=== PATIENT | male | born 1960 | race Caucasian/White ===

== ENCOUNTER 2022-02-13 10:57 | Outpatient (REF) | payer MEDICARE, SELFPAY ==
[2022-02-13 11:23] LABS: MANUAL DIFF FLAG NO
[2022-02-13 12:06] LABS: Basophils Absolute Auto 0.1 X10*3/uL (0.0-0.2); Basophils Percent Auto 1.3 % (0-2); Eosinophils Absolute Auto 0.5 X10*3/uL (0.0-0.4); Eosinophils Percent Auto 5.5 % (0-4); Hematocrit 42.8 % (42.0-52.0); Hemoglobin 14.4 g/dl (14.0-18.0); Imm Gran Abs Auto 0.03 X10*3/uL (0.00-0.03); Imm Gran Pct Auto 0.3 % (0.0-0.4); Lymphocytes Absolute Auto 2.5 X10*3/uL (1.2-4.9); Lymphocytes Percent Auto 29.1 % (20-40); Mean Corpuscular HGB Conc 33.6 g/dl (31.0-36.0); Mean Corpuscular Hemoglobin 29.4 pg (27.0-33.0); Mean Corpuscular Volume 87.5 fL (80.0-98.0); Mean Platelet Volume 9.8 fL (9.4-12.4); Monocytes Absolute Auto 0.8 X10*3/uL (0.1-1.2); Monocytes Percent Auto 8.8 % (2-11); Neutrophils Absolute Auto 4.7 x10*3/uL (2.0-8.3); Platelet Count 349 X10*3/uL (160-400); Red Blood Count 4.89 X10*6/uL (4.60-5.80); Red Cell Distribution Width 16.1 % (11.0-16.0); White Blood Count 8.6 X10*3/uL (4.8-10.8)
[2022-02-13 12:24] LABS: Alanine Aminotransferase 21 U/L (0-40); Alkaline Phosphatase 75 U/L (39-117); Anion Gap 15 (12-20); Aspartate Amino Transferase 19 U/L (5-37); Bilirubin Total 0.2 mg/dL (0.0-1.0); Blood Urea Nitrogen 19 mg/dL (9-16); Carbon Dioxide 19 mmol/L (22-29); Chloride 108 mmol/L (96-108); Cholesterol 192 mg/dL; Estimated Glomerular Filt Rate > 60; Glucose Fasting 158 mg/dL (60-99); HDL Cholesterol 45 mg/dL; LDL Cholesterol Calculated 110 mg/dl; Magnesium 1.6 mg/dL (1.6-2.6); Potassium 4.8 mmol/L (3.3-5.1); Sodium 137 mmol/L (135-145); Total Protein 6.8 g/dL (6.5-8.0); Triglycerides 189 mg/dL
[2022-02-13 12:39] LABS: Vitamin D 25-OH Total 25.1 ng/mL (>30)
[2022-02-13 12:43] LABS: Estimated Average Glucose 137 mg/dL; Hemoglobin A1c % 6.4 %
[2022-02-13 12:45] LABS: Prostate Specific Antigen Scr 0.11 ng/mL (<0.05-4.0)
[2022-02-13 13:29] LABS: Folate 9.1 ng/mL (> or = 4.0); Vitamin B12 477 pg/mL (200-900)
[2022-02-13 14:01] LABS: Creatinine Urine 104.62 mg/dL; Microalbum/Creatinine Ratio Ur 59.2 ug/mg cr
== END 2022-02-13 10:58 | disposition home or self-care (01) ==
LOC: HO.LAB 10:57
PROVIDERS: Absent Provider Nurse Practitioner Family; PCP Nurse Practitioner Family; Visit Provider Nurse Practitioner Family
DX: Z12.5 Encounter for screening for malignant neoplasm of prostate (principal); E78.5 Hyperlipidemia, unspecified; I10 Essential (primary) hypertension; K59.00 Constipation, unspecified; M35.3 Polymyalgia rheumatica; N40.0 Benign prostatic hyperplasia without lower urinary tract symptoms; E78.00 Pure hypercholesterolemia, unspecified; R25.1 Tremor, unspecified; E11.9 Type 2 diabetes mellitus without complications; E55.9 Vitamin D deficiency, unspecified
CPT/HCPCS: 36415; 80053; 80061; 82043; 82306; 82607; 82746; 83036; 83735; 84153; 84443; 85025

== ENCOUNTER 2022-05-22 08:58 | Outpatient (REF) | payer MEDICARE, MEDICAID, SELFPAY ==
[2022-05-22 09:40] LABS: Hematocrit 45.3 % (42.0-52.0); Hemoglobin 15.3 g/dl (14.0-18.0); Mean Corpuscular HGB Conc 33.8 g/dl (31.0-36.0); Mean Corpuscular Hemoglobin 30.7 pg (27.0-33.0); Mean Corpuscular Volume 90.8 fL (80.0-98.0); Mean Platelet Volume 9.8 fL (9.4-12.4); Platelet Count 307 X10*3/uL (160-400); Red Blood Count 4.99 X10*6/uL (4.60-5.80); Red Cell Distribution Width 13.8 % (11.0-16.0); White Blood Count 11.9 X10*3/uL (4.8-10.8)
[2022-05-22 09:51] LABS: Estimated Average Glucose 148 mg/dL; Hemoglobin A1c % 6.8 %
[2022-05-22 10:20] LABS: Alanine Aminotransferase 26 U/L (0-40); Alkaline Phosphatase 84 U/L (39-117); Anion Gap 15 (12-20); Aspartate Amino Transferase 23 U/L (5-37); Bilirubin Total 0.5 mg/dL (0.0-1.0); Blood Urea Nitrogen 18 mg/dL (9-16); Calcium 9.4 mg/dL (8.4-10.2); Carbon Dioxide 19 mmol/L (22-29); Chloride 109 mmol/L (96-108); Cholesterol 154 mg/dL; Estimated Glomerular Filt Rate > 60; Glucose Random 145 mg/dL (60-115); HDL Cholesterol 35 mg/dL; LDL Cholesterol Calculated 88 mg/dl; Potassium 4.8 mmol/L (3.3-5.1); Sodium 138 mmol/L (135-145); Total Protein 6.7 g/dL (6.5-8.0); Triglycerides 156 mg/dL
[2022-05-22 10:35] LABS: Vitamin D 25-OH Total 28.1 ng/mL (>30)
== END 2022-05-22 08:59 | disposition home or self-care (01) ==
LOC: HO.LAB 08:58
PROVIDERS: PCP Nurse Practitioner Family; Visit Provider Nurse Practitioner Family
DX: E11.9 Type 2 diabetes mellitus without complications (principal); E78.5 Hyperlipidemia, unspecified; R79.89 Other specified abnormal findings of blood chemistry
CPT/HCPCS: 36415; 80053; 80061; 82306; 83036; 85027

== ENCOUNTER 2022-07-11 10:00 | Outpatient (RCR) | payer MEDICARE, MEDICAID, SELFPAY | END 2022-07-16 09:38 | disposition home or self-care (01) | LOC: HO.PTCHIC 10:00 | PROVIDERS: PCP Nurse Practitioner Family; Visit Provider Orthopaedic Surgery | DX: M25.561 Pain in right knee (principal); T84.53XD Infection and inflammatory reaction due to internal right knee prosthesis, subsequent encounter | CPT/HCPCS: 97110; 97112; 97116; 97140; 97162; 97530 ==

== ENCOUNTER 2022-09-09 09:23 | Outpatient (REF) | payer MEDICARE, MEDICAID, SELFPAY ==
--- NOTE | 2022-09-09 09:28 | ECG_ITS ---
Test Reason : preop Blood Pressure : / mmHG Vent. Rate : 073 BPM Atrial Rate : 073 BPM P-R Int : 202 ms QRS Dur : 104 ms QT Int : 380 ms P-R-T Axes : 064 053 033 degrees QTc Int : 418 ms Normal sinus rhythm Normal ECG No previous ECGs available Referred By: Teresa Gauthier Electronically Signed By:LOVE CASANOVA
[2022-09-09 09:42] LABS: MANUAL DIFF FLAG NO
[2022-09-09 10:12] LABS: Basophils Absolute Auto 0.1 X10*3/uL (0.0-0.2); Basophils Percent Auto 1.2 % (0-2); Eosinophils Absolute Auto 0.4 X10*3/uL (0.0-0.4); Eosinophils Percent Auto 4.6 % (0-4); Hemoglobin 15.8 g/dl (14.0-18.0); Imm Gran Abs Auto 0.03 X10*3/uL (0.00-0.03); Imm Gran Pct Auto 0.3 % (0.0-0.4); Lymphocytes Absolute Auto 2.6 X10*3/uL (1.2-4.9); Lymphocytes Percent Auto 28.4 % (20-40); Mean Corpuscular HGB Conc 32.9 g/dl (31.0-36.0); Mean Corpuscular Hemoglobin 30.6 pg (27.0-33.0); Mean Platelet Volume 9.9 fL (9.4-12.4); Monocytes Absolute Auto 0.8 X10*3/uL (0.1-1.2); Monocytes Percent Auto 8.9 % (2-11); Neutrophils Absolute Auto 5.2 x10*3/uL (2.0-8.3); Neutrophils Percent Auto 56.6 % (45-73); Platelet Count 264 X10*3/uL (160-400); Red Blood Count 5.16 X10*6/uL (4.60-5.80); White Blood Count 9.2 X10*3/uL (4.8-10.8)
[2022-09-09 10:16] LABS: INTERNATIONAL NORM RATIO 0.9 (0.9-1.1); Prothrombin Time 10.8 SEC (10.0-13.1)
[2022-09-09 11:46] LABS: Creatinine Urine 158.36 mg/dL
[2022-09-09 12:25] LABS: Alanine Aminotransferase 27 U/L (0-40); Alkaline Phosphatase 81 U/L (39-117); Anion Gap 14 (12-20); Aspartate Amino Transferase 22 U/L (5-37); Bilirubin Total 0.5 mg/dL (0.0-1.0); Blood Urea Nitrogen 24 mg/dL (9-16); Calcium 9.1 mg/dL (8.4-10.2); Carbon Dioxide 18 mmol/L (22-29); Chloride 111 mmol/L (96-108); Cholesterol 172 mg/dL; Estimated Glomerular Filt Rate 60; Glucose Fasting 153 mg/dL (60-99); HDL Cholesterol 42 mg/dL; LDL Cholesterol Calculated 105 mg/dl; Potassium 4.9 mmol/L (3.3-5.1); Sodium 138 mmol/L (135-145); TSH reflex Free T4 0.97 uIU/mL (0.32-4.0); Total Protein 6.6 g/dL (6.5-8.0); Triglycerides 127 mg/dL; Vitamin D 25-OH Total 34.1 ng/mL (>30)
== END 2022-09-09 09:24 | disposition home or self-care (01) ==
LOC: HO.LAB 09:23
PROVIDERS: PCP Nurse Practitioner Family; Visit Provider Nurse Practitioner Family
DX: Z01.812 Encounter for preprocedural laboratory examination (principal); I10 Essential (primary) hypertension; H26.9 Unspecified cataract; E78.5 Hyperlipidemia, unspecified; E11.9 Type 2 diabetes mellitus without complications; E55.9 Vitamin D deficiency, unspecified
CPT/HCPCS: 36415; 80053; 80061; 82043; 82306; 84443; 85025; 85610; 93005

== ENCOUNTER 2022-12-11 11:40 | Outpatient (AMB) | payer MEDICARE, MEDICAID, SELFPAY ==
[2022-12-11 11:41] VITALS: BP 140/68; PULSE 95; O2SAT 94; BMI 38.8
--- NOTE | 2022-12-11 11:41 | MHC.PC.OV ---
Vital Signs 12/11/22 11:41 Height 6 ft Weight 286 lb BMI 38.8 BP 140/68 H Blood Pressure Location Lt brachial Position Sitting Pulse 95 Pulse Source Pulse Oximeter Temp Source Skin Pulse Oximetry (%) 94 Oxygen Delivery Method Room Air Intake Visit Reasons: F/U on DM, HTN, HLD Wraparound Facilitator Required: No Allergies No Known Allergies Allergy (Verified 12/11/22 12:02) Medication List - Last Reconciled 12/11/22 by HELENA Roberson acetaminophen (Tylenol) 650 mg PO Q6H PRN aspirin 81 mg PO BID atorvastatin 80 mg PO BEDTIME blood sugar diagnostic (FreeStyle Lite Strips) As directed blood-glucose meter (FreeStyle Lite Meter kit) As directed cholecalciferol (vitamin D3) 25 mcg PO DAILY doxycycline monohydrate 100 mg PO BID duloxetine 20 mg PO BID lancets (FreeStyle Lancets) As directed lisinopril 2.5 mg PO DAILY meloxicam 15 mg PO DAILY PRN metformin 1,000 mg PO DAILY metoprolol tartrate 25 mg PO BID nicotine 1 patch transdermal DAILY tamsulosin (Flomax) 0.4 mg PO BEDTIME Tobacco use date assessed: 12/11/22 Fall risk assessment: No Falls in past year Last assessed Fall Risk: 12/11/22 Dental Screening Dental Screen Date: 12/11/22 Did you have a dental visit in the last 12 months?: No Did you have a dental problem in the last 6 months where you did not have access to dental care?: No HPI F/U on DM, HTN, HLD HPI Details Patient is a 62-year-old male who presents today for routine follow-up.? Medical history significant for chronic low back pain, chronic pain syndrome, hyperlipidemia, BPH, polymyalgia rheumatica - reports seen rheumatology in the past and receiving injections in his lower back by creative services specialist, constipation, hypertension, and diabetes among others. Patient denies shortness of breath or chest pain.? In regards to right knee pain and MRSA infection patient is followed by Orthopedics and Infectious Disease on yearly basis and currently is on doxycycline. Patient reports that he is compliant with medications and denies side effects. Reports chronic low back pain with intermittent numbness and tingling in his legs, reports back pain is across his lower back, no changes in bowel/bladder, he takes meloxicam with some improvement. ? [facility] Medical History Encounter to establish care Surgical History History of back surgery History of bilateral knee replacement History of cataract surgery History of cholecystectomy History of colonoscopy History of eye surgery History of hemorrhoidectomy History of shoulder surgery History of surgery on lower extremity History of total bilateral knee replacement Social History Housing: House Alcohol intake: never Patient Tobacco Use Status: Current everyday Tobacco user Tobacco use type: Cigarette Cigarette Packs Per Day: 0.5 Cigarettes Per Day: 10 e-Cigarette/Vaping Use: Never Used Second Hand Smoke Exposure: Yes service: No Current occupational status: retired Cognitive needs: Yes (Cane) Hearing needs: No Vision needs: Yes (glasses) Questionnaire Thrive Questionnaire Date Thrive assessed: 05/27/22 AUDIT C Alcohol Use Questionnaire (AUDIT-C) 1. How often do you have a drink containing alcohol?: Never 2. How many drinks containing alcohol do you have on a typical day when you are drinking?: 1 or 2 (0) 3. How often do you have six or more drinks on one occasion?: Never Total Score: 0 Score Reviewed/Action Taken: No ALVERTO-7 AMB Questionnaire ALVERTO-7 Date ALVERTO - 7 assessed: 05/27/22 Source: Developed by Drs. Elias Fajardo, Vanessa De Souza, Ramesh Lechuga and colleagues, with an educational heidi from [employer]. Review of Systems Const Denies body aches, Denies chills, Denies fever(s) and Denies headache(s) Eyes Reports no additional complaints ENT Denies dizziness, Denies otalgia, Denies headache(s), Denies nasal discharge, Denies sinus pain and Denies sore throat Card Denies chest pain, Denies edema, Denies lightheadedness and Denies dyspnea Resp Denies chest congestion, Denies cough and Denies dyspnea GI Denies constipation, Denies diarrhea, Denies nausea and Denies vomiting Denies hematuria, Denies difficulty urinating, Denies dysuria and Denies flank pain Musc Details: Intermittent numbness and tingling in legs Reports back pain, Denies myalgias and Reports arthralgias Skin/Breast Denies lesions and Denies rash Neuro Denies dizziness and Denies headache(s) Physical exam (Primary Care) Vital Signs: Last Vital Signs Pulse 95 12/11/22 11:41 BP 140/68 H 12/11/22 11:41 Pulse Ox 94 12/11/22 11:41 Oxygen Delivery Method Room Air 12/11/22 11:41 BMI result Body Mass Index 38.8 Tobacco/Smoking Status: Tobacco use Status Tobacco use date assessed 12/11/22 12/11/22 11:42 Patient Tobacco Use Status Current everyday Tobacco 12/11/22 11:42 Tobacco use type Cigarette 12/11/22 11:42 e-Cigarette/Vaping Use Never Used 12/11/22 11:42 Thrive Assessment: Date of Thrive Assessment Date Thrive assessed 05/27/22 12/11/22 11:42 Const General: cooperative and no acute distress Orientation/consciousness: patient oriented x3 HENMT Other: Bilateral TM partially obstructed by cerumen, visualized TMs normal Head: Yes normocephalic and Yes atraumatic Face and sinus: Yes sinuses nontender Mouth: oropharynx normal and moist mucous membranes Throat: Yes posterior oropharynx normal Eyes General: appearance normal, both eyes and all related structures Pupils: Equal, round and reactive pupils present EOM: EOMs intact bilaterally Neck Neck: Yes normal visual inspection, Yes full ROM and Yes no lymphadenopathy Thyroid: Thyroid normal Resp Effort & Inspection: normal respiratory effort and able to speak in complete sentences Auscultation: clear to auscultation bilaterally, no crackles, no rales, no rhonchi and no wheezes Cardio Rate: regular rate Rhythm: regular rhythm Heart sounds: S1 normal heart sound present, S2 normal heart sound present and no murmurs GI Auscultation: normal bowel sounds Back/Spine/Pelvis Thoracic/Lumbar Spine: thoraco-lumbar ROM normal, No paraspinal muscle tenderness, No thoracic spinal tenderness and lumbar spinal tenderness Skin Other: Mid lumbar back with very mild light brown discoloration General skin exam: no rashes or lesions noted Neuro General: patient oriented x3 Cranial nerves: Yes Equal, round and reactive pupils present Gait exam (Neuro): Normal gait present Extrem General: Yes full ROM and No edema Results AMB Hemoglobin A1c AMB Hemoglobin A1c 6.3 % Last Edit by SANYA Alvarado on 12/11/22 12:00 Results Reviewed Results Reviewed: Laboratory Last Values Hgb A1c (Clinic) 6.3 % (4.0-6.0) H 12/11/22 11:43 Assessment and Plan Assessment & Plan (1) Prosthetic joint infection: Comment: Right knee Code(s): T84.50XA - Infection and inflammatory reaction due to unspecified internal joint prosthesis, initial encounter Plan: Continue to follow-up with orthopedic Dr. Jean-Baptiste and ID Continue antibiotics as prescribed Meloxicam 15 mg daily p.r.n. (2) Hyperlipidemia: Code(s): E78.5 - Hyperlipidemia, unspecified Plan: Atorvastatin 80 mg at bedtime Low-cholesterol diet (3) Hypertension: Code(s): I10 - Essential (primary) hypertension Plan: Goal BP equal or less than 140/90, patient reports that he did not take his blood pressure medications this morning yet Continue metoprolol 25 mg b.i.d. and lisinopril 2.5 mg daily Low-sodium diet and weight loss (4) Diabetes mellitus: Onset Date: ~2016 Code(s): E11.9 - Type 2 diabetes mellitus without complications Plan: A1c 6.3 today Continue metformin 1000 mg daily Low-carbohydrate diet Microalbumin 179 09/2022 - continue to monitor (5) Cigarette smoker: Comment: Smoke 1/2 pack/day Code(s): F17.210 - Nicotine dependence, cigarettes, uncomplicated Plan: Encouraged smoking cessation (6) Benign prostate hyperplasia: Code(s): N40.0 - Benign prostatic hyperplasia without lower urinary tract symptoms Plan: Continue Flomax 0.4 mg at bedtime (7) Microalbuminuria: Code(s): R80.9 - Proteinuria, unspecified Plan: Microalbumin 179 09/2022 - continue to monitor (8) Obesity (BMI 30-39.9): Code(s): E66.9 - Obesity, unspecified Plan: Healthy food choices and exercise as tolerated (9) Polymyalgia rheumatica: Comment: 2018 lower back Code(s): M35.3 - Polymyalgia rheumatica Plan: Patient with chronic low back pain, reports history of injections in the past due to polymyalgia rheumatica, will refer to Rheumatology for an evaluation and treatment, will obtain x-ray of lumbar spine. Plan Follow-up in 3 months or sooner as needed Orders: Orders Comprehensive [place]. Panel Fast 3 Months E11.9 - Type 2 diabetes mellitus without complications Hemoglobin A1c 3 Months E11.9 - Type 2 diabetes mellitus without complications Lipid Panel 3 Months E78.5 - Hyperlipidemia, unspecified XR lumbar spine 4V min Today M35.3 - Polymyalgia rheumatica AMB Hemoglobin A1c Today E11.9 - Type 2 diabetes mellitus without complications Referrals Rheumatology Referral M35.3 - Polymyalgia rheumatica Coding Level of Care Code Est Pt Level 4 (51620) Diagnoses Prosthetic joint infection T84.50XA Hyperlipidemia E78.5 Hypertension I10 Diabetes mellitus E11.9 Cigarette smoker F17.210 Benign prostate hyperplasia N40.0 Microalbuminuria R80.9 Obesity (BMI 30-39.9) E66.9 Polymyalgia rheumatica M35.3
== END 2022-12-11 12:47 | disposition home or self-care (01) ==
PROVIDERS: Visit Provider Nurse Practitioner Family
DX: I10 Essential (primary) hypertension (principal); E11.9 Type 2 diabetes mellitus without complications; T84.50XA Infection and inflammatory reaction due to unspecified internal joint prosthesis, initial encounter; F17.210 Nicotine dependence, cigarettes, uncomplicated; M35.3 Polymyalgia rheumatica; E78.5 Hyperlipidemia, unspecified; N40.0 Benign prostatic hyperplasia without lower urinary tract symptoms; R80.9 Proteinuria, unspecified; E66.9 Obesity, unspecified
CPT/HCPCS: 83036; 99214

== ENCOUNTER 2023-06-03 14:51 | Outpatient (AMB) | payer MEDICARE, SELFPAY ==
[2023-06-03 14:58] VITALS: BP 160/78; PULSE 90; O2SAT 98; BMI 39.3
--- NOTE | 2023-06-03 14:58 | MHC.PC.OV ---
Vital Signs 06/03/23 14:58 Height 6 ft Weight 290 lb BMI 39.3 BP 160/78 H Blood Pressure Location Lt brachial Position Sitting Pulse 90 Pulse Source Pulse Oximeter Pulse Oximetry (%) 98 Oxygen Delivery Method Room Air Intake Visit Reasons: F/U on DM, HLD, HTN Intake Note: Pt here for DM, HTN and HLD F/U pt of [facility]. 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 Required: No Accompanied by: Spouse Allergies No Known Allergies Allergy (Verified 06/03/23 15:24) Medication List - Last Reconciled 06/03/23 by Sven Rosado PA-C acetaminophen (Tylenol) 650 mg PO Q6H PRN aspirin 81 mg PO BID atorvastatin 80 mg PO BEDTIME blood sugar diagnostic (FreeStyle Lite Strips) As directed blood-glucose meter (FreeStyle Lite Meter kit) As directed cholecalciferol (vitamin D3) 25 mcg PO DAILY doxycycline monohydrate 100 mg PO BID duloxetine 20 mg PO BID lancets (FreeStyle Lancets) As directed lisinopril 2.5 mg PO DAILY meloxicam 15 mg PO DAILY PRN metformin 1,000 mg PO DAILY metoprolol tartrate 25 mg PO BID 90 days nicotine 1 patch transdermal DAILY tamsulosin (Flomax) 0.4 mg PO BEDTIME 90 days Tobacco use date assessed: 06/03/23 Fall risk assessment: 1 Fall in past year Last assessed Fall Risk: 06/03/23 Dental Screening Dental Screen Date: 06/03/23 Did you have a dental visit in the last 12 months?: Yes Did you have a dental problem in the last 6 months where you did not have access to dental care?: No Was dental information given to patient?: Patient has dentist HPI F/U on DM, HLD, HTN HPI Details Patient is a 62-year-old male here today for follow-up visit. This is the 1st time I am meeting this 62-year-old male. Previous PCP ([facility]) Patient has a past medical history significant for type 2 diabetes, hypertension, obesity, tobacco dependency .. Tobacco dependency: Has been smoking since teenage years. He is not interested in quitting at this time. We did speak about the lung cancer screening program and will consider this. He does have nicotine patches available to him at home .. Type 2 diabetes: Continues on daily metformin with decent affect on controlling his diabetes. . Hypertension: Blood pressure elevated today in office. Has been out of metoprolol for many months now. Needs urgent refill on metoprolol, otherwise has been asymptomatic without any headache, .. 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 Is followed by infectious disease specialist in [place] and is interested in establishing care with a new ID specialist. [facility] Medical History Encounter to establish care Surgical History History of cataract surgery History of colonoscopy History of surgery on lower extremity History of total bilateral knee replacement History of cholecystectomy History of hemorrhoidectomy History of shoulder surgery History of eye surgery History of bilateral knee replacement History of back surgery Social History Housing: House Alcohol intake: never Patient Tobacco Use Status: Current everyday Tobacco user Tobacco use type: Cigarette Cigarette Packs Per Day: 0.5 Cigarettes Per Day: 15 Years Smoked: 40 e-Cigarette/Vaping Use: Never Used Second Hand Smoke Exposure: Yes service: No Current occupational status: retired Cognitive needs: Yes (Cane) Hearing needs: No Vision needs: Yes (glasses) Questionnaire PHQ-9 Over the last 2 weeks, how often have you been bothered by any of the following problems? 1. Little interest or pleasure in doing things: not at all 2. Feeling down, depressed, or hopeless: not at all 3. Trouble falling or staying asleep, or sleeping too much: not at all 4. Feeling tired or having little energy: not at all 5. Poor appetite or overeating: not at all 6. Feeling bad about yourself - or that you are a failure or have let yourself or your family down: not at all 7. Trouble concentrating on things, such as reading the newspaper or watching television: not at all 8. Moving or speaking so slowly that other people could have noticed. Or the opposite - being so fidgety or restless that you have been moving around a lot more than usual: not at all 9. Thoughts that you would be better off or of hurting yourself in some way: not at all Total score: 0 Depression Screening Interpretation: Negative Depression Screening Done: Yes 57266 - PHQ-9 Billing: Yes Source: Developed by Drs. Elias Fajardo, Vanessa De Souza, Ramesh Lechuga and colleagues, with an educational heidi from [employer]. Thrive Questionnaire Date Thrive assessed: 05/27/22 AUDIT C Alcohol Use Questionnaire (AUDIT-C) 1. How often do you have a drink containing alcohol?: Monthly or less 2. How many drinks containing alcohol do you have on a typical day when you are drinking?: 1 or 2 3. How often do you have six or more drinks on one occasion?: Never Total Score: 1 ALVERTO-7 AMB Questionnaire ALVERTO-7 Date ALVERTO - 7 assessed: 06/03/23 Feeling nervous, anxious, or on edge: 0 = Not at all Not being able to stop or control worryin = Not at all Worrying too much about different things: 0 = Not at all Trouble relaxin = Not at all Being so restless that it is hard to sit still: 0 = Not at all Becoming easily annoyed or irritable: 0 = Not at all Feeling afraid as if something awful might happen: 0 = Not at all Total ALVERTO-7 score (0-4 normal; 5-9 mild; 10-14 moderate; 15-21 severe): 0 Source: Developed by Drs. Elias Fajardo, Vanessa De Souza, Ramesh Lechuga and colleagues, with an educational heidi from [employer]. ALVERTO-7 Assessment Billing ALVERTO-7 Assessment Tool: ALVERTO-7 Assessment 60688 Review of Systems Const Denies headache(s) Eyes Denies loss of vision ENT Denies vertigo, Denies dizziness, Denies headache(s) and Denies sore throat Card Denies chest pain, Denies leg edema and Denies lightheadedness Resp Denies cough, Denies hemoptysis and Denies wheezing GI Denies abdominal pain, Denies melena, Denies constipation, Denies diarrhea and Denies vomiting Denies dysuria, Denies urinary frequency and Denies urinary urgency Musc Denies arthralgias, Denies joint swelling, Denies numbness and Denies tingling Neuro Denies Abnormal speech present, Denies behavioral changes, Denies vertigo, Denies dizziness, Denies headache(s), Denies loss of vision, Denies memory loss, Denies numbness and Denies tingling Psych Denies anxiety, Denies behavioral changes, Denies depression, Denies memory loss and Denies panic attacks Mike/Lymph Denies easy bleeding and Denies easy bruising Aller/Immun Denies wheezing Physical exam (Primary Care) Vital Signs: Last Vital Signs Pulse 90 06/03/23 14:58 BP 160/78 H 06/03/23 14:58 Pulse Ox 98 06/03/23 14:58 Oxygen Delivery Method Room Air 06/03/23 14:58 BMI result Body Mass Index 39.3 BMI Assessment/Plan discussion: High Tobacco/Smoking Status: Tobacco use Status Tobacco use date assessed 06/03/23 06/03/23 15:18 Patient Tobacco Use Status Current everyday Tobacco 06/03/23 14:58 Tobacco use type Cigarette 06/03/23 14:58 e-Cigarette/Vaping Use Never Used 06/03/23 14:58 Are you ready to quit: No Tobacco cessation counseling provided: Yes Items discussed: Nicotine replacement Relapse Prevention: discussed the importance of a supportive environment, discussed negative mood or depression after quitting, weight gain after smoking is common and discussed dietary, exercise and/or lifestyle changes Number of minutes spent counselin CPT code: 55949 - 4-10 Minutes PHQ-9: PHQ-9 Score PHQ-9: Total score 0 06/03/23 15:42 Depression Screening Interpretation: Negative Thrive Assessment: Date of Thrive Assessment Date Thrive assessed 05/27/22 06/03/23 14:58 Const Other: OBESE General: healthy appearing, no acute distress, alert and awake Nutritional Appearance: well nourished Orientation/consciousness: oriented to person, oriented to place and oriented to time HENVT Ears: TM's normal bilaterally General nose exam: Normal nasal mucous membranes and turbinates present Eyes Conjunctivae: conjunctivae normal Sclerae: sclerae normal Pupils: Equal, round and reactive pupils present Neck Neck: Yes no lymphadenopathy and Yes no JVD Thyroid: Thyroid normal Carotids: no bruits Resp Effort & Inspection: normal respiratory effort and not tachypneic Auscultation: no crackles, no rales, no rhonchi and no wheezes Cardio Rate: regular rate Rhythm: regular rhythm Heart sounds: no murmurs and normal S1 and S2 GI Palpation (GI): Soft to palpation, nontender, no hepatomegaly and no splenomegaly Auscultation: normal bowel sounds Skin General skin exam: no rashes or lesions noted and dry skin Neuro General: oriented to person, oriented to place and oriented to time Cranial nerves: Yes Equal, round and reactive pupils present Speech: No Abnormal speech present Gait exam (Neuro): Normal gait present Motor exam (neuro): no tremor noted Extrem Right upper extremity: full ROM Left upper extremity: full ROM Right lower extremity: full ROM; no edema Left lower extremity: full ROM; no edema Psych Mental Status: mental status grossly normal Speech and movement: Normal speech and movement present Affect: normal affect Attitude: cooperative Thought process: Normal thought process present Office Procedures Flu Questionnaire Does the patient have a severe egg allergy?: No Does the patient have severe life threatening allergies?: No Does the patient have a fever or illness today?: No Has the patient ever had Guillain-[place] Syndrome?: No Has the patient ever had any past reaction to a flu shot?: No Results AMB Hemoglobin A1c AMB Hemoglobin A1c 6.9 % Last Edit by LUPE Ashley on 06/03/23 15:24 Immunizations flu vacc [id number] 6mos up(PF) 60 mcg(15 mcgx4)/0.5 mL IM syringe Performing Provider: Sven Rosado PA-C [facility] Administered by: LUPE Ashley on 06/03/23 15:24 Dose Route Admin Location Dispensed Lot Number Expiration Date N[employer] Development [employer]anner 0.5 mL IM Left Deltoid 0.5 mL [id number] 11/01/23 68435-247-73 [email or web address] V[facility] Given Date VIS Provided VIS Publication Date 06/03/23 Single Vaccine 20 Eligibility Eligibility Date Funding Source Not VFC Eligible 06/03/23 Private Results Reviewed Results Reviewed: Laboratory Last Values Hgb A1c (Clinic) 6.9 % (4.0-6.0) H 06/03/23 15:06 Assessment and Plan Assessment & Plan (1) Diabetes mellitus: Onset Date: ~2016 Code(s): E11.9 - Type 2 diabetes mellitus without complications Qualifiers: Diabetes mellitus complication status: with hyperglycemia 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 Continues on metformin daily with decent affect on controlling his diabetes. (2) Hypertension: Code(s): I10 - Essential (primary) hypertension Qualifiers: Hypertension type: primary hypertension Qualified Code(s): I10 - Essential (primary) hypertension Plan: Patient's blood pressure elevated today in office. He has been out of metoprolol since December of 2022. Will restart metoprolol. Advised to monitor blood pressure at home with goal blood pressure to be below 140/90 (3) Cigarette smoker: Comment: Smoke 1/2 pack/day Code(s): F17.210 - Nicotine dependence, cigarettes, uncomplicated Plan: Patient continues to smoke half pack cigarettes per day. We did discuss perhaps going to lung cancer screening program and patient is considering. 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 His anxious disease specialist is [place]. He is considering seeing a more local infectious disease. Orders: Orders Influenza [id number] Immunization 06/03/23 Z23 - Encounter for immunization Lipid Panel 06/03/23 E78.5 - Hyperlipidemia, unspecified Complete Blood Count no Diff 06/03/23 E11.9 - Type 2 diabetes mellitus without complications Prostate Specific Antigen Scr 06/03/23 E11.9 - Type 2 diabetes mellitus without complications, Z12.5 - Encounter for screening for malignant neoplasm of prostate AMB Hemoglobin A1c 06/03/23 E11.9 - Type 2 diabetes mellitus without complications Microalbumin, Random (w Creat) 06/03/23 I10 - Essential (primary) hypertension Comprehensive [place]. Panel Fast 06/03/23 E11.9 - Type 2 diabetes mellitus without complications Medications: New cholecalciferol (vitamin D3) 25 mcg PO DAILY 90 days 90 caps 1RF Changed From metoprolol tartrate 25 mg PO BID 60 tabs 2RF I10 - Essential (primary) hypertension To metoprolol tartrate 25 mg PO BID 90 days 180 tabs 1RF I10 - Essential (primary) hypertension From tamsulosin (Flomax) 0.4 mg PO BEDTIME 90 caps 1RF N40.0 - Benign prostatic hyperplasia without lower urinary tract symptoms To tamsulosin (Flomax) 0.4 mg PO BEDTIME 90 days 90 caps 1RF N40.0 - Benign prostatic hyperplasia without lower urinary tract symptoms From metformin 1,000 mg PO DAILY E11.9 - Type 2 diabetes mellitus without complications To metformin 1,000 mg PO DAILY 90 days 90 tabs 1RF E11.9 - Type 2 diabetes mellitus without complications From duloxetine 20 mg PO BID 60 caps 1RF G89.29 - Other chronic pain, M54.50 - Low back pain, unspecified To duloxetine 20 mg PO BID 90 days 180 caps 1RF G89.29 - Other chronic pain, M54.50 - Low back pain, unspecified From doxycycline monohydrate 100 mg PO BID T84.50XA - Infection and inflammatory reaction due to unspecified internal joint prosthesis, initial encounter To doxycycline monohydrate 100 mg PO BID 90 days 180 tabs 1RF T84.50XA - Infection and inflammatory reaction due to unspecified internal joint prosthesis, initial encounter Refilled lisinopril 2.5 mg PO DAILY 90 tabs 1RF I10 - Essential (primary) hypertension Coding Level of Care Code Est Pt Level 4 (89144) Diagnoses Type 2 diabetes mellitus with hyperglycemia, without long-term current use of insulin E11.65 Diabetes mellitus complication status: with hyperglycemia Diabetes mellitus intermediate insulin use: without intermediate use Diabetes mellitus type: type 2 Primary hypertension I10 Hypertension type: primary hypertension Cigarette smoker F17.210 Obesity (BMI 30-39.9) E66.9 Infection of prosthetic joint, subsequent encounter T84.50XD Encounter type: subsequent encounter Additional Codes ALVERTO-7 Assessment Billing - ALVERTO-7 Assessment Tool: ALVERTO-7 Assessment 98093 ([id number]) Vital Signs *Quality* - CPT code: 96124 - 4-10 Minutes ([id number])
== END 2023-06-03 15:59 | disposition home or self-care (01) ==
PROVIDERS: PCP Nurse Practitioner Family; Visit Provider Physician Assistant
DX: E11.9 Type 2 diabetes mellitus without complications (principal); Z23 Encounter for immunization
CPT/HCPCS: 83036; 90471; 90686; 99214; 99406

== ENCOUNTER 2023-08-25 09:56 | Outpatient (AMB) | payer MEDICARE, SELFPAY ==
--- NOTE | 2023-08-25 09:58 | MHC.PC.OV ---
Vital Signs 08/25/23 09:59 Height 6 ft Weight 284 lb 8 oz BMI 38.6 BP 128/62 Blood Pressure Location Lt brachial Position Sitting Pulse 86 Pulse Source Pulse Oximeter Pulse Oximetry (%) 93 Oxygen Delivery Method Room Air Intake Visit Reasons: establish care with Dr. Halina Rich Note: Patient is here today for RICHA from [employer] Pre Press Operator Required: No Seat Joiner Chainstitch: Present Accompanied by: Spouse Allergies No Known Allergies Allergy (Verified 08/25/23 17:14) Medication List - Last Reconciled 08/25/23 by Odin Gutierrez MD acetaminophen (Tylenol) 650 mg PO Q6H PRN aspirin 81 mg PO BID atorvastatin 80 mg PO BEDTIME blood sugar diagnostic (FreeStyle Lite Strips) As directed blood-glucose meter (FreeStyle Lite Meter kit) As directed cholecalciferol (vitamin D3) 25 mcg PO DAILY 90 days doxycycline monohydrate 100 mg PO BID 90 days duloxetine 20 mg PO BID 90 days lancets (FreeStyle Lancets) As directed lisinopril 2.5 mg PO DAILY meloxicam 15 mg PO DAILY PRN metformin 1,000 mg PO DAILY 90 days metoprolol tartrate 25 mg PO BID 90 days nicotine 1 patch transdermal DAILY tamsulosin (Flomax) 0.4 mg PO BEDTIME 90 days Tobacco use date assessed: 08/25/23 Fall risk assessment: No Falls in past year Last assessed Fall Risk: 08/25/23 Dental Screening Dental Screen Date: 06/03/23 HPI establish care with Dr. Meade HPI Details 63 yr old male presents to the office to discuss his medical problems. I will be assuming his care as his provider has left the practice. Pt is very worried about MRSA. Apparently he had a prolonged complication after knee surgery in the right side. Has been on antibiotics for a year. His ID specialist is in [place] and patient would like to receive his care here. He has spoken to the ID physician at the hospital who has agreed to assume his care. Also he has had multiple joint surgeries and would like to reconnect with his orthopedic surgeon. Currently he has no sx of pain, malaise symptoms that can be attributed to the above. Pt also has diabetes. This condition is currently stable and he is compliant with medications. [facility] Medical History (Updated 08/25/23 @ 17:26 by Odin Gutierrez MD) Hyperlipidemia Prosthetic joint infection Benign prostate hyperplasia Obesity (BMI 30-39.9) Encounter to establish care Surgical History History of cataract surgery History of colonoscopy History of surgery on lower extremity History of total bilateral knee replacement History of cholecystectomy History of hemorrhoidectomy History of shoulder surgery History of eye surgery History of bilateral knee replacement History of back surgery Social History Housing: House Alcohol intake: never Patient Tobacco Use Status: Current everyday Tobacco user Tobacco use type: Cigarette Cigarette Packs Per Day: 0.5 Cigarettes Per Day: 10 Years Smoked: 40 e-Cigarette/Vaping Use: Never Used Second Hand Smoke Exposure: Yes service: No Current occupational status: retired Cognitive needs: Yes (Cane) Hearing needs: No Vision needs: Yes (glasses) Questionnaire Thrive Questionnaire Date Thrive assessed: 05/27/22 ALVERTO-7 AMB Questionnaire ALVERTO-7 Date ALVERTO - 7 assessed: 06/03/23 Source: Developed by Drs. Elias Fajardo, Vanessa De Souza, Ramesh Lechuga and colleagues, with an educational heidi from [employer]. Physical exam (Primary Care) Vital Signs: Last Vital Signs Pulse 86 08/25/23 09:59 BP 128/62 08/25/23 09:59 Pulse Ox 93 08/25/23 09:59 Oxygen Delivery Method Room Air 08/25/23 09:59 BMI result Body Mass Index 38.6 Tobacco/Smoking Status: Tobacco use Status Tobacco use date assessed 08/25/23 08/25/23 10:19 Patient Tobacco Use Status Current everyday Tobacco 08/25/23 10:20 Tobacco use type Cigarette 08/25/23 10:20 e-Cigarette/Vaping Use Never Used 08/25/23 10:20 Thrive Assessment: Date of Thrive Assessment Date Thrive assessed 05/27/22 08/25/23 10:19 Const General: cooperative and healthy appearing Nutritional Appearance: well nourished Orientation/consciousness: patient oriented x3 Limitations: no limitations HENMT Head: Yes normal to inspection Eyes General: appearance normal, both eyes and all related structures Neck Neck: Yes normal visual inspection Chest Chest palpation & inspection: normal palpation of entire chest wall Resp Effort & Inspection: normal respiratory effort Neuro General: patient oriented x3 Results AMB Hemoglobin A1c AMB Hemoglobin A1c 7.4 % Last Edit by SANYA Barakat on 08/25/23 10:33 Results Reviewed Results Reviewed: Laboratory Last Values Hgb A1c (Clinic) 7.4 % (4.0-6.0) H 08/25/23 10:22 Assessment and Plan Assessment & Plan (1) Prosthetic joint infection: Comment: Right knee Code(s): T84.50XA - Infection and inflammatory reaction due to unspecified internal joint prosthesis, initial encounter Qualifiers: Encounter type: subsequent encounter Qualified Code(s): T84.50XD - Infection and inflammatory reaction due to unspecified internal joint prosthesis, subsequent encounter Plan: A referral for ID and orthopedics has been made as per patient's request. Old records to be requested. (2) Polymyalgia rheumatica: Comment: 2018 lower back Code(s): M35.3 - Polymyalgia rheumatica Plan: Meloxicam to be prescribed on a prn basis. (3) Right knee pain: Code(s): M25.561 - Pain in right knee Plan: Ortho referral has been placed. Orders: Orders AMB Hemoglobin A1c Today E11.65 - Type 2 diabetes mellitus with hyperglycemia Referrals Infectious Disease Referral M35.3 - Polymyalgia rheumatica, T84.50XD - Infection and inflammatory reaction due to unspecified internal joint prosthesis, subsequent encounter Orthopedics Referral M25.561 - Pain in right knee Medications: Refilled nicotine 1 patch transdermal DAILY 28 ea 1RF F17.210 - Nicotine dependence, cigarettes, uncomplicated atorvastatin 80 mg PO BEDTIME 90 tabs 1RF E78.5 - Hyperlipidemia, unspecified meloxicam 15 mg PO DAILY PRN 30 tabs 1RF pain M25.561 - Pain in right knee Coding Level of Care Code Est Pt Level 4 (89715) Diagnoses Infection of prosthetic joint, subsequent encounter T84.50XD Encounter type: subsequent encounter Polymyalgia rheumatica M35.3 Right knee pain M25.561
[2023-08-25 09:59] VITALS: BP 128/62; PULSE 86; O2SAT 93; BMI 38.6
== END 2023-08-25 10:39 | disposition home or self-care (01) ==
PROVIDERS: PCP Internal Medicine; Visit Provider Internal Medicine
DX: E11.65 Type 2 diabetes mellitus with hyperglycemia (principal); M35.3 Polymyalgia rheumatica; T84.50XD Infection and inflammatory reaction due to unspecified internal joint prosthesis, subsequent encounter
CPT/HCPCS: 83036; 99214

== ENCOUNTER 2023-09-02 14:13 | Outpatient (AMB) | payer MEDICARE, SELFPAY ==
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
[2023-09-02 14:30] VITALS: PULSE 86; TEMP 36.9; O2SAT 96; BMI 39.3
== END 2023-09-02 14:59 | disposition home or self-care (01) ==
PROVIDERS: PCP Internal Medicine; Visit Provider Internal Medicine
DX: T84.50XD Infection and inflammatory reaction due to unspecified internal joint prosthesis, subsequent encounter (principal); T84.59XA Infection and inflammatory reaction due to other internal joint prosthesis, initial encounter; Z96.659 Presence of unspecified artificial knee joint
CPT/HCPCS: 99203

== ENCOUNTER → 2023-09-02 14:13 | Outpatient (BNVA) | payer MEDICARE, SELFPAY | PROVIDERS: PCP Internal Medicine; Visit Provider Internal Medicine | DX: T84.59XD Infection and inflammatory reaction due to other internal joint prosthesis, subsequent encounter (principal); Z96.659 Presence of unspecified artificial knee joint; Z79.2 Long term (current) use of antibiotics | CPT/HCPCS: 99202 ==

== ENCOUNTER 2023-09-03 06:39 | Outpatient (REF) | payer MEDICARE, SELFPAY ==
--- NOTE | ~2023-09-03 | XR_ITS ---
EXAMINATION: XR KNEE, RIGHT CLINICAL INFORMATION: Pain in right knee. COMPARISON: None available. TECHNIQUE: Four views of the right knee. FINDINGS: Right knee total arthroplasty with intramedullary and tibial narendra components. Hardware appears intact. Heterotopic ossification. Moderate joint effusion. Large lateral patellar spur with linear lucency suggestive of fracture of indeterminate age. Moderate periosteal reaction along the lateral proximal shaft of the fibula, concerning for fracture of indeterminate age. XR/XR knee RT 3V IMPRESSION: 1. Right knee total arthroplasty with intramedullary and tibial narendra components. Hardware appears intact. 2. Large lateral patellar spur with linear lucency suggestive of fracture of indeterminate age. 3. Moderate periosteal reaction along the lateral proximal shaft of the fibula, concerning for fracture of indeterminate age. 4. Additional imaging should be considered for further evaluation. This study was presented today September 08, 2023 for interpretation. PSA staff will provide results to referring provider at this time.
== END 2023-09-03 06:40 | disposition home or self-care (01) ==
LOC: HO.HOSX 06:39
PROVIDERS: Visit Provider Orthopaedic Surgery
DX: M25.561 Pain in right knee (principal)
CPT/HCPCS: 73562; 99212

== ENCOUNTER 2023-09-03 08:43 | Outpatient (AMB) | payer MEDICARE, SELFPAY ==
[2023-09-03 08:53] VITALS: BMI 39.3
--- NOTE | 2023-09-03 08:53 | A.OFFVIS_ITS ---
Vital Signs 09/03/23 08:53 Height 6 ft Weight 290 lb BMI 39.3 Intake Visit Reasons: New Pt - Right Knee hx of TKA Intake Note: Aleks is a 63 year old male who presents as a new patient to reestablish care with Dr. Hopper with Right knee pain. Patient reports his pain has been going on for about 2 years and is a 3 on the 1-10 pain scale. He states he has had Right knee TKA 2021 a history of MRSA and sepsis as well as revision right total knee replacement surgery by Dr. Arriaga at [facility] in [place], [place]. He was recently seen by Dr. Farfan from Infectious Disease here at [facility]. He continues to take doxycycline indefinitely. Allergies No Known Allergies Allergy (Verified 09/03/23 09:05) Medication List - Last Reconciled 09/03/23 by Mic Hopper MD acetaminophen (Tylenol) 650 mg PO Q6H PRN aspirin 81 mg PO BID atorvastatin 80 mg PO BEDTIME blood sugar diagnostic (FreeStyle Lite Strips) As directed blood-glucose meter (FreeStyle Lite Meter kit) As directed cholecalciferol (vitamin D3) 25 mcg PO DAILY 90 days doxycycline monohydrate 100 mg PO BID 90 days duloxetine 20 mg PO BID 90 days lancets (FreeStyle Lancets) As directed lisinopril 2.5 mg PO DAILY meloxicam 15 mg PO DAILY PRN metformin 1,000 mg PO DAILY 90 days metoprolol tartrate 25 mg PO BID 90 days tamsulosin (Flomax) 0.4 mg PO BEDTIME 90 days PFS Medical History (Updated 09/03/23 @ 13:07 by Mic Hopper MD) Right knee pain Infected prosthetic knee joint Hyperlipidemia Prosthetic joint infection Benign prostate hyperplasia Obesity (BMI 30-39.9) Encounter to establish care Surgical History History of cataract surgery History of colonoscopy History of surgery on lower extremity History of total bilateral knee replacement History of cholecystectomy History of hemorrhoidectomy History of shoulder surgery History of eye surgery History of bilateral knee replacement History of back surgery Social History Housing: House Alcohol intake: never Patient Tobacco Use Status: Current everyday Tobacco user Tobacco use type: Cigarette Cigarette Packs Per Day: 0.5 Cigarettes Per Day: 10 Years Smoked: 40 e-Cigarette/Vaping Use: Never Used Second Hand Smoke Exposure: Yes service: No Current occupational status: retired Cognitive needs: Yes (Cane) Hearing needs: No Vision needs: Yes (glasses) Physical Exam Vital Signs: BMI result Body Mass Index 39.3 Const Other: Well-nourished well-developed very friendly male awake alert and oriented x3 in no acute distress Extrem Other: Bilateral lower extremity examination shows good capillary refill, no skin lesions noted, normal sensation light touch Right knee examination shows that the surgical incisions are well healed, no erythema, no effusion, full active extension and flexion to 100 degrees, his patella tracks well Results Reviewed Results Reviewed: X-rays of the patient's right knee taken today show a revision total knee arthroplasty in good position with no signs of loosening Assessment & Plan Assessment & Plan (1) Right knee pain: Code(s): M25.561 - Pain in right knee Category: Medical Plan Mr. Lynn continues to do very well after undergoing revision right total knee replacement surgery by Dr. Arriaga for treatment of his periprosthetic infection. The patient will continue on doxycycline indefinitely as per Dr. Farfan. At this time he has no evidence of recurrent infection. He will continue with his physical therapy exercises. He will contact me prior to his follow-up appointment in 3 months should any questions or concerns arise. Feel free to call me at any time should questions regarding his orthopedic management arise. I spent 20 minutes in reviewing the patient's records and imaging studies, seeing the patient and documenting in the medical record. Orders: Orders XR knee RT 3V Today M25.561 - Pain in right knee Coding Level of Care Code Est Pt Level 3 (99048) Diagnoses Right knee pain M25.561
== END 2023-09-03 09:23 | disposition home or self-care (01) ==
PROVIDERS: PCP Internal Medicine; Visit Provider Orthopaedic Surgery
DX: M25.561 Pain in right knee (principal)
CPT/HCPCS: 99213

== ENCOUNTER 2023-11-18 09:23 | Outpatient (AMB) | payer MEDICARE, SELFPAY ==
--- NOTE | 2023-11-18 09:44 | A.OFFPC_ITS ---
Vital Signs 11/18/23 09:46 11/18/23 09:53 Height 6 ft Weight 284 lb 4 oz BMI 38.5 BP 150/76 H 140/70 H Blood Pressure Location Lt brachial Lt brachial Position Sitting Sitting Pulse 82 Pulse Source Pulse Oximeter Pulse Oximetry (%) 76 L Oxygen Delivery Method Room Air Intake Visit Reasons: 3mth f/u Intake Note: Patient is here to follow up on BPH, Chronic low back pain, DM, HTN. Full Stack Python Developer Required: No Tank Maker Wood: Not Required per policy Accompanied by: Self / Same As Patient Allergies No Known Allergies Allergy (Verified 11/18/23 09:46) Tobacco use date assessed: 11/18/23 Fall risk assessment: No Falls in past year Last assessed Fall Risk: 11/18/23 Dental Screening Dental Screen Date: 06/03/23 HPI 3mth f/u HPI Details 63-year-old male presents to the office to discuss his chronic medical condition. Since last office visit, patient has seen the infectious disease managing consultant and the orthopedic surgeon. The doxycycline has been discontinued. His prosthesis is functioning well. He is able to do activities of daily living. Requesting a refill on his meloxicam. Not following any particular diet or exercise. [facility] Medical History (Updated 11/18/23 @ 10:33 by Odin Gutierrez MD) Class 2 severe obesity with body mass index (BMI) of 35 to 39.9 with serious comorbidity Right knee pain Infected prosthetic knee joint Hyperlipidemia Prosthetic joint infection Benign prostate hyperplasia Encounter to establish care Surgical History History of cataract surgery History of colonoscopy History of surgery on lower extremity History of total bilateral knee replacement History of cholecystectomy History of hemorrhoidectomy History of shoulder surgery History of eye surgery History of bilateral knee replacement History of back surgery Social History Housing: House Alcohol intake: never Patient Tobacco Use Status: Current everyday Tobacco user Tobacco use type: Cigarette Cigarette Packs Per Day: 0.5 Cigarettes Per Day: 10 Years Smoked: 40 e-Cigarette/Vaping Use: Never Used Second Hand Smoke Exposure: Yes service: No Current occupational status: retired Cognitive needs: Yes (Cane) Hearing needs: No Vision needs: Yes (glasses) Questionnaire Thrive Questionnaire Date Thrive assessed: 05/27/22 ALVERTO-7 AMB Questionnaire ALVERTO-7 Date ALVERTO - 7 assessed: 06/03/23 Source: Developed by Drs. Elias Fajardo, Vanessa De Souza, Ramesh Lechuga and colleagues, with an educational heidi from [employer]. Physical exam (Primary Care) Vital Signs: Last Vital Signs Pulse 82 11/18/23 09:46 BP 140/70 H 11/18/23 09:53 Pulse Ox 76 L 11/18/23 09:46 Oxygen Delivery Method Room Air 11/18/23 09:46 BMI result Body Mass Index 38.5 BMI Assessment/Plan discussion: High (1 lb per week weight loss suggested.) BMI High, discussed plan: lifestyle, weight reduction, dietary and alcohol moderation Tobacco/Smoking Status: Tobacco use Status Tobacco use date assessed 11/18/23 11/18/23 09:53 Patient Tobacco Use Status Current everyday Tobacco 11/18/23 09:53 Tobacco use type Cigarette 11/18/23 09:53 e-Cigarette/Vaping Use Never Used 11/18/23 09:53 Thrive Assessment: Date of Thrive Assessment Date Thrive assessed 05/27/22 11/18/23 09:53 Const General: cooperative and healthy appearing Nutritional Appearance: well nourished Orientation/consciousness: patient oriented x3 Limitations: no limitations HENMT Head: Yes normal to inspection Eyes General: appearance normal, both eyes and all related structures Neck Neck: Yes normal visual inspection Chest Chest palpation & inspection: normal palpation of entire chest wall Resp Effort & Inspection: normal respiratory effort Neuro General: patient oriented x3 Results AMB Hemoglobin A1c AMB Hemoglobin A1c 7.5 % Last Edit by SANYA Barakat on 11/18/23 09:56 Results Reviewed Results Reviewed: Laboratory Last Values Hgb A1c (Clinic) 7.5 % (4.0-6.0) H 11/18/23 09:44 Assessment and Plan Assessment & Plan (1) Diabetes mellitus: Onset Date: ~2016 Code(s): E11.9 - Type 2 diabetes mellitus without complications Qualifiers: Diabetes mellitus type: type 2 Diabetes mellitus skilled nursing insulin use: without predatory animal exterminator use Diabetes mellitus complication status: with hyperglycemia Qualified Code(s): E11.65 - Type 2 diabetes mellitus with hyperglycemia Plan: A1c is 7.5. Metformin dosage was increased to 1 g twice a day. Patient was encouraged to lose weight. I advised him to lose at least 10 lb. Counseling on the importance of diet and exercise done. (2) Prosthetic joint infection: Comment: Right knee Code(s): T84.50XA - Infection and inflammatory reaction due to unspecified internal joint prosthesis, initial encounter Qualifiers: Encounter type: subsequent encounter Qualified Code(s): T84.50XD - Infection and inflammatory reaction due to unspecified internal joint prosthesis, subsequent encounter Plan: Doxycycline has been discontinued. Infectious disease consult reviewed. Patient continues to have follow-up with his orthopedic surgeon. (3) Benign prostate hyperplasia: Code(s): N40.0 - Benign prostatic hyperplasia without lower urinary tract symptoms Plan: PSA has been ordered. (4) Class 2 severe obesity with body mass index (BMI) of 35 to 39.9 with serious comorbidity: Code(s): E66.01 - Morbid (severe) obesity due to excess calories Plan: Counseling on the importance of diet and exercise done. Orders: Orders Lipid Panel Today E11.65 - Type 2 diabetes mellitus with hyperglycemia, T84.50XD - Infection and inflammatory reaction due to unspecified internal joint prosthesis, subsequent encounter UA and rflx microscopic Today E11.65 - Type 2 diabetes mellitus with hyperglycemia, T84.50XD - Infection and inflammatory reaction due to unspecified internal joint prosthesis, subsequent encounter AMB Hemoglobin A1c Today E11.65 - Type 2 diabetes mellitus with hyperglycemia Basic Metabolic Panel Today E11.65 - Type 2 diabetes mellitus with hyperglycemia, T84.50XD - Infection and inflammatory reaction due to unspecified internal joint prosthesis, subsequent encounter Complete Blood Count no Diff Today E11.65 - Type 2 diabetes mellitus with hyperglycemia, T84.50XD - Infection and inflammatory reaction due to unspecified internal joint prosthesis, subsequent encounter Liver Panel Today E11.65 - Type 2 diabetes mellitus with hyperglycemia, T84.50XD - Infection and inflammatory reaction due to unspecified internal joint prosthesis, subsequent encounter Thyroid Stimulating Hormone Today E11.65 - Type 2 diabetes mellitus with hyperglycemia, T84.50XD - Infection and inflammatory reaction due to unspecified internal joint prosthesis, subsequent encounter Microalbumin, Random (w Creat) Today E11.65 - Type 2 diabetes mellitus with hyperglycemia, T84.50XD - Infection and inflammatory reaction due to unspecified internal joint prosthesis, subsequent encounter Prostate Specific Antigen Scr Today N40.0 - Benign prostatic hyperplasia without lower urinary tract symptoms Medications: Changed From metformin 1,000 mg PO DAILY 90 days 90 tabs 1RF E11.9 - Type 2 diabetes mellitus without complications To metformin 1,000 mg PO BID 90 days 180 tabs 1RF E11.9 - Type 2 diabetes mellitus without complications Refilled meloxicam 15 mg PO DAILY PRN 30 tabs 1RF pain M25.561 - Pain in right knee Discontinued doxycycline monohydrate Discontinued Reason: Doctor's Order 100 mg PO BID 90 days 180 tabs 1RF T84.50XA - Infection and inflammatory reaction due to unspecified internal joint prosthesis, initial encounter Coding Level of Care Code Est Pt Level 4 (90882) Complex EM visit Add On G2211 Diagnoses Type 2 diabetes mellitus with hyperglycemia, without long-term current use of insulin E11.65 Diabetes mellitus type: type 2 Diabetes mellitus skilled nursing insulin use: without skilled nursing use Diabetes mellitus complication status: with hyperglycemia Infection of prosthetic joint, subsequent encounter T84.50XD Encounter type: subsequent encounter Benign prostate hyperplasia N40.0 Class 2 severe obesity with body mass index (BMI) of 35 to 39.9 with serious comorbidity E66.01
[2023-11-18 09:46] VITALS: BP 150/76; PULSE 82; O2SAT 76; BMI 38.5
[2023-11-18 09:53] VITALS: BP 140/70
== END 2023-11-18 10:37 | disposition home or self-care (01) ==
PROVIDERS: PCP Internal Medicine; Visit Provider Internal Medicine
DX: E11.65 Type 2 diabetes mellitus with hyperglycemia (principal); E66.01 Morbid (severe) obesity due to excess calories; Z68.38 Body mass index [BMI] 38.0-38.9, adult; T84.50XD Infection and inflammatory reaction due to unspecified internal joint prosthesis, subsequent encounter; N40.0 Benign prostatic hyperplasia without lower urinary tract symptoms
CPT/HCPCS: 83036; 99214; G2211

== ENCOUNTER 2024-01-25 09:13 | Outpatient (AMB) | payer MEDICARE, SELFPAY ==
--- NOTE | 2024-01-25 09:15 | MHC.PC.OV ---
Vital Signs 01/25/24 09:17 Height 6 ft Weight 286 lb BMI 38.8 BP 130/72 Blood Pressure Location Lt brachial Position Sitting Pulse 85 Pulse Source Pulse Oximeter Pulse Oximetry (%) 96 Oxygen Delivery Method Room Air Intake Visit Reasons: Breath shortness / Couch / Disbalance Intake Note: Patient is here to follow up on SOB, and Cough. Superintendent Tests Required: No Greaser Operator: Present Accompanied by: Spouse Allergies No Known Allergies Allergy (Verified 01/26/24 18:59) Medication List - Last Reconciled 01/26/24 by Odin Gutierrez MD acetaminophen (Tylenol) 650 mg PO Q6H PRN aspirin 81 mg PO BID atorvastatin 80 mg PO BEDTIME blood sugar diagnostic (FreeStyle Lite Strips) As directed blood-glucose meter (FreeStyle Lite Meter kit) As directed cholecalciferol (vitamin D3) 25 mcg PO DAILY 90 days duloxetine 20 mg PO BID 90 days lancets (FreeStyle Lancets) As directed lisinopril 2.5 mg PO DAILY meloxicam 15 mg PO DAILY PRN metformin 1,000 mg PO BID 90 days metoprolol tartrate 25 mg PO BID 90 days nicotine apply 1-21 mg NICOTINE PATCH daily for 28 days; follow with 1-14 mg PATCH daily for 14 days, then 1-7mg PATCH daily for 14 days transdermal tamsulosin (Flomax) 0.4 mg PO BEDTIME 90 days Tobacco use date assessed: 01/25/24 Fall risk assessment: 1 Fall in past year Last assessed Fall Risk: 01/25/24 Dental Screening Dental Screen Date: 06/03/23 HPI Breath shortness / Couch / Disbalance HPI Details 63-year-old male presents to the office requesting help with quitting smoking. Patient has been smoking for many years and currently smokes half a pack a day. He only smokes tobacco. He has not tried to quit in the past, his spouse and him are now committed to do so. He has been feeling short of breath on exertion. A nonproductive cough. [facility] Medical History (Updated 01/26/24 @ 19:06 by Odin Gutierrez MD) Tobacco use disorder Class 2 severe obesity with body mass index (BMI) of 35 to 39.9 with serious comorbidity Right knee pain Infected prosthetic knee joint Hyperlipidemia Prosthetic joint infection Benign prostate hyperplasia Encounter to establish care Surgical History History of cataract surgery History of colonoscopy History of surgery on lower extremity History of total bilateral knee replacement History of cholecystectomy History of hemorrhoidectomy History of shoulder surgery History of eye surgery History of bilateral knee replacement History of back surgery Social History (Updated 01/25/24 @ 09:22 by SANYA Barakat) Housing: House Alcohol intake: never Patient Tobacco Use Status: Current everyday Tobacco user Tobacco use type: Cigarette Cigarette Packs Per Day: 0.5 Cigarettes Per Day: 9 Years Smoked: 40 e-Cigarette/Vaping Use: Never Used Second Hand Smoke Exposure: Yes service: No Current occupational status: retired Cognitive needs: Yes (Cane) Hearing needs: No Vision needs: Yes (glasses) Questionnaire Thrive Questionnaire Date Thrive assessed: 05/27/22 Are you currently unemployed and looking for a job?: No ALVERTO-7 AMB Questionnaire ALVERTO-7 Date ALVERTO - 7 assessed: 06/03/23 Source: Developed by Drs. Elias Fajardo, Vanessa De Souza, Ramesh Lechuga and colleagues, with an educational heidi from [employer]. Physical exam (Primary Care) Vital Signs: Last Vital Signs Pulse 85 01/25/24 09:17 BP 130/72 01/25/24 09:17 Pulse Ox 96 01/25/24 09:17 Oxygen Delivery Method Room Air 01/25/24 09:17 BMI result Body Mass Index 38.8 Tobacco/Smoking Status: Tobacco use Status Tobacco use date assessed 01/25/24 01/25/24 09:23 Patient Tobacco Use Status Current everyday Tobacco 01/25/24 09:23 Tobacco use type Cigarette 01/25/24 09:23 e-Cigarette/Vaping Use Never Used 01/25/24 09:23 Thrive Assessment: Date of Thrive Assessment Date Thrive assessed 05/27/22 01/25/24 09:23 Const General: cooperative and healthy appearing Nutritional Appearance: well nourished Orientation/consciousness: patient oriented x3 Limitations: no limitations HENMT Head: Yes normal to inspection Eyes General: appearance normal, both eyes and all related structures Neck Neck: Yes normal visual inspection Chest Chest palpation & inspection: normal palpation of entire chest wall Resp Effort & Inspection: normal respiratory effort Neuro General: patient oriented x3 Assessment and Plan Assessment & Plan (1) Tobacco use disorder: Code(s): F17.200 - Nicotine dependence, unspecified, uncomplicated Plan: 20 minutes spent. Ideas to quit smoking, avoid weight gain explained. Medications: New nicotine apply 1-21 mg NICOTINE PATCH daily for 28 days; follow with 1-14 mg PATCH daily for 14 days, then 1-7mg PATCH daily for 14 days transdermal 56 patches 0RF Refilled atorvastatin 80 mg PO BEDTIME 90 tabs 1RF E78.5 - Hyperlipidemia, unspecified metoprolol tartrate 25 mg PO BID 180 tabs 1RF 90 days I10 - Essential (primary) hypertension duloxetine 20 mg PO BID 180 caps 1RF 90 days G89.29 - Other chronic pain, M54.50 - Low back pain, unspecified cholecalciferol (vitamin D3) 25 mcg PO DAILY 90 caps 1RF 90 days Coding Level of Care Code Est Pt Level 3 (34068) Complex EM visit Add On G2211 Diagnoses Tobacco use disorder F17.200
[2024-01-25 09:17] VITALS: BP 130/72; PULSE 85; O2SAT 96; BMI 38.8
== END 2024-01-25 10:02 | disposition home or self-care (01) ==
PROVIDERS: PCP Internal Medicine; Visit Provider Internal Medicine
DX: F17.200 Nicotine dependence, unspecified, uncomplicated (principal)

== ENCOUNTER → 2024-01-25 09:13 | Outpatient (BNVA) | payer MEDICARE, SELFPAY | PROVIDERS: PCP Internal Medicine; Visit Provider Internal Medicine | DX: R05.9 Cough, unspecified (principal); F17.200 Nicotine dependence, unspecified, uncomplicated; M54.50 Low back pain, unspecified; I10 Essential (primary) hypertension; E78.5 Hyperlipidemia, unspecified; G89.29 Other chronic pain; Z71.6 Tobacco abuse counseling | CPT/HCPCS: 99212 ==

== ENCOUNTER 2024-01-26 10:13 | Outpatient (REF) | payer MEDICARE, SELFPAY ==
[2024-01-26 10:40] LABS: Hematocrit 45.4 % (42.0-52.0); Hemoglobin 15.6 g/dl (14.0-18.0); Mean Corpuscular HGB Conc 34.4 g/dl (31.0-36.0); Mean Corpuscular Volume 90.1 fL (80.0-98.0); Mean Platelet Volume 9.5 fL (9.4-12.4); Platelet Count 294 X10*3/uL (160-400); Red Blood Count 5.04 X10*6/uL (4.60-5.80); Red Cell Distribution Width 14.6 % (11.0-16.0); White Blood Count 9.2 X10*3/uL (4.8-10.8)
[2024-01-26 11:18] LABS: Alanine Aminotransferase 31 U/L (0-40); Albumin Level 3.9 g/dL (3.5-5.0); Alkaline Phosphatase 63 U/L (39-117); Anion Gap 11 (12-20); Aspartate Amino Transferase 23 U/L (5-37); Bilirubin Direct < 0.2 mg/dL (0.0-0.5); Bilirubin Total 0.2 mg/dL (0.0-1.0); Blood Urea Nitrogen 17 mg/dL (9-16); Calcium 9.2 mg/dL (8.4-10.2); Carbon Dioxide 22 mmol/L (22-29); Chloride 107 mmol/L (96-108); Cholesterol 309 mg/dL (<200); Estimated Glomerular Filt Rate > 60; Glucose Random 219 mg/dL (60-115); HDL Cholesterol 40 mg/dL (>40); Potassium 4.7 mmol/L (3.3-5.1); Sodium 135 mmol/L (135-145); Triglycerides 400 mg/dL (<150)
[2024-01-26 11:22] LABS: Thyroid Stimulating Hormone 1.02 uIU/mL (0.32-4.0)
[2024-01-26 11:30] LABS: Prostate Specific Antigen Scr 0.44 ng/mL (<0.05-4.0)
[2024-01-26 11:50] LABS: Appearance Urine Clear; Color Urine Yellow; Glucose Urine UA 250 mg/dL (Negative); Leukocyte Esterase Urine Negative (Negative); Nitrite Urine Negative (Negative); Specific Gravity - Urine 1.015 (1.005-1.025); UMIC TRIGGER UA YES; Urine Blood Negative (Negative); Urine Ketones Negative (Negative); Urine Protein 30 (1+) mg/dL (Neg-Trace)
[2024-01-26 11:56] LABS: Bacteria Urine None Seen (None Seen); Hyaline Casts Urine 0-2 /LPF (0-2); RBC Urine 0-2 /HPF (0-2); Squamous Epithelial Cell Urine 0-2 /HPF (0-2); WBC Urine 0-5 /HPF (0-5)
[2024-01-26 12:23] LABS: Creatinine Urine 140.85 mg/dL; Microalbum/Creatinine Ratio Ur 178.9 ug/mg cr (<30)
== END 2024-01-26 10:14 | disposition home or self-care (01) ==
LOC: HO.LAB 10:13
PROVIDERS: PCP Internal Medicine; Visit Provider Internal Medicine
DX: T84.50XD Infection and inflammatory reaction due to unspecified internal joint prosthesis, subsequent encounter (principal); E11.65 Type 2 diabetes mellitus with hyperglycemia; N40.0 Benign prostatic hyperplasia without lower urinary tract symptoms; Z12.5 Encounter for screening for malignant neoplasm of prostate
CPT/HCPCS: 36415; 80048; 80061; 80076; 81001; 82043; 82570; 84153; 84443; 85027

== ENCOUNTER 2024-02-04 12:53 | Emergency (ER) | payer MEDICARE, SELFPAY ==
--- NOTE | ~2024-02-04 | XR_ITS ---
EXAMINATION: XR THORACIC SPINE CLINICAL INFORMATION: Midline tenderness. COMPARISON: None available. TECHNIQUE: 4 views of the thoracic spine were obtained. FINDINGS: Thoracic spinal alignment is anatomic in the sagittal projection. Thoracic vertebral bodies demonstrate preserved stature. There is degenerative disc disease throughout multiple adjacent mid thoracic vertebral bodies. No acute fracture. Status post ACDF. The visualized lungs are clear. Cardiac size appears normal. XR/XR thoracic spine 3V IMPRESSION: No acute osseous thoracic spine abnormality. Degenerative disc disease throughout multiple adjacent mid thoracic vertebral bodies. Electronically signed by: Chad Rogers DO 02/04/2024 02:57 PM EDT
--- NOTE | ~2024-02-04 | XR_ITS ---
EXAMINATION: XR LUMBOSACRAL SPINE CLINICAL INFORMATION: Pain. COMPARISON: None available. TECHNIQUE: 4 views of the lumbosacral spine. FINDINGS: There are 5 nonrib-bearing lumbar vertebrae. Lumbar spinal alignment is anatomic in the sagittal projection. Vertebral body heights are preserved. There is degenerative disc disease, mild to moderate at L3-4, L4-5, and L5-S1. There is facet arthropathy at these levels. No acute fracture. There are degenerative changes of the sacroiliac joints, right greater than left. There is dense calcification of the aorta. XR/XR lumbar spine 2-3V IMPRESSION: No acute osseous lumbar spine abnormality. Degenerative disc disease at L3-4 through L5-S1. Facet arthropathy at these levels. Electronically signed by: Chad Rogers DO 02/04/2024 02:55 PM EDT
[2024-02-04 13:09] VITALS: BP 134/64; PULSE 71; RESP 14; TEMP 35.8; O2SAT 98; BMI 38.8
--- NOTE | 2024-02-04 13:09 | ED_ITS ---
HPI - Back Pain/Injury General Chief Complaint: Back Pain/Injury Stated Complaint: back pain Time Seen by Provider: 02/04/24 14:36 Source: patient Mode of arrival: ambulatory Limitations: no limitations History of Present Illness ED Provider: BRANDIE ALCALA PA-C HPI Narrative: 63 year old male with pmhx significant for presents to the ED today with acute on chronic back pain x1 week. Pain does not radiate down his extremities. Denies injury, trauma, fall. Taking Tylenol at home with minimal relief. Admits to remote history of spinal surgery x2 (lumbar and cervical). Also endorses hx of right knee replacement 4 years ago with subsequent sepsis infection following the procedure. States he is worried about infection although he does not feel like he did when he had sepsis. Denies IV drug use. Denies fever, chills, neck pain, bowel or bladder incontinence or retention, numbness/tingling/weakness in the lower extremities, dysuria, hematuria, saddle anesthesia. Related Data Home Medications ?Medication ?Instructions ?Recorded ?Confirmed acetaminophen 325 mg tablet 650 mg PO Q6H PRN 02/21/22 09/03/23 (Tylenol) Previous Rx's ?Medication ?Instructions ?Recorded aspirin 81 mg tablet,delayed 81 mg PO BID #56 tabs 09/13/21 release blood-glucose meter (FreeStyle #1 ea 10/11/21 Lite Meter kit) blood sugar diagnostic (FreeStyle #100 ea 10/16/21 Lite Strips) lancets 28 gauge (FreeStyle #100 ea 10/16/21 Lancets) lisinopril 2.5 mg tablet 2.5 mg PO DAILY #90 tabs 06/03/23 tamsulosin 0.4 mg capsule (Flomax) 0.4 mg PO BEDTIME 90 days #90 caps 06/03/23 meloxicam 15 mg tablet 15 mg PO DAILY PRN pain #30 tabs 11/18/23 metformin 1,000 mg tablet 1,000 mg PO BID 90 days #180 tabs 11/18/23 atorvastatin 80 mg tablet 80 mg PO BEDTIME #90 tabs 01/25/24 cholecalciferol (vitamin D3) 25 25 mcg PO DAILY 90 days #90 caps 01/25/24 mcg (1,000 unit) capsule duloxetine 20 mg capsule,delayed 20 mg PO BID 90 days #180 caps 01/25/24 release metoprolol tartrate 25 mg tablet 25 mg PO BID 90 days #180 tabs 01/25/24 nicotine See Rx Instructions transdermal 01/25/24 21mg/24hr-14mg/24hr-7mg/24hr daily .COMPLEX #56 patches transderm patches,sequentl cyclobenzaprine 5 mg tablet 5 mg PO Q8H #7 tabs 02/04/24 lidocaine 5 % topical patch 1 patch topical DAILY #15 ea 02/04/24 (Lidoderm) Allergies Allergy/AdvReac Type Severity Reaction Status Date / Time No Known Allergies Allergy Verified 02/04/24 13:11 Review of Systems 2 Review of Systems: Constitutional: No fever, chills, fatigue, night sweats, weight changes ENT/Mouth: No ear pain, hearing loss, nasal congestion, sinus pain, rhinorrhea, sore throat Eyes: No eye pain, swelling, redness, vision changes, discharge Cardio: No chest pain, palpitations, OBRIEN, orthopnea, peripheral edema Pulm: No SOB, cough, sputum, wheezing, dyspnea, hemoptysis GI: No nausea, vomiting, hematemesis, abdominal pain, diarrhea, constipation, hematochezia, melena : No irregular bleeding, dysuria, frequency, urgency, hesitancy, hematuria, flank pain, urinary flow changes, urinary incontinence or retention MSK: +back pain, No neck pain, joint pain, myalgias Skin: No lesions, rashes Neuro: No weakness, numbness, paresthesias, LOC, dizziness, headache Psych: No anxiety/panic, depression, SI/HI, AH/VH All other systems reviewed and are negative. [facility] Past Medical History Attestation statement: The following information was validated with the patient. Source: old records reviewed and nursing notes reviewed Medical History Tobacco use disorder Class 2 severe obesity with body mass index (BMI) of 35 to 39.9 with serious comorbidity Right knee pain Infected prosthetic knee joint Hyperlipidemia Prosthetic joint infection Benign prostate hyperplasia Encounter to establish care Surgical History History of cataract surgery History of colonoscopy History of surgery on lower extremity History of total bilateral knee replacement History of cholecystectomy History of hemorrhoidectomy History of shoulder surgery History of eye surgery History of bilateral knee replacement History of back surgery Social History Social History Housing: House Alcohol intake: never Patient Tobacco Use Status: Current everyday Tobacco user Tobacco use type: Cigarette Cigarette Packs Per Day: 0.5 Cigarettes Per Day: 9 Years Smoked: 40 e-Cigarette/Vaping Use: Never Used Second Hand Smoke Exposure: Yes service: No Current occupational status: retired Cognitive needs: Yes (Cane) Hearing needs: No Vision needs: Yes (glasses) Physical Exam 2 Vital Signs: Vital Signs: Last Vital Signs Temp 96.5 F L 02/04/24 17:01 Pulse 71 02/04/24 17:01 Resp 14 02/04/24 17:01 BP 134/64 02/04/24 17:01 Pulse Ox 98 02/04/24 17:01 O2 Del Method Room Air 02/04/24 17:01 BMI result Body Mass Index 38.8 vital signs stable General: Well appearing, in no acute distress. Skin: Warm, dry, intact. No rashes or lesions. Head: Normocephalic, atraumatic. EENT: Hearing is intact b/l. Conjunctiva clear. Sclera is anicteric. PERRLA. EOM intact. Moist mucous membranes.? Neck: Supple without LAD. FROM. Trachea midline.? Cardiac: Chest wall symmetric. RRR Lungs: Normal respiratory effort without accessory muscle use. CTA bilaterally. Abdomen: Soft, non-tender, non-distended Back: +ttp of midline lumbar spine without passing goal step-off deformity, warmth, fluctuance, crepitus or masses. ttp over left lumbar paraspinal mm. Ext: Upper and lower extremities atraumatic, without tenderness, deformity, swelling or erythema. Full ROM throughout. Pulses 2+ equal and bilateral. Neuro: AOx3. Normal speech. Strength 5/5 intact throughout. No saddle anesthesia. Sensation intact to light touch. NV intact distally. Reflexes 2+ bilaterally. Ambulating with steady gait assisted by cane. Psych: Appropriate mood and affect. Responds appropriately to questions. Course Course Course Narrative: This is a Rapid Medical Examination (RME) performed by Fernando Hart PA-C in triage. Full HPI, ROS, assessment and treatment plan per primary provider in the Main ED. 63 yo male presents to the ER for evaluation of middle and lower midline back pain for the last 1 week. hx multiple back surgeries and septic joint requiring hardware and washouts. he is worried about recurrent sepsis. denies fever, chills, N/V/D, abdominal pain, weakness, numbness or tingling. denies any trauma or falls. No red flag symptoms of low back pain. He has tenderness of the lower thoracic and upper lumbar spine and paraspinous muscles. VSS are stable. Plan: labs for reassurance and XRs of the spine Reevaluation(s) Reevaluation #1: 1640 -- cbc with slight leukocytosis to 10.69 without let shift. no anemia, H&H stable. chemistry without acute electrolyte abnormality requiring intervention. random glucose 133. no JERRY. Inflammatory markers WNL. Urine negative for infection or blood. X-ray thoracic spine without acute fracture subluxation. There is degenerative disc disease throughout multiple adjacent midthoracic vertebral bodies. X-ray lumbar spine without fracture or subluxation. There is degenerative disc disease at L3-L4 and L5-S1 with facet arthropathy at these levels. > discussed workup results with patient. Patient reports improvement in symptoms after receiving Flexeril, Toradol and lidocaine patch. Will send these to pharmacy. Advised to follow up with his PCP and will provide referral to pain management for further management given chronic back pain. Patient has remained stable throughout ED visit today. Discussed worrisome signs and symptoms and when to return to the ED. All questions answered at this time. Patient is agreeable with disposition and stable for discharge. Medications Administered Discontinued Medications Generic Name Dose Route Start Last Admin Trade Name Zuri PRN Reason Stop Dose Admin Cyclobenzaprine HCl 10 mg 02/04/24 15:16 02/04/24 15:30 Cyclobenzaprine Hcl 10 Mg Tablet PO 02/04/24 15:17 10 mg ONCE ONE Administration Ketorolac Tromethamine 30 mg 02/04/24 15:16 02/04/24 15:31 Ketorolac Tromethamine 30 Mg/Ml Vial IM 02/04/24 15:17 30 mg ONCE ONE Administration Lidocaine 1 patch 02/04/24 15:16 02/04/24 15:33 Lidocaine 4 % Patch Adh..Patch TRANSDERMA 02/04/24 15:17 1 patch ONCE ONE Administration Protocol Medical Decision Making Medical Decision Making MDM Narrative: 63 year old male with pmhx significant for presents to the ED today with acute on chronic back pain x1 week. Vital signs stable. He is nontoxic-appearing and in no acute distress. Ambulating with steady gait assisted by cane. On exam, pt is ttp of midline lumbar spine without passing goal step-off deformity, warmth, fluctuance, crepitus or masses. ttp over left lumbar paraspinal mm. nv intact distally. no saddle anesthesia. 2+ patellar dtrs intact. Differential diganosis includes DDD, arthritis, MSK sprain/strain, fracture, subluxation, disc herniation, sciatica. Lower suspicion for UTI, pyelo, nephrolithiasis, hydronephrosis. Unlikely cord compression, cauda equina, Guillain-Midway, epidural abscess. Labs and imaging ordered from triage. Plan for review of work up results, pain control, and re-evaluation. Differential Diagnosis Differential Diagnoses: The differential diagnosis associated with the presentation includes as above Admission/Observation Not indicated. Lab Data [facility] Lab Attestation statement: I reviewed the patient's lab results. As above 02/04/24 14:02 02/04/24 14:02 Labs: Lab Results 02/04/24 02/04/24 Range/Units 14:02 15:47 WBC 10.9 H (4.8-10.8) X10*3/uL RBC 5.33 (4.60-5.80) X10*6/uL Hgb 16.5 (14.0-18.0) g/dl Hct 47.9 (42.0-52.0) % MCV 89.9 (80.0-98.0) fL MCH 31.0 (27.0-33.0) pg MCHC 34.4 (31.0-36.0) g/dl RDW 14.5 (11.0-16.0) % Plt Count 339 (160-400) X10*3/uL MPV 9.3 L (9.4-12.4) fL Immature Gran % (Auto) 0.5 H (0.0-0.4) % Neut % (Auto) 55.8 (45-73) % Lymph % (Auto) 29.1 (20-40) % Mckean % (Auto) 9.8 (2-11) % Eos % (Auto) 3.7 (0-4) % Baso % (Auto) 1.1 (0-2) % Lymph # (Auto) 3.2 (1.2-4.9) X10*3/uL Mckean # (Auto) 1.1 (0.1-1.2) X10*3/uL Eos # (Auto) 0.4 (0.0-0.4) X10*3/uL Baso # (Auto) 0.1 (0.0-0.2) X10*3/uL Abs Immat Gran (auto) 0.05 H (0.00-0.03) X10*3/uL Absolute Neuts (auto) 6.1 (2.0-8.3) x10*3/uL Absolute Nucleated RBC 0.000 (0.0-0.012) X10*3/uL Nucleated RBC % (auto) 0.0 (0.0-0.2) /100WBC ESR 7 (0-15) MM/HR Sodium 140 (135-145) mmol/L Potassium 4.8 (3.3-5.1) mmol/L Chloride 110 H (96-108) mmol/L Carbon Dioxide 19 L (22-29) mmol/L Anion Gap 16 (12-20) BUN 19 H (9-16) mg/dL Creatinine 1.34 (0.5-1.4) mg/dL Estim Creat Clear Calc 76.5 Estimated GFR 53 Random Glucose 133 H (60-115) mg/dL Calcium 9.4 (8.4-10.2) mg/dL C-Reactive Protein 0.18 (< or = 0.50) mg/dL Urine Color Dark Yellow Urine Appearance Clear Urine pH 5.5 (5.0-9.0) Ur Specific [place] >= 1.030 H (1.005-1.025) Urine Protein 100 (2+) H (Neg-Trace) mg/dL Urine Glucose (UA) Negative (Negative) mg/dL Urine Ketones Trace (Negative) mg/dL Urine Blood Negative (Negative) Urine Nitrite Negative (Negative) Ur Leukocyte Esterase Negative (Negative) Urine RBC 0-2 (0-2) /HPF Urine WBC 0-5 (0-5) /HPF Ur Squamous Epith Cells 0-2 (0-2) /HPF Urine Bacteria None Seen (None Seen) Hyaline Casts 0-2 (0-2) /LPF Independent Interpretation I performed an independent interpretation of an: Plain X-Ray Interpretation: X-ray thoracic and lumbar spine without acute fracture subluxation, agree with radiologist's interpretation. Radiology Impression Discussion of test interpretation with radiology: I have reviewed the radiologist's reading. Radiologist Impression: EXAMINATION: XR LUMBOSACRAL SPINE CLINICAL INFORMATION: Pain. COMPARISON: None available. TECHNIQUE: 4 views of the lumbosacral spine. FINDINGS: There are 5 nonrib-bearing lumbar vertebrae. Lumbar spinal alignment is anatomic in the sagittal projection. Vertebral body heights are preserved. There is degenerative disc disease, mild to moderate at L3-4, L4-5, and L5-S1. There is facet arthropathy at these levels. No acute fracture. There are degenerative changes of the sacroiliac joints, right greater than left. There is dense calcification of the aorta. XR/XR lumbar spine 2-3V IMPRESSION: No acute osseous lumbar spine abnormality. Degenerative disc disease at L3-4 through L5-S1. Facet arthropathy at these levels. Electronically signed by: Chad Rogers DO 02/04/2024 02:55 PM EDT [employer] EXAMINATION: XR THORACIC SPINE CLINICAL INFORMATION: Midline tenderness. COMPARISON: None available. TECHNIQUE: 4 views of the thoracic spine were obtained. FINDINGS: Thoracic spinal alignment is anatomic in the sagittal projection. Thoracic vertebral bodies demonstrate preserved stature. There is degenerative disc disease throughout multiple adjacent mid thoracic vertebral bodies. No acute fracture. Status post ACDF. The visualized lungs are clear. Cardiac size appears normal. XR/XR thoracic spine 3V IMPRESSION: No acute osseous thoracic spine abnormality. Degenerative disc disease throughout multiple adjacent mid thoracic vertebral bodies. Electronically signed by: Chad Rogers DO 02/04/2024 02:57 PM EDT RP Independent Historian Clinical information obtained from an independent historian. History obtained from or confirmed by: Spouse () External Record Review External record reviewed: Inpatient record Prescription Management I considered prescription management with: Pain Medication (Tylenol, ibuprofen) and Other (Flexeril, lidocaine patch) Social Determinants Patient?s care significantly limited by Social Determinants of Health including: Other Social Determinant of Health Critical Care Time Critical Care Time Critical Care Time: No Discharge Plan Discharge Clinical Impression: Degenerative disc disease, lumbar, Facet arthropathy, lumbar Patient Disposition: Home, Self-Care Instructions: Chronic Back Pain (DC) Additional Instructions: You were evaluated in the Emergency Department today for your back pain.? Your evaluation did not show signs of medical conditions requiring emergent intervention at this time. Your blood work is reassuring. Your urine is negative for infection. Your xrays show degenerative disc disease and facet arthropathy as discussed. Avoid bending, lifting, or twisting. Use ice several times per day for 20 minutes at a time for the next 48 hours and then change to heat. We recommend you take 600mg ibuprofen every 6 hours or tylenol 650mg every 6 hours as needed for pain. If needed, you can alternate these medications so that you take one medication every 3 hours. For example, at noon take ibuprofen, then at 3pm take tylenol, then at 6pm take ibuprofen. Flexeril is a muscle relaxer. Take this at night as it makes you drowsy. Do not drive, drink alcohol, or operate machinery while taking it. Lidoderm patches are numbing patches. Apply to painful areas. Please schedule an appointment for follow-up with your primary care provider this week. You have also been provided with referral to pain management. Call them to establish care. They will not call you. Return to the Emergency Department if you experience worsening back pain, difficulty walking, fevers, numbness, tingling, incontinence, or any other concerning symptoms. In the case of an emergency call 911. Prescriptions: New cyclobenzaprine 5 mg tablet 5 mg PO Q8H Qty: 7 0RF lidocaine [Lidoderm] 5 % adhesive patch,medicated 1 patch topical DAILY Qty: 15 0RF Rx Instructions: leave on most painful area for up to 12 hrs No Action aspirin 81 mg tablet,delayed release (DR/EC) 81 mg PO BID Qty: 56 1RF (DME) blood-glucose meter [FreeStyle Lite Meter] Kit See Rx Instructions .Route Qty: 1 0RF Rx Instructions: As directed (DME) lancets [FreeStyle Lancets] 28 gauge misc See Rx Instructions .Route Qty: 100 0RF Rx Instructions: As directed (DME) FreeStyle Lite Strips Strip See Rx Instructions .Route Qty: 100 0RF Rx Instructions: As directed acetaminophen [Tylenol] 325 mg tablet 650 mg PO Q6H PRN meloxicam 15 mg tablet 15 mg PO DAILY PRN (Reason: pain) Qty: 30 1RF metformin 1,000 mg tablet 1,000 mg PO BID 90 Days Qty: 180 1RF tamsulosin [Flomax] 0.4 mg capsule 0.4 mg PO BEDTIME 90 Days Qty: 90 1RF lisinopril 2.5 mg tablet 2.5 mg PO DAILY Qty: 90 1RF duloxetine 20 mg capsule,delayed release(DR/EC) 20 mg PO BID 90 Days Qty: 180 1RF atorvastatin 80 mg tablet 80 mg PO BEDTIME Qty: 90 1RF cholecalciferol (vitamin D3) 25 mcg (1,000 unit) capsule 25 mcg PO DAILY 90 Days Qty: 90 1RF metoprolol tartrate 25 mg tablet 25 mg PO BID 90 Days Qty: 180 1RF nicotine 21-14-7 mg/24 hr patch, TD daily, sequential See Rx Instructions transdermal .COMPLEX Qty: 56 0RF Rx Instructions: apply 1-21 mg NICOTINE PATCH daily for 28 days; follow with 1-14 mg PATCH daily for 14 days, then 1-7mg PATCH daily for 14 days transdermal Referrals: [facility] [Provider Group] Fernando Hatfield MD, PhD [Physician] - Odin Gutierrez MD [Primary Care Provider] - Interventions: ED Discharge Assessment Last Done: 02/04/24 17:01 Discharge Date/Time: 02/04/24 17:01 Print Language: Hong Konger
[2024-02-04 14:09] LABS: MANUAL DIFF FLAG NO
[2024-02-04 14:12] LABS: Basophils Absolute Auto 0.1 X10*3/uL (0.0-0.2); Basophils Percent Auto 1.1 % (0-2); Eosinophils Absolute Auto 0.4 X10*3/uL (0.0-0.4); Eosinophils Percent Auto 3.7 % (0-4); Hematocrit 47.9 % (42.0-52.0); Hemoglobin 16.5 g/dl (14.0-18.0); Imm Gran Abs Auto 0.05 X10*3/uL (0.00-0.03); Imm Gran Pct Auto 0.5 % (0.0-0.4); Lymphocytes Absolute Auto 3.2 X10*3/uL (1.2-4.9); Lymphocytes Percent Auto 29.1 % (20-40); Mean Corpuscular HGB Conc 34.4 g/dl (31.0-36.0); Mean Corpuscular Volume 89.9 fL (80.0-98.0); Mean Platelet Volume 9.3 fL (9.4-12.4); Monocytes Absolute Auto 1.1 X10*3/uL (0.1-1.2); Monocytes Percent Auto 9.8 % (2-11); Neutrophils Absolute Auto 6.1 x10*3/uL (2.0-8.3); Neutrophils Percent Auto 55.8 % (45-73); Platelet Count 339 X10*3/uL (160-400); Red Blood Count 5.33 X10*6/uL (4.60-5.80); Red Cell Distribution Width 14.5 % (11.0-16.0); White Blood Count 10.9 X10*3/uL (4.8-10.8)
[2024-02-04 14:23] LABS: Anion Gap 16 (12-20); Blood Urea Nitrogen 19 mg/dL (9-16); C Reactive Protein 0.18 mg/dL (< or = 0.50); Calcium 9.4 mg/dL (8.4-10.2); Carbon Dioxide 19 mmol/L (22-29); Chloride 110 mmol/L (96-108); Creatinine Clr Calc Pharmacy 76.5; Estimated Glomerular Filt Rate 53; Glucose Random 133 mg/dL (60-115); Potassium 4.8 mmol/L (3.3-5.1); Sodium 140 mmol/L (135-145)
[2024-02-04 14:53] LABS: Erythrocyte Sedimentation Rate 7 MM/HR (0-15)
[2024-02-04] MEDS: Cyclobenzaprine HCl 10 MG TABLET PO (15:30)
[2024-02-04] MEDS: Ketorolac Tromethamine 30 MG/ML VIAL IM (15:31)
[2024-02-04] MEDS: Lidocaine 4 % Patch ADH..PATCH 1 PATCH TRANSDERMA (15:33)
[2024-02-04 15:54] LABS: Appearance Urine Clear; Color Urine Dark Yellow; Glucose Urine UA Negative (Negative); Leukocyte Esterase Urine Negative (Negative); Nitrite Urine Negative (Negative); PH 5.5 (5.0-9.0); Specific Gravity - Urine >= 1.030 (1.005-1.025); UMIC TRIGGER UACC YES; Urine Blood Negative (Negative); Urine Ketones Trace mg/dL (Negative); Urine Protein 100 (2+) mg/dL (Neg-Trace)
[2024-02-04 16:20] LABS: Bacteria Urine None Seen (None Seen); Hyaline Casts Urine 0-2 /LPF (0-2); RBC Urine 0-2 /HPF (0-2); Squamous Epithelial Cell Urine 0-2 /HPF (0-2); WBC Urine 0-5 /HPF (0-5)
[2024-02-04 17:01] VITALS: BP 134/64; PULSE 71; RESP 14; TEMP 35.8; O2SAT 98
== END 2024-02-04 17:01 | disposition home or self-care (01) ==
PROVIDERS: Physician Assistant; Physician Assistant Medical; Emergency Provider Student in an Organized Health Care Education/Training Program; PCP Internal Medicine
DX: M51.369 Other intervertebral disc degeneration, lumbar region without mention of lumbar back pain or lower extremity pain (principal); M47.896 Other spondylosis, lumbar region; M54.50 Low back pain, unspecified; Z79.899 Other long term (current) drug therapy
CPT/HCPCS: 36415; 72072; 72100; 80048; 81001; 81003; 85025; 85652; 86140; 96372; 99283; 99284; J1885

== ENCOUNTER → 2024-02-24 14:58 | Outpatient (BNVA) | payer MEDICARE, SELFPAY | PROVIDERS: PCP Internal Medicine; Visit Provider Internal Medicine | DX: E66.01 Morbid (severe) obesity due to excess calories (principal); Z68.38 Body mass index [BMI] 38.0-38.9, adult; M54.50 Low back pain, unspecified; E11.65 Type 2 diabetes mellitus with hyperglycemia; F17.210 Nicotine dependence, cigarettes, uncomplicated; Z23 Encounter for immunization | CPT/HCPCS: 83036; 90471; 90656; 99212 ==

== ENCOUNTER → 2024-02-24 14:58 | Outpatient (AMB) | payer MEDICARE, SELFPAY ==
--- NOTE | 2024-02-24 15:03 | MHC.PC.OV ---
Vital Signs 02/24/24 15:06 Height 6 ft Weight 283 lb 6 oz BMI 38.4 BP 120/70 Blood Pressure Location Lt brachial Position Sitting Pulse 69 Pulse Source Pulse Oximeter Pulse Oximetry (%) 95 Oxygen Delivery Method Room Air Intake Visit Reasons: 1 Month F/U Intake Note: Patient is here to follow up on LDDD, HTN, HLD, DM. Pheresis Nurse Required: No Internet Merchant: Present Accompanied by: Spouse Allergies No Known Allergies Allergy (Verified 02/25/24 04:09) Medication List - Last Reconciled 02/25/24 by Odin Gutierrez MD acetaminophen (Tylenol) 650 mg PO Q6H PRN aspirin 81 mg PO BID atorvastatin 80 mg PO BEDTIME blood sugar diagnostic (FreeStyle Lite Strips) As directed blood-glucose meter (FreeStyle Lite Meter kit) As directed cholecalciferol (vitamin D3) 25 mcg PO DAILY 90 days cyclobenzaprine 5 mg PO Q8H duloxetine 20 mg PO BID 90 days lancets (FreeStyle Lancets) As directed lidocaine 5% (Lidoderm) 1 patch topical DAILY lisinopril 2.5 mg PO DAILY meloxicam 15 mg PO DAILY PRN metformin 1,000 mg PO BID 90 days metoprolol tartrate 25 mg PO BID 90 days tamsulosin (Flomax) 0.4 mg PO BEDTIME 90 days Tobacco use date assessed: 02/24/24 Fall risk assessment: No Falls in past year Last assessed Fall Risk: 02/24/24 Dental Screening Dental Screen Date: 06/03/23 HPI 1 Month F/U HPI Details 63-year-old male presents to the office for a 1 month follow-up. Patient could not afford the patches as he is living on fixed income. He never filled the prescription. He reports that on his own he has reduced his smoking to 5-8 cigarettes a day. He attempts to bring it down without any intervention. Since last office visit patient has had episodes of lower back pain. When he has been doing work in the y[place], his back spasm occurred and he was seen in the emergency room for a muscle relaxant. Physical therapy has been scheduled. Patient has received his flu vaccine. [facility] Medical History Tobacco use disorder Class 2 severe obesity with body mass index (BMI) of 35 to 39.9 with serious comorbidity Right knee pain Infected prosthetic knee joint Hyperlipidemia Prosthetic joint infection Benign prostate hyperplasia Encounter to establish care Surgical History History of cataract surgery History of colonoscopy History of surgery on lower extremity History of total bilateral knee replacement History of cholecystectomy History of hemorrhoidectomy History of shoulder surgery History of eye surgery History of bilateral knee replacement History of back surgery Social History Housing: House Alcohol intake: never Patient Tobacco Use Status: Current everyday Tobacco user Tobacco use type: Cigarette Cigarette Packs Per Day: 0.5 Cigarettes Per Day: 6 Years Smoked: 40 e-Cigarette/Vaping Use: Never Used Second Hand Smoke Exposure: Yes service: No Current occupational status: retired Cognitive needs: Yes (Cane) Hearing needs: No Vision needs: Yes (glasses) Questionnaire Thrive Questionnaire Date Thrive assessed: 05/27/22 Are you currently unemployed and looking for a job?: No ALVERTO-7 AMB Questionnaire ALVERTO-7 Date ALVERTO - 7 assessed: 06/03/23 Source: Developed by Drs. Elias Fajardo, Vanessa De Souza, Ramesh Lechuga and colleagues, with an educational heidi from [employer]. Physical exam (Primary Care) Vital Signs: Last Vital Signs Pulse 69 02/24/24 15:06 BP 120/70 02/24/24 15:06 Pulse Ox 95 02/24/24 15:06 Oxygen Delivery Method Room Air 02/24/24 15:06 BMI result Body Mass Index 38.4 Tobacco/Smoking Status: Tobacco use Status Tobacco use date assessed 02/24/24 02/24/24 15:06 Patient Tobacco Use Status Current everyday Tobacco 02/24/24 15:06 Tobacco use type Cigarette 02/24/24 15:06 e-Cigarette/Vaping Use Never Used 02/24/24 15:06 Thrive Assessment: Date of Thrive Assessment Date Thrive assessed 05/27/22 02/24/24 15:06 Const General: cooperative and healthy appearing Nutritional Appearance: well nourished Orientation/consciousness: patient oriented x3 Limitations: no limitations HENMT Head: Yes normal to inspection Eyes General: appearance normal, both eyes and all related structures Neck Neck: Yes normal visual inspection Chest Chest palpation & inspection: normal palpation of entire chest wall Resp Effort & Inspection: normal respiratory effort Back/Spine/Pelvis Other: Back: No spinal tenderness. No paraspinal spasm. Neuro General: patient oriented x3 Office Procedures Flu Questionnaire Does the patient have a severe egg allergy?: No Does the patient have severe life threatening allergies?: No Does the patient have a fever or illness today?: No Has the patient ever had Guillain-Custer Syndrome?: No Has the patient ever had any past reaction to a flu shot?: No Results AMB Hemoglobin A1c AMB Hemoglobin A1c 6.9 % Last Edit by SANYA Barakat on 02/24/24 15:17 Immunizations Fluarix Triv [id number] (PF) 45 mcg (15 mcg x 3)/0.5 mL IM syringe Performing Provider: Odin Gutierrez MD [facility] Administered by: Selam Lugo LPN on 02/24/24 15:25 Dose Route Admin Location Dispensed Lot Number Expiration Date NDC Water Use Inspector 0.5 mL IM Left Deltoid 0.5 mL [id number] 10/31/24 58117-961-01 [employer] VIS Given Date VIS Provided VIS Publication Date 02/24/24 Single Vaccine 20 Eligibility Eligibility Date Funding Source Not [facility] Eligible 02/24/24 Private Results Reviewed Results Reviewed: Laboratory Last Values Hgb A1c (Clinic) 6.9 % (4.0-6.0) H 02/24/24 15:07 Coding Level of Care Code Est Pt Level 3 (39209) Complex EM visit Add On G2211 Diagnoses Tobacco use disorder F17.200 Class 2 severe obesity with body mass index (BMI) of 35 to 39.9 with serious comorbidity E66.01 Low back pain M54.50 Assessment & Plan Assessment & Plan (1) Tobacco use disorder: Code(s): F17.200 - Nicotine dependence, unspecified, uncomplicated Category: Medical Plan: Patient was encouraged to reduce the number of cigarettes he is smoking. He is confident that he can bring it down to 0 on his own. (2) Class 2 severe obesity with body mass index (BMI) of 35 to 39.9 with serious comorbidity: Code(s): E66.01 - Morbid (severe) obesity due to excess calories Category: Medical Plan: This is contributing to his low back pain. Patient has been advised to reduce calorie intake. (3) Low back pain: Code(s): M54.50 - Low back pain, unspecified Plan: Start the physical therapy that has been scheduled. Continue the muscle relaxants prescribed at the emergency room. Orders: Orders AMB Hemoglobin A1c 02/24/24 E11.65 - Type 2 diabetes mellitus with hyperglycemia Influenza [id number] Immunization 02/24/24 Z23 - Encounter for immunization Medications: Refilled meloxicam 15 mg PO DAILY PRN 30 tabs 1RF pain M25.561 - Pain in right knee tamsulosin (Flomax) 0.4 mg PO BEDTIME 90 caps 1RF 90 days N40.0 - Benign prostatic hyperplasia without lower urinary tract symptoms
[2024-02-24 15:06] VITALS: BP 120/70; PULSE 69; O2SAT 95; BMI 38.4
== END ==
PROVIDERS: PCP Internal Medicine; Visit Provider Internal Medicine
DX: M54.50 Low back pain, unspecified (principal); F17.210 Nicotine dependence, cigarettes, uncomplicated; E66.01 Morbid (severe) obesity due to excess calories; Z68.38 Body mass index [BMI] 38.0-38.9, adult

== ENCOUNTER 2024-02-25 10:15 | Outpatient (REF) | payer MEDICARE, SELFPAY ==
--- NOTE | ~2024-02-25 | XR_ITS ---
EXAMINATIONS: XR KNEE LEFT XR KNEE RIGHT CLINICAL INFORMATION: Bilateral knee pain. COMPARISON: None available TECHNIQUES: Three views of the left knee. Three views of the right knee. FINDINGS: Left: Status post total knee arthroplasty. No evidence of hardware fracture or loosening. No bony fracture or dislocation identified. No lytic or sclerotic bony lesion is seen. No suprapatellar effusion identified. Right: Status post total knee arthroplasty. No evidence of hardware fracture or loosening. No bony fracture or dislocation identified. No lytic or sclerotic bony lesion is seen. No suprapatellar effusion identified. XR/XR knee LT 3V IMPRESSION: Status post bilateral total knee arthroplasties. No acute finding involving either knee. Electronically signed by: Jayson Tariq MD 04/13/2024 01:11 PM [facility]
--- NOTE | ~2024-02-25 | XR_ITS ---
EXAMINATIONS: XR KNEE LEFT XR KNEE RIGHT CLINICAL INFORMATION: Bilateral knee pain. COMPARISON: None available TECHNIQUES: Three views of the left knee. Three views of the right knee. FINDINGS: Left: Status post total knee arthroplasty. No evidence of hardware fracture or loosening. No bony fracture or dislocation identified. No lytic or sclerotic bony lesion is seen. No suprapatellar effusion identified. Right: Status post total knee arthroplasty. No evidence of hardware fracture or loosening. No bony fracture or dislocation identified. No lytic or sclerotic bony lesion is seen. No suprapatellar effusion identified. XR/XR knee RT 3V IMPRESSION: Status post bilateral total knee arthroplasties. No acute finding involving either knee. Electronically signed by: Jayson Tariq MD 04/13/2024 01:12 PM [facility]
== END 2024-02-25 10:16 | disposition home or self-care (01) ==
LOC: HO.HOSX 10:15
PROVIDERS: Visit Provider Orthopaedic Surgery
DX: M25.562 Pain in left knee (principal); M25.561 Pain in right knee; Z96.653 Presence of artificial knee joint, bilateral
CPT/HCPCS: 73562; 99212

== ENCOUNTER 2024-02-25 10:51 | Outpatient (AMB) | payer MEDICARE, SELFPAY ==
[2024-02-25 11:03] VITALS: BMI 38.4
--- NOTE | 2024-02-25 11:03 | A.OFFVIS_ITS ---
Vital Signs 02/25/24 11:03 Height 6 ft Weight 283 lb BMI 38.4 Intake Visit Reasons: Bilateral knee discomfort Intake Note: Aleks is a 63 year old male who presents with complaints of intermittent discomfort in both of his knees after undergoing bilateral total knee replacement surgeries. 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 He denies any fevers or chills. He did undergo right total knee replacement surgery in 2021. He subsequently underwent right revision total knee replacement surgery after developing a periprosthetic infection. That surgery was performed by Dr. Jr Jean-Baptiste from [facility] in [place], [place]. The patient denies any fevers or chills. He does not take any medicines for his discomfort. He continues with his home exercise program. Allergies No Known Allergies Allergy (Verified 02/25/24 04:09) Medication List - Last Reconciled 02/25/24 by Mic Hopper MD acetaminophen (Tylenol) 650 mg PO Q6H PRN aspirin 81 mg PO BID atorvastatin 80 mg PO BEDTIME blood sugar diagnostic (FreeStyle Lite Strips) As directed blood-glucose meter (FreeStyle Lite Meter kit) As directed cholecalciferol (vitamin D3) 25 mcg PO DAILY 90 days cyclobenzaprine 5 mg PO Q8H duloxetine 20 mg PO BID 90 days lancets (FreeStyle Lancets) As directed lidocaine 5% (Lidoderm) 1 patch topical DAILY lisinopril 2.5 mg PO DAILY meloxicam 15 mg PO DAILY PRN metformin 1,000 mg PO BID 90 days metoprolol tartrate 25 mg PO BID 90 days tamsulosin (Flomax) 0.4 mg PO BEDTIME 90 days PFSH Medical History Tobacco use disorder Class 2 severe obesity with body mass index (BMI) of 35 to 39.9 with serious comorbidity Right knee pain Infected prosthetic knee joint Hyperlipidemia Prosthetic joint infection Benign prostate hyperplasia Encounter to establish care Surgical History History of cataract surgery History of colonoscopy History of surgery on lower extremity History of total bilateral knee replacement History of cholecystectomy History of hemorrhoidectomy History of shoulder surgery History of eye surgery History of bilateral knee replacement History of back surgery Social History (Reviewed 10/23/24 @ 15:05 by ALKA Barakat Housing: House Alcohol intake: never Patient Tobacco Use Status: Current everyday Tobacco user Tobacco use type: Cigarette Cigarette Packs Per Day: 0.5 Cigarettes Per Day: 6 Years Smoked: 40 e-Cigarette/Vaping Use: Never Used Second Hand Smoke Exposure: Yes service: No Current occupational status: retired Cognitive needs: Yes (Cane) Hearing needs: No Vision needs: Yes (glasses) Physical Exam Vital Signs: BMI result Body Mass Index 38.4 Const Other: Well-nourished well-developed very friendly male awake alert and oriented x3 in no acute distress Extrem Other: Bilateral knee examination shows that the surgical incisions are well healed, no erythema, full active extension and flexion to 120 degrees, his patellae track well Results Reviewed Results Reviewed: X-rays of the patient's bilateral knees taken today show total knee arthroplasties in good position with no signs of loosening, no acute bony abnormalities Assessment & Plan Assessment & Plan (1) Right knee pain: Code(s): M25.561 - Pain in right knee Category: Medical (2) Left knee pain: Code(s): M25.562 - Pain in left knee Category: Medical Plan Mr. Lynn continues to do very well after undergoing bilateral total knee replacement surgeries as well as revision right total knee replacement surgery in 2021. He will continue with his home exercise program. He does know to take antibiotics before any dental work. He will contact me prior to his annual follow-up appointment should any questions or concerns arise. Feel free to call me at any time should questions regarding his orthopedic management arise. I spent 22 minutes in reviewing the patient's records and imaging studies, seeing the patient and documenting in the medical record. Orders: Orders XR knee LT 3V Today M25.562 - Pain in left knee XR knee RT 3V Today M25.561 - Pain in right knee Coding Level of Care Code Est Pt Level 3 (02649) Complex EM visit Add On G2211 Diagnoses Right knee pain M25.561 Left knee pain M25.562
== END 2024-02-25 11:29 | disposition home or self-care (01) ==
PROVIDERS: PCP Internal Medicine; Visit Provider Orthopaedic Surgery
DX: M25.561 Pain in right knee (principal); M25.562 Pain in left knee; Z96.653 Presence of artificial knee joint, bilateral
CPT/HCPCS: 99213; G2211

== ENCOUNTER 2024-07-04 11:50 | Outpatient (AMB) | payer MEDICARE, SELFPAY ==
--- NOTE | 2024-07-04 11:51 | MHC.OFFWIV ---
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 Patient Tobacco Use Status: Current everyday Tobacco user Allergies No Known Allergies Allergy (Verified 02/25/24 04:09) Do you need a note to return to daycare/school/sports/work: No HPI HPI Comments History of Present Illness Details History of Present Illness The patient is a 64-year-old male presenting with right breast swelling and tenderness. Symptoms have persisted for one week with the right nipple being notably sore and tender, and the area was previously discolored but is not today. The patient reports disturbances in sleep due to the tenderness. Denies fevers, nipple discharge, warmth or redness of the area. Pt also c/o approx 40 new lumpy brown lesions on the back that developed over the past two months. Denies pain. Physical Exam General: Cooperative, healthy appearing, comfortable, no acute distress and well developed Orientation: Patient oriented x3 Limitations: No limitations Head: Normal to inspection Ears: Normal external ears Nose: Normal external nose present Face and sinus: Normal facial exam Eyes: Appearance normal, both eyes and all related structures Neck: Normal visual inspection and Yes full ROM Chest: right breast swelling centrally, TTP, no lumps noted, no erythema or warmth Respiratory: Normal respiratory effort and able to speak in complete sentences. Skin: approx 40 new brown flat lesions covering his back, no erythema, warmth or other signs of infection. Neuro: Patient oriented x3 Extremities: Normal to inspection [facility] Medical History Tobacco use disorder Class 2 severe obesity with body mass index (BMI) of 35 to 39.9 with serious comorbidity Right knee pain Infected prosthetic knee joint Hyperlipidemia Prosthetic joint infection Benign prostate hyperplasia Encounter to establish care Surgical History History of cataract surgery History of colonoscopy History of surgery on lower extremity History of total bilateral knee replacement History of cholecystectomy History of hemorrhoidectomy History of shoulder surgery History of eye surgery History of bilateral knee replacement History of back surgery Social History Housing: House Alcohol intake: never Patient Tobacco Use Status: Current everyday Tobacco user Tobacco use type: Cigarette Cigarette Packs Per Day: 0.5 Cigarettes Per Day: 6 Years Smoked: 40 e-Cigarette/Vaping Use: Never Used Second Hand Smoke Exposure: Yes service: No Current occupational status: retired Cognitive needs: Yes (Cane) Hearing needs: No Vision needs: Yes (glasses) Review of Systems Const All systems reviewed & are unremarkable except as noted in HPI and below Physical Exam Vital Signs: Last Vital Signs Pulse 86 07/04/24 11:54 BP 120/72 07/04/24 11:54 Pulse Ox 98 07/04/24 11:54 Oxygen Delivery Method Room Air 07/04/24 11:54 Assessment & Plan Assessment & Plan (1) Pain of right breast: Code(s): N64.4 - Mastodynia Plan: The current plan for the right breast swelling and tenderness involves further workup to assess for any underlying pathology vs unilateral gynocomastia. Communication with the primary care provider, Dr. Meade, is essential for coordinated follow-up care. Patient was informed and verbally consented to the use of an ambient scribe for clinic note documentation during this visit. (2) Seborrheic keratosis: Code(s): L82.1 - Other seborrheic keratosis Plan: A dermatology referral for the approx 40 lesions over the last 2 months on the back at [facility], subject to insurance coverage. Orders: Referrals Dermatology Referral L82.1 - Other seborrheic keratosis Coding Level of Care Code Est Pt Level 4 (34845) Diagnoses Pain of right breast N64.4 Seborrheic keratosis L82.1
[2024-07-04 11:54] VITALS: BP 120/72; PULSE 86; O2SAT 98
--- OUTSIDE RECORDS SUMMARY | 2024-07-04 14:02 | XMS_ITS | Clinical Summary ---
Author Organization [facility] it Address [address] [place] [address] Care Team Providers Care Certified [employer] Administrator Name Role Phone Aleshia Claros MD Primary Care Provider [phone] Allergies No known active allergies Medications acetaminophen (TYLENOL) 500 mg tablet Take 2 tablets (1,000 mg total) by mouth every 8 (eight) hours. 10/10/2021 Active aspirin 81 mg EC tablet TAKE 1 TABLET BY MOUTH 2 TIMES A DAY AFTER MEALS. 11/22/2021 Active atorvastatin (LIPITOR) 80 mg tablet Take 80 mg by mouth every evening. 01/18/2021 Active cetirizine (ZyrTEC) 10 mg tablet TAKE 1 TABLET BY MOUTH EVERY DAY NEEDED FOR ALLERGY 11/14/2021 Active doxycycline (ADOXA) 100 mg tablet TAKE 1 TABLET(100 MG) BY MOUTH TWICE DAILY 06/23/2022 Active DULoxetine (CYMBALTA) [address] capsule Take 20 mg by mouth 2 (two) times a day. 12/21/2019 Active finasteride (PROSCAR) 5 mg tablet Take 5 mg by mouth daily. 11/10/2019 Active metFORMIN (GLUCOPHAGE) 1,000 mg tablet Take 1,000 mg by mouth every morning with breakfast. 01/02/2020 Active metoprolol tartrate (LOPRESSOR) 25 mg tablet Take 25 mg by mouth 2 (two) times a day. 11/10/2019 Active nicotine (NICODERM CQ) 21 mg/[address] 1 patch onto the skin daily. 08/16/2021 Active pantoprazole (PROTONIX) 40 mg EC tablet Take 1 tablet (40 mg total) by mouth every morning on an empty stomach. 10/11/2021 Active rifabutin (MYCOBUTIN) 150 mg capsule Take 2 capsules (300 mg total) by mouth daily. 11/27/2021 Active senna-docusate (PERICOLACE) 8.6-50 mg per tablet Take 1 tablet by mouth 2 (two) times a day. 10/10/2021 Active EPINEPHrine in 0.9 % sod chlor 4 mg/250 mL (16 mcg/mL) solution Inject 1,250 mg into the vein every 12 (twelve) hours. 10/10/2021 Active glucose blood test strip USE DIRCTED 11/14/2021 Active lancets lancets USE DIRECTED 11/14/2021 Active Active Problems Problem Noted Date Diagnosed Date Prosthetic joint infection, subsequent encounter 10/08/2021 Prosthetic joint infection, sequela 08/19/2021 JERRY (acute kidney injury) 06/26/2021 Orthostatic hypotension 06/26/2021 Arteriosclerosis of coronary artery 06/25/2021 Arthritis of lumbar spine 06/25/2021 Dehydration 06/25/2021 Edema of upper extremity 06/25/2021 Hypertension 06/25/2021 Near syncope 06/25/2021 Lung mass 06/25/2021 Methicillin susceptible Staphylococcus aureus in fection 06/25/2021 Pyogenic arthritis of knee 06/25/2021 Type 2 diabetes mellitus 06/25/2021 Infected prosthetic knee joint 06/05/2021 MSSA bacteremia 06/05/2021 Syncope and collapse 06/05/2021 Mixed hyperlipidemia 05/21/2011 Benign prostatic hyperplasia 09/28/2009 Class 2 obesity 09/28/2009 Angle-closure glaucoma 07/31/2008 Chronic osteoarthritis 07/31/2008 Chronic pain 07/31/2008 Immunizations Name Administration Dates Next Due DTP 01/29/2012 Diptheria & Tetanus, 6wks to less than 7yo 05/04/2006 Hep B, Unspecified 11/13/2010,06/07/2010, 011 Influenza Whole 05/21/2011,04/01/2010,03/04/2008 Influenza trivalent, with pr eservative (Fluzone; Afluria) 6mo and older 02/01/2020,03/22/2019,03/01/2018,01/16,02/19/2017,03/20/2016,02/15/2015 ,03/03/2014,06/28/2013 Pneumococcal polysaccharide 23 valent (Pneumovax 23) 2yo and older 11/02/2007 Surgical History Surgery Date Site/Laterality Comments CHOLECYSTECTOMY PROCEDURE:CHOLECYSTECTOMY SHOULDER SURGERY Left PROCEDURE:SHOULDER SURGERY EXCISIONAL HEMORRHOIDECTOMY PROCEDURE:EXCISIONAL HEMORRHOIDECTOMY THORACIC FUSION PROCEDURE:THORACIC FUSION;COMMENT:t5 LUMBAR EPIDURAL INJECTION PROCEDURE:LUMBAR EPIDURAL INJECTION TOTAL KNEE ARTHROPLASTY PROCEDURE:REPLACEMENT TOTAL KNEE BILATERAL REMOVAL PROSTHESIS TOTAL KNE E W/ OR W/O INSERTION SPACER 08/23/2021 Right PROCEDURE:REMOVAL PROSTHESIS TOTAL KNEE W/ OR W/O INSERTION SPACER;COMMENT:Procedure: REMOVE TOTAL KNEE PROSTHESIS; Surgeon: Celso Jean-Baptiste MD; Location: [facility] ([facility]); Service: Orthopedics; Laterality: Right; KNEE SURGERY Left PROCEDURE:KNEE SURGERY;COMMENT:multiple surgeries KNEE SURGERY Right PROCEDURE:KNEE SURGERY;COMMENT:multiple surgeries COLONOSCOPY PROCEDURE:COLONOSCOPY UPPER GASTROINTESTINAL ENDOSCOPY PROCEDURE:UPPER GASTROINTESTINAL ENDOSCOPY EYE SURGERY Bilateral PROCEDURE:EYE SURGERY;COMMENT:glaucoma surgery DENTAL SURGERY PROCEDURE:DENTAL SURGERY;COMMENT:all teeth removed, upper & Lower dentures KNEE ARTHROPLASTY 10/08/2021 Right PROCEDURE:REVISION TOTAL KNEE ARTHROPLASTY;COMMENT:Procedur e: REVISION TOTAL KNEE; Surgeon: Celso Jean-Baptiste MD; Location: [facility] ([facility]); Service: Orthopedics; Laterality: Right; Medical History Medical History Date Comments Diabetes mellitus (CMS/HCC) DX:D iabetes mellitus (HCC) Polymyalgia rheumatica (CMS/HCC) DX:Polymyalgia rheumatica (HCC) HTN (hypertension) DX:HTN (hyper tension) Osteoarthritis DX:Osteoarthriti s Chronic back pain DX:Chronic alban k pain Hyperlipidemia DX:Hyperlipidemi a Dizziness DX:Dizziness Diabetes mellitus, type II (CMS/HCC) DX:Diabetes mellitus, type II ([facility]) Family history of DVT DX:Family history of DVT;COMMENT:Dad had DVT Rash DX:Rash;COMMENT: Face, ears, neck & chest MRSA (methicillin resistant Staphylococcus aureus) DX:MRSA (methicillin resista nt Staphylococcus aureus);COMMENT:Right Knee Glaucoma DX:Glaucoma PICC (peripherally inserted central catheter) in place DX:PICC (peripherally insert ed central catheter) in place;COMMENT:Right Arm Family History Medical History Relation Name Comments Arthritis Father Diabetes Father Heart disease Father Hypertension Father Lung disease Father Arthritis Mother Dementia Mother Diabetes Mother Osteoporosis Mother Anxiety disorder Sister 3 1 sister Cancer Sister 3 breast- 1 siste r Fibromyalgia Sister 3 1 sister Relation Name Status Comments Brother 1 Alive Father (Age 82) Lung dx Mother Alive Sister 3 Alive Social History Tobacco Use Types Packs/Day Years Used Date Smoking Tobacco: Former Cigarettes Q uit: 05/04/2021 Smokeless Tobacco: Never Alcohol Use Standard Drinks/Week Comments Not Currently 0 (1 standard drink = 0.6 oz pur e alcohol) Sex and Gender Information Value Date Recorded Sex Assigned at Not on file Legal Sex Male 2:39 PM EST Gender Identity Not on file Sexual Orientation Not on file Obstetrics History Last Filed Vital Signs Vital Sign Reading Time Taken Comments Blood Pressure 147/72 10/13/2022 1:10 PM EDT Sitting Left arm Pulse 88 10/13/2022 1:10 PM EDT Temperature - - Respiratory Rate - - Oxygen Saturation - - Inhaled Oxygen Concentration - - Weight 128 kg (282 lb 9.6 oz) 04/21/2022 1:14 PM EST Height 182.9 cm (6') 10/02/2021 10:29 AM EDT HEIGHT GIVEN BY PATIENT, PT CANNOT STAND Body Mass Index 38.33 10/02/2021 10:29 AM EDT Plan of Treatment Health Maintenance Due Date Last Done Comments Diabetes: Annual Foot Exam 1968 Diabetes: Annual Retina Eye Exam 1968 Zoster Vaccines (1 of 2) 2008 Pneumococcal Vaccine: 50+ Years (2 of 2 - PCV) 11/01/2008 11/02/2007 DTaP,Tdap,and Td Vaccines (3 - Tdap) 01/28/2022 01/29/2012, 05/04/2006 Abdominal Aortic Aneurysm (AAA) Screen 04/11/2022 Cholesterol Screening (Lipid Panel) 04/11/2022 Colorectal Cancer Screening: Colonoscopy 04/11/2022 Depression Screening 04/11/2022 Hepatitis C Screening 04/11/2022 Social Influencers of Health Screening 04/11/2022 Diabetes: Annual Urine Albumin-Creatinine Ratio (uACR) 05/03/2022 Diabetes: Blood Sugar Control Test (HGBA1C) 05/03/2022 09/27/2021, 09/27/2021, 08/19/2021, Additional history exists Diabetes: Annual GFR (Glomerular Filtration Rate) 10/09/2022 10/09/2021, 10/09/2021, 09/27/2021, Additional history exists Hypertension/CHF/CAD Annual BMP Blood Test 10/09/2022 10/09/2021, 10/09/2021, 09/27/2021, Additional history exists Falls Risk Assessment 2023 COVID-19 Vaccine ( season) 2024 09/21/2020, 08/31/2020 Influenza Vaccine (#1) 2024 , 03/22/2019, 03/01/2018, Additional history exists RSV Immunization Patients 60+ Years Old (1 - 1-dose 75+ series) 2033 Hepatitis B Vaccines Completed 11/13/2010, 06/07/2010, 05/08/2010 HIB Vaccines Aged Out No longer eligi ble based on patient's age to complete this topic HPV Vaccines Aged Out No longer eligi ble based on patient's age to complete this topic Hepatitis A Vaccines Aged Out No long er eligible based on patient's age to complete this topic IPV Vaccines Aged Out No longer eligi ble based on patient's age to complete this topic MMR Vaccines Aged Out No longer eligi ble based on patient's age to complete this topic Meningococcal ACWY Vaccine Aged Out N o longer eligible based on patient's age to complete this topic Meningococcal B Vacine Aged Out No lo nger eligible based on patient's age to complete this topic RSV Immunization Patients Under 20 months Aged Out No longer eligible based on patient's age to complete this topic Varicella Vaccines Aged Out No longer eligible based on patient's age to complete this topic Medical Devices Implanted Type Area Molder Feeder Device Identifier Shelf Expiration Date Model / Serial / Lot Stimulan Rapid Cure Implanted:Qty : 1 on 08/23/2021 by Celso Jean-Baptiste MD Joints Right: Knee [id number] 11/01/2023 / / [id number] [place] Tibial Augment Implanted:Qty : 1 on 10/08/2021 by Celso Jean-Baptiste MD Joints Right: Knee [id number] 07/30/2031 / / [id number] [place] Tibial Augment Implanted:Qty : 1 on 10/08/2021 by Celso Jean-Baptiste MD Joints Right: Knee [id number] 07/30/2031 / / [id number] Non-Modular Long Tibial Baseplate (Oss) Implanted:Qty : 1 on 10/08/2021 by Celso Jean-Baptiste MD Joints Right: Knee [id number] 07/31/2030 / / [id number] Bowed Im Stem With Screw (Oss) Implanted:Qty : 1 on 10/08/2021 by Celso Jean-Baptiste MD Joints Right: Knee [id number] 11/21/2027 / / [id number] Cement Bone Surg Simplex Radiopq Stry-Howm 2716-6-697- 4092 Implanted:Qty : 1 on 10/08/2021 by Celso Jean-Baptiste MD Right: Knee [employer] [id number] 04/02/2023 6190-05-04 0 / / [id number] Cement Bone Surg Simplex Radiopq Stry-Howm 3699-4-072-11 4092 Implanted:Qty : 1 on 10/08/2021 by Celso Jean-Baptiste MD Right: Knee [employer] [id number] 04/02/2023 6190-05-04 0 / / [id number] Cement Bone Surg Simplex Radiopq Stry-Howm [id number] 4092 Implanted:Qty : 1 on 10/08/2021 by Celso Jean-Baptiste MD Right: Knee [employer] [id number] 04/02/2023 6190-05-04 0 / / [id number] Tritanium Asym Cn Aug D Lm Rl Stry-Howm 4023-M-[id number] [id number] Implanted:Qty : 1 on 10/08/2021 by Celso Jean-Baptiste MD Right: Knee [employer] [id number] 02/14/2025 5549-A-24 1 / / [id number] Plug Bone Med Stry-Howm 6524-5-009-14 3872 Implanted:Qty : 1 on 10/08/2021 by Celso Jean-Baptiste MD Right: Knee [employer] [id number] 07/14/2026 6215-5-05 04 / / [id number] Plug Bone Med [facility] 6996-5-625-14 3872 Implanted:Qty : 1 on 10/08/2021 by Celso Jean-Baptiste MD Right: Knee [employer] [id number] 07/14/2026 6215-5-05 04 / / [id number] Knee Fem Compon Oss Axle [employer] [id number] Implanted:Qty : 1 on 10/08/2021 by Celso Jean-Baptiste MD Right: Knee [employer] [id number] 08/14/2031 733707 / / [id number] Knee Tib Pin Lock Oss Poly [employer] [id number] Implanted:Qty : 1 on 10/08/2021 by Celso Jean-Baptiste MD Right: Knee [employer] [id number] 08/03/2026 037623 / / [id number] Knee Oss Reinf Yoke [employer] [id number] Implanted:Qty : 1 on 10/08/2021 by Celso Jean-Baptiste MD Right: Knee [employer] [id number] 08/08/2031 440905 / / [id number] Knee Tib Bushing Comp Oss [employer] [id number] Implanted:Qty : 1 on 10/08/2021 by Celso Jean-Baptiste MD Right: Knee [employer] [id number] 07/31/2026 010646 / / [id number] [place] Set Oss Poly Femoral [employer] [id number] Implanted:Qty : 1 on 10/08/2021 by Celso Jean-Baptiste MD Right: Knee [employer] [id number] 06/28/2026 997637 / / [id number] Biomet Oss Segmental Elliptial Femoral Implanted:Qty : 1 on 10/08/2021 by Celso Jean-Baptiste MD Right: Knee 01/10/2029 783510 / / [id number] Knee Brng Tib Oss Poly 16mm [employer] [id number] Implanted:Qty : 1 on 10/08/2021 by Celso Jean-Baptiste MD Right: Knee [employer] 08/28/2026 [id number] / / [id number] C[employer] Simplex Radiopq Stry-Howm 9697-4-967-11 4092 Implanted:Qty : 1 on 10/08/2021 by Celso Jean-Baptiste MD Right: Knee [employer] [id number] 04/02/2023 6191-05-04 0 / / [id number] Cement Bone Surg Simplex Radiopq Stry-Howm 6435-8-722-11 409 Implanted:Qty : 1 on 10/08/2021 by Celso Jean-Baptiste MD Right: Knee [employer] [id number] 04/02/202391 0 / / [id number] Procedures Procedure Name Priority Date/Time Associated Diagnosis Comments ANNUAL BMP BLOOD TEST Routine 10/09/2021 HEMOGLOBIN A1C Routine 09/27/2021 from Last 3 Months or Most Recently Relevant to Health Maintenance Results * Annual BMP Blood Test (10/09/2021) Pathologist [facility] Annual BMP Blood Test abstracted Historical Provider HEALTH MAINTENANCE Final Result * (ABNORMAL) Hemoglobin A1c (09/27/2021) Pathologist [facility] [place] Hemoglobin A1C 6.6(A) <=5.7 % Blood Venous blood specimen / Unknown Historical Provider LAB BLOOD ORDERABLES Clara l Result from Last 3 Months or Most Recently Relevant to Health Maintenance Care Teams Certified [employer] Administrator Relationship Specialty Start Date End Date Aleshia Claros MD PCP - General Infectious Diseases 07/09/21
--- OUTSIDE RECORDS SUMMARY | 2024-07-04 14:02 | XMS_ITS | Clinical Summary ---
Author Organization [facility] Address [address] [place] [address] Care Team Providers Care Filter Press Tender Name Role Phone Aleshia Claros MD Primary Care Provider Unavailab le Allergies No known active allergies Medications Medication Sig Dispensed Refills Start Date End Date Status DULoxetine (CYMBALTA) DR capsule 20 mg Take 20 mg by mouth 2 (two) times a day. 0 12/21/2019 Active finasteride (PROSCAR) 5 MG tablet Take 5 mg by mouth daily. 0 11/10/2019 Active metFORMIN (GLUCOPHAGE) tablet 1000 mg Take 1,000 mg by mouth every morning with breakfast. 0 01/02/2020 Active metoprolol tartrate (LOPRESSOR) 25 MG tablet Take 25 mg by mouth 2 (two) times a day. 0 11/10/2019 Active atorvastatin (LIPITOR) tablet 80 mg Take 80 mg by mouth every evening. 0 01/18/2021 Active nicotine (NICODERM CQ) 21 MG/24HR Place 1 patch onto the skin daily. 0 08/16/2021 Active acetaminophen (TYLENOL EXTRA STRENGTH) 500 MG tablet Take 2 tablets (1,000 mg total) by mouth every 8 (eight) hours. 30 tablet 0 10/10/2021 Active senna-docusate (PERICOLACE) 8.6-50 MG Take 1 tablet by mouth 2 (two) times a day. 14 tablet 0 10/10/2021 Active pantoprazole (PROTONIX) 40 MG tablet Take 1 tablet (40 mg total) by mouth every morning on an empty stomach. 15 tablet 0 10/11/2021 Active sodium chloride 0.9 % SOLN 250 mL with vancomycin 1 g SOLR 1,250 mg Inject 1,250 mg into the vein every 12 (twelve) hours. 20 Units 1 10/10/2021 Active Aspirin Low Dose 81 MG EC tablet TAKE 1 TABLET BY MOUTH 2 TIMES A DAY AFTER MEALS. 84 tablet 0 11/22/2021 Active rifabutin (MYCOBUTIN) 150 MG capsule Take 2 capsules (300 mg total) by mouth daily. 60 capsule 2 11/27/2021 Active cetirizine (ZyrTEC) 10 MG tablet TAKE 1 TABLET BY MOUTH EVERY DAY NEEDED FOR ALLERGY 0 11/14/2021 Active FreeStyle InsuLinx Test test strip USE DIRCTED 0 11/14/2021 Activ e Lancets (freestyle) lancets USE DIRECTED 0 11/14/2021 Active doxycycline (ADOXA) 100 MG tablet Take 1 tablet (100 mg total) by mouth 2 (two) times a day. 60 tablet 6 11/02/2023 Active Active Problems Problem Noted Date Diagnosed Date Prosthetic joint infection, subsequent encounter 10/08/2021 Prosthetic joint infection, sequela 08/19/2021 Orthostatic hypotension 06/26/2021 JERRY (acute kidney injury) 06/26/2021 Type 2 diabetes mellitus 06/25/2021 Pyogenic arthritis of knee 06/25/2021 Methicillin susceptible Staphylococcus aureus in fection 06/25/2021 Lung mass 06/25/2021 Hypertension 06/25/2021 History of polymyalgia rheumatica 06/25/2021 Edema of upper extremity 06/25/2021 Arthritis of lumbar spine 06/25/2021 Arteriosclerosis of coronary artery 06/25/2021 Dehydration 06/25/2021 Near syncope 06/25/2021 Syncope and collapse 06/05/2021 MSSA bacteremia 06/05/2021 Infected prosthetic knee joint 06/05/2021 Mixed hyperlipidemia 05/21/2011 Class 2 obesity 09/28/2009 Benign prostatic hyperplasia 09/28/2009 Chronic pain 07/31/2008 Chronic osteoarthritis 07/31/2008 Angle-closure glaucoma 07/31/2008 Resolved Problems Problem Noted Date Diagnosed Date Resolved Date Severe sepsis 06/04/2021 06/05/2021 Immunizations Name Administration Dates Next Due Covid-19 (Pfizer) Dilution Required 09/21/2020,0 08/31/2020 DT 05/04/2006 DTP 01/29/2012 Hepatitis B, Unspecified formulation 11/13/2010, 06/07/2010,05/08/2010 Influenza Trivalent (Fluzone /Afluria) 5.0mL Multi-dose Vial 02/01/2020,03/22/2019,03/01/2018,01/16,02/19/2017,03/20/2016,02/15/2015 ,03/03/2014,06/28/2013 Influenza Whole (inactive) 05/21/2011,04/01/2010 ,03/04/2008 Pneumococcal Polysaccharide PPSV23 11/02/2007 Family History Medical History Relation Name Comments Arthritis Father Diabetes Father Heart disease Father Hypertension Father Lung disease Father Arthritis Mother Dementia Mother Diabetes Mother Osteoporosis Mother Anxiety disorder Sister 3 1 sister Cancer Sister 3 breast~ 1 siste r Fibromyalgia Sister 3 1 sister Relation Name Status Comments Brother 1 Alive Father (Age 82) Lung dx Mother Alive Sister 3 Alive Social History Tobacco Use Types Packs/Day Years Used Date Smoking Tobacco: Former Cigarettes 1 Q uit: 05/2021 Smokeless Tobacco: Never Tobacco Cessation:Counseling Given: Yes Alcohol Use Standard Drinks/Week Comments Not Currently 0 (1 standard drink = 0.6 oz pur e alcohol) 1-2x/year Sex and Gender Information Value Date Recorded Sex Assigned at Male 06/05/2021 9:51 AM EST Gender Identity Male 09/25/2021 11:14 AM EDT Sexual Orientation Not on file Job Start Date Occupation Industry Not on file Not on file Not on file Last Filed Vital Signs Vital Sign Reading Time Taken Comments Blood Pressure 147/72 10/13/2022 1:10 PM EDT Pulse 88 10/13/2022 1:10 PM EDT Temperature 36.8 ??C (98.3 ??F) 10/13/2022 1:10 PM ED T Respiratory Rate 16 10/10/2021 7:32 AM EDT Oxygen Saturation 96% 10/13/2022 1:10 PM EDT Inhaled Oxygen Concentration - - Weight 128.2 kg (282 lb 9.6 oz) 04/21/2022 1:14 PM EST Height 182.9 cm (6') 10/08/2021 5:56 AM EDT Body Mass Index 38.33 10/08/2021 5:56 AM EDT Plan of Treatment Health Maintenance Due Date Last Done Comments Hepatitis C Screening 1958 Depression Screening 1970 BMI Counseling 1976 Diabetes: Eye Exam (No Retinopathy) 1976 Diabetes: Foot Exam 1976 Diabetes: Microalbumin Test 1976 Preventative Health Evaluation 1976 Colon Cancer Screening (Colonoscopy) 2003 Shingrix-Zoster Vaccine (1 of 2) 2008 Pneumococcal Vaccine (2 of 2 - PCV) 11/01/2008 11/02/2007 DTap / Tdap / Td (3 - Tdap) 01/28/2022 01/29/2012, 0 05/04/2006 Hemoglobin A1C Due 03/30/2022 09/27/2021, 0 08/19/2021, 06/05/2021 Fall Risk Assessment 2023 COVID-19 Vaccine (3 - season) 2024 09/21/2020, 08/31/2020 Influenza Vaccine (#1) 2024 , 02/01/2020, 03/22/2019, Additional history exists RSV Adult > 60+ Yrs or (1 - 1-dose 75+ series) 2033 Hepatitis B Vaccines Completed 11/13/2010, 06/07/2010, 05/08/2010 RSV Ped < 20 months Aged Out No longe r eligible based on patient's age to complete this topic Medical Devices Implanted Type Area Admissions Clerk Device Identifier Shelf Expiration Date Model / Serial / Lot Stimulan Rapid Cure Implanted:Qty : 1 on 08/23/2021 by Celso [place]aptiste [place] [facility] Total Joint Right: Knee [id number] 11/01/2023 / / [id number] [place] Tibial Augment Implanted:Qty : 1 on 10/08/2021 by Celso Jean-Baptiste [place] [facility] Total Joint Right: Knee [id number] 07/30/2031 / / [id number] [place] Tibial Augment Implanted:Qty : 1 on 10/08/2021 by Celso Jean-Baptiste [place] [facility] Total Joint Right: Knee [id number] 07/30/2031 / / [id number] Non-Modular Long Tibial Baseplate (Oss) Implanted:Qty : 1 on 10/08/2021 by Celso Jean-Baptiste MD [place] [facility] Total Joint Right: Knee [id number] 07/31/2030 / / [id number] Bowed Im Stem With Screw (Oss) Implanted:Qty : 1 on 10/08/2021 by Celso Jean-Baptiste MD [place] [facility] Total Joint Right: Knee [id number] 11/21/2027 / / [id number] Cement Bone Surg Simplex Radiopq Stry-Howm 7990-1-042-11 4092 - [id number] Implanted:Qty : 1 on 10/08/2021 by Celso Jean-Baptiste [place] [facility] Right: Knee [facility] [facility] [id number] 04/02/2023 6190-05-04 0 / / [id number] Cement Bone Surg Simplex Radiopq Stry-Howm 7871-8-488- 4092 - [id number] Implanted:Qty : 1 on 10/08/2021 by Celso Jean-Baptiste [place] [facility] Right: Knee [facility] [id number] 04/02/2023 6190-05-04 0 / / [id number] Cement Bone Surg Simplex Radiopq Stry-Howm 7070-0-179- 409 - [id number] Implanted:Qty : 1 on 10/08/2021 by Celso Jean-Baptiste MD [place] [facility] Right: Knee [facility] [id number] 04/02/2023 6190-05-04 0 / / [id number] Cement Bone Surg Simplex Radiopq Stry-Howm 9054-2-845- 409 - [id number] Implanted:Qty : 1 on 10/08/2021 by Celso Jean-Baptiste MD [place] [facility] Right: Knee [facility] [id number] 04/02/2023 6190-05-04 0 / / [id number] Cement Bone Surg Simplex Radiopq Stry-How 8369-2-290-11 4092 - [id number] Implanted:Qty : 1 on 10/08/2021 by Celso Jean-Baptiste MD at [facility] Med Right: Knee [facility] [id number] 04/02/2023 6191 0 / / [id number] Tritanium Asym Cn Aug D Lm Rl [facility] 2663-L-907-69 9563 - [id number] Implanted:Qty : 1 on 10/08/2021 by Celso Jean-Baptiste MD [place] [facility] [place] [facility] Right: Knee [facility] [id number] 02/14/2025 5549-A-24 1 / / [id number] Plug Bone [facility] 3735-6-187-14 3872 - [id number] Implanted:Qty : 1 on 10/08/2021 by Celso Jean-Baptiste MD [place] [facility] [place] Med Right: Knee [facility] [id number] 07/14/2026 6215- 1 / / [id number] Plug Bone [facility] 7653-2-109-14 3872 - [id number] Implanted:Qty : 1 on 10/08/2021 by Celso Jean-Baptiste MD [place] [facility] [place] [facility] Right: Knee [facility] [id number] 07/14/2026 6215- 1 / / [id number] Knee Fem Compon Oss Axle [employer] 401348-583239 - [id number] Implanted:Qty : 1 on 10/08/2021 by Celso Jaen-Baptiste [place] [facility] [place] [facility] Right: Knee KIRAN [employer]OM[employer] [id number] 08/14/2031 276321 / / [id number] Knee Tib Pin Lock Oss Poly [employer] 287066-885638 - [id number] Implanted:Qty : 1 on 10/08/2021 by Celso Jean-Baptiste MD [place] [facility] [place] [facility] Right: Knee [employer] [id number] 08/03/2026 564089 / / [id number] Knee Oss Reinf Yoke [employer] 639391-201109 - [id number] Implanted:Qty : 1 on 10/08/2021 by Celso Jean-Baptiste MD [place] [facility] Right: Knee KIRAN [employer] [id number] 08/08/2031 478056 / / [id number] Knee Tib Bushing Comp Oss [employer] 574124-066140 - [id number] Implanted:Qty : 1 on 10/08/2021 by Celso Jean-Baptiste MD [place] [facility] Right: Knee KIRAN BIOMET [id number] 07/31/2026 221791 / / [id number] [place] Set Oss Poly Femoral [employer] 158942-280077 - [id number] Implanted:Qty : 1 on 10/08/2021 by Celso Jean-Baptiste MD [place] [facility] Right: Knee KIRAN [employer] [id number] 06/28/2026 131734 / / [id number] Biomet Oss Segmental Elliptial Femoral Implanted:Qty : 1 on 10/08/2021 by Celso Jean-Baptiste MD [place] [facility] Right: Knee 01/10/2029 026081 / / [id number] Knee Brng Tib Oss Poly 16mm [employer] 455084-030689 - [id number] Implanted:Qty : 1 on 10/08/2021 by Celso Jean-Baptiste MD [place] [facility] Right: Knee KIRAN BIOMET 08/28/2026 [id number] / / [id number] Explanted Type Area Admissions Clerk Device Identifier Shelf Expiration Date Model / Serial / Lot Femur, Tibia, Patella, Insert Explanted:Qty: 4 on 08/23/2021 by Celso Jean-Baptiste MD [place] [facility] Nitin Sriram Implanted:Qty: 1 on 08/23/2021 by Celso Jean-Baptiste MD [place] [facility] [place] [facility] Explanted:Qty: 1 on 10/08/2021 by Celso Jean-Baptiste MD [place] [facility] [place] [facility] Right: Knee Description:NITIN SRIRAM CUT IN HALF EMBEDDED IN BONE CEMENT Cement Bone Surg Simplex Radiopq Stry-Howm 9096-8-398-114 092 - [id number] Implanted:Qty: 1 on 08/23/2021 by Celso Jean-Baptiste MD [place] [facility] Explanted:Qty: 1 on 10/08/2021 by Celso Jean-Baptiste MD at [facility] [place] [facility] Right: Knee [facility] [id number] 12/02/2023 6191-1-010 / / [id number] Cement Bone Surg Simplex Radiopq Stry-Howm 7489-7-115-114 092 - [id number] Implanted:Qty: 1 on 08/23/2021 by Celso Jean-Baptiste MD at [facility] [place] Explanted:Qty: 1 on 10/08/2021 by Celso Jean-Baptiste MD at [facility] [place] [facility] Right: Knee [facility] [id number] 12/02/2023 6191-1-010 / / [id number] Cement Bone Surg Simplex Radiopq Stry-Howm 2688-9-352-114 092 - [id number] Implanted:Qty: 1 on 08/23/2021 by Celso Jean-Baptiste MD at [facility] [place] [facility] Explanted:Qty: 1 on 10/08/2021 by Celso Jean-Baptiste MD at [facility] [place] [facility] Right: Knee [facility] [id number] 12/02/2023 6191-1-010 / / [id number] Cement Bone Surg Simplex Radiopq Stry-Howm 9821-9-648-114 092 - [id number] Implanted:Qty: 1 on 08/23/2021 by Celso Jean-Baptiste MD at [facility] [place] [facility] Explanted:Qty: 1 on 10/08/2021 by Celso Jean-Baptiste MD at [facility] [place] [facility] Right: Knee [facility] [id number] 12/02/2023 6191-1-010 / / [id number] Cement Bone Surg Simplex Radiopq Strdestiny-Howsyed 8281-8-418-114 092 - [id number] Implanted:Qty: 1 on 08/23/2021 by Celso Jean-Baptiste MD at [facility] [place] Med Explanted:Qty: 1 on 10/08/2021 by Celso Jean-Baptiste MD at [facility] [place] [facility] Right: Knee [facility] [id number] 12/02/2023 6191-1-010 / / [id number] Additional Health Concerns Infection Onset Date Last Indicated MRSA Comment:08/21/21: Synovial Fluid Cx - R Knee 08/19/2021 08/21/2021 Advance Directives For more information, please contact: [phone] Latest Code Status on File Code Status Date Activated Date Inactivated Comments Full Code 10/08/2021 12:55 PM 10/10/2021 11:31 PM This code status was ascertained in the following way: discussion with patient . Code Status History Code Status Date Activated Date Inactivated Comments Full Code 10/08/2021 5:17 AM 10/08/2021 12:55 PM This c ode status was ascertained in the following way: discussion with patient . Full Code 08/23/2021 12:24 PM 08/27/2021 6:52 PM This code status was ascertained in the following way: discussion with patient . Full Code 08/19/2021 5:19 PM 08/23/2021 12:24 PM This code status was ascertained in the following way: discussion with patient . Full Code 06/25/2021 1:37 PM 06/28/2021 1:43 AM This code status was ascertained in the following way: discussion with patient . Care Teams Filter Press Tender Relationship Specialty Start Date End Date Aleshia Claros MD PCP - General Infectious Diseases 07/09/21
== END 2024-07-04 12:14 | disposition home or self-care (01) ==
PROVIDERS: PCP Internal Medicine; Visit Provider Physician Assistant
DX: N64.4 Mastodynia (principal); L82.1 Other seborrheic keratosis

== ENCOUNTER → 2024-07-04 11:50 | Outpatient (BNVA) | payer MEDICARE, SELFPAY | PROVIDERS: PCP Internal Medicine | DX: N64.4 Mastodynia (principal); L82.1 Other seborrheic keratosis | CPT/HCPCS: 99212 ==

== ENCOUNTER 2024-07-07 15:22 | Outpatient (AMB) | payer MEDICARE, SELFPAY ==
--- NOTE | 2024-07-07 15:31 | A.OFFPC_ITS ---
Vital Signs 07/07/24 15:32 Height 6 ft Weight 286 lb 2 oz BMI 38.8 BP 130/60 Blood Pressure Location Lt brachial Position Sitting Pulse 70 Pulse Source Pulse Oximeter Temp 97.3 F Temp Source Temporal Artery Scan Pulse Oximetry (%) 96 Oxygen Delivery Method Room Air Intake Visit Reasons: follow up breast tenderness -seen in walk in Intake Note: Patient is here to follow up on Breast tenderness City Superintendent Required: No Photo Mask Pattern Generator: Present Accompanied by: Spouse Allergies No Known Allergies Allergy (Verified 07/11/24 09:30) Medication List - Last Reconciled 07/11/24 by Odin Gutierrez MD acetaminophen (Tylenol) 650 mg PO Q6H PRN aspirin 81 mg PO BID atorvastatin 80 mg PO BEDTIME blood sugar diagnostic (FreeStyle Lite Strips) As directed blood-glucose meter (FreeStyle Lite Meter kit) As directed cholecalciferol (vitamin D3) 25 mcg PO DAILY 90 days cyclobenzaprine 5 mg PO Q8H duloxetine 20 mg PO BID 90 days lancets (FreeStyle Lancets) As directed lidocaine 5% (Lidoderm) 1 patch topical DAILY lisinopril 2.5 mg PO DAILY meloxicam 15 mg PO DAILY PRN metformin 1,000 mg PO BID 90 days metoprolol tartrate 25 mg PO BID 90 days tamsulosin (Flomax) 0.4 mg PO BEDTIME 90 days Tobacco use date assessed: 07/07/24 Fall risk assessment: No Falls in past year Last assessed Fall Risk: 07/07/24 Dental Screening Dental Screen Date: 07/07/24 Did you have a dental visit in the last 12 months?: No Did you have a dental problem in the last 6 months where you did not have access to dental care?: No Was dental information given to patient?: No (Dentures) HPI follow up breast tenderness -seen in walk in HPI Details 64-year-old male presents to the office for a sick visit. Patient is reporting tenderness in the right breast for the past week. Does not recall any bite or injury. Patient was seen at the walk-in clinic and referred here for more investigations. He reports no discharge from the nipple. No history of cancers in the family. No fevers or chills. [facility] Medical History Tobacco use disorder Class 2 severe obesity with body mass index (BMI) of 35 to 39.9 with serious comorbidity Right knee pain Infected prosthetic knee joint Hyperlipidemia Prosthetic joint infection Benign prostate hyperplasia Encounter to establish care Surgical History History of cataract surgery History of colonoscopy History of surgery on lower extremity History of total bilateral knee replacement History of cholecystectomy History of hemorrhoidectomy History of shoulder surgery History of eye surgery History of bilateral knee replacement History of back surgery Social History (Updated 07/07/24 @ 15:37 by SANYA Barakat) Housing: House Alcohol intake: never Patient Tobacco Use Status: Current everyday Tobacco user Tobacco use type: Cigarette Cigarette Packs Per Day: 0.5 Cigarettes Per Day: 5 Years Smoked: 40 e-Cigarette/Vaping Use: Never Used Second Hand Smoke Exposure: Yes service: No Current occupational status: retired Cognitive needs: Yes (Cane) Hearing needs: No Vision needs: Yes (glasses) Questionnaire PHQ-9 Over the last 2 weeks, how often have you been bothered by any of the following problems? 1. Little interest or pleasure in doing things: not at all 2. Feeling down, depressed, or hopeless: not at all 3. Trouble falling or staying asleep, or sleeping too much: not at all 4. Feeling tired or having little energy: not at all 5. Poor appetite or overeating: not at all 6. Feeling bad about yourself - or that you are a failure or have let yourself or your family down: not at all 7. Trouble concentrating on things, such as reading the newspaper or watching television: not at all 8. Moving or speaking so slowly that other people could have noticed. Or the opposite - being so fidgety or restless that you have been moving around a lot more than usual: not at all 9. Thoughts that you would be better off or of hurting yourself in some way: not at all Total score: 0 Depression Screening Interpretation: Negative Depression Screening Done: Yes Source: Developed by Drs. Elias Fajardo, Vanessa De Souza, Ramesh Lechuga and colleagues, with an educational heidi from [employer]. Thrive Questionnaire Date Thrive assessed: 07/07/24 I am a: Patient What is your living situation today?: I have a steady place to live Within the past 12 months, did the food you bought not last and you didn't have the money to get more?: Never true Within the past 12 months, did you worry whether your food would run out before you got money to buy more?: Never true Do you have trouble paying for medicines?: No Do you have trouble getting transportation to medical appointments?: No Do you have trouble paying your heating and electricity bill?: No Do you have trouble taking care of your child, family member or friend?: No Do you have trouble with day-to-day activities such as bathing, preparing meals, shopping, managing finances, etc.?: No Are you currently unemployed and looking for a job?: No Are you interested in more education?: No Please select the resources that you would like help with: None Currently or been in a relationship where the following occur: No concerns reported THRIVE Score: 0 AUDIT C Alcohol Use Questionnaire (AUDIT-C) 1. How often do you have a drink containing alcohol?: Monthly or less 2. How many drinks containing alcohol do you have on a typical day when you are drinking?: 1 or 2 Total Score: 1 ALVERTO-7 AMB Questionnaire ALVERTO-7 Date ALVERTO - 7 assessed: 07/07/24 Feeling nervous, anxious, or on edge: 0 = Not at all Not being able to stop or control worryin = Not at all Worrying too much about different things: 0 = Not at all Trouble relaxin = Not at all Being so restless that it is hard to sit still: 0 = Not at all Becoming easily annoyed or irritable: 0 = Not at all Feeling afraid as if something awful might happen: 0 = Not at all Total ALVERTO-7 score (0-4 normal; 5-9 mild; 10-14 moderate; 15-21 severe): 0 Source: Developed by Drs. Elias Fajardo, Vanessa De Souza, Ramesh Lechuga and colleagues, with an educational heidi from [employer]. Physical exam (Primary Care) Vital Signs: Last Vital Signs Temp 97.3 F 07/07/24 15:32 Pulse 70 07/07/24 15:32 BP 130/60 07/07/24 15:32 Pulse Ox 96 07/07/24 15:32 Oxygen Delivery Method Room Air 07/07/24 15:32 Care Plan Goal for BP management: Blood pressure is in range BMI result Body Mass Index 38.8 BMI Assessment/Plan discussion: High (1 lb per week weight loss suggested.) BMI High, discussed plan: lifestyle, weight reduction and dietary Tobacco/Smoking Status: Tobacco use Status Tobacco use date assessed 07/07/24 07/07/24 15:38 Patient Tobacco Use Status Current everyday Tobacco 07/07/24 15:38 Tobacco use type Cigarette 07/07/24 15:38 e-Cigarette/Vaping Use Never Used 07/07/24 15:38 Are you ready to quit: No Tobacco cessation counseling provided: No PHQ-9: PHQ-9 Score PHQ-9: Total score 0 07/07/24 15:38 Depression Screening Interpretation: Negative Thrive Assessment: Date of Thrive Assessment Date Thrive assessed 07/07/24 07/07/24 15:38 Currently or been in a relationship where the following occur: No concerns reported Advance Care Planning discussion: Exists, not on file Date of discussion: 07/07/24 Who was present: Patient, Forms completed: Health Care Proxy and MOLST Actual minutes spent: 5 Const Other: Right breast: Tenderness on palpation around the nipple. No discharge. No axillary lymph nodes. General: cooperative and healthy appearing Nutritional Appearance: well nourished Orientation/consciousness: patient oriented x3 Limitations: no limitations HENMT Head: Yes normal to inspection Eyes General: appearance normal, both eyes and all related structures Neck Neck: Yes normal visual inspection Chest Chest palpation & inspection: normal palpation of entire chest wall Resp Effort & Inspection: normal respiratory effort Neuro General: patient oriented x3 Coding Level of Care Code Est Pt Level 4 (25271) Complex EM visit Add On G2211 Diagnoses Mastitis N61.0 Class 2 severe obesity with body mass index (BMI) of 35 to 39.9 with serious comorbidity E66.01 Tobacco use disorder F17.200 Additional Codes Vital Signs *Quality* - Advance Care Planning discussion: Exists, not on file ([id number]) Assessment & Plan Assessment & Plan (1) Mastitis: Code(s): N61.0 - Mastitis without abscess Plan: Continue antibiotics ordered. An ultrasound of the right breast and mammogram has been ordered. Most likely of infectious etiology. (2) Class 2 severe obesity with body mass index (BMI) of 35 to 39.9 with serious comorbidity: Code(s): E66.01 - Morbid (severe) obesity due to excess calories Category: Medical Plan: Counseling on the importance of weight loss done. (3) Tobacco use disorder: Code(s): F17.200 - Nicotine dependence, unspecified, uncomplicated Category: Medical Plan: Counseling to quit smoking. Orders: Orders MM diagnostic mammo BI 07/07/24 N61.0 - Mastitis without abscess US breast RT complete 07/07/24 N61.0 - Mastitis without abscess Medications: Refilled meloxicam 15 mg PO DAILY PRN 30 tabs 1RF pain M25.561 - Pain in right knee
[2024-07-07 15:32] VITALS: BP 130/60; PULSE 70; TEMP 36.3; O2SAT 96; BMI 38.8
--- OUTSIDE RECORDS SUMMARY | 2024-07-07 18:51 | XMS_ITS | Clinical Summary ---
Author Organization [facility] Address [address] [place] [address] Care Team Providers Care Sorter Packer Name Role Phone Aleshia Claros MD Primary [...] this topic Medical Devices Implanted Type Area Pattern Changer And Repairer Device Identifier Shelf Expiration Date Model / Serial / Lot Stimulan Rapid Cure Implanted:Qty : 1 on 08/23/2021 by Celso Jean-Baptiste MD at [facility] Total Joint Right: Knee [id number] 11/01/2023 / / [id number] [place] Tibial Augment Implanted:Qty : 1 on 10/08/2021 by Celso Jean-Baptiste MD at [facility] Total Joint Right: Knee [id number] 07/30/2031 / / [id number] [place] Tibial Augment Implanted:Qty : 1 on 10/08/2021 by Celso Jean-Baptiste MD at [facility] Total Joint Right: Knee [id number] 07/30/2031 / / [id number] Non-Modular Long Tibial Baseplate (Oss) Implanted:Qty : 1 on 10/08/2021 by Celso Jean-Baptiste MD at [facility] Total Joint Right: Knee [id number] 07/31/2030 / / [id number] Bowed Im Stem With Screw (Oss) Implanted:Qty : 1 on 10/08/2021 by Celso Jean-Baptiste MD at [facility] Total Joint Right: Knee [id number] 11/21/2027 / / [id number] Cement Bone Surg Simplex Radiopq Stry-Howm 8592-7-757-11 4092 - [id number] Implanted:Qty : 1 on 10/08/2021 by Celso Jean-Baptiste MD at [facility] Right: Knee [facility] [id number] 04/02/2023 6190-05-04 0 / / [id number] Cement Bone Surg Simplex Radiopq Stry-Howm 3261-6-181- 4092 - [id number] Implanted:Qty : 1 on 10/08/2021 by Celso Jean-Baptiste MD at [facility] Right: Knee [facility] [id number] 04/02/2023 6190-05-04 0 / / [id number] Cement Bone Surg Simplex Radiopq Stry-Howm 2990-9-489- 409 - [id number] Implanted:Qty : 1 on 10/08/2021 by Celso Jean-Baptiste MD at [facility] Right: Knee [facility] [id number] 04/02/2023 6190-05-04 0 / / [id number] Cement Bone Surg Simplex Radiopq Stry-Howm 6461-0-252- 409 - [id number] Implanted:Qty : 1 on 10/08/2021 by Celso Jean-Baptiste MD at [facility] Right: Knee [facility] [id number] 04/02/2023 6190-05-04 0 / / [id number] Cement Bone Surg Simplex Radiopq Stry-How 0794-0-175-11 4092 - [id number] Implanted:Qty : 1 on 10/08/2021 by Celso Jean-Baptiste MD at [facility] and Med Right: Knee [facility] [id number] 04/02/2023 6191 0 / / [id number] Tritanium Asym Cn Aug D Lm Rl [facility] 3063-T-660-69 9563 - [id number] Implanted:Qty : 1 on 10/08/2021 by Celso Jean-Baptiste MD at [facility] and Med Right: Knee [facility] [id number] 02/14/2025 5549-A-24 1 / / [id number] Plug Bone [facility] 9570-6-126-14 3872 - [id number] Implanted:Qty : 1 on 10/08/2021 by Celso Jean-Baptiste MD at [facility] and Med Right: Knee [facility] [id number] 07/14/2026 6215- 1 / / [id number] Plug Bone [facility] 5379-8-288-14 3872 - [id number] Implanted:Qty : 1 on 10/08/2021 by Celso Jean-Baptiste MD at [facility] and Med Right: Knee [facility] [id number] 07/14/2026 6215- 1 / / [id number] Knee Fem Compon Oss Axle [employer] 271378-637460 - [id number] Implanted:Qty : 1 on 10/08/2021 by Celso Jean-Baptiste MD at [facility] and Med Right: Knee K[employer]AN [employer] [id number] 08/14/2031 103984 / / [id number] Knee Tib Pin Lock Oss Poly [employer] 109013-889713 - [id number] Implanted:Qty : 1 on 10/08/2021 by Celso Jean-Baptiste MD at [facility] and Med Right: Knee KIRAN [employer] [id number] 08/03/2026 096990 / / [id number] Knee Oss Reinf Yoke [employer] 845029-889557 - [id number] Implanted:Qty : 1 on 10/08/2021 by Celso Jean-Baptiste MD at [facility] Right: Knee KIRAN [employer] [id number] 08/08/2031 487564 / / [id number] Knee Tib Bushing Comp Oss [employer] 273269-861966 - [id number] Implanted:Qty : 1 on 10/08/2021 by Celso Jean-Baptiste MD at [facility] Right: Knee KIRAN [employer]OM[employer] [id number] 07/31/2026 870049 / / [id number] Bushings Set Oss Poly Femoral [employer] 629842-825486 - [id number] Implanted:Qty : 1 on 10/08/2021 by Celso Jean-Baptiste MD at [facility] Right: Knee KIRAN [employer] [id number] 06/28/2026 971370 / / [id number] Biomet Oss Segmental Elliptial Femoral Implanted:Qty : 1 on 10/08/2021 by Celso Jean-Baptiste MD at [facility] Right: Knee 01/10/2029 037070 / / [id number] Knee Brng Tib Oss Poly 16mm [employer] 237767-912586 - [id number] Implanted:Qty : 1 on 10/08/2021 by Celso Jean-Baptiste MD at [facility] Right: Knee KIRAN [employer]OMET 08/28/2026 435767 / / [id number] Explanted Type Area Pattern Changer And Repairer Device Identifier Shelf Expiration Date Model / Serial / Lot Femur, Tibia, Patella, Insert Explanted:Qty: 4 on 08/23/2021 by Celso Jean-Baptiste MD at [facility] Nitin Sriram Implanted:Qty: 1 on 08/23/2021 by Celso Jean-Baptiste MD at [facility] Explanted:Qty: 1 on 10/08/2021 by Celso Jean-Baptiste MD at [facility] Med Right: Knee Description:NITIN SRIRAM CUT IN HALF EMBEDDED IN BONE CEMENT Cement Bone Surg Simplex Radiopq Stry-Howm 1635-2-585-114 092 - [id number] Implanted:Qty: 1 on 08/23/2021 by Celso Jean-Baptiste MD at [facility] Med Explanted:Qty: 1 on 10/08/2021 by Celso Jean-Baptiste MD at [facility] Med Right: Knee [facility] [id number] 12/02/2023 6191-1-010 / / [id number] Cement Bone Surg Simplex Radiopq Stry-Howm 0741-1-607-114 092 - [id number] Implanted:Qty: 1 on 08/23/2021 by Celso Jean-Baptiste MD at [facility] Med Explanted:Qty: 1 on 10/08/2021 by Celso Jean-Baptiste MD at [facility] Right: Knee [facility] [id number] 12/02/2023 6191-1-010 / / [id number] Cement Bone Surg Simplex Radiopq Stry-Howm 0463-6-126-114 092 - [id number] Implanted:Qty: 1 on 08/23/2021 by Celso Jean-Baptiste MD at [facility] Med Explanted:Qty: 1 on 10/08/2021 by Celso Jean-Baptiste MD at [facility] Right: Knee [facility] [id number] 12/02/2023 6191-1-010 / / [id number] Cement Bone Surg Simplex Radiopq Stry-Howm 6806-5-824-114 092 - [id number] Implanted:Qty: 1 on 08/23/2021 by Celso Jean-Baptiste MD at [facility] Med Explanted:Qty: 1 on 10/08/2021 by Celso Jean-Baptiste MD at [facility] Right: Knee [facility] [id number] 12/02/2023 6191-1-010 / / [id number] Cement Bone Surg Simplex Radiopq Strdestiny-Howsyed 0964-6-017-114 092 - [id number] Implanted:Qty: 1 on 08/23/2021 by Celso Jean-Baptiste MD at [facility] and Med Explanted:Qty: 1 on 10/08/2021 by Celso Jean-Baptiste MD at [facility] Right: Knee [facility] [id number] 12/02/2023 6191-1-010 / / [id number] Additional Health Concerns Infection Onset Date Last Indicated MRSA Comment:08/21/21: Synovial Fluid Cx - R Knee 08/19/2021 08/21/2021 Advance Directives For more information, please contact: [phone] Latest Code Status on File Code Status [...] way: discussion with patient . Care Teams Sorter Packer Relationship Specialty Start Date End Date Aleshia Claros MD PCP - General Infectious Diseases 07/09/21
--- OUTSIDE RECORDS SUMMARY | 2024-07-07 18:51 | XMS_ITS | Clinical Summary ---
Author Organization [facility] it Address [address] [place] [address] Care Team Providers Care Industrial Gas Servicer Supervisor Name Role Phone Aleshia Claros MD Primary Care Provider [phone] Allergies No known active allergies Medications acetaminophen [...] KNEE PROSTHESIS; Surgeon: Celso Jean-Baptiste MD; Location: [facility]); Service: Orthopedics; Laterality: Right; KNEE SURGERY Left PROCEDURE:KNEE SURGERY;COMMENT:multiple surgeries KNEE SURGERY Right PROCEDURE:KNEE SURGERY;COMMENT:multiple surgeries COLONOSCOPY PROCEDURE:COLONOSCOPY UPPER GASTROINTESTINAL ENDOSCOPY PROCEDURE:UPPER GASTROINTESTINAL ENDOSCOPY EYE SURGERY Bilateral PROCEDURE:EYE SURGERY;COMMENT:glaucoma surgery DENTAL SURGERY PROCEDURE:DENTAL SURGERY;COMMENT:all teeth removed, upper & Lower dentures KNEE ARTHROPLASTY 10/08/2021 Right PROCEDURE:REVISION TOTAL KNEE ARTHROPLASTY;COMMENT:Procedur e: REVISION TOTAL KNEE; Surgeon: Celso Jean-Baptiste MD; Location: [facility] ([facility]); Service: Orthopedics; Laterality: Right; Medical History Medical [...] this topic Medical Devices Implanted Type Area Hvac Installer Device Identifier Shelf Expiration Date Model / Serial / Lot Stimulan Rapid Cure Implanted:Qty : 1 on 08/23/2021 by Celso Jean-Baptiste MD Joints Right: Knee [id number] 11/01/2023 / / [id number] [place] Tibial Augment Implanted:Qty : 1 on 10/08/2021 by Celso Jean-Baptiste MD Joints Right: Knee [id number] 07/30/2031 / / [id number] [place] Tibial Augment Implanted:Qty : 1 on 10/08/2021 by Celso Jean-Baptiste MD Joints Right: Knee [id number] 07/30/2031 / / [id number] Non-Modular Long Tibial Baseplate (Oss) Implanted:Qty : 1 on 10/08/2021 by Celso Jean-Baptiste MD Joints Right: Knee [id number] 07/31/2030 / / [id number] Bowed Im Stem With Screw (Oss) Implanted:Qty : 1 on 10/08/2021 by Celso Jean-Baptiste MD Joints Right: Knee [id number] 11/21/2027 / / [id number] Cement Bone Surg Simplex Radiopq Stry-Howm 6940-8-962- 4092 Implanted:Qty : 1 on 10/08/2021 by Celso Jean-Baptiste MD Right: Knee [facility] [id number] 04/02/2023 6190-05-04 0 / / [id number] Cement Bone Surg Simplex Radiopq Stry-Howm 6507-0-437-11 4092 Implanted:Qty : 1 on 10/08/2021 by Celso Jean-Baptiste MD Right: Knee [facility] [id number] 04/02/2023 6190-05-04 0 / / [id number] Cement Bone Surg Simplex Radiopq Stry-Howm 5617-6-534-11 4092 Implanted:Qty : 1 on 10/08/2021 by Celso Jean-Baptiste MD Right: Knee [facility] [id number] 04/02/2023 6190-05-04 0 / / [id number] Tritanium Asym Cn Aug D Lm Rl Stry-Howm 7854-R-982-69 9563 Implanted:Qty : 1 on 10/08/2021 by Celso Jean-Baptiste MD Right: Knee [facility] [id number] 02/14/2025 5549-A-24 1 / / [id number] Plug Bone Med Stry-Howm 2736-5-438-14 3872 Implanted:Qty : 1 on 10/08/2021 by Celso Jean-Baptiste MD Right: Knee [facility] [id number] 07/14/2026 6215-5-05 04 / / [id number] Plug Bone Med [facility] 7144-4-307-14 3872 Implanted:Qty : 1 on 10/08/2021 by Celso Jean-Baptiste MD Right: Knee [facility] [id number] 07/14/2026 6215-5-05 04 / / [id number] Knee Fem Compon Oss Axle [employer] 855551-441886 Implanted:Qty : 1 on 10/08/2021 by Celso Jean-Baptiste MD Right: Knee [employer]AN [employer] [id number] 08/14/2031 092497 / / [id number] Knee Tib Pin Lock Oss Poly [employer] 847471-848584 Implanted:Qty : 1 on 10/08/2021 by Celso Jean-Baptiste MD Right: Knee KIRAN [employer] [id number] 08/03/2026 146692 / / [id number] Knee Oss Reinf Yoke [employer] 228712-069783 Implanted:Qty : 1 on 10/08/2021 by Celso Jean-Baptiste MD Right: Knee KIRAN [employer] [id number] 08/08/2031 531299 / / [id number] Knee Tib Bushing Comp Oss [employer] 698031-826659 Implanted:Qty : 1 on 10/08/2021 by Celso Jean-Baptiste MD Right: Knee [employer]AN [employer] [id number] 07/31/2026 205215 / / [id number] Bushings Set Oss Poly Femoral [employer] 121152-434828 Implanted:Qty : 1 on 10/08/2021 by Celso Jean-Baptiste MD Right: Knee [employer] [id number] 06/28/2026 240297 / / [id number] Biomet Oss Segmental Elliptial Femoral Implanted:Qty : 1 on 10/08/2021 by Celso Jean-Baptiste MD Right: Knee 01/10/2029 983574 / / [id number] Knee Brng Tib Oss Poly 16mm [employer] 507176-050234 Implanted:Qty : 1 on 10/08/2021 by Celso Jean-Baptiste MD Right: Knee [employer] 08/28/2026 607355 / / [id number] Cement Bone Surg Simplex Radiopq Stry-Howm 2842-7-676-11 4092 Implanted:Qty : 1 on 10/08/2021 by Celso Jean-Baptiste MD Right: Knee [facility] [id number] 04/02/2023 6191-05-04 0 / / [id number] Cement Bone Surg Simplex Radiopq Stry-Howm 2514-5-442-11 409 Implanted:Qty : 1 on 10/08/2021 by Celso Jean-Baptiste MD Right: Knee [facility] [id number] 04/02/202391 0 / / [id number] Procedures Procedure Name Priority Date/Time Associated Diagnosis Comments ANNUAL BMP BLOOD TEST Routine 10/09/2021 HEMOGLOBIN A1C Routine 09/27/2021 from Last 3 Months or Most Recently Relevant to Health Maintenance Results * Annual BMP Blood Test (10/09/2021) Pathologist [facility] Annual BMP Blood Test abstracted Historical Provider HEALTH MAINTENANCE Final Result * (ABNORMAL) Hemoglobin A1c (09/27/2021) Pathologist [facility] Hemoglobin A1C 6.6(A) <=5.7 % Blood Venous blood specimen / Unknown Historical Provider LAB BLOOD ORDERABLES Clara l Result from Last 3 Months or Most Recently Relevant to Health Maintenance Care Teams Industrial Gas Servicer Supervisor Relationship Specialty Start Date End Date Aleshia Claros MD PCP - General Infectious Diseases 07/09/21
== END 2024-07-07 16:12 | disposition home or self-care (01) ==
PROVIDERS: PCP Internal Medicine; Visit Provider Internal Medicine
DX: N61.0 Mastitis without abscess (principal); E66.01 Morbid (severe) obesity due to excess calories; F17.200 Nicotine dependence, unspecified, uncomplicated; Z68.38 Body mass index [BMI] 38.0-38.9, adult; Z00.00 Encounter for general adult medical examination without abnormal findings

== ENCOUNTER → 2024-07-07 15:22 | Outpatient (BNVA) | payer MEDICARE, SELFPAY | PROVIDERS: PCP Internal Medicine; Visit Provider Internal Medicine | DX: N61.0 Mastitis without abscess (principal); E66.01 Morbid (severe) obesity due to excess calories; Z68.38 Body mass index [BMI] 38.0-38.9, adult; F17.200 Nicotine dependence, unspecified, uncomplicated; Z71.6 Tobacco abuse counseling; Z71.3 Dietary counseling and surveillance | CPT/HCPCS: 99212 ==

== ENCOUNTER 2024-07-19 08:44 | Outpatient (REF) | payer MEDICARE, SELFPAY ==
--- NOTE | ~2024-07-19 | US_ITS ---
EXAMINATION: MM DIAGNOSTIC DIGITAL BREAST TOMOSYNTHESIS, BILATERAL Right breast ultrasound. CLINICAL INFORMATION: 64-year-old male with painful right nipple and breast. Redness unsensitive to the touch. COMPARISON: Mammography: Comparison is made with relevant prior exams. TECHNIQUE: Digital breast mammography with tomosynthesis is performed in both the craniocaudal and mediolateral oblique views along with computer-aided detection (CAD). FINDINGS: The breasts are almost entirely fatty (ACR BI-RADS breast composition Category a). Right: Triangular marker on the right nipple at site of pain with retroareolar trace gynecomastia. No suspicious calcifications or other abnormal findings. Targeted color Doppler ultrasound scanning in the right retroareolar region demonstrates trace gynecomastia. Left: There are no significant masses, abnormal calcifications, or other abnormalities. Results are provided to the patient at time of visit by the technologist. US/US breast RT limited mamm only IMPRESSION: Left: Negative. Right: Trace gynecomastia. Benign. Recommend clinical evaluation and follow-up. ASSESSMENT: BI-RADS BI-RADS 2 - Benign Findings RECOMMENDATION: Clinical evaluation and follow-up. This patient's information was entered into a reminder system with a target due date for their next mammogram. Electronically signed by: Nandini Porter DO 07/19/2024 09:57 AM EDT
--- OUTSIDE RECORDS SUMMARY | 2024-07-19 09:06 | XMS_ITS ---
Author Name [facility] Organization Unknown Care Team Organization Name Specialty Phone Email Start Date End [facility] 10/13/2022 10/13/2022
--- OUTSIDE RECORDS SUMMARY | 2024-07-19 09:06 | XMS_ITS | Clinical Summary ---
Author Organization [facility] it Address [address] [place] [address] Care Team Providers Care Housekeeping Aid Name Role Phone Aleshia Claros MD Primary Care Provider [phone] Allergies No known active allergies Medications acetaminophen [...] KNEE PROSTHESIS; Surgeon: Celso Jean-Baptiste MD; Location: [facility] ([facility]); Service: Orthopedics; Laterality: Right; KNEE SURGERY Left PROCEDURE:KNEE SURGERY;COMMENT:multiple surgeries KNEE SURGERY Right PROCEDURE:KNEE SURGERY;COMMENT:multiple surgeries COLONOSCOPY PROCEDURE:COLONOSCOPY UPPER GASTROINTESTINAL ENDOSCOPY PROCEDURE:UPPER GASTROINTESTINAL ENDOSCOPY EYE SURGERY Bilateral PROCEDURE:EYE SURGERY;COMMENT:glaucoma surgery DENTAL SURGERY PROCEDURE:DENTAL SURGERY;COMMENT:all teeth removed, upper & Lower dentures KNEE ARTHROPLASTY 10/08/2021 Right PROCEDURE:REVISION TOTAL KNEE ARTHROPLASTY;COMMENT:Procedur e: REVISION TOTAL KNEE; Surgeon: Celso Jean-Baptiste MD; Location: [facility] ([facility]); Service: Orthopedics; Laterality: Right; Medical History Medical History Date Comments Diabetes mellitus (CMS/HCC) DX:D iabetes mellitus (HCC) Polymyalgia rheumatica (CMS/HCC) DX:Polymyalgia rheumatica (HCC) HTN (hypertension) DX:HTN (hyper tension) Osteoarthritis DX:Osteoarthriti s Chronic back pain DX:Chronic alban k pain Hyperlipidemia DX:Hyperlipidemi a Dizziness DX:Dizziness Diabetes mellitus, type II (CMS/HCC) DX:Diabetes mellitus, type II ([facility]) Family history of DVT DX:Family history [...] this topic Medical Devices Implanted Type Area Lieutenant Colonel Device Identifier Shelf Expiration Date Model / Serial / Lot Stimulan Rapid Cure Implanted:Qty : 1 on 08/23/2021 by Celso Jean-Baptiste MD Joints Right: Knee [id number] 11/01/2023 / / [id number] [place] Tibial Augment Implanted:Qty : 1 on 10/08/2021 by Celso Jean-Baptiste MD Joints Right: Knee [id number] 07/30/2031 / / [id number] [place] Tibial Augment Implanted:Qty : 1 on 10/08/2021 by Celso Jean-Bapitste MD Joints Right: Knee [id number] 07/30/2031 / / [id number] Non-Modular Long Tibial Baseplate (Oss) Implanted:Qty : 1 on 10/08/2021 by Celso Jean-Baptiste MD Joints Right: Knee [id number] 07/31/2030 / / [id number] Bowed Im Stem With Screw (Oss) Implanted:Qty : 1 on 10/08/2021 by Celso Jean-Baptiste MD Joints Right: Knee [id number] 11/21/2027 / / [id number] Cement Bone Surg Simplex Radiopq Stry-Howm 4460-0-031- 4092 Implanted:Qty : 1 on 10/08/2021 by Celso Jean-Baptiste MD Right: Knee [facility] [id number] 04/02/2023 6190-05-04 0 / / [id number] Cement Bone Surg Simplex Radiopq Stry-Howm 4089-5-168-11 4092 Implanted:Qty : 1 on 10/08/2021 by Celso Jean-Baptiste MD Right: Knee [facility] [id number] 04/02/2023 6190-05-04 0 / / [id number] Cement Bone Surg Simplex Radiopq Stry-Howm 9719-1-277-11 4092 Implanted:Qty : 1 on 10/08/2021 by Cleso Jean-Baptiste MD Right: Knee [facility] [id number] 04/02/2023 6190-05-04 0 / / [id number] Tritanium Asym Cn Aug D Lm Rl Stry-Howm 3909-X-019-69 9563 Implanted:Qty : 1 on 10/08/2021 by Celso Jean-Baptiste MD Right: Knee [facility] [id number] 02/14/2025 5549-A-24 1 / / [id number] Plug Bone Med Stry-Howm 3237-2-085-14 3872 Implanted:Qty : 1 on 10/08/2021 by Celso Jean-Baptiste MD Right: Knee [facility] [id number] 07/14/2026 6215-5-05 04 / / [id number] Plug Bone Med [facility] 8233-7-947-14 3872 Implanted:Qty : 1 on 10/08/2021 by Celso Jean-Baptiste MD Right: Knee [facility] [id number] 07/14/2026 6215-5-05 04 / / [id number] Knee Fem Compon Oss Axle [employer] 843912-763710 Implanted:Qty : 1 on 10/08/2021 by Celso Jean-Baptiste MD Right: Knee [employer] [id number] 08/14/2031 038606 / / [id number] Knee Tib Pin Lock Oss Poly [employer] 197026-045953 Implanted:Qty : 1 on 10/08/2021 by Celso Jean-Baptiste MD Right: Knee KIRAN [employer] [id number] 08/03/2026 220063 / / [id number] Knee Oss Reinf Yoke [employer] 632523-432994 Implanted:Qty : 1 on 10/08/2021 by Celso Jean-Baptiste MD Right: Knee [employer]AN [employer] [id number] 08/08/2031 506609 / / [id number] Knee Tib Bushing Comp Oss [employer] 880946-778362 Implanted:Qty : 1 on 10/08/2021 by Celso Jean-Baptiste MD Right: Knee KIRAN [employer] [id number] 07/31/2026 841410 / / [id number] [place] Set Oss Poly Femoral [employer] 945555-829815 Implanted:Qty : 1 on 10/08/2021 by Celso Jean-Baptiste MD Right: Knee [employer] [id number] 06/28/2026 270537 / / [id number] Biomet Oss Segmental Elliptial Femoral Implanted:Qty : 1 on 10/08/2021 by Celso Jean-Baptiste MD Right: Knee 01/10/2029 722631 / / [id number] Knee Brng Tib Oss Poly 16mm [employer] 529326-327879 Implanted:Qty : 1 on 10/08/2021 by Celso Jean-Baptiste MD Right: Knee KIRAN [employer]OM[employer] 08/28/2026 822539 / / [id number] Cement Bone Surg Simplex Radiopq Stry-Howm 7267-0-166-11 4092 Implanted:Qty : 1 on 10/08/2021 by Celso Jean-Baptiste MD Right: Knee [facility] [id number] 04/02/2023 6191-05-04 0 / / [id number] Cement Bone Surg Simplex Radiopq Stry-Howm 7421-6-882-11 409 Implanted:Qty : 1 on 10/08/2021 by Celso Jean-Baptitse MD Right: Knee [facility] [id number] 04/02/202391 0 / / [id number] Procedures Procedure Name Priority Date/Time Associated Diagnosis Comments ANNUAL BMP BLOOD TEST Routine 10/09/2021 HEMOGLOBIN A1C Routine 09/27/2021 from Last 3 Months or Most Recently Relevant to Health Maintenance Results * Annual BMP Blood Test (10/09/2021) Pathologist [facility] Annual BMP Blood Test abstracted Historical Provider HEALTH MAINTENANCE Final Result * (ABNORMAL) Hemoglobin A1c (09/27/2021) Pathologist [facility] Hemoglobin A1C 6.6(A) <=5.7 % Blood Venous blood specimen / Unknown Historical Provider LAB BLOOD ORDERABLES Clara l Result from Last 3 Months or Most Recently Relevant to Health Maintenance Care Teams Housekeeping Aid Relationship Specialty Start Date End Date Aleshia Claros MD PCP - General Infectious Diseases 07/09/21
--- OUTSIDE RECORDS SUMMARY | 2024-07-19 09:06 | XMS_ITS | Clinical Summary ---
Author Organization [facility] Address [address] [place] [address] Care Team Providers Care Hotel Dining Room Cashier Name Role Phone Aleshia Claros MD Primary [...] this topic Medical Devices Implanted Type Area Windows Vmware Administrator Device Identifier Shelf Expiration Date Model / Serial / Lot Stimulan Rapid Cure Implanted:Qty : 1 on 08/23/2021 by Celso Jean-Baptiste MD at [facility] Total Joint Right: Knee [id number] 11/01/2023 / / [id number] [place] Tibial Augment Implanted:Qty : 1 on 10/08/2021 by Celso Jean-Baptiste MD at [facility] Total Joint Right: Knee [id number] 07/30/2031 / / [id number] [place] Tibial Augment Implanted:Qty : 1 on 10/08/2021 by Celso Jean-Baptiste MD at [facility] Total Joint Right: Knee [id number] 07/30/2031 / / [id number] Non-Modular Long Tibial Baseplate (Oss) Implanted:Qty : 1 on 10/08/2021 by Celso Jean-Baptiste MD at [facility] Total Joint Right: Knee [id number] 07/31/2030 / / [id number] Bowed Im Stem With Screw (Oss) Implanted:Qty : 1 on 10/08/2021 by Celso Jean-Baptiste MD at [facility] Total Joint Right: Knee [id number] 11/21/2027 / / [id number] Cement Bone Surg Simplex Radiopq Stry-Howm 9035-5-493-11 4092 - [id number] Implanted:Qty : 1 on 10/08/2021 by Celso Jean-Baptiste MD at [facility] Right: Knee [facility] [id number] 04/02/2023 6190-05-04 0 / / [id number] Cement Bone Surg Simplex Radiopq Stry-Howm 2216-3-543- 4092 - [id number] Implanted:Qty : 1 on 10/08/2021 by Celso Jean-Baptiste MD at [facility] Right: Knee [facility] [id number] 04/02/2023 6190-05-04 0 / / [id number] Cement Bone Surg Simplex Radiopq Stry-Howm 7260-4-333- 409 - [id number] Implanted:Qty : 1 on 10/08/2021 by Celso Jean-Baptiste MD at [facility] Right: Knee [facility] [id number] 04/02/2023 6190-05-04 0 / / [id number] Cement Bone Surg Simplex Radiopq Stry-Howm 7110-5-814- 409 - [id number] Implanted:Qty : 1 on 10/08/2021 by Celso Jean-Baptiste MD at [facility] Right: Knee [facility] [id number] 04/02/2023 6190-05-04 0 / / [id number] Cement Bone Surg Simplex Radiopq Stry-How 2271-5-788-11 4092 - [id number] Implanted:Qty : 1 on 10/08/2021 by Celso Jean-Baptiste MD at [facility] Right: Knee [facility] [id number] 04/02/2023 6191 0 / / [id number] Tritanium Asym Cn Aug D Lm Rl [facility] 1519-E-865-69 9563 - [id number] Implanted:Qty : 1 on 10/08/2021 by Celso Jean-Baptiste MD at [facility] Right: Knee [facility] [id number] 02/14/2025 5549-A-24 1 / / [id number] Plug Bone [facility] 2728-5-594-14 3872 - [id number] Implanted:Qty : 1 on 10/08/2021 by Celso Jean-Baptiste MD at [facility] Right: Knee [facility] [id number] 07/14/2026 6215- 1 / / [id number] Plug Bone [facility] 8128-2-488-14 3872 - [id number] Implanted:Qty : 1 on 10/08/2021 by Celso Jean-Baptiste MD at [facility] Right: Knee [facility] [id number] 07/14/2026 6215- 1 / / [id number] Knee Fem Compon Oss Axle [employer]-Biom 064782-615643 - [id number] Implanted:Qty : 1 on 10/08/2021 by Celso Jean-Baptiste MD at [facility] Right: Knee K[employer]AN [employer] [id number] 08/14/2031 140742 / / [id number] Knee Tib Pin Lock Oss Poly [employer] 523927-141009 - [id number] Implanted:Qty : 1 on 10/08/2021 by Celso Jean-Baptiste MD at [facility] Right: Knee KIRAN [employer] [id number] 08/03/2026 296543 / / [id number] Knee Oss Reinf Yoke [employer] 107369-001737 - [id number] Implanted:Qty : 1 on 10/08/2021 by Celso Jean-Baptiste MD at [facility] Right: Knee KIRAN BIOMET [id number] 08/08/2031 402509 / / [id number] Knee Tib Bushing Comp Oss [employer] 930493-952439 - [id number] Implanted:Qty : 1 on 10/08/2021 by Celso Jean-Baptiste MD at [facility] Right: Knee KIRAN BIOMET [id number] 07/31/2026 429218 / / [id number] Bushings Set Oss Poly Femoral Zimm-Biom 439315-598813 - [id number] Implanted:Qty : 1 on 10/08/2021 by Celso Jean-Baptiste MD at [facility] Right: Knee KIRAN [employer] [id number] 06/28/2026 287372 / / [id number] Biomet Oss Segmental Elliptial Femoral Implanted:Qty : 1 on 10/08/2021 by Celso Jean-Baptiste MD at [facility] Right: Knee 01/10/2029 801523 / / [id number] Knee Brng Tib Oss Poly 16mm [employer] 144443-533445 - [id number] Implanted:Qty : 1 on 10/08/2021 by Celso Jean-Baptiste MD at [facility] Right: Knee KIRAN BIOMET 08/28/2026 [id number] / / [id number] Explanted Type Area Windows Vmware Administrator Device Identifier Shelf Expiration Date Model / Serial / Lot Femur, Tibia, Patella, Insert Explanted:Qty: 4 on 08/23/2021 by Celso Jean-Baptiste MD at [facility] Nitin Sriram Implanted:Qty: 1 on 08/23/2021 by Celso Jean-Baptiste MD at [facility] Explanted:Qty: 1 on 10/08/2021 by Celso Jean-Baptiste MD at [facility] Right: Knee Description:NITIN SRIRAM CUT IN HALF EMBEDDED IN BONE CEMENT Cement Bone Surg Simplex Radiopq Stry-Howm 7410-2-784-114 092 - [id number] Implanted:Qty: 1 on 08/23/2021 by Celso Jean-Baptiste MD at [facility] Explanted:Qty: 1 on 10/08/2021 by Celso Jean-Baptiste MD at [facility] Right: Knee [facility] [id number] 12/02/2023 6191-1-010 / / [id number] Cement Bone Surg Simplex Radiopq Stry-Howm 7859-7-935-114 092 - [id number] Implanted:Qty: 1 on 08/23/2021 by Celso Jean-Baptiste MD at [facility] Explanted:Qty: 1 on 10/08/2021 by Celso Jean-Baptiste MD at [facility] Right: Knee [facility] [id number] 12/02/2023 6191-1-010 / / [id number] Cement Bone Surg Simplex Radiopq Stry-Howm 2028-3-472-114 092 - [id number] Implanted:Qty: 1 on 08/23/2021 by Celso Jean-Baptiste MD at [facility] Explanted:Qty: 1 on 10/08/2021 by Celso Jean-Baptiste MD at [facility] Right: Knee [facility] [id number] 12/02/2023 6191-1-010 / / [id number] Cement Bone Surg Simplex Radiopq Stry-Howm 6203-3-404-114 092 - [id number] Implanted:Qty: 1 on 08/23/2021 by Celso Jean-Baptiste MD at [facility] Explanted:Qty: 1 on 10/08/2021 by Celso Jean-Baptiste MD at [facility] Right: Knee [facility] [id number] 12/02/2023 6191-1-010 / / [id number] Cement Bone Surg Simplex Radiopq Strdestiny-Howsyed 6571-1-194-114 092 - [id number] Implanted:Qty: 1 on 08/23/2021 by Celso Jean-Baptiste MD at [facility] Explanted:Qty: 1 on 10/08/2021 by Celso Jean-Baptiste MD at [facility] Right: Knee [facility] [id number] 12/02/2023 6191-1-010 / / [id number] Additional Health Concerns Infection Onset Date Last Indicated MRSA Comment:08/21/21: Synovial Fluid Cx - R Knee 08/19/2021 08/21/2021 Advance Directives For more information, please contact: [phone] Latest Code Status on File Code Status [...] way: discussion with patient . Care Teams Hotel Dining Room Cashier Relationship Specialty Start Date End Date Aleshia Claros MD PCP - General Infectious Diseases 07/09/21
== END 2024-07-19 08:45 | disposition home or self-care (01) ==
LOC: HO.MAMMO 08:44
PROVIDERS: PCP Internal Medicine; Visit Provider Internal Medicine
DX: N61.0 Mastitis without abscess (principal)
CPT/HCPCS: 76642; 77062; 77066

== ENCOUNTER → 2024-07-19 09:00 | Outpatient (BNV) | payer MEDICARE, SELFPAY | PROVIDERS: PCP Internal Medicine; Visit Provider Internal Medicine | DX: N64.4 Mastodynia (principal) | CPT/HCPCS: 76642; 77066; G0279 ==

== ENCOUNTER 2024-07-21 09:19 | Outpatient (AMB) | payer MEDICARE, SELFPAY ==
--- NOTE | 2024-07-21 09:43 | MHC.PC.OV ---
Vital Signs 07/21/24 09:44 Height 6 ft Weight 288 lb 4 oz BMI 39.1 BP 130/68 Blood Pressure Location Lt brachial Position Sitting Pulse 77 Pulse Source Pulse Oximeter Temp 969 F H Temp Source Temporal Artery Scan Pulse Oximetry (%) 95 Oxygen Delivery Method Room Air Intake Visit Reasons: 2 week f/u Intake Note: Patient is here to follow up on DM, request chest US results. Class B Truck Driver Required: No Cut Off Machine Operator: Present Accompanied by: Spouse Allergies No Known Allergies Allergy (Verified 07/21/24 09:43) Tobacco use date assessed: 07/07/24 Dental Screening Dental Screen Date: 07/07/24 HPI 2 week f/u HPI Details 64 yr old returns for a quick follow up visit. Continues to have some breast sensitiveness in the rigth breast. Some improvement since last ov [facility] Medical History Tobacco use disorder Class 2 severe obesity with body mass index (BMI) of 35 to 39.9 with serious comorbidity Right knee pain Infected prosthetic knee joint Hyperlipidemia Prosthetic joint infection Benign prostate hyperplasia Encounter to establish care Surgical History History of cataract surgery History of colonoscopy History of surgery on lower extremity History of total bilateral knee replacement History of cholecystectomy History of hemorrhoidectomy History of shoulder surgery History of eye surgery History of bilateral knee replacement History of back surgery Social History Housing: House Alcohol intake: never Patient Tobacco Use Status: Current everyday Tobacco user Tobacco use type: Cigarette Cigarette Packs Per Day: 0.5 Cigarettes Per Day: 5 Years Smoked: 40 e-Cigarette/Vaping Use: Never Used Second Hand Smoke Exposure: Yes service: No Current occupational status: retired Cognitive needs: Yes (Cane) Hearing needs: No Vision needs: Yes (glasses) Questionnaire Thrive Questionnaire Date Thrive assessed: 07/07/24 AUDIT C Alcohol Use Questionnaire (AUDIT-C) 2. How many drinks containing alcohol do you have on a typical day when you are drinking?: 1 or 2 3. How often do you have six or more drinks on one occasion?: Less than monthly Total Score: 1 ALVERTO-7 AMB Questionnaire ALVERTO-7 Date ALVERTO - 7 assessed: 07/07/24 Source: Developed by Drs. Elias Fajardo, Vanessa De Souza, Ramesh Lechuga and colleagues, with an educational heidi from [employer]. Physical exam (Primary Care) Vital Signs: Last Vital Signs Temp 969 F H 07/21/24 09:44 Pulse 77 07/21/24 09:44 BP 130/68 07/21/24 09:44 Pulse Ox 95 07/21/24 09:44 Oxygen Delivery Method Room Air 07/21/24 09:44 BMI result Body Mass Index 39.1 Tobacco/Smoking Status: Tobacco use Status Tobacco use date assessed 07/07/24 07/21/24 09:44 Patient Tobacco Use Status Current everyday Tobacco 07/21/24 09:44 Tobacco use type Cigarette 07/21/24 09:44 e-Cigarette/Vaping Use Never Used 07/21/24 09:44 Thrive Assessment: Date of Thrive Assessment Date Thrive assessed 07/07/24 07/21/24 09:44 Chest Other: Chest: Gynecomastia. No visible erythema. No nipple discharge. Results AMB Hemoglobin A1c AMB Hemoglobin A1c 7.0 % Last Edit by SANYA Barakat on 07/21/24 09:58 Results Reviewed Results Reviewed: Laboratory Last Values Hgb A1c (Clinic) 7.0 % (4.0-6.0) H 07/21/24 09:43 Coding Level of Care Code Est Pt Level 3 (56377) Complex EM visit Add On G2211 Diagnoses Mastitis N61.0 Assessment & Plan Assessment & Plan (1) Mastitis: Code(s): N61.0 - Mastitis without abscess Plan: Ultrasound and mammogram reviewed. Patient was reassured. Orders: Orders AMB Hemoglobin A1c Today E11.65 - Type 2 diabetes mellitus with hyperglycemia
[2024-07-21 09:44] VITALS: BP 130/68; PULSE 77; TEMP 520.5; TEMP 969; O2SAT 95; BMI 39.1
--- OUTSIDE RECORDS SUMMARY | 2024-07-21 10:08 | XMS_ITS | Clinical Summary ---
Author Organization [facility] Address [address] [place] [address] Care Team Providers Care Hris Administrator Name Role Phone Aleshia Claros MD [...] this topic Medical Devices Implanted Type Area Friend Of The Court Device Identifier Shelf Expiration Date Model / Serial / Lot Stimulan Rapid Cure Implanted:Qty : 1 on 08/23/2021 by Celso Jean-Baptiste MD at [facility] Total Joint Right: Knee [id number] 11/01/2023 / / [id number] [place] Tibial Augment Implanted:Qty : 1 on 10/08/2021 by Celso Jean-Baptiste MD at [facility] Total Joint Right: Knee [id number] 07/30/2031 / / [id number] [place] Tibial Augment Implanted:Qty : 1 on 10/08/2021 by Celso Jean-Baptiste MD at [facility] Total Joint Right: Knee [id number] 07/30/2031 / / [id number] Non-Modular Long Tibial Baseplate (Oss) Implanted:Qty : 1 on 10/08/2021 by Celso Jean-Baptiste MD at [facility] Total Joint Right: Knee [id number] 07/31/2030 / / [id number] Bowed Im Stem With Screw (Oss) Implanted:Qty : 1 on 10/08/2021 by Celso Jean-Baptiste MD at [facility] Total Joint Right: Knee [id number] 11/21/2027 / / [id number] Cement Bone Surg Simplex Radiopq Stry-Howm 8716-5-398-11 4092 - [id number] Implanted:Qty : 1 on 10/08/2021 by Celso Jean-Baptiste MD at [facility] Right: Knee [facility] [id number] 04/02/2023 6190-05-04 0 / / [id number] Cement Bone Surg Simplex Radiopq Stry-Howm 4970-8-232- 4092 - [id number] Implanted:Qty : 1 on 10/08/2021 by Celso Jean-Baptiste MD at [facility] Right: Knee [facility] [id number] 04/02/2023 6190-05-04 0 / / [id number] Cement Bone Surg Simplex Radiopq Stry-Howm 8696-8-723- 409 - [id number] Implanted:Qty : 1 on 10/08/2021 by Celso Jean-Baptiste MD at [facility] Right: Knee [facility] [id number] 04/02/2023 6190-05-04 0 / / [id number] Cement Bone Surg Simplex Radiopq Stry-Howm 5644-0-123- 409 - [id number] Implanted:Qty : 1 on 10/08/2021 by Celso Jean-Baptiste MD at [facility] Right: Knee [facility] [id number] 04/02/2023 6190-05-04 0 / / [id number] Cement Bone Surg Simplex Radiopq Stry-How 3241-5-317-11 4092 - [id number] Implanted:Qty : 1 on 10/08/2021 by Celso Jean-Baptiste MD at [facility] Right: Knee [facility] [id number] 04/02/2023 6191 0 / / [id number] Tritanium Asym Cn Aug D Lm Rl [facility] 9718-F-531-69 9563 - [id number] Implanted:Qty : 1 on 10/08/2021 by Celso Jean-Baptiste MD at [facility] Right: Knee [facility] [id number] 02/14/2025 5549-A-24 1 / / [id number] Plug Bone [facility] 9254-7-758-14 3872 - [id number] Implanted:Qty : 1 on 10/08/2021 by Celso Jean-Baptiste MD at [facility] Right: Knee [facility] [id number] 07/14/2026 6215- 1 / / [id number] Plug Bone [facility] 7255-6-945-14 3872 - [id number] Implanted:Qty : 1 on 10/08/2021 by Celso Jean-Baptiste MD at [facility] Right: Knee [facility] [id number] 07/14/2026 6215- 1 / / [id number] Knee Fem Compon Oss Axle [employer] 312794-478340 - [id number] Implanted:Qty : 1 on 10/08/2021 by Celso Jean-Baptiste MD at [facility] Right: Knee KIRAN BIOMET [id number] 08/14/2031 408268 / / [id number] Knee Tib Pin Lock Oss Poly [employer] 049054-248365 - [id number] Implanted:Qty : 1 on 10/08/2021 by Celso Jean-Baptiste MD at [facility] Right: Knee KIRAN [employer] [id number] 08/03/2026 013377 / / [id number] Knee Oss Reinf Yoke [employer] 188600-539769 - [id number] Implanted:Qty : 1 on 10/08/2021 by Celso Jean-Baptiste MD at [facility] Right: Knee KIRAN BIOMET [id number] 08/08/2031 195451 / / [id number] Knee Tib Bushing Comp Oss [employer] 314704-419250 - [id number] Implanted:Qty : 1 on 10/08/2021 by Celso Jean-Baptiste MD at [facility] Right: Knee KIRAN [employer] [id number] 07/31/2026 472923 / / [id number] Bushings Set Oss Poly Femoral [employer]om 825269-390181 - [id number] Implanted:Qty : 1 on 10/08/2021 by Celso Jean-Baptiste MD at [facility] Right: Knee KIRAN [employer] [id number] 06/28/2026 676986 / / [id number] Biomet Oss Segmental Elliptial Femoral Implanted:Qty : 1 on 10/08/2021 by Celso Jean-Baptiste MD at [facility] Right: Knee 01/10/2029 936192 / / [id number] Knee Brng Tib Oss Poly 16mm [employer] 824952-119955 - [id number] Implanted:Qty : 1 on 10/08/2021 by Celso Jean-Baptiste MD at [facility] Right: Knee KIRAN BIOMET 08/28/2026 542569 / / [id number] Explanted Type Area Friend Of The Court Device Identifier Shelf Expiration Date Model / Serial / Lot Femur, Tibia, Patella, Insert Explanted:Qty: 4 on 08/23/2021 by Celso Jean-Baptiste MD at [facility] Nitin Sriram Implanted:Qty: 1 on 08/23/2021 by Celso Jean-Baptiste MD at [facility] Explanted:Qty: 1 on 10/08/2021 by Celso Jean-Baptiste MD at [facility] Right: Knee Description:NITIN SRIRAM CUT IN HALF EMBEDDED IN BONE CEMENT Cement Bone Surg Simplex Radiopq Stry-Howm 3237-1-927-114 092 - [id number] Implanted:Qty: 1 on 08/23/2021 by Celso Jean-Baptiste MD at [facility] Explanted:Qty: 1 on 10/08/2021 by Celso Jean-Baptiste MD at [facility] Right: Knee [facility] [id number] 12/02/2023 6191-1-010 / / [id number] Cement Bone Surg Simplex Radiopq Stry-Howm 7564-2-624-114 092 - [id number] Implanted:Qty: 1 on 08/23/2021 by Celso Jean-Baptiste MD at [facility] Explanted:Qty: 1 on 10/08/2021 by Celso Jean-Baptiste MD at [facility] Right: Knee [facility] [id number] 12/02/2023 6191-1-010 / / [id number] Cement Bone Surg Simplex Radiopq Stry-Howm 8216-1-457-114 092 - [id number] Implanted:Qty: 1 on 08/23/2021 by Celso Jean-Baptiste MD at [facility] Med Explanted:Qty: 1 on 10/08/2021 by Celso Jean-Baptiste MD at [facility] and Med Right: Knee [facility] [id number] 12/02/2023 6191-1-010 / / [id number] Cement Bone Surg Simplex Radiopq Stry-Howm 9893-5-191-114 092 - [id number] Implanted:Qty: 1 on 08/23/2021 by Celso Jean-Baptiste MD at [facility] and Med Explanted:Qty: 1 on 10/08/2021 by Celso Jean-Baptiste MD at [facility] Med Right: Knee [facility] [id number] 12/02/2023 6191-1-010 / / [id number] Cement Bone Surg Simplex Radiopq Strdestiny-Howsyed 8216-6-555-114 092 - [id number] Implanted:Qty: 1 on 08/23/2021 by Celso Jean-Baptiste MD at [facility] and Med Explanted:Qty: 1 on 10/08/2021 by Celso Jean-Baptiste MD at [facility] Right: Knee [facility] [id number] 12/02/2023 6191-1-010 / / [id number] Additional Health Concerns Infection Onset Date Last Indicated MRSA Comment:08/21/21: Synovial Fluid Cx - R Knee 08/19/2021 08/21/2021 Advance Directives For more information, please contact: [phone] Latest Code Status on File Code Status [...] way: discussion with patient . Care Teams Hris Administrator Relationship Specialty Start Date End Date Aleshia Claros MD PCP - General Infectious Diseases 07/09/21
--- OUTSIDE RECORDS SUMMARY | 2024-07-21 10:08 | XMS_ITS | Clinical Summary ---
Author Organization [facility] it Address [address] [place] [address] Care Team Providers Care Pipe Stress Engineer Name Role Phone Aleshia Claros MD Primary Care Provider [phone] Allergies No known active allergies Medications acetaminophen [...] KNEE PROSTHESIS; Surgeon: Celso Jean-Baptiste MD; Location: [facility] ([facility]); Service: Orthopedics; Laterality: Right; KNEE SURGERY Left PROCEDURE:KNEE SURGERY;COMMENT:multiple surgeries KNEE SURGERY Right PROCEDURE:KNEE SURGERY;COMMENT:multiple surgeries COLONOSCOPY PROCEDURE:COLONOSCOPY UPPER GASTROINTESTINAL ENDOSCOPY PROCEDURE:UPPER GASTROINTESTINAL ENDOSCOPY EYE SURGERY Bilateral PROCEDURE:EYE SURGERY;COMMENT:glaucoma surgery DENTAL SURGERY PROCEDURE:DENTAL SURGERY;COMMENT:all teeth removed, upper & Lower dentures KNEE ARTHROPLASTY 10/08/2021 Right PROCEDURE:REVISION TOTAL KNEE ARTHROPLASTY;COMMENT:Procedur e: REVISION TOTAL KNEE; Surgeon: Celso Jean-Baptiste MD; Location: [facility] ([facility]); Service: Orthopedics; Laterality: Right; Medical History Medical History Date Comments Diabetes mellitus (CMS/HCC) DX:D iabetes mellitus (HCC) Polymyalgia rheumatica (CMS/HCC) DX:Polymyalgia rheumatica (HCC) HTN (hypertension) DX:HTN (hyper tension) Osteoarthritis DX:Osteoarthriti s Chronic back pain DX:Chronic alban k pain Hyperlipidemia DX:Hyperlipidemi a Dizziness DX:Dizziness Diabetes mellitus, type II (CMS/HCC) DX:Diabetes mellitus, type II ([facility]) Family history of DVT DX:Family history of [...] this topic Medical Devices Implanted Type Area Hand Sprayer Device Identifier Shelf Expiration Date Model / Serial / Lot Stimulan Rapid Cure Implanted:Qty : 1 on 08/23/2021 by Celso Jean-Baptiste MD Joints Right: Knee [id number] 11/01/2023 / / [id number] [place] Tibial Augment Implanted:Qty : 1 on 10/08/2021 by Celso Jean-Baptiste MD Joints Right: Knee [id number] 07/30/2031 / / [id number] [place] Tibial Augment Implanted:Qty : 1 on 10/08/2021 by Celso Jean-Baptiste MD Joints Right: Knee [id number] 07/30/2031 / / [id number] Non-Modular Long Tibial Baseplate (Oss) Implanted:Qty : 1 on 10/08/2021 by Celso Jean-Baptiste MD Joints Right: Knee [id number] 07/31/2030 / / [id number] Bowed Im Stem With Screw (Oss) Implanted:Qty : 1 on 10/08/2021 by Celso Jean-Baptiste MD Joints Right: Knee [id number] 11/21/2027 / / [id number] Cement Bone Surg Simplex Radiopq Stry-Howm 8618-6-096- 4092 Implanted:Qty : 1 on 10/08/2021 by Celso Jean-Baptiste MD Right: Knee [employer] [id number] 04/02/2023 6190-05-04 0 / / [id number] Cement Bone Surg Simplex Radiopq Stry-Howm 6020-2-371-11 4092 Implanted:Qty : 1 on 10/08/2021 by Celso Jean-Baptiste MD Right: Knee [employer] [id number] 04/02/2023 6190-05-04 0 / / [id number] Cement Bone Surg Simplex Radiopq Stry-Howm 9175-4-441-11 4092 Implanted:Qty : 1 on 10/08/2021 by Celso Jean-Baptiste MD Right: Knee [employer] [id number] 04/02/2023 6190-05-04 0 / / [id number] Tritanium Asym Cn Aug D Lm Rl Stry-Howm 3713-C-318-69 9563 Implanted:Qty : 1 on 10/08/2021 by Celso Jean-Baptiste MD Right: Knee [employer] [id number] 02/14/2025 5549-A-24 1 / / [id number] Plug Bone Med Stry-Howm 1388-4-949-14 3872 Implanted:Qty : 1 on 10/08/2021 by Celso Jean-Baptiste MD Right: Knee [employer] [id number] 07/14/2026 6215-5-05 04 / / [id number] Plug Bone Med [facility] 3643-5-402-14 3872 Implanted:Qty : 1 on 10/08/2021 by Celso Jean-Baptiste MD Right: Knee [employer] [id number] 07/14/2026 6215-5-05 04 / / [id number] Knee Fem Compon Oss Axle [employer] [id number] Implanted:Qty : 1 on 10/08/2021 by Celso Jean-Baptiste MD Right: Knee [employer]AN [employer] [id number] 08/14/2031 135439 / / [id number] Knee Tib Pin Lock Oss Poly [employer] [id number] Implanted:Qty : 1 on 10/08/2021 by Celso Jean-Bpatiste MD Right: Knee [employer] [id number] 08/03/2026 570786 / / [id number] Knee Oss Reinf Yoke [employer] 933292-695209 Implanted:Qty : 1 on 10/08/2021 by Celso Jean-Baptiste MD Right: Knee [employer] [id number] 08/08/2031 967507 / / [id number] Knee Tib Bushing Comp Oss [employer] [id number] Implanted:Qty : 1 on 10/08/2021 by Celso Jean-Baptiste MD Right: Knee K[employer]AN [employer] [id number] 07/31/2026 075952 / / [id number] Bushings Set Oss Poly Femoral [employer] 576289-351310 Implanted:Qty : 1 on 10/08/2021 by Celso Jean-Baptiste MD Right: Knee [employer] [id number] 06/28/2026 930733 / / [id number] Biomet Oss Segmental Elliptial Femoral Implanted:Qty : 1 on 10/08/2021 by Celso Jean-Baptiste MD Right: Knee 01/10/2029 369534 / / [id number] Knee Brng Tib Oss Poly 16mm [employer] 777229-595102 Implanted:Qty : 1 on 10/08/2021 by Celso Jean-Baptiste MD Right: Knee [employer] 08/28/2026 324941 / / [id number] Cement Bone Surg Simplex Radiopq Stry-Howm 7226-1-630-11 4092 Implanted:Qty : 1 on 10/08/2021 by Celso Jean-Baptiste MD Right: Knee [employer] [id number] 04/02/2023 6191-05-04 0 / / [id number] Cement Bone Surg Simplex Radiopq Stry-Howm 9713-5-259-11 409 Implanted:Qty : 1 on 10/08/2021 by Celso Jean-Baptiste MD Right: Knee [employer] [id number] 04/02/202391 0 / / [id number] Procedures Procedure Name Priority Date/Time Associated Diagnosis Comments ANNUAL BMP BLOOD TEST Routine 10/09/2021 HEMOGLOBIN A1C Routine 09/27/2021 from Last 3 Months or Most Recently Relevant to Health Maintenance Results * Annual BMP Blood Test (10/09/2021) Pathologist [facility] Annual BMP Blood Test abstracted Historical Provider HEALTH MAINTENANCE Final Result * (ABNORMAL) Hemoglobin A1c (09/27/2021) Pathologist [facility] Hemoglobin A1C 6.6(A) <=5.7 % Blood Venous blood specimen / Unknown Historical Provider LAB BLOOD ORDERABLES Clara l Result from Last 3 Months or Most Recently Relevant to Health Maintenance Care Teams Pipe Stress Engineer Relationship Specialty Start Date End Date Aleshia Claros MD PCP - General Infectious Diseases 07/09/21
== END 2024-07-21 10:44 | disposition home or self-care (01) ==
LOC: HO.HMCH 09:20
PROVIDERS: PCP Internal Medicine; Visit Provider Internal Medicine
DX: E11.65 Type 2 diabetes mellitus with hyperglycemia (principal); N61.0 Mastitis without abscess

== ENCOUNTER → 2024-07-21 09:19 | Outpatient (BNVA) | payer MEDICARE, SELFPAY | PROVIDERS: PCP Internal Medicine; Visit Provider Internal Medicine | DX: N61.0 Mastitis without abscess (principal); E11.65 Type 2 diabetes mellitus with hyperglycemia | CPT/HCPCS: 83036; 99212 ==

== ENCOUNTER 2024-08-16 10:44 | Outpatient (AMB) | payer MEDICARE, SELFPAY ==
[2024-08-16 10:53] VITALS: BMI 39.1
--- NOTE | 2024-08-16 10:53 | A.OFFVIS_ITS ---
Vital Signs 08/16/24 10:53 Height 6 ft Weight 288 lb BMI 39.1 Intake Visit Reasons: Status post bilateral knee replacements Intake Note: Aleks is a 63 year old male who presents with complaints of intermittent discomfort in both of his knees after undergoing bilateral total knee replacement surgeries. 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 He denies any fevers or chills. He did undergo right total knee replacement surgery in 2021. He subsequently underwent right revision total knee replacement surgery after developing a periprosthetic infection. That surgery was performed by Dr. Jr Jean-Baptiste from [facility] in [place], [place]. The patient denies any fevers or chills. He does not take any medicines for his discomfort. He continues with his home exercise program. Allergies No Known Allergies Allergy (Verified 08/16/24 10:54) Medication List - Last Reconciled 08/16/24 by Mic Hopper MD acetaminophen (Tylenol) 650 mg PO Q6H PRN aspirin 81 mg PO BID atorvastatin 80 mg PO BEDTIME blood sugar diagnostic (FreeStyle Lite Strips) As directed blood-glucose meter (FreeStyle Lite Meter kit) As directed cholecalciferol (vitamin D3) 25 mcg PO DAILY 90 days cyclobenzaprine 5 mg PO Q8H doxycycline monohydrate 100 mg PO BID duloxetine 20 mg PO BID 90 days lancets (FreeStyle Lancets) As directed lidocaine 5% (Lidoderm) 1 patch topical DAILY lisinopril 2.5 mg PO DAILY meloxicam 15 mg PO DAILY PRN metformin 1,000 mg PO ONCE metoprolol tartrate 25 mg PO BID 90 days tamsulosin (Flomax) 0.4 mg PO BEDTIME 90 days PFS Medical History Tobacco use disorder Class 2 severe obesity with body mass index (BMI) of 35 to 39.9 with serious comorbidity Right knee pain Infected prosthetic knee joint Hyperlipidemia Prosthetic joint infection Benign prostate hyperplasia Encounter to establish care Surgical History History of cataract surgery History of colonoscopy History of surgery on lower extremity History of total bilateral knee replacement History of cholecystectomy History of hemorrhoidectomy History of shoulder surgery History of eye surgery History of bilateral knee replacement History of back surgery Social History Housing: House Alcohol intake: never Patient Tobacco Use Status: Current everyday Tobacco user Tobacco use type: Cigarette Cigarette Packs Per Day: 0.5 Cigarettes Per Day: 5 Years Smoked: 40 e-Cigarette/Vaping Use: Never Used Second Hand Smoke Exposure: Yes service: No Current occupational status: retired Cognitive needs: Yes (Cane) Hearing needs: No Vision needs: Yes (glasses) Physical Exam Vital Signs: BMI result Body Mass Index 39.1 Const Other: Well-nourished well-developed very friendly male awake alert and oriented x3 in no acute distress Extrem Other: Bilateral knee examination shows that the surgical incisions are well healed, no erythema, full active extension and flexion to 110 degrees, his patellae track well Results Reviewed Results Reviewed: X-rays of the patient's bilateral knee show total knee arthroplasties in good position with no signs of loosening, no acute bony abnormalities Assessment & Plan Assessment & Plan (1) Status post bilateral knee replacements: Code(s): Z96.653 - Presence of artificial knee joint, bilateral Plan Mr. Lynn continues to do well after undergoing bilateral total knee r eplacement surgeries. He will continue with his physical therapy exercises. He does know to take antibiotics before any dental work. Will contact me prior to his annual follow-up appointment should any questions or concerns arise. Feel free to call me at any time should questions regarding his orthopedic management arise. I spent 22 minutes in reviewing the patient's records and imaging studies, seeing the patient and documenting in the medical record. Orders: Orders XR knee LT 3V Today Mic Hopper MD M25.562 - Pain in left knee XR knee RT 3V Today Mic Hopper MD M25.561 - Pain in right knee Medications: Changed From metformin 1,000 mg PO BID 90 days 180 tabs 1RF E11.9 - Type 2 diabetes mellitus without complications To metformin 1,000 mg PO ONCE E11.9 - Type 2 diabetes mellitus without complications Oidn Gutierrez MD Coding Level of Care Code Est Pt Level 3 (72848) Complex EM visit Add On G2211 Diagnoses Status post bilateral knee replacements Z96.653
--- OUTSIDE RECORDS SUMMARY | 2024-08-16 13:01 | XMS_ITS | Clinical Summary ---
Author Organization [facility] it Address [address] [place] [address] Care Team Providers Care Tool Adjuster Name Role Phone Aleshia Claros MD Primary Care Provider [phone] Allergies No known active allergies Medications acetaminophen [...] infection, sequela 08/19/2021 JERRY (acute kidney injury) ([facility] V24) 06/26/19 Orthostatic hypotension 06/26/2021 Arteriosclerosis of coronary artery 06/25/2021 Arthritis of lumbar spine 06/25/2021 Dehydration 06/25/2021 Edema of upper extremity 06/25/2021 Hypertension 06/25/2021 Near syncope 06/25/2021 Lung mass 06/25/2021 Methicillin susceptible Staphylococcus aureus in fection 06/25/2021 Pyogenic arthritis of knee ([facility] V24, [facility] V28) 06/25/2021 Type 2 diabetes mellitus ([facility] V24, [facility] V 28) 06/25/2021 Infected prosthetic knee joint ([facility] V24) 06/2021 MSSA bacteremia 06/05/2021 Syncope and collapse 06/05/2021 [...] KNEE PROSTHESIS; Surgeon: Celso Jean-Baptiste MD; Location: [facility] ([facility]); Service: Orthopedics; Laterality: Right; KNEE SURGERY Left PROCEDURE:KNEE SURGERY;COMMENT:multiple surgeries KNEE SURGERY Right PROCEDURE:KNEE SURGERY;COMMENT:multiple surgeries COLONOSCOPY PROCEDURE:COLONOSCOPY UPPER GASTROINTESTINAL ENDOSCOPY PROCEDURE:UPPER GASTROINTESTINAL ENDOSCOPY EYE SURGERY Bilateral PROCEDURE:EYE SURGERY;COMMENT:glaucoma surgery DENTAL SURGERY PROCEDURE:DENTAL SURGERY;COMMENT:all teeth removed, upper & Lower dentures KNEE ARTHROPLASTY 10/08/2021 Right PROCEDURE:REVISION TOTAL KNEE ARTHROPLASTY;COMMENT:Procedur e: REVISION TOTAL KNEE; Surgeon: Celso Jean-Baptiste MD; Location: [facility] ([facility]); Service: Orthopedics; Laterality: Right; Medical History Medical History Date Comments Diabetes mellitus ([facility] V 24, [facility] V28) DX:Diabetes mellitus ([facility]) Polymyalgia rheumatica ([facility] V24) DX:Polymyalgia rheumatica ([facility]) HTN (hypertension) DX:HTN (hyper tension) Osteoarthritis DX:Osteoarthriti s Chronic back pain DX:Chronic alban k pain Hyperlipidemia DX:Hyperlipidemi a Dizziness DX:Dizziness Diabetes mellitus, type II ( [facility] V24, [facility] V28) DX:Diabetes mellitus, type I I ([facility]) Family history of DVT DX:Family history of [...] ( season) 2024 09/21/2020, 08/31/2020 Influenza Vaccine (Season Ended) 2025 02/01/2020, 03/22/2019, 03/01/2018, Additional history exists RSV Immunization Adult Patients (1 - 1-dose 75+ series) 2033 Hepatitis [...] age to complete this topic Meningococcal B Vaccine Aged Out No l onger eligible based on patient's age to complete this topic RSV Immunization Patients Under 20 months Aged Out No longer eligible based on patient's age to complete this topic Varicella Vaccines Aged Out No longer eligible based on patient's age to complete this topic Medical Devices Implanted Type Area Foreign Service Teacher Device Identifier Shelf Expiration Date Model / Serial / Lot Stimulan Rapid Cure Implanted:Qty : 1 on 08/23/2021 by Celso Jean-Baptiste MD Joints Right: Knee [id number] 11/01/2023 / / [id number] [place] Tibial Augment Implanted:Qty : 1 on 10/08/2021 by Celso Jean-Baptiste MD Joints Right: Knee [id number] 07/30/2031 / / [id number] [place] Tibial Augment Implanted:Qty : 1 on 10/08/2021 by Celso Jean-Baptiste MD Joints Right: Knee [id number] 07/30/2031 / / [id number] Non-Modular Long Tibial Baseplate (Oss) Implanted:Qty : 1 on 10/08/2021 by Celso Jean-Baptiste MD Joints Right: Knee [id number] 07/31/2030 / / [id number] Bowed Im Stem With Screw (Oss) Implanted:Qty : 1 on 10/08/2021 by Celso Jean-Baptiste MD Joints Right: Knee [id number] 11/21/2027 / / [id number] Cement Bone Surg Simplex Radiopq Stry-Howm 7119-6-663-11 409 Implanted:Qty : 1 on 10/08/2021 by Celso Jean-Baptiste MD Right: Knee [employer] [id number] 04/02/2023 6190-05-04 0 / / [id number] Cement Bone Surg Simplex Radiopq Stry-Howm 5886-3-522- 409 Implanted:Qty : 1 on 10/08/2021 by Celso Jean-Baptiste MD Right: Knee [employer] [id number] 04/02/2023 6190-05-04 0 / / [id number] Cement Bone Surg Simplex Radiopq Stry-Howm 0929-2-482- 4092 Implanted:Qty : 1 on 10/08/2021 by Celso Jean-Baptiste MD Right: Knee [employer] [id number] 04/02/2023 6190-05-04 0 / / [id number] Tritanium Asym Cn Aug D Lm Rl Stry-Howm 2527-W-540-69 9563 Implanted:Qty : 1 on 10/08/2021 by Celso Jean-Baptiste MD Right: Knee [employer] [id number] 02/14/2025 5549-A-24 1 / / [id number] Plug Bone Med Stry-How 3613-1-905-14 3872 Implanted:Qty : 1 on 10/08/2021 by Celso Jean-Baptiste MD Right: Knee [employer] [id number] 07/14/2026 6214-09-01 / / [id number] Plug Bone Med Stry-How 5553-1-584-14 3872 Implanted:Qty : 1 on 10/08/2021 by Celso Jean-Baptiste MD Right: Knee [employer] [id number] 07/14/2026 6214-09-01 1 / / [id number] Knee Fem Compon Oss Axle [employer] [id number] Implanted:Qty : 1 on 10/08/2021 by Celso Jean-Baptiste MD Right: Knee [employer]ARN [employer] [id number] 08/14/2031 121536 / / [id number] Knee Tib Pin Lock Oss Poly [employer] 997705-679189 Implanted:Qty : 1 on 10/08/2021 by Celso Jean-Baptiste MD Right: Knee [employer] [id number] 08/03/2026 507386 / / [id number] Knee Oss Reinf Yoke [employer] 631481-482177 Implanted:Qty : 1 on 10/08/2021 by Celso Jean-Baptiste MD Right: Knee [employer] [id number] 08/08/2031 979818 / / [id number] Knee Tib Bushing Comp Oss [employer] 002287-527806 Implanted:Qty : 1 on 10/08/2021 by Celso Jean-Baptiste MD Right: Knee [employer] [id number] 07/31/2026 108209 / / [id number] Bushings Set Oss Poly Femoral [employer] 417408-336239 Implanted:Qty : 1 on 10/08/2021 by Celso Jean-Baptiste MD Right: Knee [employer] [id number] 06/28/2026 709259 / / [id number] Bi[employer] Oss Segmental Elliptial Femoral Implanted:Qty : 1 on 10/08/2021 by Celso Jean-Baptiste MD Right: Knee 01/10/2029 731532 / / [id number] Knee Brng Tib Oss Poly 16mm [employer] [id number] Implanted:Qty : 1 on 10/08/2021 by Celso Jean-Baptiste MD Right: Knee KIRAN [employer] 08/28/2026 954817 / / [id number] Cement Bone Surg Simplex Radiopq Stry-Howm 1415-0-463-11 4092 Implanted:Qty : 1 on 10/08/2021 by Celso Jean-Baptiste MD Right: Knee [employer] [id number] 04/02/20236190-05- 0 / / [id number] Cement Bone Surg Simplex Radiopq Stry-Howm 9394-5-706-11 4092 Implanted:Qty : 1 on 10/08/2021 by Celso Jean-Baptiste MD Right: Knee [employer] [id number] 04/02/20236190-05- 0 / / [id number] Procedures Procedure Name Priority Date/Time Associated Diagnosis Comments ANNUAL BMP BLOOD TEST Routine 10/09/2021 HEMOGLOBIN A1C Routine 09/27/2021 from Last 3 Months or Most Recently Relevant to Health Maintenance Results * Annual BMP Blood Test (10/09/2021) Pathologist [facility] Annual BMP Blood Test abstracted Historical Provider HEALTH MAINTENANCE Final Result * (ABNORMAL) Hemoglobin A1c (09/27/2021) Pathologist [facility] Hemoglobin A1C 6.6(A) <=5.7 % Blood Venous blood specimen / Unknown Historical Provider LAB BLOOD ORDERABLES Clara l Result from Last 3 Months or Most Recently Relevant to Health Maintenance Care Teams Tool Adjuster Relationship Specialty Start Date End Date Aleshia Claros MD PCP - General Infectious Diseases 07/09/21
--- OUTSIDE RECORDS SUMMARY | 2024-08-16 13:01 | XMS_ITS | Clinical Summary ---
Author Organization [facility] Address [address] [place] [address] Care Team Providers Care Legger Press Operator Name Role Phone Aleshia Claros MD Primary [...] this topic Medical Devices Implanted Type Area Stunt Man Device Identifier Shelf Expiration Date Model / Serial / Lot Stimulan Rapid Cure Implanted:Qty : 1 on 08/23/2021 by Celso Jean-Baptiste MD at [facility] Total Joint Right: Knee [id number] 11/01/2023 / / [id number] [place] Tibial Augment Implanted:Qty : 1 on 10/08/2021 by Celso Jean-Baptiste MD at [facility] Total Joint Right: Knee [id number] 07/30/2031 / / [id number] [place] Tibial Augment Implanted:Qty : 1 on 10/08/2021 by Celso Jean-Baptiste MD at [facility] Total Joint Right: Knee [id number] 07/30/2031 / / [id number] Non-Modular Long Tibial Baseplate (Oss) Implanted:Qty : 1 on 10/08/2021 by Celso Jean-Baptiste MD at [facility] Total Joint Right: Knee [id number] 07/31/2030 / / [id number] Bowed Im Stem With Screw (Oss) Implanted:Qty : 1 on 10/08/2021 by Celso Jean-Baptiste MD at [facility] Total Joint Right: Knee [id number] 11/21/2027 / / [id number] Cement Bone Surg Simplex Radiopq Stry-Howm 1394-2-545-11 4092 - [id number] Implanted:Qty : 1 on 10/08/2021 by Celso Jean-Baptiste MD at [facility] Right: Knee [facility] [id number] 04/02/2023 6190-05-04 0 / / [id number] Cement Bone Surg Simplex Radiopq Stry-Howm 4220-3-982- 4092 - [id number] Implanted:Qty : 1 on 10/08/2021 by Celso Jean-Baptiste MD at [facility] Right: Knee [facility] [id number] 04/02/2023 6190-05-04 0 / / [id number] Cement Bone Surg Simplex Radiopq Stry-Howm 1513-3-823- 409 - [id number] Implanted:Qty : 1 on 10/08/2021 by Celso Jean-Baptiste MD at [facility] Right: Knee [facility] [id number] 04/02/2023 6190-05-04 0 / / [id number] Cement Bone Surg Simplex Radiopq Stry-Howm 8595-4-573- 409 - [id number] Implanted:Qty : 1 on 10/08/2021 by Celso Jean-Baptiste MD at [facility] Right: Knee [facility] [id number] 04/02/2023 6190-05-04 0 / / [id number] Cement Bone Surg Simplex Radiopq Stry-How 3007-3-229-11 4092 - [id number] Implanted:Qty : 1 on 10/08/2021 by Celso eJan-Baptiste MD at [facility] Right: Knee [facility] [id number] 04/02/2023 6191 0 / / [id number] Tritanium Asym Cn Aug D Lm Rl [facility] 4572-W-880-69 9563 - [id number] Implanted:Qty : 1 on 10/08/2021 by Celso Jean-Baptiste MD at [facility] Right: Knee [facility] [id number] 02/14/2025 5549-A-24 1 / / [id number] Plug Bone [facility] 7008-3-986-14 3872 - [id number] Implanted:Qty : 1 on 10/08/2021 by Celso Jean-Baptiste MD at [facility] Right: Knee [facility] [id number] 07/14/2026 6215- 1 / / [id number] Plug Bone [facility] 5206-9-535-14 3872 - [id number] Implanted:Qty : 1 on 10/08/2021 by Celso Jean-Baptiste MD at [facility] Right: Knee [facility] [id number] 07/14/2026 6215- 1 / / [id number] Knee Fem Compon Oss Axle [employer] 092201-591278 - [id number] Implanted:Qty : 1 on 10/08/2021 by Celso Jean-Baptiste MD at [facility] Right: Knee [employer] [id number] 08/14/2031 861814 / / [id number] Knee Tib Pin Lock Oss Poly [employer] 558797-434714 - [id number] Implanted:Qty : 1 on 10/08/2021 by Celso Jean-Baptiste MD at [facility] Right: Knee [employer] [id number] 08/03/2026 775985 / / [id number] Knee Oss Reinf Yoke [employer]-Biom 619794-812479 - [id number] Implanted:Qty : 1 on 10/08/2021 by Celso Jean-Baptiste MD at [facility] Right: Knee [employer]AN [employer] [id number] 08/08/2031 756654 / / [id number] Knee Tib Bushing Comp Oss [employer] 367954-003605 - [id number] Implanted:Qty : 1 on 10/08/2021 by Celso Jean-Baptiste MD at [facility] Right: Knee [employer] [id number] 07/31/2026 836356 / / [id number] Bushings Set Oss Poly Femoral [employer] 244183-889585 - [id number] Implanted:Qty : 1 on 10/08/2021 by Celso Jean-Baptiste MD at [facility] Right: Knee [employer] [id number] 06/28/2026 910817 / / [id number] Biomet Oss Segmental Elliptial Femoral Implanted:Qty : 1 on 10/08/2021 by Celso Jean-Baptiste MD at [facility] Right: Knee 01/10/2029 406896 / / [id number] Knee Brng Tib Oss Poly 16mm [employer] 166109-838895 - [id number] Implanted:Qty : 1 on 10/08/2021 by Celso Jean-Baptiste MD at [facility] Right: Knee KIRAN [employer]OMET 08/28/2026 099918 / / [id number] Explanted Type Area Stunt Man Device Identifier Shelf Expiration Date Model / Serial / Lot Femur, Tibia, Patella, Insert Explanted:Qty: 4 on 08/23/2021 by Celso Jean-Baptiste MD at [facility] Nitin Srirma Implanted:Qty: 1 on 08/23/2021 by Celso Jean-Baptiste MD at [facility] Explanted:Qty: 1 on 10/08/2021 by Celso Jean-Baptiste MD at [facility] Right: Knee Description:NITIN SRIRAM CUT IN HALF EMBEDDED IN BONE CEMENT Cement Bone Surg Simplex Radiopq Stry-Howm 4634-6-585-114 092 - [id number] Implanted:Qty: 1 on 08/23/2021 by Celso Jean-Baptiste MD at [facility] Explanted:Qty: 1 on 10/08/2021 by Celso Jean-Baptiste MD at [facility] Right: Knee [facility] [id number] 12/02/2023 6191-1-010 / / [id number] Cement Bone Surg Simplex Radiopq Stry-Howm 4866-9-947-114 092 - [id number] Implanted:Qty: 1 on 08/23/2021 by Celso Jean-Baptiste MD at [facility] Explanted:Qty: 1 on 10/08/2021 by Celso Jean-Batpiste MD at [facility] Right: Knee [facility] [id number] 12/02/2023 6191-1-010 / / [id number] Cement Bone Surg Simplex Radiopq Stry-Howm 1780-5-093-114 092 - [id number] Implanted:Qty: 1 on 08/23/2021 by Celso Jean-Baptiste MD at [facility] Explanted:Qty: 1 on 10/08/2021 by Celso Jean-Baptiste MD at [facility] Right: Knee [facility] [id number] 12/02/2023 6191-1-010 / / [id number] Cement Bone Surg Simplex Radiopq Stry-Howm 3183-2-662-114 092 - [id number] Implanted:Qty: 1 on 08/23/2021 by Celso Jean-Baptiste MD at [facility] Explanted:Qty: 1 on 10/08/2021 by Celso Jean-Baptiste MD at [facility] Right: Knee [facility] [id number] 12/02/2023 6191-1-010 / / [id number] Cement Bone Surg Simplex Radiopq Strdestiny-Howsyed 3643-8-777-114 092 - [id number] Implanted:Qty: 1 on 08/23/2021 by Celso Jean-Baptiste MD at [facility] Explanted:Qty: 1 on 10/08/2021 by Celso Jean-Baptiste MD at [facility] Right: Knee [facility] [id number] 12/02/2023 6191-1-010 / / [id number] Additional Health Concerns Infection Onset Date Last Indicated MRSA Comment:08/21/21: Synovial Fluid Cx - R Knee 08/19/2021 08/21/2021 Advance Directives For more information, please contact: [phone] Latest Code Status on File Code Status [...] way: discussion with patient . Care Teams Legger Press Operator Relationship Specialty Start Date End Date Aleshia Claros MD PCP - General Infectious Diseases 07/09/21
== END 2024-08-16 11:17 | disposition home or self-care (01) ==
LOC: HO.HOS 10:45
PROVIDERS: PCP Internal Medicine; Visit Provider Orthopaedic Surgery
DX: M25.561 Pain in right knee (principal); M25.562 Pain in left knee; Z96.653 Presence of artificial knee joint, bilateral
CPT/HCPCS: 99213

== ENCOUNTER → 2024-08-16 10:46 | Outpatient (BNV) | payer MEDICARE, SELFPAY | PROVIDERS: Visit Provider Radiology Diagnostic Radiology | DX: M25.562 Pain in left knee (principal); Z96.652 Presence of left artificial knee joint; M25.561 Pain in right knee; Z96.651 Presence of right artificial knee joint | CPT/HCPCS: 73562 ==

== ENCOUNTER 2024-08-16 11:11 | Outpatient (REF) | payer MEDICARE, SELFPAY ==
--- NOTE | ~2024-08-16 | XR_ITS ---
EXAMINATION: XR KNEE, LEFT CLINICAL INFORMATION: M25.562 - Pain in left knee COMPARISON: 02/25/2024. TECHNIQUE: Two views of the left knee. FINDINGS: There is been a total left knee arthroplasty. Tibial, and femoral components appear intact, well seated, in anatomic alignment. There is no periprosthetic fracture or lucency. There is been associated patellar resurfacing. There are superior and inferior patellar enthesophytes present. There is no evidence of joint effusion. There is no soft tissue abnormality. XR/XR knee LT 3V IMPRESSION: Total left knee arthroplasty without complication. Electronically signed by: Breezy Dao MD 08/17/2024 12:58 PM EDT
--- NOTE | ~2024-08-16 | XR_ITS ---
EXAMINATION: XR KNEE, RIGHT CLINICAL INFORMATION: M25.561 - Pain in right knee COMPARISON: 02/25/2024. TECHNIQUE: Three views of the right knee. FINDINGS: There has been a revision right knee arthroplasty. Femoral, and tibial components appear well seated, in anatomic alignment. No definite loosening or periprosthetic fracture identified. There is been associated patellar resurfacing. There are superior and inferior patellar enthesophytes present. No evidence of joint effusion. There is no soft tissue abnormality. XR/XR knee RT 3V IMPRESSION: Right knee revision arthroplasty without definite complication seen. No change. Electronically signed by: Breezy Dao MD 08/17/2024 01:01 PM EDT
--- OUTSIDE RECORDS SUMMARY | 2024-08-17 13:32 | XMS_ITS | Clinical Summary ---
Author Organization [facility] it Address [address] [place] [address] Care Team Providers Care Collection Manager Name Role Phone Aleshia Claros MD Primary Care Provider [phone] Allergies No known active allergies Medications acetaminophen [...] infection, sequela 08/19/2021 JERRY (acute kidney injury) ([facility] V24) 06/26/19 Orthostatic hypotension 06/26/2021 Arteriosclerosis of coronary artery 06/25/2021 Arthritis of lumbar spine 06/25/2021 Dehydration 06/25/2021 Edema of upper extremity 06/25/2021 Hypertension 06/25/2021 Near syncope 06/25/2021 Lung mass 06/25/2021 Methicillin susceptible Staphylococcus aureus in fection 06/25/2021 Pyogenic arthritis of knee ([facility] V24, [facility] V28) 06/25/2021 Type 2 diabetes mellitus ([facility] V24, [facility] V 28) 06/25/2021 Infected prosthetic knee joint ([facility] V24) 06/2021 MSSA bacteremia 06/05/2021 Syncope and [...] MD; Location: [facility] ([place]); Service: Orthopedics; Laterality: Right; KNEE SURGERY Left PROCEDURE:KNEE SURGERY;COMMENT:multiple surgeries KNEE SURGERY Right PROCEDURE:KNEE SURGERY;COMMENT:multiple surgeries COLONOSCOPY PROCEDURE:COLONOSCOPY UPPER GASTROINTESTINAL ENDOSCOPY PROCEDURE:UPPER GASTROINTESTINAL ENDOSCOPY EYE SURGERY Bilateral PROCEDURE:EYE SURGERY;COMMENT:glaucoma surgery DENTAL SURGERY PROCEDURE:DENTAL SURGERY;COMMENT:all teeth removed, upper & Lower dentures KNEE ARTHROPLASTY 10/08/2021 Right PROCEDURE:REVISION TOTAL KNEE ARTHROPLASTY;COMMENT:Procedur e: REVISION TOTAL KNEE; Surgeon: Celso Jean-Baptiste MD; Location: [facility] ([place]); Service: Orthopedics; Laterality: Right; Medical History Medical History Date Comments Diabetes mellitus ([facility] V 24, [facility] V28) DX:Diabetes mellitus ([facility]) Polymyalgia rheumatica ([facility] V24) DX:Polymyalgia rheumatica ([facility]) HTN (hypertension) DX:HTN (hyper tension) Osteoarthritis DX:Osteoarthriti s Chronic back pain DX:Chronic alban k pain Hyperlipidemia DX:Hyperlipidemi a Dizziness DX:Dizziness Diabetes mellitus, type II ( [facility] V24, [facility] V28) DX:Diabetes mellitus, type I I ([facility]) Family history of DVT DX:Family history of [...] this topic Medical Devices Implanted Type Area Coal Mine Inspector Device Identifier Shelf Expiration Date Model / Serial / Lot Stimulan Rapid Cure Implanted:Qty : 1 on 08/23/2021 by Celso Jean-Baptiste MD Joints Right: Knee [id number] 11/01/2023 / / [id number] [place] Tibial Augment Implanted:Qty : 1 on 10/08/2021 by Celso Jean-Baptiste MD Joints Right: Knee [id number] 07/30/2031 / / [id number] [place] Tibial Augment Implanted:Qty : 1 on 10/08/2021 by Celso Jean-Baptiste MD Joints Right: Knee [id number] 07/30/2031 / / [id number] Non-Modular Long Tibial Baseplate (Oss) Implanted:Qty : 1 on 10/08/2021 by Celso Jean-Baptiste MD Joints Right: Knee [id number] 07/31/2030 / / [id number] Bowed Im Stem With Screw (Oss) Implanted:Qty : 1 on 10/08/2021 by Celso Jean-Baptiste MD Joints Right: Knee [id number] 11/21/2027 / / [id number] Cement Bone Surg Simplex Radiopq Stry-Howm 9162-9-793-11 409 Implanted:Qty : 1 on 10/08/2021 by Celso Jean-Baptiste MD Right: Knee [facility] [id number] 04/02/2023 6190-05-04 0 / / [id number] Cement Bone Surg Simplex Radiopq Stry-Howm 3119-0-962- 409 Implanted:Qty : 1 on 10/08/2021 by Celso Jean-Baptiste MD Right: Knee [facility] [id number] 04/02/2023 6190-05-04 0 / / [id number] Cement Bone Surg Simplex Radiopq Stry-Howm 3183-5-311- 4092 Implanted:Qty : 1 on 10/08/2021 by Celso Jean-Baptiste MD Right: Knee [facility] [id number] 04/02/2023 6190-05-04 0 / / [id number] Tritanium Asym Cn Aug D Lm Rl Stry-Howm 1029-X-153-69 9563 Implanted:Qty : 1 on 10/08/2021 by Celso Jean-Baptiste MD Right: Knee [facility] [id number] 02/14/2025 5549-A-24 1 / / [id number] Plug Bone Med Stry-How 6071-6-683-14 3872 Implanted:Qty : 1 on 10/08/2021 by Celso Jean-Baptiste MD Right: Knee [facility] [id number] 07/14/2026 6214-09-01 / / [id number] Plug Bone Med Stry-How 2439-4-941-14 3872 Implanted:Qty : 1 on 10/08/2021 by Celso Jean-Baptiste MD Right: Knee [facility] [id number] 07/14/2026 6214-09-01 1 / / [id number] Knee Fem Compon Oss Axle [employer] 596319-347830 Implanted:Qty : 1 on 10/08/2021 by Celso Jean-Baptiste MD Right: Knee [employer] [id number] 08/14/2031 275747 / / [id number] Knee Tib Pin Lock Oss Poly [employer] 514869-597215 Implanted:Qty : 1 on 10/08/2021 by Celso Jean-Baptiste MD Right: Knee [employer] [id number] 08/03/2026 359001 / / [id number] Knee Oss Reinf Yoke [employer] 160189-190302 Implanted:Qty : 1 on 10/08/2021 by Celso Jean-Baptiste MD Right: Knee [employer] [id number] 08/08/2031 117218 / / [id number] Knee Tib Bushing Comp Oss [employer] 706911-037023 Implanted:Qty : 1 on 10/08/2021 by Celso Jean-Baptiste MD Right: Knee [employer]AN [employer] [id number] 07/31/2026 702109 / / [id number] Bushings Set Oss Poly Femoral [employer] 870313-897408 Implanted:Qty : 1 on 10/08/2021 by Celso Jean-Baptiste MD Right: Knee [employer] [id number] 06/28/2026 956860 / / [id number] Biomet Oss Segmental Elliptial Femoral Implanted:Qty : 1 on 10/08/2021 by Celso Jean-Baptiste MD Right: Knee 01/10/2029 526563 / / [id number] Knee Brng Tib Oss Poly 16mm [employer] 950538-238187 Implanted:Qty : 1 on 10/08/2021 by Celso Jean-Baptiste MD Right: Knee [employer]IRAN [employer] 08/28/2026 113392 / / [id number] Cement Bone Surg Simplex Radiopq Stry-Howm 7196-3-503-11 4092 Implanted:Qty : 1 on 10/08/2021 by Celso Jean-Baptiste MD Right: Knee [facility] [id number] 04/02/20236190-05- 0 / / [id number] Cement Bone Surg Simplex Radiopq Stry-Howm 3017-1-156-11 4092 Implanted:Qty : 1 on 10/08/2021 by Celso Jean-Baptiste MD Right: Knee [facility] [id number] 04/02/20236190-05- 0 / / [id number] Procedures Procedure Name Priority Date/Time Associated Diagnosis Comments ANNUAL BMP BLOOD TEST Routine 10/09/2021 HEMOGLOBIN A1C Routine 09/27/2021 from Last 3 Months or Most Recently Relevant to Health Maintenance Results * Annual BMP Blood Test (10/09/2021) Pathologist [facility] Annual BMP Blood Test abstracted Historical Provider HEALTH MAINTENANCE Final Result * (ABNORMAL) Hemoglobin A1c (09/27/2021) Pathologist [facility] Hemoglobin A1C 6.6(A) <=5.7 % Blood Venous blood specimen / Unknown Historical Provider LAB BLOOD ORDERABLES Clara l Result from Last 3 Months or Most Recently Relevant to Health Maintenance Care Teams Collection Manager Relationship Specialty Start Date End Date Aleshia Claros MD PCP - General Infectious Diseases 07/09/21
--- OUTSIDE RECORDS SUMMARY | 2024-08-17 13:32 | XMS_ITS | Clinical Summary ---
Author Organization [facility] Address [address] [place] [address] Care Team Providers Care Clinical Rehab Specialist Name Role Phone Aleshia Claros MD Primary [...] this topic Medical Devices Implanted Type Area Pencil Sorter Device Identifier Shelf Expiration Date Model / Serial / Lot Stimulan Rapid Cure Implanted:Qty : 1 on 08/23/2021 by Celso Jean-Baptiste MD at [facility] Total Joint Right: Knee [id number] 11/01/2023 / / [id number] [place] Tibial Augment Implanted:Qty : 1 on 10/08/2021 by Celso Jean-Baptiste MD at [facility] Total Joint Right: Knee [id number] 07/30/2031 / / [id number] [place] Tibial Augment Implanted:Qty : 1 on 10/08/2021 by Celso Jean-Baptiste MD at [facility] Total Joint Right: Knee [id number] 07/30/2031 / / [id number] Non-Modular Long Tibial Baseplate (Oss) Implanted:Qty : 1 on 10/08/2021 by Celso Jean-Baptiste MD at [facility] Total Joint Right: Knee [id number] 07/31/2030 / / [id number] Bowed Im Stem With Screw (Oss) Implanted:Qty : 1 on 10/08/2021 by Celso Jean-Baptiste MD at [facility] Total Joint Right: Knee [id number] 11/21/2027 / / [id number] Cement Bone Surg Simplex Radiopq Stry-Howm 6192-0-026-11 4092 - [id number] Implanted:Qty : 1 on 10/08/2021 by Celso Jean-Baptiste MD at [facility] Right: Knee [employer] [id number] 04/02/2023 6190-05-04 0 / / [id number] Cement Bone Surg Simplex Radiopq Stry-Howm 8107-0-070- 4092 - [id number] Implanted:Qty : 1 on 10/08/2021 by Celso Jean-Baptiste MD at [facility] Right: Knee [employer] [id number] 04/02/2023 6190-05-04 0 / / [id number] Cement Bone Surg Simplex Radiopq Stry-Howm 2460-2-255- 409 - [id number] Implanted:Qty : 1 on 10/08/2021 by Celso Jean-Baptiste MD at [facility] Right: Knee [employer] [id number] 04/02/2023 6190-05-04 0 / / [id number] Cement Bone Surg Simplex Radiopq Stry-Howm 2122-6-665- 409 - [id number] Implanted:Qty : 1 on 10/08/2021 by Celso Jean-Baptiste MD at [facility] Right: Knee [employer] [id number] 04/02/2023 6190-05-04 0 / / [id number] Cement Bone Surg Simplex Radiopq Stry-How 9423-7-110-11 4092 - [id number] Implanted:Qty : 1 on 10/08/2021 by Celso Jean-Baptiste MD at [facility] Right: Knee [facility] [facility] [id number] 04/02/2023 6191 0 / / [id number] Tritanium Asym Cn Aug D Lm Rl [facility] 7029-I-821-69 9563 - [id number] Implanted:Qty : 1 on 10/08/2021 by Celso Jean-Baptiste MD at [facility] Med Right: Knee [facility] [facility] [id number] 02/14/2025 5549-A-24 1 / / [id number] Plug Bone [facility] 0813-6-124-14 3872 - [id number] Implanted:Qty : 1 on 10/08/2021 by Celso Jean-Baptiste MD at [facility] Med Right: Knee [facility] [facility] [id number] 07/14/2026 6215- 1 / / [id number] Plug Bone [facility] 9163-4-314-14 3872 - [id number] Implanted:Qty : 1 on 10/08/2021 by Celso Jean-Baptiste MD at [facility] Right: Knee [facility] [id number] 07/14/2026 6215- 1 / / [id number] Knee Fem Compon Oss Axle Zimm-[employer]om 602142-807069 - [id number] Implanted:Qty : 1 on 10/08/2021 by Celso Jean-Baptiste MD at [facility] Right: Knee [employer]AN [employer] [id number] 08/14/2031 272229 / / [id number] Knee Tib Pin Lock Oss Poly [employer] 669468-915431 - [id number] Implanted:Qty : 1 on 10/08/2021 by Celso Jean-Baptiste MD at [facility] Right: Knee [employer] [id number] 08/03/2026 924822 / / [id number] Knee Oss Reinf Yoke Zimm-Biom 339193-585083 - [id number] Implanted:Qty : 1 on 10/08/2021 by Celso Jean-Baptiste MD at [facility] Right: Knee [employer] [id number] 08/08/2031 656440 / / [id number] Knee Tib Bushing Comp Oss [employer] 940587-514557 - [id number] Implanted:Qty : 1 on 10/08/2021 by Celso Jean-Baptiste MD at [facility] Right: Knee [employer]AN [employer] [id number] 07/31/2026 922974 / / [id number] Bushings Set Oss Poly Femoral Zimm-Biom 434211-352866 - [id number] Implanted:Qty : 1 on 10/08/2021 by Celso Jean-Baptiste MD at [facility] Right: Knee [employer] [id number] 06/28/2026 231945 / / [id number] Biomet Oss Segmental Elliptial Femoral Implanted:Qty : 1 on 10/08/2021 by Celso Jean-Baptiste MD at [facility] Right: Knee 01/10/2029 876014 / / [id number] Knee Brng Tib Oss Poly 16mm Zimm-Biom 345471-441541 - [id number] Implanted:Qty : 1 on 10/08/2021 by Celso Jean-Baptiste MD at [facility] Right: Knee KIRAN [employer] 08/28/2026 955108 / / [id number] Explanted Type Area Pencil Sorter Device Identifier Shelf Expiration Date Model / Serial / Lot Femur, Tibia, Patella, Insert Explanted:Qty: 4 on 08/23/2021 by Celso Jean-Baptiste MD at [facility] Nitin Sriram Implanted:Qty: 1 on 08/23/2021 by Celso Jean-Baptiste MD at [facility] Med Explanted:Qty: 1 on 10/08/2021 by Celso Jean-Baptiste MD at [facility] Right: Knee Description:NITIN SRIRAM CUT IN HALF EMBEDDED IN BONE CEMENT Cement Bone Surg Simplex Radiopq Stry-Howm 0956-3-477-114 092 - [id number] Implanted:Qty: 1 on 08/23/2021 by Celso Jean-Baptiste MD at [facility] Med Explanted:Qty: 1 on 10/08/2021 by Celso Jean-Baptiste MD at [facility] Right: Knee [facility] [id number] 12/02/2023 6191-1-010 / / [id number] Cement Bone Surg Simplex Radiopq Stry-Howm 3075-2-891-114 092 - [id number] Implanted:Qty: 1 on 08/23/2021 by Celso Jean-Baptiste MD at [facility] Explanted:Qty: 1 on 10/08/2021 by Celso Jean-Baptiste MD at [facility] Right: Knee [facility] [facility] [id number] 12/02/2023 6191-1-010 / / [id number] Cement Bone Surg Simplex Radiopq Stry-Howm 7191-6-259-114 092 - [id number] Implanted:Qty: 1 on 08/23/2021 by Celso Jean-Baptiste MD at [facility] Med Explanted:Qty: 1 on 10/08/2021 by Celso Jean-Baptiste MD at [facility] Right: Knee [facility] [facility] [id number] 12/02/2023 6191-1-010 / / [id number] Cement Bone Surg Simplex Radiopq Stry-Howm 8513-2-684-114 092 - [id number] Implanted:Qty: 1 on 08/23/2021 by Celso Jean-Baptiste MD at [facility] Med Explanted:Qty: 1 on 10/08/2021 by Celso Jean-Baptiste MD at [facility] Right: Knee [facility] [facility] [id number] 12/02/2023 6191-1-010 / / [id number] Cement Bone Surg Simplex Radiopq Strdestiny-Howsyed 6908-8-040-114 092 - [id number] Implanted:Qty: 1 on 08/23/2021 by Celso Jean-Baptiste MD at [facility] Med Explanted:Qty: 1 on 10/08/2021 by Celso Jean-Baptiste MD at [facility] Right: Knee [facility] [facility] [id number] 12/02/2023 6191-1-010 / / [id number] Additional Health Concerns Infection Onset Date Last Indicated MRSA Comment:08/21/21: Synovial Fluid Cx - R Knee 08/19/2021 08/21/2021 Advance Directives For more information, please contact: [phone] Latest Code Status on File Code Status [...] way: discussion with patient . Care Teams Clinical Rehab Specialist Relationship Specialty Start Date End Date Aleshia Claros MD PCP - General Infectious Diseases 07/09/21
== END 2024-08-16 11:12 | disposition home or self-care (01) ==
LOC: HO.HOSX 11:11
PROVIDERS: Visit Provider Orthopaedic Surgery
DX: M25.562 Pain in left knee (principal); M25.561 Pain in right knee; Z96.653 Presence of artificial knee joint, bilateral
CPT/HCPCS: 73562; 99212

== ENCOUNTER 2024-08-18 10:30 | Outpatient (AMB) | payer MEDICARE, SELFPAY ==
--- NOTE | 2024-08-18 11:02 | A.OFFPC_ITS ---
Vital Signs 08/18/24 11:04 Height 6 ft Weight 286 lb BMI 38.8 BP 120/70 Blood Pressure Location Lt brachial Position Sitting Pulse 99 Pulse Source Pulse Oximeter Temp 97.1 F Temp Source Temporal Artery Scan Pulse Oximetry (%) 98 Oxygen Delivery Method Room Air Intake Visit Reasons: 6 month f/u - see comments Intake Note: Patient is here to follow up on DM, BPH, Chronic pain, HTN. Cleaning Manager Required: No Reinforcing Rod Layer: Present (spouse and grandson) Accompanied by: Spouse Allergies No Known Allergies Allergy (Verified 08/18/24 11:03) Tobacco use date assessed: 08/18/24 Fall risk assessment: 1 Fall in past year Last assessed Fall Risk: 08/18/24 Dental Screening Dental Screen Date: 07/07/24 [facility] Medical History Tobacco use disorder Class 2 severe obesity with body mass index (BMI) of 35 to 39.9 with serious comorbidity Right knee pain Infected prosthetic knee joint Hyperlipidemia Prosthetic joint infection Benign prostate hyperplasia Encounter to establish care Surgical History History of cataract surgery History of colonoscopy History of surgery on lower extremity History of total bilateral knee replacement History of cholecystectomy History of hemorrhoidectomy History of shoulder surgery History of eye surgery History of bilateral knee replacement History of back surgery Social History Housing: House Alcohol intake: never Patient Tobacco Use Status: Current everyday Tobacco user Tobacco use type: Cigarette Cigarette Packs Per Day: 0.5 Cigarettes Per Day: 5 Years Smoked: 40 e-Cigarette/Vaping Use: Never Used Second Hand Smoke Exposure: Yes service: No Current occupational status: retired Cognitive needs: Yes (Cane) Hearing needs: No Vision needs: Yes (glasses) Questionnaire Thrive Questionnaire Date Thrive assessed: 07/07/24 ALVERTO-7 AMB Questionnaire ALVERTO-7 Date ALVERTO - 7 assessed: 07/07/24 Source: Developed by Drs. Elias Fajardo, Vanessa De Souza, Ramesh Lechuga and colleagues, with an educational heidi from [email or web address]. Physical exam (Primary Care) Vital Signs: Last Vital Signs Temp 97.1 F 08/18/24 11:04 Pulse 99 08/18/24 11:04 BP 120/70 08/18/24 11:04 Pulse Ox 98 08/18/24 11:04 Oxygen Delivery Method Room Air 08/18/24 11:04 BMI result Body Mass Index 38.8 Tobacco/Smoking Status: Tobacco use Status Tobacco use date assessed 08/18/24 08/18/24 11:08 Patient Tobacco Use Status Current everyday Tobacco 08/18/24 11:02 Tobacco use type Cigarette 08/18/24 11:02 e-Cigarette/Vaping Use Never Used 08/18/24 11:02 Thrive Assessment: Date of Thrive Assessment Date Thrive assessed 07/07/24 08/18/24 11:02 Coding Level of Care Code Est Pt Level 4 (88908) Complex EM visit Add On G2211 Diagnoses Primary hypertension I10 Hypertension type: primary hypertension Type 2 diabetes mellitus with hyperglycemia, without long-term current use of insulin E11.65 Diabetes mellitus complication status: with hyperglycemia 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 Counselling on the importance of diet and exercise suggested. (3) Syncope: Code(s): R55 - Syncope and collapse Plan: Event monitor ordered. Plan History of Present Illness The patient is a 64-year-old male presenting with syncope. He describes episodic blackouts occurring several times, lasting seconds. Notably, he experienced a blackout exiting the bedroom and another while working in the yard. There is a pattern of approximately three to four episodes, with near-falls two to three times a day. A cane is used for stability due to frequent stumbling. Concerns align with past experiences of leg issues related to syncope. The patient expressed concerns regarding thyroid and requested testosterone level evaluation. Previous colonoscopy records are unavailable past 2008, prompting a home-based Cologuard test for colorectal screening. Social History - Walks and performs household activities, maintaining functional status. - Engages in activities such as working in the garage. - Reports carrying heavy objects such as 5-gallon pills and maintaining independence in daily tasks despite needing a cane. Review of Systems - Neurological: Reports episodes of syncope and blackouts. - Musculoskeletal: Reports near-falls and use of cane for stability. - Endocrine: Requests evaluation of thyroid and testosterone levels. - Gastrointestinal: No recent colorectal cancer screening since 2008. Physical Exam General: Cooperative and healthy appearing Nutritional Appearance: Well nourished Orientation/consciousness: Patient oriented x3 Limitations: No limitations Head: Normal to inspection General: Appearance normal, both eyes and all related structures Neck: Normal visual inspection Chest: Normal palpation of entire chest wall Respiratory: N ormal respiratory effort Neurology: Patient oriented x3, reports episodes of blackouts and falls, uses a cane for stability. Results Plan To address the syncope, a cardiac event monitor will be arranged for 24-hour cardiac evaluation. Blood work, including thyroid function tests, will be performed. Due to no recent colorectal cancer screening, a Cologuard test will be provided for home use. Although the patient wishes to check testosterone levels, I explained that low levels typically do not warrant treatment. Routine blood work will be conducted. Patient was informed and verbally consented to the use of an ambient scribe for clinic note documentation during this visit. Discussion Notes During our discussion, I explained the importance of monitoring cardiac activity through a 24-hour event monitor to assess any contributions to the patient?s syncopal episodes. We agreed on obtaining blood tests, focusing on thyroid function. Due to concerns about potential colorectal health issues, a Cologuard test will be sent to the patient?s home to complete the screening conveniently. Testosterone levels can be measured but therapeutic decisions would require further discussion, as treatment protocols have evolved. Finally, routine blood work will be conducted as part of a comprehensive evaluation. Patient Instructions - Expect a call to arrange the cardiac event monitor. - Complete the blood work as soon as possible, focusing on thyroid evaluation. - Await delivery of the Cologuard test for colorectal screening. Follow instructions included in the kit. - Be cautious with activities to avoid falls; continue using the cane for stability. - Follow-up as recommended after diagnostic results. Orders: Orders Complete Blood Count no Diff 08/18/24 - Type 2 diabetes mellitus with hyperglycemia, I10 - Essential (primary) hypertension Thyroid Stimulating Hormone 08/18/24 - Type 2 diabetes mellitus with hyperglycemia, I10 - Essential (primary) hypertension Hemoglobin A1c 08/18/24 - Type 2 diabetes mellitus with hyperglycemia Basic Metabolic Panel 08/18/24 - Type 2 diabetes mellitus with hyperglycemia, I10 - Essential (primary) hypertension Liver Panel 08/18/24 - Type 2 diabetes mellitus with hyperglycemia, I10 - Essential (primary) hypertension UA and rflx microscopic 08/18/24 - Type 2 diabetes mellitus with hyperglycemia, I10 - Essential (primary) hypertension ECG 30 day event monitor Today R55 - Syncope and collapse Referrals Cologuard Test Z12.11 - Encounter for screening for malignant neoplasm of colon Medications: Refilled duloxetine 20 mg PO BID 90 days 180 caps 1RF G89.29 - Other chronic pain, M54.50 - Low back pain, unspecified cholecalciferol (vitamin D3) 25 mcg PO DAILY 90 days 90 caps 1RF atorvastatin 80 mg PO BEDTIME 90 tabs 1RF E78.5 - Hyperlipidemia, unspecified metoprolol tartrate 25 mg PO BID 90 days 180 tabs 1RF I10 - Essential (primary) hypertension lisinopril 2.5 mg PO DAILY 90 tabs 1RF I10 - Essential (primary) hypertension
[2024-08-18 11:04] VITALS: BP 120/70; PULSE 99; TEMP 36.2; O2SAT 98; BMI 38.8
--- OUTSIDE RECORDS SUMMARY | 2024-08-18 12:38 | XMS_ITS | Clinical Summary ---
Author Organization [facility] it Address [address] [place] [address] Care Team Providers Care Sailmaker Name Role Phone Aleshia Claros MD Primary Care Provider [phone] Allergies No known active allergies Medications acetaminophen [...] infection, sequela 08/19/2021 JERRY (acute kidney injury) ([facility] V24) 06/26/19 Orthostatic hypotension 06/26/2021 Arteriosclerosis of coronary artery 06/25/2021 Arthritis of lumbar spine 06/25/2021 Dehydration 06/25/2021 Edema of upper extremity 06/25/2021 Hypertension 06/25/2021 Near syncope 06/25/2021 Lung mass 06/25/2021 Methicillin susceptible Staphylococcus aureus in fection 06/25/2021 Pyogenic arthritis of knee ([facility] V24, [facility] V28) 06/25/2021 Type 2 diabetes mellitus ([facility] V24, [facility] V 28) 06/25/2021 Infected prosthetic knee joint ([facility] V24) 06/2021 MSSA bacteremia 06/05/2021 Syncope and [...] KNEE PROSTHESIS; Surgeon: Celso Jean-Baptiste MD; Location: [facility]); Service: Orthopedics; Laterality: Right; KNEE SURGERY Left PROCEDURE:KNEE SURGERY;COMMENT:multiple surgeries KNEE SURGERY Right PROCEDURE:KNEE SURGERY;COMMENT:multiple surgeries COLONOSCOPY PROCEDURE:COLONOSCOPY UPPER GASTROINTESTINAL ENDOSCOPY PROCEDURE:UPPER GASTROINTESTINAL ENDOSCOPY EYE SURGERY Bilateral PROCEDURE:EYE SURGERY;COMMENT:glaucoma surgery DENTAL SURGERY PROCEDURE:DENTAL SURGERY;COMMENT:all teeth removed, upper & Lower dentures KNEE ARTHROPLASTY 10/08/2021 Right PROCEDURE:REVISION TOTAL KNEE ARTHROPLASTY;COMMENT:Procedur e: REVISION TOTAL KNEE; Surgeon: Celso Jean-Baptiste MD; Location: [facility]); Service: Orthopedics; Laterality: Right; Medical History Medical History Date Comments Diabetes mellitus ([facility] V 24, [facility] V28) DX:Diabetes mellitus ([facility]) Polymyalgia rheumatica ([facility] V24) DX:Polymyalgia rheumatica ([facility]) HTN (hypertension) DX:HTN (hyper tension) Osteoarthritis DX:Osteoarthriti s Chronic back pain DX:Chronic alban k pain Hyperlipidemia DX:Hyperlipidemi a Dizziness DX:Dizziness Diabetes mellitus, type II ( [facility] V24, [facility] V28) DX:Diabetes mellitus, type I I ([facility]) Family history of DVT DX:Family history [...] this topic Medical Devices Implanted Type Area In Home Sales Consultant Device Identifier Shelf Expiration Date Model / Serial / Lot Stimulan Rapid Cure Implanted:Qty : 1 on 08/23/2021 by Celso Jean-Baptiste MD Joints Right: Knee [id number] 11/01/2023 / / [id number] [place] Tibial Augment Implanted:Qty : 1 on 10/08/2021 by Celso Jean-Baptiste MD Joints Right: Knee [id number] 07/30/2031 / / [id number] [place] Tibial Augment Implanted:Qty : 1 on 10/08/2021 by Celso Jean-Baptiste MD Joints Right: Knee [id number] 07/30/2031 / / [id number] Non-Modular Long Tibial Baseplate (Oss) Implanted:Qty : 1 on 10/08/2021 by Celso Jean-Baptiste MD Joints Right: Knee [id number] 07/31/2030 / / [id number] Bowed Im Stem With Screw (Oss) Implanted:Qty : 1 on 10/08/2021 by Celso Jean-Baptiste MD Joints Right: Knee [id number] 11/21/2027 / / [id number] Cement Bone Surg Simplex Radiopq Stry-Howm 6785-7-813-11 409 Implanted:Qty : 1 on 10/08/2021 by Celso Jean-Baptiste MD Right: Knee [employer] [id number] 04/02/2023 6190-05-04 0 / / [id number] Cement Bone Surg Simplex Radiopq Stry-Howm 0201-4-705- 409 Implanted:Qty : 1 on 10/08/2021 by Celso Jean-Baptiste MD Right: Knee [employer] [id number] 04/02/2023 6190-05-04 0 / / [id number] Cement Bone Surg Simplex Radiopq Stry-Howm 9354-7-215- 4092 Implanted:Qty : 1 on 10/08/2021 by Celso Jean-Baptiste MD Right: Knee [employer] [id number] 04/02/2023 6190-05-04 0 / / [id number] Tritanium Asym Cn Aug D Lm Rl Stry-Howm 1585-V-988-69 9563 Implanted:Qty : 1 on 10/08/2021 by Celso Jean-Baptiste MD Right: Knee [employer] [id number] 02/14/2025 5549-A-24 1 / / [id number] Plug Bone Med Stry-How 6313-3-957-14 3872 Implanted:Qty : 1 on 10/08/2021 by Celso Jean-Baptiste MD Right: Knee [employer] [id number] 07/14/2026 6214-09-01 / / [id number] Plug Bone Med Stry-How 8972-7-663-14 3872 Implanted:Qty : 1 on 10/08/2021 by Celso Jean-Baptiste MD Right: Knee [employer] [id number] 07/14/2026 6214-09-01 1 / / [id number] Knee Fem Compon Oss Axle [employer] 463159-645477 Implanted:Qty : 1 on 10/08/2021 by Celso Jean-Baptiste MD Right: Knee [employer] [id number] 08/14/2031 068480 / / [id number] Knee Tib Pin Lock Oss Poly [employer] 975232-214960 Implanted:Qty : 1 on 10/08/2021 by Celso Jean-Baptiste MD Right: Knee [employer] [id number] 08/03/2026 604526 / / [id number] Knee Oss Reinf Yoke [employer] 774024-084529 Implanted:Qty : 1 on 10/08/2021 by Celso Jean-Baptiste MD Right: Knee [employer] [id number] 08/08/2031 466798 / / [id number] Knee Tib Bushing Comp Oss [employer] 830161-944604 Implanted:Qty : 1 on 10/08/2021 by Celso Jean-Baptiste MD Right: Knee [employer] [id number] 07/31/2026 179897 / / [id number] Bushings Set Oss Poly Femoral [employer] 329463-674335 Implanted:Qty : 1 on 10/08/2021 by Celso Jean-Baptiste MD Right: Knee [employer] [id number] 06/28/2026 721670 / / [id number] Biomet Oss Segmental Elliptial Femoral Implanted:Qty : 1 on 10/08/2021 by Celso Jean-Baptiste MD Right: Knee 01/10/2029 103960 / / [id number] Knee Brng Tib Oss Poly 16mm [employer] 550955-815168 Implanted:Qty : 1 on 10/08/2021 by Celso Jean-Baptiste MD Right: Knee [employer] 08/28/2026 259263 / / [id number] Cement Bone Surg Simplex Radiopq Stry-Howm 3740-5-591-11 4092 Implanted:Qty : 1 on 10/08/2021 by Celso Jean-Baptiste MD Right: Knee [employer] [id number] 04/02/20236190-05- 0 / / [id number] Cement Bone Surg Simplex Radiopq Stry-Howm 3631-2-132-11 4092 Implanted:Qty : 1 on 10/08/2021 by Celso Jean-Baptiste MD Right: Knee [employer] [id number] 04/02/20236190-05- 0 / / [id number] Procedures Procedure Name Priority Date/Time Associated Diagnosis Comments ANNUAL BMP BLOOD TEST Routine 10/09/2021 HEMOGLOBIN A1C Routine 09/27/2021 from Last 3 Months or Most Recently Relevant to Health Maintenance Results * Annual BMP Blood Test (10/09/2021) Pathologist [facility] Annual BMP Blood Test abstracted Historical Provider HEALTH MAINTENANCE Final Result * (ABNORMAL) Hemoglobin A1c (09/27/2021) Pathologist [facility] Hemoglobin A1C 6.6(A) <=5.7 % Blood Venous blood specimen / Unknown Historical Provider LAB BLOOD ORDERABLES Clara l Result from Last 3 Months or Most Recently Relevant to Health Maintenance Care Teams Sailmaker Relationship Specialty Start Date End Date Aleshia Claros MD PCP - General Infectious Diseases 07/09/21
--- OUTSIDE RECORDS SUMMARY | 2024-08-18 12:38 | XMS_ITS | Clinical Summary ---
Author Organization [facility] Address [address] [place] [address] Care Team Providers Care Teacher Specialist Name Role Phone Aleshia Claros MD [...] this topic Medical Devices Implanted Type Area Senior Interaction Designer Device Identifier Shelf Expiration Date Model / Serial / Lot Stimulan Rapid Cure Implanted:Qty : 1 on 08/23/2021 by Celso Jean-Baptiste MD at [facility] Total Joint Right: Knee [id number] 11/01/2023 / / [id number] [place] Tibial Augment Implanted:Qty : 1 on 10/08/2021 by Celso Jean-Baptiste MD at [facility] Total Joint Right: Knee [id number] 07/30/2031 / / [id number] [place] Tibial Augment Implanted:Qty : 1 on 10/08/2021 by Celso Jean-Baptiste MD at [facility] Total Joint Right: Knee [id number] 07/30/2031 / / [id number] Non-Modular Long Tibial Baseplate (Oss) Implanted:Qty : 1 on 10/08/2021 by Celso Jean-Baptiste MD at [facility] Total Joint Right: Knee [id number] 07/31/2030 / / [id number] Bowed Im Stem With Screw (Oss) Implanted:Qty : 1 on 10/08/2021 by Celso Jean-Baptiste MD at [facility] Total Joint Right: Knee [id number] 11/21/2027 / / [id number] Cement Bone Surg Simplex Radiopq Stry-Howm 6125-7-931-11 4092 - [id number] Implanted:Qty : 1 on 10/08/2021 by Celso Jean-Baptiste MD at [facility] Right: Knee [facility] [id number] 04/02/2023 6190-05-04 0 / / [id number] Cement Bone Surg Simplex Radiopq Stry-Howm 3493-1-365- 4092 - [id number] Implanted:Qty : 1 on 10/08/2021 by Celso Jean-Baptiste MD at [facility] Right: Knee [facility] [id number] 04/02/2023 6190-05-04 0 / / [id number] Cement Bone Surg Simplex Radiopq Stry-Howm 1241-7-441- 409 - [id number] Implanted:Qty : 1 on 10/08/2021 by Celso Jean-Baptiste MD at [facility] Right: Knee [facility] [id number] 04/02/2023 6190-05-04 0 / / [id number] Cement Bone Surg Simplex Radiopq Stry-Howm 9610-6-881- 409 - [id number] Implanted:Qty : 1 on 10/08/2021 by Celso Jean-Baptiste MD at [facility] Right: Knee [facility] [id number] 04/02/2023 6190-05-04 0 / / [id number] Cement Bone Surg Simplex Radiopq Stry-How 2948-3-965-11 4092 - [id number] Implanted:Qty : 1 on 10/08/2021 by Celso Jean-Baptiste MD at [facility] Right: Knee [facility] [id number] 04/02/2023 6191 0 / / [id number] Tritanium Asym Cn Aug D Lm Rl [facility] 5626-G-613-69 9563 - [id number] Implanted:Qty : 1 on 10/08/2021 by Celso Jean-Baptiste MD at [facility] Right: Knee [facility] [id number] 02/14/2025 5549-A-24 1 / / [id number] Plug Bone [facility] 9477-6-707-14 3872 - [id number] Implanted:Qty : 1 on 10/08/2021 by Celso Jean-Baptiste MD at [facility] Right: Knee [facility] [id number] 07/14/2026 6215- 1 / / [id number] Plug Bone [facility] 7688-1-237-14 3872 - [id number] Implanted:Qty : 1 on 10/08/2021 by Celso Jean-Baptiste MD at [facility] Right: Knee [facility] [id number] 07/14/2026 6215- 1 / / [id number] Knee Fem Compon Oss Axle Zimm-Biom 583016-581495 - [id number] Implanted:Qty : 1 on 10/08/2021 by Celso Jean-Baptiste MD at [facility] Right: Knee K[employer]AN [employer] [id number] 08/14/2031 740711 / / [id number] Knee Tib Pin Lock Oss Poly Zimm-Biom 984608-689340 - [id number] Implanted:Qty : 1 on 10/08/2021 by Celso Jean-Baptiste MD at [facility] Right: Knee KIRAN BIOMET [id number] 08/03/2026 114989 / / [id number] Knee Oss Reinf Yoke Zimm-Biom 387612-557105 - [id number] Implanted:Qty : 1 on 10/08/2021 by Celso Jean-Baptiste MD at [facility] Right: Knee KIRAN BIOMET [id number] 08/08/2031 089020 / / [id number] Knee Tib Bushing Comp Oss Zimm-Biom 281461-354800 - [id number] Implanted:Qty : 1 on 10/08/2021 by Celso Jean-Baptiste MD at [facility] Right: Knee KIRAN BIOMET [id number] 07/31/2026 345245 / / [id number] [place] Set Oss Poly Femoral Zimm-Biom 539232-499795 - [id number] Implanted:Qty : 1 on 10/08/2021 by Celso Jean-Baptiste MD at [facility] Right: Knee KIRAN BIOMET [id number] 06/28/2026 953701 / / [id number] Biomet Oss Segmental Elliptial Femoral Implanted:Qty : 1 on 10/08/2021 by Celso Jean-Baptiste MD at [facility] Right: Knee 01/10/2029 148019 / / [id number] Knee Brng Tib Oss Poly 16mm Zimm-Biom 247055-872245 - [id number] Implanted:Qty : 1 on 10/08/2021 by Celso Jean-Baptiste MD at [facility] Right: Knee KIRAN BIOMET 08/28/2026 068420 / / [id number] Explanted Type Area Senior Interaction Designer Device Identifier Shelf Expiration Date Model / Serial / Lot Femur, Tibia, Patella, Insert Explanted:Qty: 4 on 08/23/2021 by Celso Jean-Baptiste MD at [facility] Nitin Sriram Implanted:Qty: 1 on 08/23/2021 by Celso Jean-Baptiste MD at [facility] Explanted:Qty: 1 on 10/08/2021 by Celso Jean-Baptiste MD at [facility] Right: Knee Description:NITIN SRIRAM CUT IN HALF EMBEDDED IN BONE CEMENT Cement Bone Surg Simplex Radiopq Stry-Howm 0885-7-099-114 092 - [id number] Implanted:Qty: 1 on 08/23/2021 by Celso Jean-Baptiste MD at [facility] Explanted:Qty: 1 on 10/08/2021 by Celso Jean-Baptiste MD at [facility] Right: Knee [facility] [id number] 12/02/2023 6191-1-010 / / [id number] Cement Bone Surg Simplex Radiopq Stry-Howm 4590-7-500-114 092 - [id number] Implanted:Qty: 1 on 08/23/2021 by Celso Jean-Baptiste MD at [facility] Explanted:Qty: 1 on 10/08/2021 by Celso Jean-Baptiste MD at [facility] Right: Knee [facility] [id number] 12/02/2023 6191-1-010 / / [id number] Cement Bone Surg Simplex Radiopq Stry-Howm 8452-3-441-114 092 - [id number] Implanted:Qty: 1 on 08/23/2021 by Celso Jean-Baptiste MD at [facility] Explanted:Qty: 1 on 10/08/2021 by Celso Jean-Baptiste MD at [facility] Right: Knee [facility] [id number] 12/02/2023 6191-1-010 / / [id number] Cement Bone Surg Simplex Radiopq Stry-Howm 6331-3-356-114 092 - [id number] Implanted:Qty: 1 on 08/23/2021 by Celso Jean-Baptiste MD at [facility] Explanted:Qty: 1 on 10/08/2021 by Celso Jean-Baptiste MD at [facility] Right: Knee [facility] [id number] 12/02/2023 6191-1-010 / / [id number] Cement Bone Surg Simplex Radiopq Strdestiny-Howsyed 2866-6-995-114 092 - [id number] Implanted:Qty: 1 on 08/23/2021 by Celso Jean-Baptiste MD at [facility] Explanted:Qty: 1 on 10/08/2021 by Celso Jean-Baptiste MD at [facility] Right: Knee [facility] [id number] 12/02/2023 6191-1-010 / / [id number] Additional Health Concerns Infection Onset Date Last Indicated MRSA Comment:08/21/21: Synovial Fluid Cx - R Knee 08/19/2021 08/21/2021 Advance Directives For more information, please contact: [phone] Latest Code Status on File Code Status [...] way: discussion with patient . Care Teams Teacher Specialist Relationship Specialty Start Date End Date Aleshia Claros MD PCP - General Infectious Diseases 07/09/21
== END 2024-08-18 13:00 | disposition home or self-care (01) ==
LOC: HO.HMCH 10:31
PROVIDERS: PCP Internal Medicine; Visit Provider Internal Medicine
DX: I10 Essential (primary) hypertension (principal); E11.65 Type 2 diabetes mellitus with hyperglycemia; R55 Syncope and collapse

== ENCOUNTER → 2024-08-18 10:30 | Outpatient (BNVA) | payer MEDICARE, SELFPAY | PROVIDERS: PCP Internal Medicine; Visit Provider Internal Medicine | DX: I10 Essential (primary) hypertension (principal); E11.65 Type 2 diabetes mellitus with hyperglycemia; R55 Syncope and collapse | CPT/HCPCS: 99212 ==

== ENCOUNTER → 2024-08-26 10:17 | Outpatient (REF) | payer MEDICARE, SELFPAY ==
--- OUTSIDE RECORDS SUMMARY | 2024-08-26 10:45 | XMS_ITS | Clinical Summary ---
Author Organization [facility] Address [address] [place] [address] Care Team Providers Care Music Grapher Name Role Phone Aleshia Claros MD Primary [...] this topic Medical Devices Implanted Type Area Metal Loader Device Identifier Shelf Expiration Date Model / Serial / Lot Stimulan Rapid Cure Implanted:Qty : 1 on 08/23/2021 by Celso Jean-Baptiste MD at [facility] Total Joint Right: Knee [id number] 11/01/2023 / / [id number] [place] Tibial Augment Implanted:Qty : 1 on 10/08/2021 by Celso Jean-Baptiste MD at [facility] Total Joint Right: Knee [id number] 07/30/2031 / / [id number] [place] Tibial Augment Implanted:Qty : 1 on 10/08/2021 by Celso Jean-Baptiste MD at [facility] Total Joint Right: Knee [id number] 07/30/2031 / / [id number] Non-Modular Long Tibial Baseplate (Oss) Implanted:Qty : 1 on 10/08/2021 by Celso Jean-Baptiste MD at [facility] Total Joint Right: Knee [id number] 07/31/2030 / / [id number] Bowed Im Stem With Screw (Oss) Implanted:Qty : 1 on 10/08/2021 by Celso Jean-Baptiste MD at [facility] Total Joint Right: Knee [id number] 11/21/2027 / / [id number] Cement Bone Surg Simplex Radiopq Stry-Howm 1287-3-077-11 4092 - [id number] Implanted:Qty : 1 on 10/08/2021 by Celso Jean-Baptiste MD at [facility] Right: Knee [facility] [id number] 04/02/2023 6190-05-04 0 / / [id number] Cement Bone Surg Simplex Radiopq Stry-Howm 1827-9-701- 4092 - [id number] Implanted:Qty : 1 on 10/08/2021 by Celso Jean-Baptiste MD at [facility] Right: Knee [facility] [id number] 04/02/2023 6190-05-04 0 / / [id number] Cement Bone Surg Simplex Radiopq Stry-Howm 3657-8-555- 409 - [id number] Implanted:Qty : 1 on 10/08/2021 by Celso Jean-Baptiste MD at [facility] Right: Knee [facility] [id number] 04/02/2023 6190-05-04 0 / / [id number] Cement Bone Surg Simplex Radiopq Stry-Howm 8523-1-361- 409 - [id number] Implanted:Qty : 1 on 10/08/2021 by Celso Jean-Baptiste MD at [facility] Right: Knee [facility] [id number] 04/02/2023 6190-05-04 0 / / [id number] Cement Bone Surg Simplex Radiopq Stry-How 8771-2-027-11 4092 - [id number] Implanted:Qty : 1 on 10/08/2021 by Celso Jean-Baptiste MD at [facility] Right: Knee [facility] [id number] 04/02/2023 6191 0 / / [id number] Tritanium Asym Cn Aug D Lm Rl [facility] 1954-W-684-69 9563 - [id number] Implanted:Qty : 1 on 10/08/2021 by Celso Jean-Baptiste MD at [facility] Right: Knee [facility] [id number] 02/14/2025 5549-A-24 1 / / [id number] Plug Bone [facility] 5485-1-401-14 3872 - [id number] Implanted:Qty : 1 on 10/08/2021 by Celso Jean-Baptiste MD at [facility] Right: Knee [facility] [id number] 07/14/2026 6215- 1 / / [id number] Plug Bone [facility] 7981-1-909-14 3872 - [id number] Implanted:Qty : 1 on 10/08/2021 by Celso Jean-Baptiste MD at [facility] Right: Knee [facility] [id number] 07/14/2026 6215- 1 / / [id number] Knee Fem Compon Oss Axle Zimm-Biom 892008-382690 - [id number] Implanted:Qty : 1 on 10/08/2021 by Celso Jean-Baptiste MD at [facility] Right: Knee KIRAN BIOM[employer] [id number] 08/14/2031 365130 / / [id number] Knee Tib Pin Lock Oss Poly Zimm-Biom 280492-337861 - [id number] Implanted:Qty : 1 on 10/08/2021 by Celso Jean-Baptiste MD at [facility] Right: Knee KIRAN BIOM[employer] [id number] 08/03/2026 753788 / / [id number] Knee Oss Reinf Yoke Zimm-Biom 419983-216380 - [id number] Implanted:Qty : 1 on 10/08/2021 by Celso Jean-Baptiste MD at [facility] Right: Knee KIRAN BIOMET [id number] 08/08/2031 447748 / / [id number] Knee Tib Bushing Comp Oss Zimm-Biom 504689-935427 - [id number] Implanted:Qty : 1 on 10/08/2021 by Celso Jean-Baptiste MD at [facility] Right: Knee KIRAN BIOMET [id number] 07/31/2026 607396 / / [id number] [place] Set Oss Poly Femoral Zimm-Biom 784859-383575 - [id number] Implanted:Qty : 1 on 10/08/2021 by Celso Jean-Baptiste MD at [facility] Right: Knee KIRAN BIOMET [id number] 06/28/2026 438356 / / [id number] Biomet Oss Segmental Elliptial Femoral Implanted:Qty : 1 on 10/08/2021 by Celso Jean-Baptiste MD at [facility] Right: Knee 01/10/2029 409372 / / [id number] Knee Brng Tib Oss Poly 16mm Zimm-[employer] 010641-542707 - [id number] Implanted:Qty : 1 on 10/08/2021 by Celso Jean-Baptiste MD at [facility] Right: Knee KIRAN BIOMET 08/28/2026 050005 / / [id number] Explanted Type Area Metal Loader Device Identifier Shelf Expiration Date Model / Serial / Lot Femur, Tibia, Patella, Insert Explanted:Qty: 4 on 08/23/2021 by Celso Jean-Baptiste MD at [facility] Nitin Sriram Implanted:Qty: 1 on 08/23/2021 by Celso Jean-Baptiste MD at [facility] Explanted:Qty: 1 on 10/08/2021 by Celso Jean-Baptiste MD at [facility] Right: Knee Description:NITIN SRIRAM CUT IN HALF EMBEDDED IN BONE CEMENT Cement Bone Surg Simplex Radiopq Stry-Howm 7470-4-131-114 092 - [id number] Implanted:Qty: 1 on 08/23/2021 by Celso Jean-Baptiste MD at [facility] Explanted:Qty: 1 on 10/08/2021 by Celso Jean-Baptiste MD at [facility] Right: Knee [facility] [id number] 12/02/2023 6191-1-010 / / [id number] Cement Bone Surg Simplex Radiopq Stry-Howm 2889-6-786-114 092 - [id number] Implanted:Qty: 1 on 08/23/2021 by Celso Jean-Baptiste MD at [facility] Explanted:Qty: 1 on 10/08/2021 by Celso Jean-Baptiste MD at [facility] Right: Knee [facility] [id number] 12/02/2023 6191-1-010 / / [id number] Cement Bone Surg Simplex Radiopq Stry-Howm 5303-3-951-114 092 - [id number] Implanted:Qty: 1 on 08/23/2021 by Celso Jean-Baptiste MD at [facility] Explanted:Qty: 1 on 10/08/2021 by Celso Jean-Baptiste MD at [facility] Right: Knee [facility] [id number] 12/02/2023 6191-1-010 / / [id number] Cement Bone Surg Simplex Radiopq Stry-Howm 5925-7-232-114 092 - [id number] Implanted:Qty: 1 on 08/23/2021 by Celso Jean-Baptiste MD at [facility] Explanted:Qty: 1 on 10/08/2021 by Celso Jean-Baptiste MD at [facility] Right: Knee [facility] [id number] 12/02/2023 6191-1-010 / / [id number] Cement Bone Surg Simplex Radiopq Strdestiny-Howsyed 3492-5-212-114 092 - [id number] Implanted:Qty: 1 on 08/23/2021 by Celso Jean-Baptiste MD at [facility] Explanted:Qty: 1 on 10/08/2021 by Celso Jean-Baptiste MD at [facility] Right: Knee [facility] [id number] 12/02/2023 6191-1-010 / / [id number] Additional Health Concerns Infection Onset Date Last Indicated MRSA Comment:08/21/21: Synovial Fluid Cx - R Knee 08/19/2021 08/21/2021 Advance Directives For more information, please contact: [phone] Latest Code Status on File Code Status [...] way: discussion with patient . Care Teams Music Grapher Relationship Specialty Start Date End Date Aleshia Claros MD PCP - General Infectious Diseases 07/09/21
--- OUTSIDE RECORDS SUMMARY | 2024-08-26 10:46 | XMS_ITS | Clinical Summary ---
Author Organization [facility] it Address [address] [place] [address] Care Team Providers Care Web Pressman Name Role Phone Aleshia Claros MD Primary Care Provider [phone] Allergies No known active allergies Medications acetaminophen [...] infection, sequela 08/19/2021 JERRY (acute kidney injury) ([facility] V24) 06/26/19 Orthostatic hypotension 06/26/2021 Arteriosclerosis of coronary artery 06/25/2021 Arthritis of lumbar spine 06/25/2021 Dehydration 06/25/2021 Edema of upper extremity 06/25/2021 Hypertension 06/25/2021 Near syncope 06/25/2021 Lung mass 06/25/2021 Methicillin susceptible Staphylococcus aureus in fection 06/25/2021 Pyogenic arthritis of knee ([facility] V24, [facility] V28) 06/25/2021 Type 2 diabetes mellitus ([facility] V24, [facility] V 28) 06/25/2021 Infected prosthetic knee joint ([facility] V24) 06/2021 MSSA bacteremia 06/05/2021 Syncope and [...] KNEE PROSTHESIS; Surgeon: Celso Jean-Baptiste MD; Location: [facility] Service: Orthopedics; Laterality: Right; KNEE SURGERY Left PROCEDURE:KNEE SURGERY;COMMENT:multiple surgeries KNEE SURGERY Right PROCEDURE:KNEE SURGERY;COMMENT:multiple surgeries COLONOSCOPY PROCEDURE:COLONOSCOPY UPPER GASTROINTESTINAL ENDOSCOPY PROCEDURE:UPPER GASTROINTESTINAL ENDOSCOPY EYE SURGERY Bilateral PROCEDURE:EYE SURGERY;COMMENT:glaucoma surgery DENTAL SURGERY PROCEDURE:DENTAL SURGERY;COMMENT:all teeth removed, upper & Lower dentures KNEE ARTHROPLASTY 10/08/2021 Right PROCEDURE:REVISION TOTAL KNEE ARTHROPLASTY;COMMENT:Procedur e: REVISION TOTAL KNEE; Surgeon: Celso Jean-Baptiste MD; Location: [facility] Service: Orthopedics; Laterality: Right; Medical History Medical History Date Comments Diabetes mellitus ([facility] V 24, [facility] V28) DX:Diabetes mellitus ([facility]) Polymyalgia rheumatica ([facility] V24) DX:Polymyalgia rheumatica ([facility]) HTN (hypertension) DX:HTN (hyper tension) Osteoarthritis DX:Osteoarthriti s Chronic back pain DX:Chronic alban k pain Hyperlipidemia DX:Hyperlipidemi a Dizziness DX:Dizziness Diabetes mellitus, type II ( [facility] V24, [facility] V28) DX:Diabetes mellitus, type I I ([facility]) Family history of DVT DX:Family history of [...] this topic Medical Devices Implanted Type Area Piggyback Clerk Device Identifier Shelf Expiration Date Model / Serial / Lot Stimulan Rapid Cure Implanted:Qty : 1 on 08/23/2021 by Celso Jean-Baptiste MD Joints Right: Knee [id number] 11/01/2023 / / [id number] [place] Tibial Augment Implanted:Qty : 1 on 10/08/2021 by Celso Jean-Baptiste MD Joints Right: Knee [id number] 07/30/2031 / / [id number] [place] Tibial Augment Implanted:Qty : 1 on 10/08/2021 by Celso Jean-Baptiste MD Joints Right: Knee [id number] 07/30/2031 / / [id number] Non-Modular Long Tibial Baseplate (Oss) Implanted:Qty : 1 on 10/08/2021 by Celso Jean-Baptiste MD Joints Right: Knee [id number] 07/31/2030 / / [id number] Bowed Im Stem With Screw (Oss) Implanted:Qty : 1 on 10/08/2021 by Celso Jean-Baptiste MD Joints Right: Knee [id number] 11/21/2027 / / [id number] Cement Bone Surg Simplex Radiopq Stry-Howm 1122-6-164-11 409 Implanted:Qty : 1 on 10/08/2021 by Celso Jean-Baptiste MD Right: Knee [facility] [id number] 04/02/2023 6190-05-04 0 / / [id number] Cement Bone Surg Simplex Radiopq Stry-Howm 4284-8-949- 409 Implanted:Qty : 1 on 10/08/2021 by Celso Jean-Baptiste MD Right: Knee [facility] [id number] 04/02/2023 6190-05-04 0 / / [id number] Cement Bone Surg Simplex Radiopq Stry-Howm 5232-6-058- 4092 Implanted:Qty : 1 on 10/08/2021 by Celso Jean-Baptiste MD Right: Knee [facility] [id number] 04/02/2023 6190-05-04 0 / / [id number] Tritanium Asym Cn Aug D Lm Rl Stry-Howm 6444-G-116-69 9563 Implanted:Qty : 1 on 10/08/2021 by Celso Jean-Baptiste MD Right: Knee [facility] [id number] 02/14/2025 5549-A-24 1 / / [id number] Plug Bone Med Stry-How 1604-2-545-14 3872 Implanted:Qty : 1 on 10/08/2021 by Celso Jean-Baptiste MD Right: Knee [facility] [id number] 07/14/2026 6214-09-01 / / [id number] Plug Bone Med Stry-How 9592-0-225-14 3872 Implanted:Qty : 1 on 10/08/2021 by Celso Jean-Baptiste MD Right: Knee [facility] [id number] 07/14/2026 6214-09-01 1 / / [id number] Knee Fem Compon Oss Axle [employer] 479088-868442 Implanted:Qty : 1 on 10/08/2021 by Celso Jean-Baptiste MD Right: Knee KIRAN [employer]OMET [id number] 08/14/2031 256954 / / [id number] Knee Tib Pin Lock Oss Poly [employer] 194949-952307 Implanted:Qty : 1 on 10/08/2021 by Celso Jean-Baptiste MD Right: Knee KIRAN [employer] [id number] 08/03/2026 620068 / / [id number] Knee Oss Reinf Yoke [employer] 997269-598656 Implanted:Qty : 1 on 10/08/2021 by Celso Jean-Baptiste MD Right: Knee KIRAN [employer] [id number] 08/08/2031 915388 / / [id number] Knee Tib Bushing Comp Oss [employer] 487094-952708 Implanted:Qty : 1 on 10/08/2021 by Celso Jean-Baptiste MD Right: Knee KIRAN [employer]OMET [id number] 07/31/2026 541012 / / [id number] [place] Set Oss Poly Femoral [employer] 795111-328040 Implanted:Qty : 1 on 10/08/2021 by Celso Jean-Baptiste MD Right: Knee KIRAN [employer] [id number] 06/28/2026 118201 / / [id number] Biomet Oss Segmental Elliptial Femoral Implanted:Qty : 1 on 10/08/2021 by Celso Jean-Baptiste MD Right: Knee 01/10/2029 339386 / / [id number] Knee Brng Tib Oss Poly 16mm [employer] 420663-067853 Implanted:Qty : 1 on 10/08/2021 by Celso Jean-Baptiste MD Right: Knee KIRAN [employer]OMET 08/28/2026 088805 / / [id number] Cement Bone Surg Simplex Radiopq Stry-Howm 5296-6-039-11 4092 Implanted:Qty : 1 on 10/08/2021 by Celso Jean-Baptiste MD Right: Knee [facility] [id number] 04/02/20236190-05- 0 / / [id number] Cement Bone Surg Simplex Radiopq Stry-Howm 3618-4-238-11 4092 Implanted:Qty : 1 on 10/08/2021 by Celso Jean-Baptiste MD Right: Knee [facility] [id number] 04/02/20236190-05- 0 / / [id number] Procedures Procedure Name Priority Date/Time Associated Diagnosis Comments ANNUAL BMP BLOOD TEST Routine 10/09/2021 HEMOGLOBIN A1C Routine 09/27/2021 from Last 3 Months or Most Recently Relevant to Health Maintenance Results * Annual BMP Blood Test (10/09/2021) Pathologist [facility] Annual BMP Blood Test abstracted Historical Provider HEALTH MAINTENANCE Final Result * (ABNORMAL) Hemoglobin A1c (09/27/2021) Pathologist [facility] Hemoglobin A1C 6.6(A) <=5.7 % Blood Venous blood specimen / Unknown Historical Provider LAB BLOOD ORDERABLES Clara l Result from Last 3 Months or Most Recently Relevant to Health Maintenance Care Teams Web Pressman Relationship Specialty Start Date End Date Aleshia Claros MD PCP - General Infectious Diseases 07/09/21
[2024-08-26 11:31] LABS: Hematocrit 45.7 % (42.0-52.0); Hemoglobin 15.6 g/dl (14.0-18.0); Mean Corpuscular HGB Conc 34.1 g/dl (31.0-36.0); Mean Corpuscular Hemoglobin 30.5 pg (27.0-33.0); Mean Corpuscular Volume 89.3 fL (80.0-98.0); Mean Platelet Volume 9.9 fL (9.4-12.4); Platelet Count 326 X10*3/uL (160-400); Red Blood Count 5.12 X10*6/uL (4.60-5.80); Red Cell Distribution Width 14.3 % (11.0-16.0); White Blood Count 11.3 X10*3/uL (4.8-10.8)
[2024-08-26 11:34] LABS: Estimated Average Glucose 157 mg/dL; Hemoglobin A1C 218.7439 umol/L; Hemoglobin A1c % 7.1 % (<6.0); Total Hemoglobin (HGBA1C) 4067.6253 umol/L
[2024-08-26 12:02] LABS: Appearance Urine Clear; Color Urine Yellow; Glucose Urine UA 500 mg/dL (Negative); Leukocyte Esterase Urine Negative (Negative); Nitrite Urine Negative (Negative); PH 6.5 (5.0-9.0); Specific Gravity - Urine 1.015 (1.005-1.025); UMIC TRIGGER UA YES; Urine Blood Negative (Negative); Urine Ketones Negative (Negative); Urine Protein 100 (2+) mg/dL (Neg-Trace)
[2024-08-26 12:10] LABS: Alanine Aminotransferase 39 U/L (0-40); Albumin Level 3.9 g/dL (3.5-5.0); Alkaline Phosphatase 70 U/L (39-117); Anion Gap 13 (12-20); Aspartate Amino Transferase 27 U/L (5-37); Bilirubin Direct 0.2 mg/dL (0.0-0.5); Bilirubin Total 0.4 mg/dL (0.0-1.0); Blood Urea Nitrogen 16 mg/dL (9-16); Calcium 8.9 mg/dL (8.4-10.2); Carbon Dioxide 22 mmol/L (22-29); Chloride 105 mmol/L (96-108); Estimated Glomerular Filt Rate > 60; Glucose Random 240 mg/dL (60-115); Potassium 4.1 mmol/L (3.3-5.1); Sodium 136 mmol/L (135-145); Total Protein 6.8 g/dL (6.5-8.0)
[2024-08-26 12:30] LABS: Thyroid Stimulating Hormone 1.17 uIU/mL (0.32-4.0)
[2024-08-26 13:08] LABS: Bacteria Urine None Seen (None Seen); Hyaline Casts Urine 0-2 /LPF (0-2); RBC Urine 0-2 /HPF (0-2); Squamous Epithelial Cell Urine 0-2 /HPF (0-2); WBC Urine 0-5 /HPF (0-5)
== END ==
LOC: HO.CARD 10:17
PROVIDERS: PCP Internal Medicine; Visit Provider Internal Medicine
DX: R55 Syncope and collapse (principal); I10 Essential (primary) hypertension; E11.65 Type 2 diabetes mellitus with hyperglycemia
CPT/HCPCS: 36415; 80048; 80076; 81001; 81003; 83036; 84443; 85027; 93270

== ENCOUNTER → 2024-08-26 10:23 | Outpatient (BNV) | payer MEDICARE, SELFPAY | PROVIDERS: PCP Internal Medicine; Visit Provider Internal Medicine Cardiovascular Disease | DX: R55 Syncope and collapse (principal) | CPT/HCPCS: 93272 ==

== ENCOUNTER 2024-09-07 13:32 | Outpatient (AMB) | payer MEDICARE, SELFPAY ==
--- NOTE | 2024-09-07 13:34 | MHC.OFFVIS ---
Vital Signs 09/07/24 13:40 Height 6 ft Pulse 65 Pulse Source Pulse Oximeter Pulse Oximetry (%) 98 Oxygen Delivery Method Room Air Intake Visit Reasons: F/U,1 yr. MRSA Allergies No Known Allergies Allergy (Verified 09/07/24 13:41) HPI HPI F/U,1 yr. MRSA: Details: He has been doing well. He has right knee chronic infection. [facility] Medical History Tobacco use disorder Class 2 severe obesity with body mass index (BMI) of 35 to 39.9 with serious comorbidity Right knee pain Infected prosthetic knee joint Hyperlipidemia Prosthetic joint infection Benign prostate hyperplasia Encounter to establish care Surgical History History of cataract surgery History of colonoscopy History of surgery on lower extremity History of total bilateral knee replacement History of cholecystectomy History of hemorrhoidectomy History of shoulder surgery History of eye surgery History of bilateral knee replacement History of back surgery Social History Housing: House Alcohol intake: never Patient Tobacco Use Status: Current everyday Tobacco user Tobacco use type: Cigarette Cigarette Packs Per Day: 0.5 Cigarettes Per Day: 5 Years Smoked: 40 e-Cigarette/Vaping Use: Never Used Second Hand Smoke Exposure: Yes service: No Current occupational status: retired Cognitive needs: Yes (Cane) Hearing needs: No Vision needs: Yes (glasses) Review of Systems Const All systems reviewed & are unremarkable except as noted in HPI and below Physical Exam Vital Signs: Last Vital Signs Pulse 65 09/07/24 13:40 Pulse Ox 98 09/07/24 13:40 Oxygen Delivery Method Room Air 09/07/24 13:40 Const General: cooperative Resp Effort & Inspection: normal respiratory effort Cardio Rate: regular rate Skin Other: right knee swelling Assessment & Plan Assessment & Plan (1) Infected prosthetic knee joint: Comment: He has stable infection at this time Code(s): T84.59XA - Infection and inflammatory reaction due to other internal joint prosthesis, initial encounter; Z96.659 - Presence of unspecified artificial knee joint Category: Medical Plan: Doxycycline 100 mg po bid,one month and eleven refills. See PCP for further medication Coding Level of Care Code Est Pt Level 3 (79710) Diagnoses Infected prosthetic knee joint T84.59XA; Z96.659
[2024-09-07 13:40] VITALS: PULSE 65; O2SAT 98
--- OUTSIDE RECORDS SUMMARY | 2024-09-07 14:50 | XMS_ITS | Clinical Summary ---
Author Organization [facility] Address [address] [place] [address] Care Team Providers Care Blower Mechanic Name Role Phone Aleshia Claros MD Primary [...] this topic Medical Devices Implanted Type Area Superintendent Generating Plant Device Identifier Shelf Expiration Date Model / Serial / Lot Stimulan Rapid Cure Implanted:Qty : 1 on 08/23/2021 by Celso Jean-Baptiste MD at [facility] Total Joint Right: Knee [id number] 11/01/2023 / / [id number] Alabaster Tibial Augment Implanted:Qty : 1 on 10/08/2021 by Celso Jean-Baptiste MD at [facility] Total Joint Right: Knee [id number] 07/30/2031 / / [id number] Alabaster Tibial Augment Implanted:Qty : 1 on 10/08/2021 by Celso Jean-Baptiste MD at [facility] Total Joint Right: Knee [id number] 07/30/2031 / / [id number] Non-Modular Long Tibial Baseplate (Oss) Implanted:Qty : 1 on 10/08/2021 by Celso Jean-Baptiste MD at [facility] Total Joint Right: Knee [id number] 07/31/2030 / / [id number] Bowed Im Stem With Screw (Oss) Implanted:Qty : 1 on 10/08/2021 by Celso Jean-Baptiste MD at [facility] Total Joint Right: Knee [id number] 11/21/2027 / / [id number] Cement Bone Surg Simplex Radiopq Stry-Howm 0274-5-993-11 4092 - [id number] Implanted:Qty : 1 on 10/08/2021 by Celso Jean-Baptiste MD at [facility] Right: Knee [facility] [id number] 04/02/2023 6190-05-04 0 / / [id number] Cement Bone Surg Simplex Radiopq Stry-Howm 5582-8-180- 4092 - [id number] Implanted:Qty : 1 on 10/08/2021 by Celso Jean-Baptiste MD at [facility] Right: Knee [facility] [id number] 04/02/2023 6190-05-04 0 / / [id number] Cement Bone Surg Simplex Radiopq Stry-Howm 8729-3-327- 409 - [id number] Implanted:Qty : 1 on 10/08/2021 by Celso Jean-Baptiste MD at [facility] Right: Knee [facility] [id number] 04/02/2023 6190-05-04 0 / / [id number] Cement Bone Surg Simplex Radiopq Stry-Howm 0630-5-327- 409 - [id number] Implanted:Qty : 1 on 10/08/2021 by Celso Jean-Baptiste MD at [facility] Right: Knee [facility] [id number] 04/02/2023 6190-05-04 0 / / [id number] Cement Bone Surg Simplex Radiopq Stry-How 3264-4-451-11 4092 - [id number] Implanted:Qty : 1 on 10/08/2021 by Celso Jean-Baptiste MD at [facility] Right: Knee [facility] [id number] 04/02/2023 6191 0 / / [id number] Tritanium Asym Cn Aug D Lm Rl [facility] 4793-X-818-69 9563 - [id number] Implanted:Qty : 1 on 10/08/2021 by Celso Jean-Baptiste MD at [facility] Right: Knee [facility] [id number] 02/14/2025 5549-A-24 1 / / [id number] Plug Bone [facility] 5971-8-459-14 3872 - [id number] Implanted:Qty : 1 on 10/08/2021 by Celso Jean-Baptiste MD at [facility] Right: Knee [facility] [id number] 07/14/2026 6215- 1 / / [id number] Plug Bone [facility] 0978-6-187-14 3872 - [id number] Implanted:Qty : 1 on 10/08/2021 by Celso Jean-Baptiste MD at [facility] Right: Knee [facility] [id number] 07/14/2026 6215- 1 / / [id number] Knee Fem Compon Oss Axle [employer] 454061-792347 - [id number] Implanted:Qty : 1 on 10/08/2021 by Celso Jean-Baptiste MD at [facility] Right: Knee KIRAN [employer] [id number] 08/14/2031 692358 / / [id number] Knee Tib Pin Lock Oss Poly [employer] 466350-943548 - [id number] Implanted:Qty : 1 on 10/08/2021 by Celso Jean-Baptiste MD at [facility] Right: Knee [employer]AN [employer] [id number] 08/03/2026 615081 / / [id number] Knee Oss Reinf Yoke [employer] 393929-447448 - [id number] Implanted:Qty : 1 on 10/08/2021 by Celso Jean-Baptiste MD at [facility] Right: Knee [employer] [id number] 08/08/2031 916129 / / [id number] Knee Tib Bushing Comp Oss [employer] 824017-742292 - [id number] Implanted:Qty : 1 on 10/08/2021 by Celso Jean-Baptiste MD at [facility] Right: Knee [employer] [id number] 07/31/2026 418307 / / [id number] Bushings Set Oss Poly Femoral [employer] 660448-283322 - [id number] Implanted:Qty : 1 on 10/08/2021 by Celso Jean-Baptiste MD at [facility] Right: Knee [employer]AN [employer] [id number] 06/28/2026 484024 / / [id number] Biomet Oss Segmental Elliptial Femoral Implanted:Qty : 1 on 10/08/2021 by Celso Jean-Baptiste MD at [facility] Right: Knee 01/10/2029 355070 / / [id number] Knee Brng Tib Oss Poly 16mm [employer] 302004-307888 - [id number] Implanted:Qty : 1 on 10/08/2021 by Celso Jean-Baptiste MD at [facility] Right: Knee KIRAN [employer] 08/28/2026 776681 / / [id number] Explanted Type Area Superintendent Generating Plant Device Identifier Shelf Expiration Date Model / Serial / Lot Femur, Tibia, Patella, Insert Explanted:Qty: 4 on 08/23/2021 by Celso Jean-Baptiste MD at [facility] Nitin Sriram Implanted:Qty: 1 on 08/23/2021 by Celso Jean-Baptiste MD at [facility] Explanted:Qty: 1 on 10/08/2021 by Celso Jean-Baptiste MD at [facility] Right: Knee Description:NITIN SRIRAM CUT IN HALF EMBEDDED IN BONE CEMENT Cement Bone Surg Simplex Radiopq Stry-Howm 7648-3-085-114 092 - [id number] Implanted:Qty: 1 on 08/23/2021 by Celso Jean-Baptiste MD at [facility] Explanted:Qty: 1 on 10/08/2021 by Celso Jean-Baptiste MD at [facility] Right: Knee [facility] [id number] 12/02/2023 6191-1-010 / / [id number] Cement Bone Surg Simplex Radiopq Stry-Howm 2078-9-793-114 092 - [id number] Implanted:Qty: 1 on 08/23/2021 by Celso Jean-Baptiste MD at [facility] Explanted:Qty: 1 on 10/08/2021 by Celso Jean-Baptiste MD at [facility] Right: Knee [facility] [id number] 12/02/2023 6191-1-010 / / [id number] Cement Bone Surg Simplex Radiopq Stry-Howm 6889-3-524-114 092 - [id number] Implanted:Qty: 1 on 08/23/2021 by Celso Jean-Baptiste MD at [facility] Explanted:Qty: 1 on 10/08/2021 by Celso Jean-Baptiste MD at [facility] Right: Knee [facility] [id number] 12/02/2023 6191-1-010 / / [id number] Cement Bone Surg Simplex Radiopq Stry-Howm 1132-9-246-114 092 - [id number] Implanted:Qty: 1 on 08/23/2021 by Celso Jean-Baptiste MD at [facility] Explanted:Qty: 1 on 10/08/2021 by Celso Jean-Baptiste MD at [facility] Right: Knee [facility] [id number] 12/02/2023 6191-1-010 / / [id number] Cement Bone Surg Simplex Radiopq Strdestiny-Howsyed 8040-4-859-114 092 - [id number] Implanted:Qty: 1 on 08/23/2021 by Celso Jean-Baptiste MD at [facility] Explanted:Qty: 1 on 10/08/2021 by Celso Jean-Baptiste MD at [facility] Right: Knee [facility] [id number] 12/02/2023 6191-1-010 / / [id number] Additional Health Concerns Infection Onset Date Last Indicated MRSA Comment:08/21/21: Synovial Fluid Cx - R Knee 08/19/2021 08/21/2021 Advance Directives For more information, please contact: [phone] Latest Code Status on File Code Status [...] way: discussion with patient . Care Teams Blower Mechanic Relationship Specialty Start Date End Date Aleshia Claros MD PCP - General Infectious Diseases 07/09/21
--- OUTSIDE RECORDS SUMMARY | 2024-09-07 14:50 | XMS_ITS | Clinical Summary ---
Author Organization [facility] it Address [address] [place] [address] Care Team Providers Care Flight Inspector Name Role Phone Aleshia Claros MD Primary Care Provider [phone] Allergies No known active allergies Medications acetaminophen [...] JERRY (acute kidney injury) ([facility] V24) 06/26/19 Orthostatic hypotension 06/26/2021 Arteriosclerosis of coronary artery 06/25/2021 Arthritis of lumbar spine 06/25/2021 Dehydration 06/25/2021 Edema of upper extremity 06/25/2021 Hypertension 06/25/2021 Near syncope 06/25/2021 Lung mass 06/25/2021 Methicillin susceptible Staphylococcus aureus in fection 06/25/2021 Pyogenic arthritis of knee ([facility] V24, [facility] V28) 06/25/2021 Type 2 diabetes mellitus ([facility] V24, [facility] V 28) 06/25/2021 Infected prosthetic knee joint ([facility] V24) 06/2021 MSSA bacteremia 06/05/2021 Syncope [...] KNEE PROSTHESIS; Surgeon: Celso Jean-Baptiste MD; Location: [facility]); Service: Orthopedics; Laterality: Right; KNEE SURGERY Left PROCEDURE:KNEE SURGERY;COMMENT:multiple surgeries KNEE SURGERY Right PROCEDURE:KNEE SURGERY;COMMENT:multiple surgeries COLONOSCOPY PROCEDURE:COLONOSCOPY UPPER GASTROINTESTINAL ENDOSCOPY PROCEDURE:UPPER GASTROINTESTINAL ENDOSCOPY EYE SURGERY Bilateral PROCEDURE:EYE SURGERY;COMMENT:glaucoma surgery DENTAL SURGERY PROCEDURE:DENTAL SURGERY;COMMENT:all teeth removed, upper & Lower dentures KNEE ARTHROPLASTY 10/08/2021 Right PROCEDURE:REVISION TOTAL KNEE ARTHROPLASTY;COMMENT:Procedur e: REVISION TOTAL KNEE; Surgeon: Celso Jean-Baptiste MD; Location: [facility]); Service: Orthopedics; Laterality: Right; Medical History Medical History Date Comments Diabetes mellitus ([facility] V 24, [facility] V28) DX:Diabetes mellitus ([facility]) Polymyalgia rheumatica ([facility] V24) DX:Polymyalgia rheumatica ([facility]) HTN (hypertension) DX:HTN (hyper tension) Osteoarthritis DX:Osteoarthriti s Chronic back pain DX:Chronic alban k pain Hyperlipidemia DX:Hyperlipidemi a Dizziness DX:Dizziness Diabetes mellitus, type II ( [facility] V24, [facility] V28) DX:Diabetes mellitus, type I I ([facility]) Family history of DVT DX:Family history [...] this topic Medical Devices Implanted Type Area Thresher Broomcorn Device Identifier Shelf Expiration Date Model / Serial / Lot Stimulan Rapid Cure Implanted:Qty : 1 on 08/23/2021 by Celso Jean-Baptiste MD Joints Right: Knee [id number] 11/01/2023 / / [id number] Cascade Tibial Augment Implanted:Qty : 1 on 10/08/2021 by Celso Jean-Baptiste MD Joints Right: Knee [id number] 07/30/2031 / / [id number] Cascade Tibial Augment Implanted:Qty : 1 on 10/08/2021 by Celso Jean-Baptiste MD Joints Right: Knee [id number] 07/30/2031 / / [id number] Non-Modular Long Tibial Baseplate (Oss) Implanted:Qty : 1 on 10/08/2021 by Celso Jean-Baptiste MD Joints Right: Knee [id number] 07/31/2030 / / [id number] Bowed Im Stem With Screw (Oss) Implanted:Qty : 1 on 10/08/2021 by Celso Jean-Baptiste MD Joints Right: Knee [id number] 11/21/2027 / / [id number] Cement Bone Surg Simplex Radiopq Stry-Howm 6482-7-391-11 409 Implanted:Qty : 1 on 10/08/2021 by Celso Jean-Baptiste MD Right: Knee [facility] [id number] 04/02/2023 6190-05-04 0 / / [id number] Cement Bone Surg Simplex Radiopq Stry-Howm 9936-7-620- 409 Implanted:Qty : 1 on 10/08/2021 by Celso Jean-Baptiste MD Right: Knee [facility] [id number] 04/02/2023 6190-05-04 0 / / [id number] Cement Bone Surg Simplex Radiopq Stry-Howm 9634-9-674- 4092 Implanted:Qty : 1 on 10/08/2021 by Celso Jean-Baptiste MD Right: Knee [facility] [id number] 04/02/2023 6190-05-04 0 / / [id number] Tritanium Asym Cn Aug D Lm Rl Stry-Howm 3975-I-276-69 9563 Implanted:Qty : 1 on 10/08/2021 by Celso Jean-Baptiste MD Right: Knee [facility] [id number] 02/14/2025 5549-A-24 1 / / [id number] Plug Bone Med Stry-How 2002-2-598-14 3872 Implanted:Qty : 1 on 10/08/2021 by Celso Jean-Baptiste MD Right: Knee [facility] [id number] 07/14/2026 6214-09-01 / / [id number] Plug Bone Med Stry-How 5774-2-378-14 3872 Implanted:Qty : 1 on 10/08/2021 by Celso Jean-Baptiste MD Right: Knee [facility] [id number] 07/14/2026 6214-09-01 1 / / [id number] Knee Fem Compon Oss Axle [employer] 500871-770319 Implanted:Qty : 1 on 10/08/2021 by Celso Jean-Baptiste MD Right: Knee [employer] [id number] 08/14/2031 717589 / / [id number] Knee Tib Pin Lock Oss Poly [employer] 724205-786393 Implanted:Qty : 1 on 10/08/2021 by Celso Jean-Baptiste MD Right: Knee [employer] [id number] 08/03/2026 822192 / / [id number] Knee Oss Reinf Yoke [employer] 034588-180632 Implanted:Qty : 1 on 10/08/2021 by Celso Jean-Baptiste MD Right: Knee [employer] [id number] 08/08/2031 476228 / / [id number] Knee Tib Bushing Comp Oss [employer] 208584-700806 Implanted:Qty : 1 on 10/08/2021 by Celso Jean-Baptiste MD Right: Knee [employer] [id number] 07/31/2026 332272 / / [id number] Bushings Set Oss Poly Femoral [employer] 710315-491221 Implanted:Qty : 1 on 10/08/2021 by Celso Jean-Baptiste MD Right: Knee [employer] [id number] 06/28/2026 906493 / / [id number] Biomet Oss Segmental Elliptial Femoral Implanted:Qty : 1 on 10/08/2021 by Celso Jean-Baptiste MD Right: Knee 01/10/2029 399417 / / [id number] Knee Brng Tib Oss Poly 16mm [employer] 944853-352884 Implanted:Qty : 1 on 10/08/2021 by Celso Jean-Baptiste MD Right: Knee [employer] 08/28/2026 849498 / / [id number] Cement Bone Surg Simplex Radiopq Stry-Howm 2164-2-832-11 4092 Implanted:Qty : 1 on 10/08/2021 by Celso Jean-Baptiste MD Right: Knee [facility] [id number] 04/02/20236190-05- 0 / / [id number] Cement Bone Surg Simplex Radiopq Stry-Howm 0111-4-499-11 4092 Implanted:Qty : 1 on 10/08/2021 by Celso Jean-Baptiste MD Right: Knee [facility] [id number] 04/02/20236190-05- 0 / / [id number] Procedures Procedure Name Priority Date/Time Associated Diagnosis Comments ANNUAL BMP BLOOD TEST Routine 10/09/2021 HEMOGLOBIN A1C Routine 09/27/2021 from Last 3 Months or Most Recently Relevant to Health Maintenance Results * Annual BMP Blood Test (10/09/2021) Pathologist [facility] Annual BMP Blood Test abstracted Historical Provider HEALTH MAINTENANCE Final Result * (ABNORMAL) Hemoglobin A1c (09/27/2021) Pathologist [facility] Hemoglobin A1C 6.6(A) <=5.7 % Blood Venous blood specimen / Unknown Historical Provider LAB BLOOD ORDERABLES Clara l Result from Last 3 Months or Most Recently Relevant to Health Maintenance Care Teams Flight Inspector Relationship Specialty Start Date End Date Aleshia Claros MD PCP - General Infectious Diseases 07/09/21
== END 2024-09-07 14:02 | disposition home or self-care (01) ==
LOC: HO.HID 13:32
PROVIDERS: PCP Internal Medicine; Visit Provider Internal Medicine
DX: T84.59XA Infection and inflammatory reaction due to other internal joint prosthesis, initial encounter (principal); Z96.659 Presence of unspecified artificial knee joint
CPT/HCPCS: 99213

== ENCOUNTER → 2024-09-07 13:32 | Outpatient (BNVA) | payer MEDICARE, SELFPAY | PROVIDERS: PCP Internal Medicine; Visit Provider Internal Medicine | DX: T84.59XD Infection and inflammatory reaction due to other internal joint prosthesis, subsequent encounter (principal); Z96.659 Presence of unspecified artificial knee joint | CPT/HCPCS: 99212 ==

== ENCOUNTER 2025-01-24 12:56 | Outpatient (REF) | payer MEDICARE, SELFPAY ==
--- OUTSIDE RECORDS SUMMARY | 2025-01-24 13:31 | XMS_ITS | Clinical Summary ---
Author Organization [facility] Address [address] [place] [address] Care Team Providers Care Academic Assistant Name Role Phone Aleshia Claros MD Primary [...] 88 10/13/2022 1:10 PM EDT Temperature 36.8 C (98.3 F) 10/13/2022 1:10 PM EDT Respiratory Rate 16 10/10/2021 7:32 AM EDT [...] Assessment 2023 COVID-19 Vaccine (3 - season) 2025 09/21/2020, 08/31/2020 Influenza Vaccine (#1) 2025 0, 02/01/2020, 03/22/2019, Additional history exists RSV Adult > 60+ Yrs or (1 - 1-dose 75+ series) 2033 Hepatitis B Vaccines Completed 11/13/2010, 06/07/2010, 05/08/2010 RSV Ped < 20 months Aged Out No longe r eligible based on patient's age to complete this topic Medical Devices Implanted Type Area Smash Fixer Device Identifier Shelf Expiration Date Model / Serial / Lot Stimulan Rapid Cure Implanted:Qty : 1 on 08/23/2021 by Celso Jean-Baptiste MD at [facility] Total Joint Right: Knee [id number] 11/01/2023 / / [id number] [place] Tibial Augment Implanted:Qty : 1 on 10/08/2021 by Celso Jean-Baptiste MD at [facility] Total Joint Right: Knee [id number] 07/30/2031 / / [id number] [place] Tibial Augment Implanted:Qty : 1 on 10/08/2021 by Celso Jean-Baptiste MD at [facility] Total Joint Right: Knee [id number] 07/30/2031 / / [id number] Non-Modular Long Tibial Baseplate (Oss) Implanted:Qty : 1 on 10/08/2021 by Celso Jean-Baptiste MD at [facility] Total Joint Right: Knee [id number] 07/31/2030 / / [id number] Bowed Im Stem With Screw (Oss) Implanted:Qty : 1 on 10/08/2021 by Cleso Jean-Baptiste MD at [facility] Total Joint Right: Knee [id number] 11/21/2027 / / [id number] Cement Bone Surg Simplex Radiopq Stry-Howm 7163-7-825-11 4092 - [id number] Implanted:Qty : 1 on 10/08/2021 by Celso Jean-Baptiste MD at [facility] Right: Knee [facility] [id number] 04/02/2023 6190-05-04 0 / / [id number] Cement Bone Surg Simplex Radiopq Stry-Howm 3806-2-650- 4092 - [id number] Implanted:Qty : 1 on 10/08/2021 by Celso Jean-Baptiste MD at [facility] Right: Knee [facility] [id number] 04/02/2023 6190-05-04 0 / / [id number] Cement Bone Surg Simplex Radiopq Stry-Howm 8617-4-828- 4092 - [id number] Implanted:Qty : 1 on 10/08/2021 by Celso Jean-Baptiste MD at [facility] Right: Knee [facility] [id number] 04/02/2023 6190-05-04 0 / / [id number] Cement Bone Surg Simplex Radiopq Stry-Howm 2346-5-841-4091 - [id number] Implanted:Qty : 1 on 10/08/2021 by Celso Jean-Baptiste MD at [facility] Right: Knee [facility] [id number] 04/02/2023 6190-05-04 0 / / [id number] Cement Bone Surg Simplex Radiopq Stry-How 4908-5-017-11 4092 - [id number] Implanted:Qty : 1 on 10/08/2021 by Celso Jean-Baptiste MD at [facility] Right: Knee [facility] [id number] 04/02/2023 6191-1-01 0 / / [id number] Tritanium Asym Cn Aug D Lm Rl [facility] 2312-N-436-69 9563 - [id number] Implanted:Qty : 1 on 10/08/2021 by Celso Jean-Baptiste MD at [facility] Right: Knee [facility] [id number] 02/14/2025 5549-A-24 1 / / [id number] Plug Bone [facility] 9545-6-461-14 3872 - [id number] Implanted:Qty : 1 on 10/08/2021 by Celso Jean-Baptiste MD at [facility] Right: Knee [facility] [id number] 07/14/2026 6215-5-01 1 / / [id number] Plug Bone [facility] 8851-0-942-14 3872 - [id number] Implanted:Qty : 1 on 10/08/2021 by Celso Jean-Baptiste MD at [facility] Right: Knee [facility] [id number] 07/14/2026 62155-01 1 / / [id number] Knee Fem Compon Oss Axle [employer] 759991-042690 - [id number] Implanted:Qty : 1 on 10/08/2021 by Celso Jean-Baptiste MD at [facility] Right: Knee [employer] [id number] 08/14/2031 697011 / / [id number] Knee Tib Pin Lock Oss Poly [employer] 602761-932540 - [id number] Implanted:Qty : 1 on 10/08/2021 by Celso Jean-Baptiste MD at [facility] Right: Knee [employer] [id number] 08/03/2026 261757 / / [id number] Knee Oss Reinf Yoke [employer]-Biom 510039-906423 - [id number] Implanted:Qty : 1 on 10/08/2021 by Celso Jean-Baptiste MD at [facility] Right: Knee [employer] [id number] 08/08/2031 468614 / / [id number] Knee Tib Bushing Comp Oss [employer] 472361-928421 - [id number] Implanted:Qty : 1 on 10/08/2021 by Celso Jean-Baptiste MD at [facility] Right: Knee [employer] [id number] 07/31/2026 765024 / / [id number] Bush[place] Set Oss Poly Femoral [employer]-Biom 089236-487439 - [id number] Implanted:Qty : 1 on 10/08/2021 by Celso Jean-Baptiste MD at [facility] Right: Knee [employer] [id number] 06/28/2026 924844 / / [id number] Biomet Oss Segmental Elliptial Femoral Implanted:Qty : 1 on 10/08/2021 by Celso Jean-Baptiste MD at [facility] Right: Knee 01/10/2029 172863 / / [id number] Knee Brng Tib Oss Poly 16mm [employer] 718534-620182 - [id number] Implanted:Qty : 1 on 10/08/2021 by Celso Jean-Baptiste MD at [facility] Right: Knee K[employer]AN [employer] 08/28/2026 253465 / / [id number] Explanted Type Area Smash Fixer Device Identifier Shelf Expiration Date Model / Serial / Lot Femur, Tibia, Patella, Insert Explanted:Qty: 4 on 08/23/2021 by Celso Jean-Baptiste MD at [facility] Nitin Sriram Implanted:Qty: 1 on 08/23/2021 by Celso Jean-Baptiste MD at [facility] Explanted:Qty: 1 on 10/08/2021 by Celso Jean-Baptiste MD at [facility] Right: Knee Description:NITIN SRIRAM CUT IN HALF EMBEDDED IN BONE CEMENT Cement Bone Surg Simplex Radiopq Stry-Howm 9654-0-513-114 092 - [id number] Implanted:Qty: 1 on 08/23/2021 by Celso Jean-Baptiste MD at [facility] Explanted:Qty: 1 on 10/08/2021 by Celso Jean-Baptiste MD at [facility] Right: Knee [facility] [id number] 12/02/2023 6191-1-010 / / [id number] Cement Bone Surg Simplex Radiopq Stry-Howm 3151-9-267-114 092 - [id number] Implanted:Qty: 1 on 08/23/2021 by Celso Jean-Baptiste MD at [facility] Explanted:Qty: 1 on 10/08/2021 by Celso Jean-Baptiste MD at [facility] Right: Knee [facility] [id number] 12/02/2023 6191-1-010 / / [id number] Cement Bone Surg Simplex Radiopq Stry-Howm 2665-5-121-114 092 - [id number] Implanted:Qty: 1 on 08/23/2021 by Celso Jean-Baptiste MD at [facility] Explanted:Qty: 1 on 10/08/2021 by Celso Jean-Baptiste MD at [facility] Right: Knee [facility] [id number] 12/02/2023 6191-1-010 / / [id number] Cement Bone Surg Simplex Radiopq Stry-Howm 3410-7-229-114 092 - [id number] Implanted:Qty: 1 on 08/23/2021 by Celso Jean-Baptiste MD at [facility] Explanted:Qty: 1 on 10/08/2021 by Celso Jean-Baptiste MD at [facility] Right: Knee [facility] [id number] 12/02/2023 6191-1-010 / / [id number] Cement Bone Surg Simplex Radiopq Strdestiny-Donavan 6666-8-918-114 092 - [id number] Implanted:Qty: 1 on 08/23/2021 by Celso Jean-Baptiste MD at [facility] Explanted:Qty: 1 on 10/08/2021 by Celso Jean-Baptiste MD at [facility] Right: Knee [facility] [id number] 12/02/2023 6191-1-010 / / [id number] Additional Health Concerns Infection Onset Date Last Indicated MRSA Comment:08/21/21: Synovial Fluid Cx - R Knee 08/19/2021 08/21/2021 Advance Directives For more information, please contact: [phone] Latest Code Status on File Code Status [...] way: discussion with patient . Care Teams Academic Assistant Relationship Specialty Start Date End Date Aleshia Claros MD PCP - General Infectious Diseases 07/09/21
--- OUTSIDE RECORDS SUMMARY | 2025-01-24 13:31 | XMS_ITS | Clinical Summary ---
Author Organization [facility] it Address [address] [place] [address] Care Team Providers Care District Sales Manager Name Role Phone Aleshia Claros MD Primary Care Provider [phone] Allergies No known active allergies Medications acetaminophen [...] EVERY DAY NEEDED FOR ALLERGY 11/14/2021 Active DULoxetine (CYMBALTA) [address] capsule [...] Active lancets lancets USE DIRECTED 11/14/2021 Active doxycycline (ADOXA) 100 mg tablet TAKE 1 TABLET(100 MG) BY MOUTH TWICE DAILY 60 tablet 6 11/18/2024 Active Active Problems Problem Noted Date Diagnosed Date Prosthetic joint infection, subsequent encounter 10/08/2021 Prosthetic joint infection, sequela 08/19/2021 JERRY (acute kidney injury) [place] [place] 06/26/19 Orthostatic hypotension 06/26/2021 Arteriosclerosis of coronary artery 06/25/2021 Arthritis of lumbar spine 06/25/2021 Dehydration 06/25/2021 Edema of upper extremity 06/25/2021 Hypertension 06/25/2021 Near syncope 06/25/2021 Lung mass 06/25/2021 Methicillin susceptible Staphylococcus aureus in fection 06/25/2021 Pyogenic arthritis of knee ([facility] V24, [facility] V28) 06/25/2021 Type 2 diabetes mellitus ([facility] V24, [facility] V 28) 06/25/2021 Infected prosthetic knee joint ([facility] V24) 06/2021 MSSA bacteremia 06/05/2021 Syncope [...] KNEE PROSTHESIS; Surgeon: Celso Jean-Baptiste MD; Location: [facility] Service: Orthopedics; Laterality: Right; KNEE SURGERY Left PROCEDURE:KNEE SURGERY;COMMENT:multiple surgeries KNEE SURGERY Right PROCEDURE:KNEE SURGERY;COMMENT:multiple surgeries COLONOSCOPY PROCEDURE:COLONOSCOPY UPPER GASTROINTESTINAL ENDOSCOPY PROCEDURE:UPPER GASTROINTESTINAL ENDOSCOPY EYE SURGERY Bilateral PROCEDURE:EYE SURGERY;COMMENT:glaucoma surgery DENTAL SURGERY PROCEDURE:DENTAL SURGERY;COMMENT:all teeth removed, upper & Lower dentures KNEE ARTHROPLASTY 10/08/2021 Right PROCEDURE:REVISION TOTAL KNEE ARTHROPLASTY;COMMENT:Procedur e: REVISION TOTAL KNEE; Surgeon: Celso Jean-Baptiste MD; Location: [facility] ([facility]); Service: Orthopedics; Laterality: Right; Medical History Medical History Date Comments Diabetes mellitus ([facility], [facility] [place] DX:Diabetes mellitus ([facility]) Polymyalgia rheumatica ([facility] V24) DX:Polymyalgia rheumatica ([facility]) HTN (hypertension) DX:HTN (hyper tension) Osteoarthritis DX:Osteoarthriti s Chronic back pain DX:Chronic alban k pain Hyperlipidemia DX:Hyperlipidemi a Dizziness DX:Dizziness Diabetes mellitus, type II ( [facility] V24, [facility] V28) DX:Diabetes mellitus, type I I ([facility]) Family history of DVT DX:Family history [...] Panel) 04/11/2022 Colorectal Cancer Screening: Colonoscopy 04/11/2022 Hepatitis C Screening 04/11/2022 Social Influencers of Health Screening 04/11/2022 Diabetes: Annual Urine Albumin-Creatinine Ratio (uACR) 05/03/2022 Diabetes: Blood Sugar Control Test (HGBA1C) 05/03/2022 09/27/2021, 09/27/2021, 08/19/2021, Additional history exists Diabetes: Annual GFR (Glomerular Filtration Rate) 10/09/2022 10/09/2021, 10/09/2021, 09/27/2021, Additional history exists Hypertension/CHF/CAD Annual BMP Blood Test 10/09/2022 10/09/2021, 10/09/2021, 09/27/2021, Additional history exists Falls Risk Assessment 2023 Depression Screening 05/04/2024 COVID-19 Vaccine ( season) 2025 09/21/2020, 08/31/2020 Influenza Vaccine (#1) 2025 , 03/22/2019, 03/01/2018, Additional history exists RSV [...] this topic Medical Devices Implanted Type Area Cra Officer Device Identifier Shelf Expiration Date Model / Serial / Lot Stimulan Rapid Cure Implanted:Qty : 1 on 08/23/2021 by Celso Jean-Baptiste MD Joints Right: Knee [id number] 11/01/2023 / / [id number] [place] Tibial Augment Implanted:Qty : 1 on 10/08/2021 by Celso Jean-Baptiste MD Joints Right: Knee [id number] 07/30/2031 / / [id number] [place] Tibial Augment Implanted:Qty : 1 on 10/08/2021 by Celso Jean-Baptiste MD Joints Right: Knee [id number] 07/30/2031 / / [id number] Non-Modular Long Tibial Baseplate (Oss) Implanted:Qty : 1 on 10/08/2021 by Celso Jean-Baptiste MD Joints Right: Knee [id number] 07/31/2030 / / [id number] Bowed Im Stem With Screw (Oss) Implanted:Qty : 1 on 10/08/2021 by Celso Jean-Baptiste MD Joints Right: Knee [id number] 11/21/2027 / / [id number] Cement Bone Surg Simplex Radiopq Stry-Howm 5602-9-732-11 409 Implanted:Qty : 1 on 10/08/2021 by Celso Jean-Baptiste MD Right: Knee [facility] [id number] 04/02/2023 6190-05-04 0 / / [id number] Cement Bone Surg Simplex Radiopq Stry-Howm 8405-8-978-11 409 Implanted:Qty : 1 on 10/08/2021 by Celso Jean-Baptiste MD Right: Knee [facility] [id number] 04/02/2023 6190-05-04 0 / / [id number] Cement Bone Surg Simplex Radiopq Stry-Howm 8699-4-783-11 4092 Implanted:Qty : 1 on 10/08/2021 by Celso Jean-Baptiste MD Right: Knee [facility] [id number] 04/02/2023 6190-05-04 0 / / [id number] Tritanium Asym Cn Aug D Lm Rl Stry-How 0764-F-700-69 9563 Implanted:Qty : 1 on 10/08/2021 by Celso Jean-Baptiste MD Right: Knee [facility] [id number] 02/14/2025 5549-A-24 1 / / [id number] Plug Bone Med Stry-How 5502-6-943-14 3872 Implanted:Qty : 1 on 10/08/2021 by Celso Jean-Baptiste MD Right: Knee [facility] [id number] 07/14/202615 / / [id number] Plug Bone Med Stry-How 6808-6-438-14 3872 Implanted:Qty : 1 on 10/08/2021 by Celso Jean-Baptiste MD Right: Knee [facility] [id number] 07/14/2026 6214-09-01 1 / / [id number] Knee Fem Compon Oss Axle [employer] 317252-628194 Implanted:Qty : 1 on 10/08/2021 by Celso Jean-Baptiste MD Right: Knee [employer] [id number] 08/14/2031 340201 / / [id number] Knee Tib Pin Lock Oss Poly [employer] 179368-974743 Implanted:Qty : 1 on 10/08/2021 by Celso Jean-Baptiste MD Right: Knee [employer] [id number] 08/03/2026 278900 / / [id number] Knee Oss Reinf Yoke [employer] 580829-819613 Implanted:Qty : 1 on 10/08/2021 by Celso Jean-Baptiste MD Right: Knee [employer] [id number] 08/08/2031 017712 / / [id number] Knee Tib Bushing Comp Oss [employer] 586842-972589 Implanted:Qty : 1 on 10/08/2021 by Celso Jean-Baptiste MD Right: Knee [employer] [id number] 07/31/2026 854946 / / [id number] Bush[place] Set Oss Poly Femoral [employer] 193615-642083 Implanted:Qty : 1 on 10/08/2021 by Celso Jean-Baptiste MD Right: Knee [employer] [id number] 06/28/2026 375317 / / [id number] Biomet Oss Segmental Elliptial Femoral Implanted:Qty : 1 on 10/08/2021 by Celso Jean-Baptiste MD Right: Knee 01/10/2029 942961 / / [id number] Knee Brng Tib Oss Poly 16mm [employer] 488261-797654 Implanted:Qty : 1 on 10/08/2021 by Celso Jean-Baptiste MD Right: Knee [employer] 08/28/2026 806106 / / [id number] Cement Bone Surg Simplex Radiopq Stry-Howm 3753-1-994-11 4092 Implanted:Qty : 1 on 10/08/2021 by Celso Jean-Baptiste MD Right: Knee [employer] [id number] 04/02/20236190-- 0 / / [id number] Cement Bone Surg Simplex Radiopq Stry-Howm 6082-3-102-11 4092 Implanted:Qty : 1 on 10/08/2021 by Celso Jean-Baptiste MD Right: Knee [facility] [id number] 04/02/202391-- 0 / / [id number] Procedures Procedure Name Priority Date/Time Associated Diagnosis Comments ANNUAL BMP BLOOD TEST Routine 10/09/2021 HEMOGLOBIN A1C Routine 09/27/2021 from Last 3 Months or Most Recently Relevant to Health Maintenance Results * Annual BMP Blood Test (10/09/2021) Pathologist [facility] Annual BMP Blood Test abstracted Historical Provider HEALTH MAINTENANCE Final Result * (ABNORMAL) Hemoglobin A1c (09/27/2021) Pathologist [facility] Hemoglobin A1C 6.6(A) <=5.7 % Blood Venous blood specimen / Unknown Historical Provider LAB BLOOD ORDERABLES Clara l Result from Last 3 Months or Most Recently Relevant to Health Maintenance Care Teams District Sales Manager Relationship Specialty Start Date End Date Aleshia Claros MD PCP - General Infectious Diseases 07/09/21
--- OUTSIDE RECORDS SUMMARY | 2025-01-24 13:31 | XMS_ITS | Patient Health Record ---
Author Organization [facility] [place] Address [address] [place] [address] [place] [address] Care Team Providers Care Hack Driver Name Role Phone Frankie FLOWERS, Zia Primary Care Provider Unavailab Wen Gresham Unavailable [phone] Reason For Referral No Information Medications Medication SIG (Take, Route, Frequency, Duration) Notes Start Date End Date Status Sulfamethoxazole-Trimethoprim Active Januvia Active Simvastatin Active oxyCODONE HCl Active hydroCHLOROthiazide Active Diflunisal Active aspirin baby Active HYDROcodone-Acetaminophen Active Narcan Active Chantix Continuing Month Itz Active Ciclopirox Olamine 0.77% external Apply to effected areas twice a day; Duration: 30 days 11/13/2015 Active Problems Problem Type SNOMED Code ICD Code Onset Dates Problem Status W/U Status Risk Notes Problem Polyneuropathy due to type 2 diabetes mellitus (017976039) Type 2 diabetes mellitus with diabetic polyneuropathy (E11.42) Active confirmed Plan Of Treatment No Information Insurance Providers Payer Name Payer Address Payer Phone Subscriber Number Group Number Insured Name Patient Relationship to Insured Coverage Start Date Coverage End Date [employer] [address] [place] [address] [id number] Aleks Lynn Self - patient is the insured Medical (General) History Medical History History ICD Code Back pain Back,Hip,and Knee pain Broken bones Diabetic Gall bladder problems Glaucoma Joint implants/screws High Cholesterol Surgical History Surgery Date(Month/Year) gall bladder knees 2011 shoulder surgery nose eye surgery knee replacement 2004
--- OUTSIDE RECORDS SUMMARY | 2025-01-24 13:31 | XMS_ITS ---
Author Name [facility] Organization Unknown Care Team Organization Name Specialty Phone Email Start Date End Da te [facility] 0 10/13/2022 10/13/2022
== END 2025-01-24 12:57 | disposition home or self-care (01) ==
LOC: HO.HOSX 12:56
PROVIDERS: Visit Provider Orthopaedic Surgery
DX: Z13.89 Encounter for screening for other disorder (principal)

== ENCOUNTER 2025-02-02 09:56 | Outpatient (AMB) | payer MEDICARE, SELFPAY ==
--- NOTE | 2025-02-02 10:01 | A.OFFPC_ITS ---
Vital Signs 02/02/25 10:04 Height 6 ft Weight 280 lb 8 oz BMI 38.0 BP 140/68 H Blood Pressure Location Lt brachial Position Sitting Pulse 69 Pulse Source Pulse Oximeter Temp 96.9 F Temp Source Temporal Artery Scan Pulse Oximetry (%) 97 Oxygen Delivery Method Room Air Intake Visit Reasons: old injury in his back is in pain Intake Note: Patient is here to follow up on Old injury in his back flare up. Senior Sourcing Manager Required: No Black Top Spreader Machine Operator: Present Accompanied by: Spouse Allergies No Known Allergies Allergy (Verified 02/02/25 10:03) Tobacco use date assessed: 02/02/25 Fall risk assessment: No Falls in past year Last assessed Fall Risk: 02/02/25 Dental Screening Dental Screen Date: 07/07/24 FOR[facility]LY [facility] Medical History Tobacco use disorder Class 2 severe obesity with body mass index (BMI) of 35 to 39.9 with serious comorbidity Right knee pain Infected prosthetic knee joint Hyperlipidemia Prosthetic joint infection Benign prostate hyperplasia Encounter to establish care Surgical History History of cataract surgery History of colonoscopy History of surgery on lower extremity History of total bilateral knee replacement History of cholecystectomy History of hemorrhoidectomy History of shoulder surgery History of eye surgery History of bilateral knee replacement History of back surgery Social History Housing: House Alcohol intake: never Patient Tobacco Use Status: Current everyday Tobacco user Tobacco use type: Cigarette Cigarette Packs Per Day: 0.5 Cigarettes Per Day: 10 Years Smoked: 40 e-Cigarette/Vaping Use: Never Used Second Hand Smoke Exposure: Yes service: No Current occupational status: retired Cognitive needs: Yes (Cane) Hearing needs: No Vision needs: Yes (glasses) Questionnaire PHQ-9 Over the last 2 weeks, how often have you been bothered by any of the following problems? 1. Little interest or pleasure in doing things: not at all 2. Feeling down, depressed, or hopeless: not at all 3. Trouble falling or staying asleep, or sleeping too much: more than half the days 4. Feeling tired or having little energy: more than half the days 5. Poor appetite or overeating: more than half the days Depression Screening Interpretation: Positive Depression Screening Done: Yes Source: Developed by Drs. Elias Fajardo, Vanessa De Souza, Ramesh Lechuga and colleagues, with an educational heidi from [employer]. Thrive Questionnaire Date Thrive assessed: 07/07/24 ALVERTO-7 AMB Questionnaire ALVERTO-7 Date ALVERTO - 7 assessed: 07/07/24 Source: Developed by Drs. Elias Fajardo, Vanessa De Souza, Ramesh Lechuga and colleagues, with an educational heidi from [employer]. Physical exam (Primary Care) Vital Signs: Last Vital Signs Temp 96.9 F 02/02/25 10:04 Pulse 69 02/02/25 10:04 BP 140/68 H 02/02/25 10:04 Pulse Ox 97 02/02/25 10:04 Oxygen Delivery Method Room Air 02/02/25 10:04 BMI result Body Mass Index 38.0 Tobacco/Smoking Status: Tobacco use Status Tobacco use date assessed 02/02/25 02/02/25 10:11 Patient Tobacco Use Status Current everyday Tobacco 02/02/25 10:11 Tobacco use type Cigarette 02/02/25 10:11 e-Cigarette/Vaping Use Never Used 02/02/25 10:11 Depression Screening Interpretation: Positive Thrive Assessment: Date of Thrive Assessment Date Thrive assessed 07/07/24 02/02/25 10:11 Results AMB Hemoglobin A1c AMB Hemoglobin A1c 6.6 % Last Edit by SANYA Barakat on 02/02/25 10:21 Results Reviewed Results Reviewed: Laboratory Last Values Hgb A1c (Clinic) 6.6 % (4.0-6.0) H 02/02/25 10:00 Coding Level of Care Code Est Pt Level 3 (89970) Complex EM visit Add On G2211 Diagnoses Chronic low back pain M54.50; G89.29 Assessment & Plan Assessment & Plan (1) Chronic low back pain: Code(s): M54.50 - Low back pain, unspecified; G89.29 - Other chronic pain Category: Medical Plan: History of Present Illness - The patient is a 64-year-old male presenting with back pain. - The back pain began three weeks ago and has been worsening. - The patient had surgery three years ago, which might have altered his walking pattern. - There is a history of polymyalgia rheumatica, though its involvement in the back is uncertain. - The patient has been using topical treatments and acetaminophen for relief. Social History Review of Systems - Musculoskeletal: Reports worsening back pain over the past three weeks. Physical Exam General: Cooperative and healthy appearing Nutritional Appearance: Well nourished Orientation/consciousness: Patient oriented x3 Limitations: No limitations Head: Normal to inspection General: Appearance normal, both eyes and all related structures Neck: Normal visual inspection Chest: Normal palpation of entire chest wall Respiratory: Normal respiratory effort Neurology: Patient oriented x3 Results Plan - Initiate meloxicam once daily for pain relief. - Start cyclobenzaprine as a muscle relaxant, initially once daily, with the option to increase to twice daily if necessary. - Recommend using a heating pad and maintaining a comfortable position. - Plan a follow-up visit in two weeks to evaluate progress. Discussion Notes I discussed with the patient the plan to manage his back pain, including the use of meloxicam and cyclobenzaprine. I advised him to use a heating pad and maintain a comfortable position. We agreed on a follow-up in two weeks to reassess his condition. Patient Instructions - Take meloxicam once daily for pain. - Use cyclobenzaprine as directed, starting with once daily and increasing to twice daily if needed. - Apply a heating pad and stay in a comfortable position. - Return for a follow-up appointment in two weeks. Orders: Orders AMB Hemoglobin A1c Today E11.65 - Type 2 diabetes mellitus with hyperglycemia, Z13.9 - Encounter for screening, unspecified Medications: New cyclobenzaprine 10 mg PO BID 28 tabs 0RF 14 days Refilled meloxicam 15 mg PO DAILY PRN 30 tabs 1RF pain M25.561 - Pain in right knee lidocaine 5% (Lidoderm) leave on most painful area for up to 12 hrs 1 patch topical DAILY 15 ea 0RF
[2025-02-02 10:04] VITALS: BP 140/68; PULSE 69; TEMP 36.1; O2SAT 97; BMI 38.0
--- OUTSIDE RECORDS SUMMARY | 2025-02-02 11:10 | XMS_ITS | Patient Health Record ---
Author Organization [facility] Melchor gurwinder [place] Address [address] [place] [address] Care Team Providers Care Refining Supervisor Name Role Phone Frankie FLOWERS, Zia Primary Care Provider Unavailab Wen Gresham Unavailable [phone] Reason For Referral No Information Medications Medication [...] Polyneuropathy due to type 2 diabetes mellitus ([id number]) Type 2 diabetes mellitus with diabetic polyneuropathy (E11.42) Active confirmed Plan Of Treatment No Information Insurance Providers Payer Name Payer Address Payer Phone Subscriber Number Group Number Insured Name Patient Relationship to Insured Coverage Start Date Coverage End Date [employer] Others [address] [place] [address] [id number] Aleks Lynn Self - patient is the insured Medical (General) History Medical History History ICD Code Back pain Back,Hip,and Knee pain Broken bones Diabetic Gall bladder problems Glaucoma Joint implants/screws High Cholesterol Surgical History Surgery Date(Month/Year) gall bladder knees 2011 shoulder surgery nose eye surgery knee replacement 2004
--- OUTSIDE RECORDS SUMMARY | 2025-02-02 11:10 | XMS_ITS | Clinical Summary ---
Author Organization [facility] it Address [address] [place] [address] Care Team Providers Care Compensation Advisor Name Role Phone Aleshia Claros MD Primary Care Provider [phone] Allergies No known active allergies Medications acetaminophen [...] infection, sequela 08/19/2021 JERRY (acute kidney injury) ([facility] V24) 06/26/19 Orthostatic hypotension 06/26/2021 Arteriosclerosis of coronary artery 06/25/2021 Arthritis of lumbar spine 06/25/2021 Dehydration 06/25/2021 Edema of upper extremity 06/25/2021 Hypertension 06/25/2021 Near syncope 06/25/2021 Lung mass 06/25/2021 Methicillin susceptible Staphylococcus aureus in fection 06/25/2021 Pyogenic arthritis of knee ([facility] V24, [facility] V28) 06/25/2021 Type 2 diabetes mellitus ([facility] V24, [facility] V 28) 06/25/2021 Infected prosthetic knee joint ([facility] V24) 06/2021 MSSA bacteremia 06/05/2021 Syncope and collapse 06/05/2021 Mixed hyperlipidemia 05/21/2011 Benign prostatic hyperplasia 09/28/2009 Class 2 obesity 09/28/2009 Angle-closure glaucoma 07/31/2008 Chronic osteoarthritis 07/31/2008 Chronic pain 07/31/2008 Immunizations Immunization Administration Dates Next Due DTP 01/29/2012 Diptheria [...] KNEE PROSTHESIS; Surgeon: Celso Jean-Baptiste MD; Location: [facility] Service: Orthopedics; Laterality: Right; KNEE SURGERY Left PROCEDURE:KNEE SURGERY;COMMENT:multiple surgeries KNEE SURGERY Right PROCEDURE:KNEE SURGERY;COMMENT:multiple surgeries COLONOSCOPY PROCEDURE:COLONOSCOPY UPPER GASTROINTESTINAL ENDOSCOPY PROCEDURE:UPPER GASTROINTESTINAL ENDOSCOPY EYE SURGERY Bilateral PROCEDURE:EYE SURGERY;COMMENT:glaucoma surgery DENTAL SURGERY PROCEDURE:DENTAL SURGERY;COMMENT:all teeth removed, upper & Lower dentures KNEE ARTHROPLASTY 10/08/2021 Right PROCEDURE:REVISION TOTAL KNEE ARTHROPLASTY;COMMENT:Procedur e: REVISION TOTAL KNEE; Surgeon: Celso Jean-Baptiste MD; Location: [facility] ([facility]); Service: Orthopedics; Laterality: Right; Medical History Medical History Date Comments Diabetes mellitus ([facility] V 24, [facility] V28) DX:Diabetes mellitus ([facility]) Polymyalgia rheumatica ([facility] V24) DX:Polymyalgia rheumatica ([facility]) HTN (hypertension) DX:HTN (hyper tension) Osteoarthritis DX:Osteoarthriti s Chronic back pain DX:Chronic alban k pain Hyperlipidemia DX:Hyperlipidemi a Dizziness DX:Dizziness Diabetes mellitus, type II ( [facility] V24, [facility] V28) DX:Diabetes mellitus, type I I ([facility]) Family history of DVT DX:Family [...] Health Maintenance Due Date Last Done Comments Colorectal Cancer Screening: Colonoscopy 1958 Diabetes: Annual Foot Exam 1968 Diabetes: Annual Retina Eye Exam 1968 Zoster Vaccines (1 of 2) 2008 Pneumococcal Vaccine: 50+ Years (2 of 2 - PCV) 11/01/2008 11/02/2007 DTaP,Tdap,and Td Vaccines (3 - Tdap) 01/28/2022 01/29/2012, 05/04/2006 Abdominal Aortic Aneurysm (AAA) Screen 04/11/2022 Cholesterol Screening (Lipid Panel) 04/11/2022 Hepatitis C Screening 04/11/2022 Social Influencers [...] this topic Medical Devices Implanted Type Area Cutting Pressman Device Identifier Shelf Expiration Date Model / Serial / Lot Stimulan Rapid Cure Implanted:Qty : 1 on 08/23/2021 by Celso Jean-Baptiste MD Joints Right: Knee [id number] 11/01/2023 / / [id number] [place] Tibial Augment Implanted:Qty : 1 on 10/08/2021 by Celso Jean-Baptiste MD Joints Right: Knee [id number] 07/30/2031 / / [id number] [place] Tibial Augment Implanted:Qty : 1 on 10/08/2021 by Celso Jean-Baptiste MD Joints Right: Knee [id number] 07/30/2031 / / [id number] Non-Modular Long Tibial Baseplate (Oss) Implanted:Qty : 1 on 10/08/2021 by Celso Jean-Baptiste MD Joints Right: Knee [id number] 07/31/2030 / / [id number] Bowed Im Stem With Screw (Oss) Implanted:Qty : 1 on 10/08/2021 by Celso Jean-Baptiste MD Joints Right: Knee [id number] 11/21/2027 / / [id number] Cement Bone Surg Simplex Radiopq Stry-Howm 6498-7-965-11 409 Implanted:Qty : 1 on 10/08/2021 by Celso Jean-Baptiste MD Right: Knee [employer] [id number] 04/02/2023 6190-05-04 0 / / [id number] Cement Bone Surg Simplex Radiopq Stry-Howm 8888-1-071-11 409 Implanted:Qty : 1 on 10/08/2021 by Celso Jean-Baptiste MD Right: Knee [employer] [id number] 04/02/2023 6190-05-04 0 / / [id number] Cement Bone Surg Simplex Radiopq Stry-Howm 4541-2-121-11 4092 Implanted:Qty : 1 on 10/08/2021 by Celso Jean-Baptiste MD Right: Knee [employer] [id number] 04/02/2023 6190-05-04 0 / / [id number] Tritanium Asym Cn Aug D Lm Rl Stry-How 7702-P-641-69 9563 Implanted:Qty : 1 on 10/08/2021 by Celso Jean-Baptiste MD Right: Knee [employer] [id number] 02/14/2025 5549-A-24 1 / / [id number] Plug Bone Med Stry-How 3530-1-759-14 3872 Implanted:Qty : 1 on 10/08/2021 by Celso Jean-Baptiste MD Right: Knee [employer] [id number] 07/14/202615 / / [id number] Plug Bone Med Stry-How 2752-0-683-14 3872 Implanted:Qty : 1 on 10/08/2021 by Celso Jean-Baptiste MD Right: Knee [employer] [id number] 07/14/2026 6214-09-01 1 / / [id number] Knee Fem Compon Oss Axle [employer]om [id number] Implanted:Qty : 1 on 10/08/2021 by Celso Jean-Baptiste MD Right: Knee [employer] [id number] 08/14/2031 558931 / / [id number] Knee Tib Pin Lock Oss Poly [employer] 920837-870299 Implanted:Qty : 1 on 10/08/2021 by Celso Jean-Baptiste MD Right: Knee K[employer]AN [employer] [id number] 08/03/2026 617815 / / [id number] Knee Oss Reinf Yoke [employer] 193839-495959 Implanted:Qty : 1 on 10/08/2021 by Celso Jean-Baptiste MD Right: Knee [employer] [id number] 08/08/2031 718372 / / [id number] Knee Tib Bushing Comp Oss [employer] 383165-327790 Implanted:Qty : 1 on 10/08/2021 by Celso Jean-Baptiste MD Right: Knee KIRAN [employer]ET [id number] 07/31/2026 750212 / / [id number] [place] Set Oss Poly Femoral [employer] 989578-359691 Implanted:Qty : 1 on 10/08/2021 by Celso Jean-Baptiste MD Right: Knee [employer]AN [employer] [id number] 06/28/2026 709747 / / [id number] Biomet Oss Segmental Elliptial Femoral Implanted:Qty : 1 on 10/08/2021 by Celso Jean-Baptiste MD Right: Knee 01/10/2029 632910 / / [id number] Knee Brng Tib Oss Poly 16mm [employer] [id number] Implanted:Qty : 1 on 10/08/2021 by Celso Jean-Baptiste MD Right: Knee [employer] 08/28/2026 268727 / / [id number] Cement Bone Surg Simplex Radiopq Stry-Howm 9273-1-963-11 4092 Implanted:Qty : 1 on 10/08/2021 by Celso Jean-Baptiste MD Right: Knee [employer] [id number] 04/02/20236190-- 0 / / [id number] Cement Bone Surg Simplex Radiopq Stry-Howm 0033-2-236-11 4092 Implanted:Qty : 1 on 10/08/2021 by Celso Jean-Baptiste MD Right: Knee [employer] [id number] 04/02/202391-- 0 / / [id number] Procedures Procedure Name Priority Date/Time Associated Diagnosis Comments ANNUAL BMP BLOOD TEST Routine 10/09/2021 HEMOGLOBIN A1C Routine 09/27/2021 from Last 3 Months or Most Recently Relevant to Health Maintenance Results * Annual BMP Blood Test (10/09/2021) Pathologist [facility] Annual BMP Blood Test abstracted Historical Provider HEALTH MAINTENANCE Final Result * (ABNORMAL) Hemoglobin A1c (09/27/2021) Pathologist [facility] Hemoglobin A1C 6.6(A) <=5.7 % Blood Venous blood specimen / Unknown Historical Provider LAB BLOOD ORDERABLES Clara l Result from Last 3 Months or Most Recently Relevant to Health Maintenance Care Teams Compensation Advisor Relationship Specialty Start Date End Date Aleshia Claros MD PCP - General Infectious Diseases 07/09/21
--- OUTSIDE RECORDS SUMMARY | 2025-02-02 11:10 | XMS_ITS | Clinical Summary ---
Author Organization [facility] Address [address] [place] [address] Care Team Providers Care Dairy Husbandry Worker Name Role Phone Aleshia Claros MD Primary [...] this topic Medical Devices Implanted Type Area Ground School Instructor Device Identifier Shelf Expiration Date Model / Serial / Lot Stimulan Rapid Cure Implanted:Qty : 1 on 08/23/2021 by Celso Jean-Baptiste [place] [facility] Total Joint Right: Knee [id number] 11/01/2023 / / [id number] [place] Tibial Augment Implanted:Qty : 1 on 10/08/2021 by Celso Jean-Baptiste MD at [facility] Total Joint Right: Knee [id number] 07/30/2031 / / [id number] [place] Tibial Augment Implanted:Qty : 1 on 10/08/2021 by Celso Jean-Baptiste MD at [facility] Total Joint Right: Knee [id number] 07/30/2031 / / [id number] Non-Modular Long Tibial Baseplate (Oss) Implanted:Qty : 1 on 10/08/2021 by Celso Jean-Baptiste MD at [facility] Total Joint Right: Knee [id number] 07/31/2030 / / [id number] Bowed Im Stem With Screw (Oss) Implanted:Qty : 1 on 10/08/2021 by Celso Jean-Baptiste MD at [facility] Total Joint Right: Knee [id number] 11/21/2027 / / [id number] Cement Bone Surg Simplex Radiopq Stry-Howm 5904-3-314-11 4092 - [id number] Implanted:Qty : 1 on 10/08/2021 by Celso Jean-Baptiste MD at [facility] Right: Knee [employer] [id number] 04/02/2023 6190-05-04 0 / / [id number] Cement Bone Surg Simplex Radiopq Stry-Howm 6347-6-834- 4092 - [id number] Implanted:Qty : 1 on 10/08/2021 by Celso Jean-Baptiste MD at [facility] Right: Knee [facility] [id number] 04/02/2023 6190-05-04 0 / / [id number] Cement Bone Surg Simplex Radiopq Stry-Howm 1264-9-133- 4092 - [id number] Implanted:Qty : 1 on 10/08/2021 by Celso Jean-Baptiste MD at [facility] Right: Knee [facility] [id number] 04/02/2023 6190-05-04 0 / / [id number] Cement Bone Surg Simplex Radiopq Stry-Howm 9774-2-884-4091 - [id number] Implanted:Qty : 1 on 10/08/2021 by Celso Jean-Baptiste MD at [facility] Right: Knee [facility] [id number] 04/02/2023 6190-05-04 0 / / [id number] Cement Bone Surg Simplex Radiopq Stry-How 8900-2-283-11 4092 - [id number] Implanted:Qty : 1 on 10/08/2021 by Celso Jean-Baptiste MD at [facility] Med Right: Knee [facility] [id number] 04/02/2023 6191-1-01 0 / / [id number] Tritanium Asym Cn Aug D Lm Rl [facility] 8277-H-961-69 9563 - [id number] Implanted:Qty : 1 on 10/08/2021 by Celso Jean-Baptiste MD at [facility] and Med Right: Knee [facility] [id number] 02/14/2025 5549-A-24 1 / / [id number] Plug Bone [facility] 7990-3-704-14 3872 - [id number] Implanted:Qty : 1 on 10/08/2021 by Celso Jean-Baptiste MD at [facility] and Med Right: Knee [facility] [id number] 07/14/2026 6215-5-01 1 / / [id number] Plug Bone [facility] 2724-1-865-14 3872 - [id number] Implanted:Qty : 1 on 10/08/2021 by Celso Jean-Baptiste MD at [facility] and Med Right: Knee [facility] [id number] 07/14/2026 62155-01 1 / / [id number] Knee Fem Compon Oss Axle [employer] 583348-090161 - [id number] Implanted:Qty : 1 on 10/08/2021 by Celso Jean-Baptiste MD at [facility] and Med Right: Knee [employer] [id number] 08/14/2031 863657 / / [id number] Knee Tib Pin Lock Oss Poly [employer] 862046-875938 - [id number] Implanted:Qty : 1 on 10/08/2021 by Celso Jean-Baptiste MD at [facility] Med Right: Knee [employer] [id number] 08/03/2026 575041 / / [id number] Knee Oss Reinf Yoke Zimm-Biom 034052-232807 - [id number] Implanted:Qty : 1 on 10/08/2021 by Celso Jean-Baptiste MD at [facility] Med Right: Knee [employer] [id number] 08/08/2031 521541 / / [id number] Knee Tib Bushing Comp Oss [employer] 891124-516151 - [id number] Implanted:Qty : 1 on 10/08/2021 by Celso Jean-Baptiste MD at [facility] Right: Knee K[employer]AN [employer] [id number] 07/31/2026 536908 / / [id number] [place] Set Oss Poly Femoral [employer] 866921-220609 - [id number] Implanted:Qty : 1 on 10/08/2021 by Celso Jean-Baptiste MD at [facility] Right: Knee [employer] [id number] 06/28/2026 830849 / / [id number] Biomet Oss Segmental Elliptial Femoral Implanted:Qty : 1 on 10/08/2021 by Celso Jean-Baptiste MD at [facility] Med Right: Knee 01/10/2029 522076 / / [id number] Knee Brng Tib Oss Poly 16mm [employer] 966109-165322 - [id number] Implanted:Qty : 1 on 10/08/2021 by Celso Jean-Baptiste MD at [facility] Right: Knee KIRAN [employer] 08/28/2026 094460 / / [id number] Explanted Type Area Ground School Instructor Device Identifier Shelf Expiration Date Model / Serial / Lot Femur, Tibia, Patella, Insert Explanted:Qty: 4 on 08/23/2021 by Celso Jean-Baptiste MD at [facility] Nitin Sriram Implanted:Qty: 1 on 08/23/2021 by Celso Jean-Baptiste MD at [facility] Med Explanted:Qty: 1 on 10/08/2021 by Celso Jean-Baptiste MD at [facility] Med Right: Knee Description:NITIN SRIRAM CUT IN HALF EMBEDDED IN BONE CEMENT Cement Bone Surg Simplex Radiopq Stry-Howm 8239-2-068-114 092 - [id number] Implanted:Qty: 1 on 08/23/2021 by Celso Jean-Baptiste MD at [facility] Med Explanted:Qty: 1 on 10/08/2021 by Celso Jean-Baptiste MD at [facility] Med Right: Knee [facility] [id number] 12/02/2023 6191-1-010 / / [id number] Cement Bone Surg Simplex Radiopq Stry-Howm 5865-6-528-114 092 - [id number] Implanted:Qty: 1 on 08/23/2021 by Celso Jean-Baptiste MD at [facility] Med Explanted:Qty: 1 on 10/08/2021 by Celso Jean-Baptiste MD at [facility] Med Right: Knee [facility] [id number] 12/02/2023 6191-1-010 / / [id number] Cement Bone Surg Simplex Radiopq Stry-Howm 5032-9-801-114 092 - [id number] Implanted:Qty: 1 on 08/23/2021 by Celso Jean-Baptiste MD at [facility] Med Explanted:Qty: 1 on 10/08/2021 by Celso Jean-Baptiste MD at [facility] Med Right: Knee [facility] [id number] 12/02/2023 6191-1-010 / / [id number] Cement Bone Surg Simplex Radiopq Stry-Howm 8252-2-800-114 092 - [id number] Implanted:Qty: 1 on 08/23/2021 by Celso Jean-Baptiste MD at [facility] Med Explanted:Qty: 1 on 10/08/2021 by Celso Jean-Baptiste MD at [facility] Med Right: Knee [facility] [id number] 12/02/2023 6191-1-010 / / [id number] Cement Bone Surg Simplex Radiopq [facility] 6399-4-906-114 092 - [id number] Implanted:Qty: 1 on 08/23/2021 by Celso Jean-Baptiste MD at [facility] Med Explanted:Qty: 1 on 10/08/2021 by Celso Jean-Baptiste MD at [facility] Med Right: Knee [facility] [id number] 12/02/2023 6191-1-010 / / [id number] Additional Health Concerns Infection Onset Date Last Indicated MRSA Comment:08/21/21: Synovial Fluid Cx - R Knee 08/19/2021 08/21/2021 Advance Directives For more information, please contact: [phone] Latest Code Status on File Code Status [...] way: discussion with patient . Care Teams Dairy Husbandry Worker Relationship Specialty Start Date End Date Aleshia Claros MD PCP - General Infectious Diseases 07/09/21
== END 2025-02-02 10:30 | disposition home or self-care (01) ==
LOC: HO.HMCH 09:57
PROVIDERS: PCP Internal Medicine; Visit Provider Internal Medicine
DX: Z13.9 Encounter for screening, unspecified (principal); E11.65 Type 2 diabetes mellitus with hyperglycemia; M54.50 Low back pain, unspecified; G89.29 Other chronic pain

== ENCOUNTER → 2025-02-02 09:56 | Outpatient (BNVA) | payer MEDICARE, SELFPAY | PROVIDERS: PCP Internal Medicine; Visit Provider Internal Medicine | DX: E11.65 Type 2 diabetes mellitus with hyperglycemia (principal); M25.561 Pain in right knee; M54.50 Low back pain, unspecified; G89.29 Other chronic pain | CPT/HCPCS: 83036; 99212 ==

== ENCOUNTER 2025-02-15 11:10 | Outpatient (AMB) | payer MEDICARE, SELFPAY ==
--- NOTE | 2025-02-15 11:18 | A.OFFPC_ITS ---
Vital Signs 02/15/25 11:19 Height 6 ft Weight 283 lb 6 oz BMI 38.4 BP 160/68 H Blood Pressure Location Lt brachial Position Sitting Pulse 86 Pulse Source Pulse Oximeter Temp 97.3 F Temp Source Temporal Artery Scan Pulse Oximetry (%) 97 Oxygen Delivery Method Room Air Intake Visit Reasons: 2 week f/u Intake Note: Patient is here to follow up on Low back pain. Heavy Lift Rigger Required: No Seat Maker: Present Accompanied by: Spouse Allergies No Known Allergies Allergy (Verified 02/15/25 11:19) Tobacco use date assessed: 02/15/25 Fall risk assessment: No Falls in past year Last assessed Fall Risk: 02/15/25 Dental Screening Dental Screen Date: 07/07/24 REPLACED BY [facility] Medical History Tobacco use disorder Class 2 severe obesity with body mass index (BMI) of 35 to 39.9 with serious comorbidity Right knee pain Infected prosthetic knee joint Hyperlipidemia Prosthetic joint infection Benign prostate hyperplasia Encounter to establish care Surgical History History of cataract surgery History of colonoscopy History of surgery on lower extremity History of total bilateral knee replacement History of cholecystectomy History of hemorrhoidectomy History of shoulder surgery History of eye surgery History of bilateral knee replacement History of back surgery Social History Housing: House Alcohol intake: never Patient Tobacco Use Status: Current everyday Tobacco user Tobacco use type: Cigarette Cigarette Packs Per Day: 0.5 Cigarettes Per Day: 10 Years Smoked: 40 e-Cigarette/Vaping Use: Never Used Second Hand Smoke Exposure: Yes service: No Current occupational status: retired Cognitive needs: Yes (Cane) Hearing needs: No Vision needs: Yes (glasses) Questionnaire PHQ-9 Over the last 2 weeks, how often have you been bothered by any of the following problems? 6. Feeling bad about yourself - or that you are a failure or have let yourself or your family down: not at all 7. Trouble concentrating on things, such as reading the newspaper or watching television: not at all 8. Moving or speaking so slowly that other people could have noticed. Or the opposite - being so fidgety or restless that you have been moving around a lot more than usual: not at all 9. Thoughts that you would be better off or of hurting yourself in some way: not at all Source: Developed by Drs. Elias Fajardo, Vanessa De Souza, Ramesh Lechuga and colleagues, with an educational heidi from [employer]. Thrive Questionnaire Date Thrive assessed: 07/07/24 I am a: Patient What is your living situation today?: I have a place to live, but I am worried about losing it in the future Within the past 12 months, did the food you bought not last and you didn't have the money to get more?: I choose not to answer this question Within the past 12 months, did you worry whether your food would run out before you got money to buy more?: I choose not to answer this question Do you have trouble paying for medicines?: No Do you have trouble getting transportation to medical appointments?: Yes Do you have trouble paying your heating and electricity bill?: Yes Do you have trouble taking care of your child, family member or friend?: No Do you have trouble with day-to-day activities such as bathing, preparing meals, shopping, managing finances, etc.?: Yes Are you currently unemployed and looking for a job?: No Are you interested in more education?: No Please select the resources that you would like help with: Food and Paying for medicine Currently or been in a relationship where the following occur: I choose not to answer THRIVE Score: 3 AUDIT C Alcohol Use Questionnaire (AUDIT-C) 1. How often do you have a drink containing alcohol?: 2-4 times a month Total Score: 2 ALVERTO-7 AMB Questionnaire ALVERTO-7 Date ALVERTO - 7 assessed: 07/07/24 Feeling nervous, anxious, or on edge: 0 = Not at all Not being able to stop or control worryin = Not at all Worrying too much about different things: 0 = Not at all Trouble relaxin = Not at all Being so restless that it is hard to sit still: 0 = Not at all Becoming easily annoyed or irritable: 0 = Not at all Feeling afraid as if something awful might happen: 0 = Not at all Total ALVERTO-7 score (0-4 normal; 5-9 mild; 10-14 moderate; 15-21 severe): 0 Source: Developed by Drs. Elias Fajardo, Vanessa De Souza, Ramesh Lechuga and colleagues, with an educational heidi from [employer]. Physical exam (Primary Care) Vital Signs: Last Vital Signs Temp 97.3 F 02/15/25 11:19 Pulse 86 02/15/25 11:19 BP 160/68 H 02/15/25 11:19 Pulse Ox 97 02/15/25 11:19 Oxygen Delivery Method Room Air 02/15/25 11:19 BMI result Body Mass Index 38.4 Tobacco/Smoking Status: Tobacco use Status Tobacco use date assessed 02/15/25 02/15/25 11:24 Patient Tobacco Use Status Current everyday Tobacco 02/15/25 11:18 Tobacco use type Cigarette 02/15/25 11:18 e-Cigarette/Vaping Use Never Used 02/15/25 11:18 Thrive Assessment: Date of Thrive Assessment Date Thrive assessed 07/07/24 02/15/25 11:18 Currently or been in a relationship where the following occur: I choose not to answer Office Procedures Flu Questionnaire Does the patient have a severe egg allergy?: No Does the patient have severe life threatening allergies?: No Does the patient have a fever or illness today?: No Has the patient ever had Guillain-Rutledge Syndrome?: No Has the patient ever had any past reaction to a flu shot?: No Immunizations Fluarix [id number] (PF) 45 mcg (15 mcg x 3)/0.5 mL IM syringe Performing Provider: Odin Gutierrez MD [facility] Administered by: Selam Lugo LPN on 02/15/25 11:31 Dose Route Admin Location Dispensed Lot Number Expiration Date NDC Dramatic Coach 0.5 mL IM Left Deltoid 0.5 mL [id number] 10/31/25 29715-551-32 [employer] VIS Given Date VIS Provided VIS Publication Date 02/15/25 Single Vaccine 24 Eligibility Eligibility Date Funding Source Not [facility] Eligible 02/15/25 Private Coding Level of Care Code Est Pt Level 4 (20713) Complex EM visit Add On G2211 Diagnoses Septic arthritis M00.9 Chronic low back pain M54.50; G89.29 Assessment & Plan Assessment & Plan (1) Septic arthritis: Code(s): M00.9 - Pyogenic arthritis, unspecified Plan: Patient has been on Doxycycline monohydrate for many years. A referral to ID, need to know how long to continue the prophylaxis (2) Chronic low back pain: Code(s): M54.50 - Low back pain, unspecified; G89.29 - Other chronic pain Category: Medical Plan: Minimal response to NSAIDS and muscle relaxants. Physical therapy ordered for 6 weekz Plan History of Present Illness - The patient is a 64-year-old male presenting with chronic low back pain. - The back pain is severe, rated 7 to 8 out of 10, exacerbated by walking, and relieved by rest. - Medications have been taken daily with minimal relief for swelling, but pain persists. - Denies numbness in the genital area but reports numbness in the lower back and hips. - No urinary difficulties or incontinence reported. - Frequent use of a heating pad for pain relief. - History of septic arthritis in the right knee, with ongoing antibiotic treatment under review. - Recently received an influenza vaccination. Social History Review of Systems - Musculoskeletal: Reports severe low back pain, exacerbated by walking, rated 7 to 8 out of 10. Denies numbness in the genital area but reports numbness in the lower back and hips. - Genitourinary: Denies difficulty urinating or urinary incontinence. Physical Exam General: Cooperative and healthy appearing Nutritional Appearance: Well nourished Orientation/consciousness: Patient oriented x3 Limitations: No limitations Head: Normal to inspection General: Appearance normal, both eyes and all related structures Neck: Normal visual inspection Chest: Normal palpation of entire chest wall Respiratory: N ormal respiratory effort Neurology: Patient oriented x3, reports numbness in the lower back and hips. Results Plan - Continue medications, including muscle relaxants and anti-inflammatory drugs, for back pain. - Start physical therapy for four weeks to manage back pain before considering MRI. - Re-evaluate lifelong antibiotic use for septic arthritis with an infectious disease specialist. - Follow up with the infectious disease specialist to assess septic arthritis st atus and adjust treatment. Discussion Notes I discussed with the patient the stepwise approach to managing his chronic low back pain, which includes continuing current medications and starting physical therapy. We also talked about the need for an MRI if symptoms persist. Regarding his septic arthritis, I advised re-evaluating the necessity of lifelong antibiotic use with an infectious disease specialist. We agreed on a follow-up plan to ensure appropriate management of his conditions. Patient Instructions - Continue taking prescribed medications daily as directed. - Start physical therapy sessions as scheduled for four weeks. - Use a heating pad as needed for pain relief. - Follow up with the infectious disease specialist regarding antibiotic use for knee arthritis. Orders: Orders Influenza [id number] Immunization Today Z23 - Encounter for immunization Referrals Infectious Disease Referral M00.9 - Pyogenic arthritis, unspecified Medications: New doxycycline monohydrate 100 mg PO BID 180 caps 0RF Discontinued doxycycline hyclate Discontinued Reason: Doctor's Order 100 mg PO BID 30 days 60 caps 11RF
[2025-02-15 11:19] VITALS: BP 160/68; PULSE 86; TEMP 36.3; O2SAT 97; BMI 38.4
--- OUTSIDE RECORDS SUMMARY | 2025-02-15 13:47 | XMS_ITS | Clinical Summary ---
Author Organization [facility] Address [address] [place] [address] Care Team Providers Care Army Manager Name Role Phone Aleshia Claros MD [...] this topic Medical Devices Implanted Type Area Talent Scout Device Identifier Shelf Expiration Date Model / Serial / Lot Stimulan Rapid Cure Implanted:Qty : 1 on 08/23/2021 by Celso Jean-Baptiste MD at [facility] Total Joint Right: Knee [id number] 11/01/2023 / / [id number] [place] Tibial Augment Implanted:Qty : 1 on 10/08/2021 by Celso Jean-Baptiste MD at [facility] Total Joint Right: Knee [id number] 07/30/2031 / / [id number] [place] Tibial Augment Implanted:Qty : 1 on 10/08/2021 by Celso Jean-Baptiste MD at [facility] Total Joint Right: Knee [id number] 07/30/2031 / / [id number] Non-Modular Long Tibial Baseplate (Oss) Implanted:Qty : 1 on 10/08/2021 by Celso Jean-Baptiste MD at [facility] Total Joint Right: Knee [id number] 07/31/2030 / / [id number] Bowed Im Stem With Screw (Oss) Implanted:Qty : 1 on 10/08/2021 by Celso Jean-Baptiste MD at [facility] Total Joint Right: Knee [id number] 11/21/2027 / / [id number] Cement Bone Surg Simplex Radiopq Stry-Howm 4356-9-074-11 4092 - [id number] Implanted:Qty : 1 on 10/08/2021 by Celso Jean-Baptiste MD at [facility] Right: Knee [employer] [id number] 04/02/2023 6190-05-04 0 / / [id number] Cement Bone Surg Simplex Radiopq Stry-Howm 0841-3-509- 4092 - [id number] Implanted:Qty : 1 on 10/08/2021 by Celso Jean-Baptiste MD at [facility] Right: Knee [employer] [id number] 04/02/2023 6190-05-04 0 / / [id number] Cement Bone Surg Simplex Radiopq Stry-Howm 7703-5-230- 4092 - [id number] Implanted:Qty : 1 on 10/08/2021 by Celso Jean-Baptiste MD at [facility] Right: Knee [employer] [id number] 04/02/2023 6190-05-04 0 / / [id number] Cement Bone Surg Simplex Radiopq Stry-Howm 1343-2-048-4091 - [id number] Implanted:Qty : 1 on 10/08/2021 by Celso Jean-Baptiste MD at [facility] Right: Knee [employer] [id number] 04/02/2023 6190-05-04 0 / / [id number] Cement Bone Surg Simplex Radiopq Stry-How 0959-3-130-11 4092 - [id number] Implanted:Qty : 1 on 10/08/2021 by Celso Jean-Baptiste MD at [facility] and Med Right: Knee [employer] [facility] [id number] 04/02/2023 6191-1-01 0 / / [id number] Tritanium Asym Cn Aug D Lm Rl [facility] 9343-W-529-69 9563 - [id number] Implanted:Qty : 1 on 10/08/2021 by Celso Jean-Baptiste MD at [facility] and Med Right: Knee [employer] [id number] 02/14/2025 5549-A-24 1 / / [id number] Plug Bone [facility] 7095-6-302-14 3872 - [id number] Implanted:Qty : 1 on 10/08/2021 by Celso Jean-Baptiste MD at [facility] and Med Right: Knee [facility] [facility] [id number] 07/14/2026 6215-5-01 1 / / [id number] Plug Bone [facility] 8183-0-489-14 3872 - [id number] Implanted:Qty : 1 on 10/08/2021 by Celso Jean-Baptiste MD at [facility] and Med Right: Knee [employer] [id number] 07/14/2026 62155-01 1 / / [id number] Knee Fem Compon Oss Axle [employer] 628495-190316 - [id number] Implanted:Qty : 1 on 10/08/2021 by Celso Jean-Baptiste MD at [facility] and Med Right: Knee [employer]AN [employer] [id number] 08/14/2031 770272 / / [id number] Knee Tib Pin Lock Oss Poly [employer] 818765-610497 - [id number] Implanted:Qty : 1 on 10/08/2021 by Celso Jean-Baptiste MD at [facility] and Med Right: Knee [employer] [id number] 08/03/2026 685193 / / [id number] Knee Oss Reinf Yoke [employer] 754679-874610 - [id number] Implanted:Qty : 1 on 10/08/2021 by Celso Jean-Baptiste MD at [facility] and Med Right: Knee [employer] [id number] 08/08/2031 816656 / / [id number] Knee Tib Bushing Comp Oss [employer] 492746-861472 - [id number] Implanted:Qty : 1 on 10/08/2021 by Celso Jean-Baptiste MD at [facility] Right: Knee KIRAN [employer] [id number] 07/31/2026 485403 / / [id number] [place] Set Oss Poly Femoral [employer] 179110-457735 - [id number] Implanted:Qty : 1 on 10/08/2021 by Celso Jean-Baptiste MD at [facility] Right: Knee [employer] [id number] 06/28/2026 210129 / / [id number] Biomet Oss Segmental Elliptial Femoral Implanted:Qty : 1 on 10/08/2021 by Celso Jean-Baptiste MD at [facility] and Med Right: Knee 01/10/2029 [id number] / / [id number] Knee Brng Tib Oss Poly 16mm [employer] 453519-584831 - [id number] Implanted:Qty : 1 on 10/08/2021 by Celso Jean-Baptiste MD at [facility] Right: Knee [employer]AN [employer] 08/28/2026 [id number] / / [id number] Explanted Type Area Talent Scout Device Identifier Shelf Expiration Date Model / Serial / Lot Femur, Tibia, Patella, Insert Explanted:Qty: 4 on 08/23/2021 by Celso Jean-Baptiste MD at [facility] Nitin Sriram Implanted:Qty: 1 on 08/23/2021 by Celso Jean-Baptiste MD at [facility] and Med Explanted:Qty: 1 on 10/08/2021 by Celso Jean-Baptiste MD at [facility] and Med Right: Knee Description:NITIN SRIRAM CUT IN HALF EMBEDDED IN BONE CEMENT Cement Bone Surg Simplex Radiopq Stry-Howm 8300-3-415-114 092 - [id number] Implanted:Qty: 1 on 08/23/2021 by Celso Jean-Baptiste MD at [facility] and Med Explanted:Qty: 1 on 10/08/2021 by Celso Jean-Baptiste MD at [facility] and Med Right: Knee [employer] [id number] 12/02/2023 6191-1-010 / / [id number] Cement Bone Surg Simplex Radiopq Stry-Howm 6601-2-388-114 092 - [id number] Implanted:Qty: 1 on 08/23/2021 by Celso Jean-Baptiste MD at [facility] and Med Explanted:Qty: 1 on 10/08/2021 by Celso Jean-Baptiste MD at [facility] and Med Right: Knee [employer] [id number] 12/02/2023 6191-1-010 / / [id number] Cement Bone Surg Simplex Radiopq Stry-Howm 6215-9-974-114 092 - [id number] Implanted:Qty: 1 on 08/23/2021 by Celso Jean-Baptiste MD at [facility] and Med Explanted:Qty: 1 on 10/08/2021 by Celso Jean-Baptiste MD at [facility] and Med Right: Knee [facility] [facility] [id number] 12/02/2023 6191-1-010 / / [id number] Cement Bone Surg Simplex Radiopq Stry-Howm 8288-5-001-114 092 - [id number] Implanted:Qty: 1 on 08/23/2021 by Celso Jean-Baptiste MD at [facility] and Med Explanted:Qty: 1 on 10/08/2021 by Celso Jean-Baptiste MD at [facility] and Med Right: Knee [employer] [facility] [id number] 12/02/2023 6191-1-010 / / [id number] Cement Bone Surg Simplex Radiopq Strdestiny-Donavan 1775-5-182-114 092 - [id number] Implanted:Qty: 1 on 08/23/2021 by Celso Jean-Baptiste MD at [facility] and Med Explanted:Qty: 1 on 10/08/2021 by Celso Jean-Baptiste MD at [facility] and Med Right: Knee [facility] [id number] 12/02/2023 6191-1-010 / / [id number] Additional Health Concerns Infection Onset Date Last Indicated MRSA Comment:08/21/21: Synovial Fluid Cx - R Knee 08/19/2021 08/21/2021 Advance Directives For more information, please contact: [phone] Latest Code Status on File Code Status [...] way: discussion with patient . Care Teams Army Manager Relationship Specialty Start Date End Date Aleshia Claros MD PCP - General Infectious Diseases 07/09/21
--- OUTSIDE RECORDS SUMMARY | 2025-02-15 13:47 | XMS_ITS | Clinical Summary ---
Author Organization [facility] it Address [address] [place] [address] Care Team Providers Care Alley Cleaner Name Role Phone Aleshia Claros MD Primary Care Provider [phone] Allergies No known active allergies Medications acetaminophen [...] infection, sequela 08/19/2021 JERRY (acute kidney injury) ([facility] V24) 06/26/19 Orthostatic hypotension 06/26/2021 Arteriosclerosis of coronary artery 06/25/2021 Arthritis of lumbar spine 06/25/2021 Dehydration 06/25/2021 Edema of upper extremity 06/25/2021 Hypertension 06/25/2021 Near syncope 06/25/2021 Lung mass 06/25/2021 Methicillin susceptible Staphylococcus aureus in fection 06/25/2021 Pyogenic arthritis of knee ([facility] V24, [facility] V28) 06/25/2021 Type 2 diabetes mellitus ([facility] V24, [facility] V 28) 06/25/2021 Infected prosthetic knee joint ([facility] V24) 06/2021 MSSA bacteremia 06/05/2021 [...] KNEE PROSTHESIS; Surgeon: Celso Jean-Baptiste MD; Location: [facility] ([facility]); Service: Orthopedics; Laterality: Right; KNEE SURGERY Left PROCEDURE:KNEE SURGERY;COMMENT:multiple surgeries KNEE SURGERY Right PROCEDURE:KNEE SURGERY;COMMENT:multiple surgeries COLONOSCOPY PROCEDURE:COLONOSCOPY UPPER GASTROINTESTINAL ENDOSCOPY PROCEDURE:UPPER GASTROINTESTINAL ENDOSCOPY EYE SURGERY Bilateral PROCEDURE:EYE SURGERY;COMMENT:glaucoma surgery DENTAL SURGERY PROCEDURE:DENTAL SURGERY;COMMENT:all teeth removed, upper & Lower dentures KNEE ARTHROPLASTY 10/08/2021 Right PROCEDURE:REVISION TOTAL KNEE ARTHROPLASTY;COMMENT:Procedur e: REVISION TOTAL KNEE; Surgeon: Celso Jean-Baptiste MD; Location: [facility] ([facility]); Service: Orthopedics; Laterality: Right; Medical History Medical History Date Comments Diabetes mellitus ([facility] V 24, [facility] V28) DX:Diabetes mellitus ([facility]) Polymyalgia rheumatica ([facility] V24) DX:Polymyalgia rheumatica ([facility]) HTN (hypertension) DX:HTN (hyper tension) Osteoarthritis DX:Osteoarthriti s Chronic back pain DX:Chronic alban k pain Hyperlipidemia DX:Hyperlipidemi a Dizziness DX:Dizziness Diabetes mellitus, type II ( [facility] V24, [facility] V28) DX:Diabetes mellitus, type I I ([facility]) Family history of DVT DX:Family [...] this topic Medical Devices Implanted Type Area Manager Financial Device Identifier Shelf Expiration Date Model / Serial / Lot Stimulan Rapid Cure Implanted:Qty : 1 on 08/23/2021 by Celso Jean-Baptiste MD Joints Right: Knee [id number] 11/01/2023 / / [id number] [place] Tibial Augment Implanted:Qty : 1 on 10/08/2021 by Celso Jean-Baptiste MD Joints Right: Knee [id number] 07/30/2031 / / [id number] [place] Tibial Augment Implanted:Qty : 1 on 10/08/2021 by Celso Jean-Baptiste MD Joints Right: Knee [id number] 07/30/2031 / / [id number] Non-Modular Long Tibial Baseplate (Oss) Implanted:Qty : 1 on 10/08/2021 by Celso Jean-Baptiste MD Joints Right: Knee [id number] 07/31/2030 / / [id number] Bowed Im Stem With Screw (Oss) Implanted:Qty : 1 on 10/08/2021 by Celso Jean-Baptiste MD Joints Right: Knee [id number] 11/21/2027 / / [id number] Cement Bone Surg Simplex Radiopq Stry-Howm 2661-3-724-11 409 Implanted:Qty : 1 on 10/08/2021 by Celso Jean-Baptiste MD Right: Knee [employer] [id number] 04/02/2023 6190-05-04 0 / / [id number] Cement Bone Surg Simplex Radiopq Stry-Howm 8025-0-284-11 409 Implanted:Qty : 1 on 10/08/2021 by Celso Jean-Baptiste MD Right: Knee [employer] [id number] 04/02/2023 6190-05-04 0 / / [id number] Cement Bone Surg Simplex Radiopq Stry-Howm 8875-8-345-11 4092 Implanted:Qty : 1 on 10/08/2021 by Celso Jean-Baptiste MD Right: Knee [employer] [id number] 04/02/2023 6190-05-04 0 / / [id number] Tritanium Asym Cn Aug D Lm Rl Stry-How 4064-J-967-69 9563 Implanted:Qty : 1 on 10/08/2021 by Celso Jean-Baptiste MD Right: Knee [employer] [id number] 02/14/2025 5549-A-24 1 / / [id number] Plug Bone Med Stry-How 0784-6-361-14 3872 Implanted:Qty : 1 on 10/08/2021 by Celso Jean-Baptiste MD Right: Knee [employer] [id number] 07/14/202615 / / [id number] Plug Bone Med Stry-How 4268-2-061-14 3872 Implanted:Qty : 1 on 10/08/2021 by Celso Jean-Baptiste MD Right: Knee [employer] [id number] 07/14/2026 6214-09-01 1 / / [id number] Knee Fem Compon Oss Axle [employer] [id number] Implanted:Qty : 1 on 10/08/2021 by Celso Jean-Baptiste MD Right: Knee [employer]AN [employer] [id number] 08/14/2031 679185 / / [id number] Knee Tib Pin Lock Oss Poly [employer] [id number] Implanted:Qty : 1 on 10/08/2021 by Celso Jean-Baptiste MD Right: Knee [employer] [id number] 08/03/2026 001685 / / [id number] Knee Oss Reinf Yoke [employer] 819895-708672 Implanted:Qty : 1 on 10/08/2021 by Celso Jean-Baptiste MD Right: Knee [employer] [id number] 08/08/2031 957609 / / [id number] Knee Tib Bushing Comp Oss [employer] 704456-721429 Implanted:Qty : 1 on 10/08/2021 by Celso Jean-Baptiste MD Right: Knee KIRAN [employer]ET [id number] 07/31/2026 676389 / / [id number] Bushings Set Oss Poly Femoral [employer] 406166-717003 Implanted:Qty : 1 on 10/08/2021 by Celso Jean-Baptiste MD Right: Knee [employer]AN [employer] [id number] 06/28/2026 590770 / / [id number] Biomet Oss Segmental Elliptial Femoral Implanted:Qty : 1 on 10/08/2021 by Celso Jean-Baptiste MD Right: Knee 01/10/2029 939526 / / [id number] Knee Brng Tib Oss Poly 16mm [employer] [id number] Implanted:Qty : 1 on 10/08/2021 by Celso Jean-Baptiste MD Right: Knee KIRAN [employer] 08/28/2026 133626 / / [id number] Cement Bone Surg Simplex Radiopq Stry-Howm 2564-5-902-11 4092 Implanted:Qty : 1 on 10/08/2021 by Celso Jean-Baptiste MD Right: Knee [employer] [id number] 04/02/20236190-- 0 / / [id number] Cement Bone Surg Simplex Radiopq Stry-Howm 5086-9-902-11 4092 Implanted:Qty : 1 on 10/08/2021 by Celso Jean-Baptiste MD Right: Knee [employer] [id number] 04/02/202391-- 0 / / [id number] Procedures Procedure Name Priority Date/Time Associated Diagnosis Comments ANNUAL BMP BLOOD TEST Routine 10/09/2021 HEMOGLOBIN A1C Routine 09/27/2021 from Last 3 Months or Most Recently Relevant to Health Maintenance Results * Annual BMP Blood Test (10/09/2021) Pathologist [facility] Annual BMP Blood Test abstracted Historical Provider HEALTH MAINTENANCE Final Result * (ABNORMAL) Hemoglobin A1c (09/27/2021) Pathologist [facility] Hemoglobin A1C 6.6(A) <=5.7 % Blood Venous blood specimen / Unknown Historical Provider LAB BLOOD ORDERABLES Clara l Result from Last 3 Months or Most Recently Relevant to Health Maintenance Care Teams Alley Cleaner Relationship Specialty Start Date End Date Aleshia Claros MD PCP - General Infectious Diseases 07/09/21
== END 2025-02-15 11:42 | disposition home or self-care (01) ==
LOC: HO.HMCH 11:10
PROVIDERS: PCP Internal Medicine; Visit Provider Internal Medicine
DX: M00.9 Pyogenic arthritis, unspecified (principal); M54.50 Low back pain, unspecified; G89.29 Other chronic pain; Z23 Encounter for immunization

== ENCOUNTER → 2025-02-15 11:10 | Outpatient (BNVA) | payer MEDICARE, SELFPAY | PROVIDERS: PCP Internal Medicine; Visit Provider Internal Medicine | DX: E66.812 Obesity, class 2 (principal); M54.50 Low back pain, unspecified; G89.29 Other chronic pain; M00.9 Pyogenic arthritis, unspecified; Z23 Encounter for immunization; Z68.38 Body mass index [BMI] 38.0-38.9, adult | CPT/HCPCS: 90471; 90656; 96127; 99212 ==

== ENCOUNTER 2025-02-22 13:46 | Outpatient (AMB) | payer MEDICARE, SELFPAY ==
[2025-02-22 14:12] VITALS: PULSE 63; O2SAT 98; BMI 39.2
--- NOTE | 2025-02-22 14:12 | A.OFFVIS_ITS ---
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 He has been undergoing doxycycline 100 mg BID therapy for the past five years. Although effective in controlling the infection, the regimen has been associated with gastrointestinal side effects such as nausea and dyspepsia, and cutaneous reactions including sun-induced skin redness. Despite the adverse effects, the patient is apprehensive about discontinuing antibiotic therapy due to the fear of infection relapse and the potential need for knee amputation. The patient's history reflects a stable condition of the knee without present signs of redness or swelling, but the patient seeks guidance on managing these concerns moving forward. Review of Systems - Constitutional: Denies fever. - Gastrointestinal: Reports nausea and dyspepsia. - Dermatological: Reports redness after sun exposure. Physical Exam - Vitals- Stable. - Oropharynx- Clear. - Lungs- Clear. - Cardiovascular- Heart rhythm regular. - Abdomen- Soft, non-tender. - Musculoskeletal- Right knee appears stable with no redness or swelling. Results Plan Patient was informed and verbally consented to the use of an ambient scribe for clinic note documentation during this visit. 1. Mrsa Right Knee Chronic Joint Infection Given the patient's side effects from doxycycline and fear of amputation, I recommend a trial discontinuation of the antibiotic with vigilant monitoring for signs of infection relapse. Immediate consultation will be required if symptoms of infection emerge. Discussion Notes During our discussion, I reviewed the patient's chronic MRSA right knee joint infection management and the complications associated with long-term doxycycline use. We discussed the potential risks of discontinuing antibiotics, including th e chance of infection recurrence and the possibility of requiring knee amputation. I have advised cautious monitoring upon discontinuation, emphasizing the importance of contacting me or Dr. Pacheco if any signs of infection reappear. The patient consented to this plan, understanding the associated risks. Medical Decision Making The patient presents with a stable case of chronic MRSA right knee infection managed over five years with doxycycline. Although the antibiotic effectively controls the infection, its side effects have prompted consideration of discontinuation. The primary clinical concern is balancing the side effect management with the significant risk of infection relapse. I decided it was appropriate to stop doxycycline and observe the patient carefully for any signs of joint instability or infection, with prompt intervention should symptoms recur. Patient Instructions - Monitor your knee for any signs of infection such as redness, swelling, or pain. - If you experience symptoms of infection, contact us or Dr. Pacheco immediately. - Avoid excessive sun exposure to minimize skin redness. - Report any gastrointestinal discomfort you may have to assess management o ptions. [facility] Medical History Tobacco use disorder Class 2 severe obesity with body mass index (BMI) of 35 to 39.9 with serious comorbidity Right knee pain Infected prosthetic knee joint Hyperlipidemia Prosthetic joint infection Benign prostate hyperplasia Encounter to establish care Surgical History History of cataract surgery History of colonoscopy History of surgery on lower extremity History of total bilateral knee replacement History of cholecystectomy History of hemorrhoidectomy History of shoulder surgery History of eye surgery History of bilateral knee replacement History of back surgery Social History Housing: House Alcohol intake: never Patient Tobacco Use Status: Current everyday Tobacco user Tobacco use type: Cigarette Cigarette Packs Per Day: 0.5 Cigarettes Per Day: 10 Years Smoked: 40 e-Cigarette/Vaping Use: Never Used Second Hand Smoke Exposure: Yes service: No Current occupational status: retired Cognitive needs: Yes (Cane) Hearing needs: No Vision needs: Yes (glasses) Physical Exam Vital Signs: Last Vital Signs Pulse 63 02/22/25 14:12 Pulse Ox 98 02/22/25 14:12 Oxygen Delivery Method Room Air 02/22/25 14:12 BMI result Body Mass Index 39.2 Assessment & Plan Assessment & Plan (1) Prosthetic joint infection: Comment: Right knee Code(s): T84.50XA - Infection and inflammatory reaction due to unspecified internal joint prosthesis, initial encounter Category: Medical Qualifiers: Encounter type: subsequent encounter Qualified Code(s): T84.50XD - Infection and inflammatory reaction due to unspecified internal joint prosthesis, subsequent encounter Plan: as above Coding Level of Care Code Est Pt Level 3 (06635) Diagnoses Infection of prosthetic joint, subsequent encounter T84.50XD Encounter type: subsequent encounter
--- OUTSIDE RECORDS SUMMARY | 2025-02-22 19:41 | XMS_ITS | Clinical Summary ---
Author Organization [facility] Address [address] [place] [address] Care Team Providers Care Dinker Name Role Phone Aleshia Claros MD Primary [...] this topic Medical Devices Implanted Type Area Forest Ranger Device Identifier Shelf Expiration Date Model / Serial / Lot Stimulan Rapid Cure Implanted:Qty : 1 on 08/23/2021 by Celso Jean-Baptiste MD at [facility] and [facility] Total Joint Right: Knee [id number] 11/01/2023 / / [id number] [place] Tibial Augment Implanted:Qty : 1 on 10/08/2021 by Celso Jean-Baptiste MD at [facility] and [facility] Total Joint Right: Knee [id number] 07/30/2031 / / [id number] [place] Tibial Augment Implanted:Qty : 1 on 10/08/2021 by Celso Jean-Baptiste MD at [facility] and [facility] Total Joint Right: Knee [id number] 07/30/2031 / / [id number] Non-Modular Long Tibial Baseplate (Oss) Implanted:Qty : 1 on 10/08/2021 by Celso Jean-Baptiste MD at [facility] and [facility] Total Joint Right: Knee [id number] 07/31/2030 / / [id number] Bowed Im Stem With Screw (Oss) Implanted:Qty : 1 on 10/08/2021 by Celso Jean-Baptiste MD at [facility] and [facility] Total Joint Right: Knee [id number] 11/21/2027 / / [id number] Cement Bone Surg Simplex Radiopq Stry-Howm 4952-0-657-11 4092 - [id number] Implanted:Qty : 1 on 10/08/2021 by Celso Jean-Baptiste MD at [facility] and [facility] Right: Knee [employer] [id number] 04/02/2023 6190-05-04 0 / / [id number] Cement Bone Surg Simplex Radiopq Stry-Howm 1831-9-594- 4092 - [id number] Implanted:Qty : 1 on 10/08/2021 by Celso Jean-Baptiste MD at [facility] and [facility] Right: Knee [employer] [id number] 04/02/2023 6190-05-04 0 / / [id number] Cement Bone Surg Simplex Radiopq Stry-Howm 9637-8-239- 4092 - [id number] Implanted:Qty : 1 on 10/08/2021 by Celso Jean-Baptiste MD at [facility] Right: Knee [employer] [facility] [id number] 04/02/2023 6190-05-04 0 / / [id number] Cement Bone Surg Simplex Radiopq Stry-Howm 4545-5-333-4091 - [id number] Implanted:Qty : 1 on 10/08/2021 by Celso Jean-Baptiste MD at [facility] Right: Knee [employer] [facility] [id number] 04/02/2023 6190-05-04 0 / / [id number] Cement Bone Surg Simplex Radiopq Stry-How 1215-5-493-11 4092 - [id number] Implanted:Qty : 1 on 10/08/2021 by Celso Jean-Baptiste MD at [facility] and Med Right: Knee [employer] [facility] [id number] 04/02/2023 6191-1-01 0 / / [id number] Tritanium Asym Cn Aug D Lm Rl [facility] 6137-A-501-69 9563 - [id number] Implanted:Qty : 1 on 10/08/2021 by Celso Jean-Baptiste MD at [facility] and Med Right: Knee [employer] [facility] [id number] 02/14/2025 5549-A-24 1 / / [id number] Plug Bone [facility] 1302-7-643-14 3872 - [id number] Implanted:Qty : 1 on 10/08/2021 by Celso Jean-Baptiste MD at [facility] and Med Right: Knee [employer] [facility] [id number] 07/14/2026 6215-5-01 1 / / [id number] Plug Bone [facility] 0799-4-340-14 3872 - [id number] Implanted:Qty : 1 on 10/08/2021 by Ceslo Jean-Baptiste MD at [facility] and Med Right: Knee [facility] [facility] [id number] 07/14/2026 62155-01 1 / / [id number] Knee Fem Compon Oss Axle [employer] 953293-793095 - [id number] Implanted:Qty : 1 on 10/08/2021 by Celso Jean-Baptiste MD at [facility] and Med Right: Knee [employer] [id number] 08/14/2031 396564 / / [id number] Knee Tib Pin Lock Oss Poly [employer] 360231-835786 - [id number] Implanted:Qty : 1 on 10/08/2021 by Celso Jean-Baptiste MD at [facility] and Med Right: Knee K[employer] [id number] 08/03/2026 992036 / / [id number] Knee Oss Reinf Yoke [employer] 414276-048702 - [id number] Implanted:Qty : 1 on 10/08/2021 by Celso Jean-Baptiste MD at [facility] and Med Right: Knee [employer] [id number] 08/08/2031 929205 / / [id number] Knee Tib Bushing Comp Oss [employer] 038898-515414 - [id number] Implanted:Qty : 1 on 10/08/2021 by Celso Jean-Baptiste MD at [facility] and [facility] Right: Knee K[employer]AN [employer] [id number] 07/31/2026 212050 / / [id number] Bushings Set Oss Poly Femoral [employer] 394857-466519 - [id number] Implanted:Qty : 1 on 10/08/2021 by Celso Jean-Baptiste MD at [facility] Right: Knee K[employer]AN [employer] [id number] 06/28/2026 718893 / / [id number] Biomet Oss Segmental Elliptial Femoral Implanted:Qty : 1 on 10/08/2021 by Celso Jean-Baptiste MD at [facility] and Med Right: Knee 01/10/2029 116523 / / [id number] Knee Brng Tib Oss Poly 16mm [employer] 027547-139929 - [id number] Implanted:Qty : 1 on 10/08/2021 by Celso Jean-Baptiste MD at [facility] Right: Knee KIRAN BIOMET 08/28/2026 153677 / / [id number] Explanted Type Area Forest Ranger Device Identifier Shelf Expiration Date Model / Serial / Lot Femur, Tibia, Patella, Insert Explanted:Qty: 4 on 08/23/2021 by Celso Jean-Baptiste MD at [facility] Nitin Sriram Implanted:Qty: 1 on 08/23/2021 by Celso Jean-Baptiste MD at [facility] and Med Explanted:Qty: 1 on 10/08/2021 by Celso Jean-Baptiste MD at [facility] and Med Right: Knee Description:NITIN SRIRAM CUT IN HALF EMBEDDED IN BONE CEMENT Cement Bone Surg Simplex Radiopq Stry-Howm 3429-4-462-114 092 - [id number] Implanted:Qty: 1 on 08/23/2021 by Celso Jean-Baptiste MD at [facility] and Med Explanted:Qty: 1 on 10/08/2021 by Celso Jean-Baptiste MD at [facility] and Med Right: Knee [employer] [id number] 12/02/2023 6191-1-010 / / [id number] Cement Bone Surg Simplex Radiopq Stry-Howm 9969-7-445-114 092 - [id number] Implanted:Qty: 1 on 08/23/2021 by Celso Jean-Baptiste MD at [facility] and Med Explanted:Qty: 1 on 10/08/2021 by Celso Jean-Baptiste MD at [facility] and Med Right: Knee [employer] [facility] [id number] 12/02/2023 6191-1-010 / / [id number] Cement Bone Surg Simplex Radiopq Stry-Howm 6362-5-192-114 092 - [id number] Implanted:Qty: 1 on 08/23/2021 by Celso Jean-Baptiste MD at [facility] and Med Explanted:Qty: 1 on 10/08/2021 by Celso Jean-Baptiste MD at [facility] and Med Right: Knee [employer] [facility] [id number] 12/02/2023 6191-1-010 / / [id number] Cement Bone Surg Simplex Radiopq Stry-Howm 5581-5-512-114 092 - [id number] Implanted:Qty: 1 on 08/23/2021 by Celso Jean-Baptiste MD at [facility] and Med Explanted:Qty: 1 on 10/08/2021 by Celso Jean-Baptiste MD at [facility] and Med Right: Knee [employer] [facility] [id number] 12/02/2023 6191-1-010 / / [id number] Cement Bone Surg Simplex Radiopq Strdestiny-Donavan 8801-5-330-114 092 - [id number] Implanted:Qty: 1 on 08/23/2021 by Celso Jean-Baptiste MD at [facility] and Med Explanted:Qty: 1 on 10/08/2021 by Celso Jean-Baptiste MD at [facility] and Med Right: Knee [employer] [facility] [id number] 12/02/2023 6191-1-010 / / [id number] Additional Health Concerns Infection Onset Date Last Indicated MRSA Comment:08/21/21: Synovial Fluid Cx - R Knee 08/19/2021 08/21/2021 Advance Directives For more information, please contact: [phone] Latest Code Status on File Code Status [...] way: discussion with patient . Care Teams Dinker Relationship Specialty Start Date End Date Aleshia Claros MD PCP - General Infectious Diseases 07/09/21
--- OUTSIDE RECORDS SUMMARY | 2025-02-22 19:42 | XMS_ITS | Clinical Summary ---
Author Organization [facility] it Address [address] [place] [address] Care Team Providers Care Drum Dyeing Machine Operator Name Role Phone Aleshia Claros MD Primary Care Provider [phone] Allergies No known active allergies Medications acetaminophen [...] infection, sequela 08/19/2021 JERRY (acute kidney injury) ([facility] V24) 06/26/19 Orthostatic hypotension 06/26/2021 Arteriosclerosis of coronary artery 06/25/2021 Arthritis of lumbar spine 06/25/2021 Dehydration 06/25/2021 Edema of upper extremity 06/25/2021 Hypertension 06/25/2021 Near syncope 06/25/2021 Lung mass 06/25/2021 Methicillin susceptible Staphylococcus aureus in fection 06/25/2021 Pyogenic arthritis of knee ([facility] V24, [facility] V28) 06/25/2021 Type 2 diabetes mellitus ([facility] V24, [facility] V 28) 06/25/2021 Infected prosthetic knee joint ([facility] V24) 06/2021 MSSA bacteremia 06/05/2021 Syncope and [...] Location: [facility] ([facility]); Service: Orthopedics; Laterality: Right; KNEE [...] Location: [facility] ([facility]); Service: Orthopedics; Laterality: Right; Medical History Medical History Date Comments Diabetes mellitus ([facility] V 24, [facility] V28) DX:Diabetes mellitus ([facility]) Polymyalgia rheumatica ([facility] V24) DX:Polymyalgia rheumatica ([facility]) HTN (hypertension) DX:HTN (hyper tension) Osteoarthritis DX:Osteoarthriti s Chronic back pain DX:Chronic alban k pain Hyperlipidemia DX:Hyperlipidemi a Dizziness DX:Dizziness Diabetes mellitus, type II ( [facility] V24, [facility] V28) DX:Diabetes mellitus, type I I ([facility]) Family history of DVT DX:Family history of [...] this topic Medical Devices Implanted Type Area Ocean Import Representative Device Identifier Shelf Expiration Date Model / Serial / Lot Stimulan Rapid Cure Implanted:Qty : 1 on 08/23/2021 by Celso Jean-Baptiste MD Joints Right: Knee [id number] 11/01/2023 / / [id number] [place] Tibial Augment Implanted:Qty : 1 on 10/08/2021 by Celso Jean-Baptiste MD Joints Right: Knee [id number] 07/30/2031 / / [id number] [place] Tibial Augment Implanted:Qty : 1 on 10/08/2021 by Celso Jean-Baptiste MD Joints Right: Knee [id number] 07/30/2031 / / [id number] Non-Modular Long Tibial Baseplate (Oss) Implanted:Qty : 1 on 10/08/2021 by Celso Jean-Baptiste MD Joints Right: Knee [id number] 07/31/2030 / / [id number] Bowed Im Stem With Screw (Oss) Implanted:Qty : 1 on 10/08/2021 by Celso Jean-Baptiste MD Joints Right: Knee [id number] 11/21/2027 / / [id number] Cement Bone Surg Simplex Radiopq Stry-Howm 9010-0-575-11 409 Implanted:Qty : 1 on 10/08/2021 by Celso Jean-Baptiste MD Right: Knee [employer] [id number] 04/02/2023 6190-05-04 0 / / [id number] Cement Bone Surg Simplex Radiopq Stry-Howm 3446-0-059-11 409 Implanted:Qty : 1 on 10/08/2021 by Celso Jean-Baptiste MD Right: Knee [employer] [id number] 04/02/2023 6190-05-04 0 / / [id number] Cement Bone Surg Simplex Radiopq Stry-Howm 9674-5-994-11 4092 Implanted:Qty : 1 on 10/08/2021 by Celso Jean-Baptiste MD Right: Knee [employer] [id number] 04/02/2023 6190-05-04 0 / / [id number] Tritanium Asym Cn Aug D Lm Rl Stry-How 6264-V-688-69 9563 Implanted:Qty : 1 on 10/08/2021 by Celso Jean-Baptiste MD Right: Knee [employer] [id number] 02/14/2025 5549-A-24 1 / / [id number] Plug Bone Med Stry-How 2855-4-668-14 3872 Implanted:Qty : 1 on 10/08/2021 by Celso Jean-Baptiste MD Right: Knee [employer] [id number] 07/14/202615 / / [id number] Plug Bone Med Stry-How 8463-4-486-14 3872 Implanted:Qty : 1 on 10/08/2021 by Celso Jean-Baptiste MD Right: Knee [employer] [id number] 07/14/2026 6214-09-01 1 / / [id number] Knee Fem Compon Oss Axle [employer] [id number] Implanted:Qty : 1 on 10/08/2021 by Celso Jean-Baptiste MD Right: Knee [employer] [id number] 08/14/2031 989320 / / [id number] Knee Tib Pin Lock Oss Poly [employer] [id number] Implanted:Qty : 1 on 10/08/2021 by Celso Jean-Baptiste MD Right: Knee [employer] [id number] 08/03/2026 570780 / / [id number] Knee Oss Reinf Yoke [employer] 097155-165806 Implanted:Qty : 1 on 10/08/2021 by Celso Jean-Baptiste MD Right: Knee [employer] [id number] 08/08/2031 724204 / / [id number] Knee Tib Bushing Comp Oss [employer] [id number] Implanted:Qty : 1 on 10/08/2021 by Celso Jean-Baptiste MD Right: Knee [employer] [id number] 07/31/2026 990275 / / [id number] Bushings Set Oss Poly Femoral [employer] [id number] Implanted:Qty : 1 on 10/08/2021 by Celso Jean-Baptiste MD Right: Knee [employer] [id number] 06/28/2026 459850 / / [id number] Biomet Oss Segmental Elliptial Femoral Implanted:Qty : 1 on 10/08/2021 by Celso Jean-Baptiste MD Right: Knee 01/10/2029 176145 / / [id number] Knee Brng Tib Oss Poly 16mm [employer] [id number] Implanted:Qty : 1 on 10/08/2021 by Celso Jean-Baptiste MD Right: Knee [employer] 08/28/2026 984112 / / [id number] Cement Bone Surg Simplex Radiopq Stry-Howm 8108-0-563-11 4092 Implanted:Qty : 1 on 10/08/2021 by Celso Jean-Baptiste MD Right: Knee [employer] [id number] 04/02/20236190-- 0 / / [id number] Cement Bone Surg Simplex Radiopq Stry-Howm 2500-6-582-11 4092 Implanted:Qty : 1 on 10/08/2021 by Celso Jean-Baptiste MD Right: Knee [employer] [id number] 04/02/202391-- 0 / / [id number] Procedures Procedure Name Priority Date/Time Associated Diagnosis Comments ANNUAL BMP BLOOD TEST Routine 10/09/2021 HEMOGLOBIN A1C Routine 09/27/2021 from Last 3 Months or Most Recently Relevant to Health Maintenance Results * Annual BMP Blood Test (10/09/2021) Pathologist [facility] Annual BMP Blood Test abstracted Historical Provider HEALTH MAINTENANCE Final Result * (ABNORMAL) Hemoglobin A1c (09/27/2021) Pathologist [facility] Hemoglobin A1C 6.6(A) <=5.7 % Blood Venous blood specimen / Unknown Historical Provider LAB BLOOD ORDERABLES Clara l Result from Last 3 Months or Most Recently Relevant to Health Maintenance Care Teams Drum Dyeing Machine Operator Relationship Specialty Start Date End Date Aleshia Claros MD PCP - General Infectious Diseases 07/09/21
--- OUTSIDE RECORDS SUMMARY | 2025-02-22 19:42 | XMS_ITS | Patient Health Record ---
Author Organization [facility] Melchor gurwinder [place] Address [address] [place] [address] Care Team Providers Care Hair Blender Name Role Phone Frankie FLOWERS, Zia Primary Care Provider Unavailab Wen Gresham Unavailable [phone] Reason For Referral No Information Medications Medication [...] Polyneuropathy due to type 2 diabetes mellitus (359512743) Type 2 diabetes mellitus with diabetic polyneuropathy (E11.42) Active confirmed Plan Of Treatment No Information Insurance Providers Payer Name Payer Address Payer Phone Subscriber Number Group Number Insured Name Patient Relationship to Insured Coverage Start Date Coverage End Date [employer]Shield All Others [address] [place] [address] [id number] Aleks Lynn Self - patient is the insured Medical (General) History Medical History History ICD Code Back pain Back,Hip,and Knee pain Broken bones Diabetic Gall bladder problems Glaucoma Joint implants/screws High Cholesterol Surgical History Surgery Date(Month/Year) gall bladder knees 2011 shoulder surgery nose eye surgery knee replacement 2004
== END 2025-02-22 14:31 | disposition home or self-care (01) ==
LOC: HO.HID 13:46
PROVIDERS: PCP Internal Medicine; Visit Provider Internal Medicine
DX: T84.50XD Infection and inflammatory reaction due to unspecified internal joint prosthesis, subsequent encounter (principal)
CPT/HCPCS: 99213

== ENCOUNTER → 2025-02-22 13:46 | Outpatient (BNVA) | payer MEDICARE, SELFPAY | PROVIDERS: PCP Internal Medicine; Visit Provider Internal Medicine | DX: T84.50XD Infection and inflammatory reaction due to unspecified internal joint prosthesis, subsequent encounter (principal); Z79.2 Long term (current) use of antibiotics | CPT/HCPCS: 99212 ==

== ENCOUNTER 2025-04-05 10:17 | Outpatient (REF) | payer MEDICARE, SELFPAY ==
--- NOTE | ~2025-04-05 | XR_ITS ---
EXAMINATION: X-ray right knee X-ray left knee CLINICAL INFORMATION: Bilateral knee pain COMPARISON: X-ray 08/16/2024 TECHNIQUE: Right knee 3 views. Left knee 3 views. FINDINGS: Right knee: Total knee arthroplasty in expected position alignment. No acute fracture or suspicious perihardware lucency is identified. Postsurgical changes from patellar resurfacing. Superior and inferior patellar enthesophytes. Unchanged chronic calcification/ossification along the peripheral patella on the sunrise view. Small suprapatellar joint fluid is difficult to exclude. Stable small calcification/ossifications posteriorly. Left knee: Total knee arthroplasty in stable position and alignment. No acute periprosthetic fracture is seen. Lucency along the medial medial portion of the femoral prosthesis, unchanged from previous. No new periarticular lucency is identified. Superior and inferior patellar enthesopathy. Small suprapatellar joint fluid.. XR/XR Knee Joni 3V IMPRESSION: Right knee: Total knee arthroplasty. No radiographic evidence of acute fracture or findings to suggest hardware loosening. Left knee: Total knee arthroplasty. No acute findings. Lucency along the medial component of the femoral prosthesis, unchanged. Electronically signed by: Miguel A Vega MD 04/05/2025 04:29 PM LACI
--- OUTSIDE RECORDS SUMMARY | 2025-04-06 12:28 | XMS_ITS | Clinical Summary ---
Author Organization [facility] it Address [address] [place] [address] Care Team Providers Care Emission Specialist Name Role Phone Aleshia Claros MD Primary Care Provider [phone] Allergies No known active allergies Medications acetaminophen [...] infection, sequela 08/19/2021 JERRY (acute kidney injury) ([facility] V24) 06/26/19 Orthostatic hypotension 06/26/2021 Arteriosclerosis of coronary artery 06/25/2021 Arthritis of lumbar spine 06/25/2021 Dehydration 06/25/2021 Edema of upper extremity 06/25/2021 Hypertension 06/25/2021 Near syncope 06/25/2021 Lung mass 06/25/2021 Methicillin susceptible Staphylococcus aureus in fection 06/25/2021 Pyogenic arthritis of knee ([facility] V24, [facility] V28) 06/25/2021 Type 2 diabetes mellitus ([facility] V24, [facility] V 28) 06/25/2021 Infected prosthetic knee joint ([facility] V24) 06/2021 MSSA bacteremia 06/05/2021 Syncope and [...] KNEE PROSTHESIS; Surgeon: Celso Jean-Baptiste MD; Location: [facility] ([facility]); Service: Orthopedics; Laterality: Right; KNEE SURGERY Left PROCEDURE:KNEE SURGERY;COMMENT:multiple surgeries KNEE SURGERY Right PROCEDURE:KNEE SURGERY;COMMENT:multiple surgeries COLONOSCOPY PROCEDURE:COLONOSCOPY UPPER GASTROINTESTINAL ENDOSCOPY PROCEDURE:UPPER GASTROINTESTINAL ENDOSCOPY EYE SURGERY Bilateral PROCEDURE:EYE SURGERY;COMMENT:glaucoma surgery DENTAL SURGERY PROCEDURE:DENTAL SURGERY;COMMENT:all teeth removed, upper & Lower dentures KNEE ARTHROPLASTY 10/08/2021 Right PROCEDURE:REVISION TOTAL KNEE ARTHROPLASTY;COMMENT:Procedur e: REVISION TOTAL KNEE; Surgeon: Celso Jean-Baptiste MD; Location: [facility] ([facility]); Service: Orthopedics; Laterality: Right; Medical History Medical History Date Comments Diabetes mellitus ([facility] V 24, [facility] V28) DX:Diabetes mellitus ([facility]) Polymyalgia rheumatica ([facility] V24) DX:Polymyalgia rheumatica ([facility]) HTN (hypertension) DX:HTN (hyper tension) Osteoarthritis DX:Osteoarthriti s Chronic back pain DX:Chronic alban k pain Hyperlipidemia DX:Hyperlipidemi a Dizziness DX:Dizziness Diabetes mellitus, type II ( [facility] V24, [facility] V28) DX:Diabetes mellitus, type I I ([facility]) Family history of DVT DX:Family history of [...] this topic Medical Devices Implanted Type Area Brokerage Purchase And Sale Clerk Device Identifier Shelf Expiration Date Model / Serial / Lot Stimulan Rapid Cure Implanted:Qty : 1 on 08/23/2021 by Celso Jean-Baptiste MD Joints Right: Knee [id number] 11/01/2023 / / [id number] Dana Tibial Augment Implanted:Qty : 1 on 10/08/2021 by Celso Jean-Baptiste MD Joints Right: Knee [id number] 07/30/2031 / / [id number] Dana Tibial Augment Implanted:Qty : 1 on 10/08/2021 by Celso Jean-Baptiste MD Joints Right: Knee [id number] 07/30/2031 / / [id number] Non-Modular Long Tibial Baseplate (Oss) Implanted:Qty : 1 on 10/08/2021 by Celso Jean-Baptiste MD Joints Right: Knee [id number] 07/31/2030 / / [id number] Bowed Im Stem With Screw (Oss) Implanted:Qty : 1 on 10/08/2021 by Celso Jean-Baptiste MD Joints Right: Knee [id number] 11/21/2027 / / [id number] Cement Bone Surg Simplex Radiopq Stry-Howm 4689-3-940-11 409 Implanted:Qty : 1 on 10/08/2021 by Celso Jean-Baptiste MD Right: Knee [employer] [id number] 04/02/2023 6190-05-04 0 / / [id number] Cement Bone Surg Simplex Radiopq Stry-Howm 3589-9-964- 409 Implanted:Qty : 1 on 10/08/2021 by Celso Jean-Baptiste MD Right: Knee [employer] [id number] 04/02/2023 6190-05-04 0 / / [id number] Cement Bone Surg Simplex Radiopq Stry-Howm 2073-5-087-11 4092 Implanted:Qty : 1 on 10/08/2021 by Celso Jean-Baptiste MD Right: Knee [employer] [id number] 04/02/2023 6190-05-04 0 / / [id number] Tritanium Asym Cn Aug D Lm Rl Stry-Howm 4577-T-581-69 9563 Implanted:Qty : 1 on 10/08/2021 by Celso Jean-Baptiste MD Right: Knee [employer] [id number] 02/14/2025 5549-A-24 1 / / [id number] Plug Bone Med Stry-How 6335-7-462-14 3872 Implanted:Qty : 1 on 10/08/2021 by Celso Jean-Baptiste MD Right: Knee [employer] [id number] 07/14/202615 / / [id number] Plug Bone Med Stry-How 9138-5-773-14 3872 Implanted:Qty : 1 on 10/08/2021 by Celso Jean-Baptiste MD Right: Knee [employer] [id number] 07/14/2026 6214-09-01 1 / / [id number] Knee Fem Compon Oss Axle Zimm-[employer]om 970116-496696 Implanted:Qty : 1 on 10/08/2021 by Celso Jean-Baptiste MD Right: Knee K[employer]AN [employer] [id number] 08/14/2031 883776 / / [id number] Knee Tib Pin Lock Oss Poly [employer] 667897-318618 Implanted:Qty : 1 on 10/08/2021 by Celso Jean-Baptiste MD Right: Knee KIRAN [employer] [id number] 08/03/2026 979573 / / [id number] Knee Oss Reinf Yoke [employer] 219465-259787 Implanted:Qty : 1 on 10/08/2021 by Celso Jean-Baptiste MD Right: Knee [employer] [id number] 08/08/2031 308156 / / [id number] Knee Tib Bushing Comp Oss [employer] 821892-805484 Implanted:Qty : 1 on 10/08/2021 by Celso Jean-Baptiste MD Right: Knee KIRAN [employer] [id number] 07/31/2026 875829 / / [id number] Bushings Set Oss Poly Femoral [employer] 722654-439383 Implanted:Qty : 1 on 10/08/2021 by Celso Jean-Baptiste MD Right: Knee KIRAN [employer] [id number] 06/28/2026 716597 / / [id number] Biomet Oss Segmental Elliptial Femoral Implanted:Qty : 1 on 10/08/2021 by Celso Jean-Baptiste MD Right: Knee 01/10/2029 299897 / / [id number] Knee Brng Tib Oss Poly 16mm [employer] 388660-372759 Implanted:Qty : 1 on 10/08/2021 by Celso Jean-Baptiste MD Right: Knee KIRAN [employer] 08/28/2026 958790 / / [id number] Cement Bone Surg Simplex Radiopq Stry-Howm 7325-3-674-11 4092 Implanted:Qty : 1 on 10/08/2021 by Celso Jean-Baptiste MD Right: Knee [employer] [id number] 04/02/202391-05-04 0 / / [id number] Cement Bone Surg Simplex Radiopq Stry-Howm 0568-1-633-11 4092 Implanted:Qty : 1 on 10/08/2021 by Celso Jean-Baptiste MD Right: Knee [employer] [id number] 04/02/202391-- 0 / / [id number] Procedures Procedure Name Priority Date/Time Associated Diagnosis Comments ANNUAL BMP BLOOD TEST Routine 10/09/2021 HEMOGLOBIN A1C Routine 09/27/2021 from Last 3 Months or Most Recently Relevant to Health Maintenance Results * Annual BMP Blood Test (10/09/2021) Pathologist [facility] Annual BMP Blood Test abstracted Historical Provider HEALTH MAINTENANCE Final Result * (ABNORMAL) Hemoglobin A1c (09/27/2021) Pathologist [facility] Hemoglobin A1C 6.6(A) <=5.7 % Blood Venous blood specimen / Unknown Historical Provider LAB BLOOD ORDERABLES Clara l Result from Last 3 Months or Most Recently Relevant to Health Maintenance Care Teams Emission Specialist Relationship Specialty Start Date End Date Aleshia Claros MD PCP - General Infectious Diseases 07/09/21
--- OUTSIDE RECORDS SUMMARY | 2025-04-06 12:28 | XMS_ITS | Patient Health Record ---
Author Organization [facility] g[facility] [place] Address [address] [place] [address] Care Team Providers Care Heel Burnisher Name Role Phone Frankie FLOWERS, Zia Primary Care Provider Unavailab Wen Gresham Unavailable [phone] Reason For Referral No Information Medications Medication [...] Polyneuropathy due to type 2 diabetes mellitus ([id number]) Type 2 diabetes mellitus with diabetic polyneuropathy (E11.42) Active confirmed Plan Of Treatment No Information Insurance Providers Payer Name Payer Address Payer Phone Subscriber Number Group Number Insured Name Patient Relationship to Insured Coverage Start Date Coverage End Date [employer] Others [address] [place] [address] [id number] Aleks Lynn Self - patient is the insured Medical (General) History Medical History History ICD Code Back pain Back,Hip,and Knee pain Broken bones Diabetic Gall bladder problems Glaucoma Joint implants/screws High Cholesterol Surgical History Surgery Date(Month/Year) gall bladder knees 2011 shoulder surgery nose eye surgery knee replacement 2004
--- OUTSIDE RECORDS SUMMARY | 2025-04-06 12:28 | XMS_ITS | Clinical Summary ---
Author Organization [facility] Prior to 10/01/[address] [place] [address] Care Team Providers Care Charger Tester Name Role Phone Aleshia Claros MD Primary [...] this topic Medical Devices Implanted Type Area Security And Compliance Project Manager Device Identifier Shelf Expiration Date Model / Serial / Lot Stimulan Rapid Cure Implanted:Qty : 1 on 08/23/2021 by Celso Jean-Baptiste MD at [facility] [place] [facility] Total Joint Right: Knee [id number] 11/01/2023 / / [id number] [employer]wood Tibial Augment Implanted:Qty : 1 on 10/08/2021 by Celso Jean-Baptiste MD at [facility] [place] [facility] Total Joint Right: Knee [id number] 07/30/2031 / / [id number] Inwood Tibial Augment Implanted:Qty : 1 on 10/08/2021 by Celso Jean-Baptiste MD at [facility] [place] [facility] Total Joint Right: Knee [id number] 07/30/2031 / / [id number] Non-Modular Long Tibial Baseplate (Oss) Implanted:Qty : 1 on 10/08/2021 by Celso Jean-Baptiste MD at [facility] [place] [facility] Total Joint Right: Knee [id number] 07/31/2030 / / [id number] Bowed Im Stem With Screw (Oss) Implanted:Qty : 1 on 10/08/2021 by Celso Jean-Baptiste MD at [facility] [place] [facility] Total Joint Right: Knee [id number] 11/21/2027 / / [id number] Cement Bone Surg Simplex Radiopq Stry-Howm 5671-7-715-11 4092 - [id number] Implanted:Qty : 1 on 10/08/2021 by Celso Jean-Baptiste MD at [facility] [place] [facility] Right: Knee [facility] [id number] 04/02/2023 6190-05-04 0 / / [id number] Cement Bone Surg Simplex Radiopq Stry-Howm 6555-6-718- 409 - [id number] Implanted:Qty : 1 on 10/08/2021 by Celso Jean-Baptiste MD at [facility] [place] [facility] Right: Knee [facility] [id number] 04/02/2023 6190-05-04 0 / / [id number] Cement Bone Surg Simplex Radiopq Stry-Howm 3724-4-697- 409 - [id number] Implanted:Qty : 1 on 10/08/2021 by Celso Jean-Baptiste MD at [facility] [place] [facility] Right: Knee [facility] [id number] 04/02/2023 6190-05-04 0 / / [id number] Cement Bone Surg Simplex Radiopq Stry-Howm 5337-9-411- 409 - [id number] Implanted:Qty : 1 on 10/08/2021 by Celso Jean-Baptiste MD at [facility] Right: Knee [facility] [id number] 04/02/2023 [facility]- 0 / / [id number] Cement Bone Surg Simplex Radiopq Stry-How 0970-3-478-11 4092 - [id number] Implanted:Qty : 1 on 10/08/2021 by Celso Jean-Baptiste MD at [facility] [place] and Med Right: Knee [facility] [id number] 04/02/2023 6191- 0 / / [id number] Tritanium Asym Cn Aug D Lm Rl Str[facility] 8671-E-428-69 9563 - [id number] Implanted:Qty : 1 on 10/08/2021 by Celso Jean-Baptiste MD at [facility] [place] and Med Right: Knee [facility] [id number] 02/14/2025 5549-A-24 1 / / [id number] Plug Bone [facility] 1992-3-984-14 3872 - [id number] Implanted:Qty : 1 on 10/08/2021 by Celso Jean-Baptiste MD at [facility] [place] and Med Right: Knee [facility] [id number] 07/14/2026 6215- 1 / / [id number] Plug Bone [facility] 7554-2-343-14 3872 - [id number] Implanted:Qty : 1 on 10/08/2021 by Celso Jean-Baptiste MD at [facility] [place] and Med Right: Knee [facility] [id number] 07/14/2026 6215- 1 / / [id number] Knee Fem Compon Oss Axle [employer] 772145-171137 - [id number] Implanted:Qty : 1 on 10/08/2021 by Celso Jean-Baptiste MD at [facility] [place] and Med Right: Knee [employer] [id number] 08/14/2031 694490 / / [id number] Knee Tib Pin Lock Oss Poly [employer] 472060-528991 - [id number] Implanted:Qty : 1 on 10/08/2021 by Celso Jean-Baptiste MD at [facility] [place] [facility] Right: Knee [employer] [id number] 08/03/2026 016713 / / [id number] Knee Oss Reinf Yoke [employer] 918290-680130 - [id number] Implanted:Qty : 1 on 10/08/2021 by Celso Jean-Baptiste MD at [facility] [place] [facility] Right: Knee [employer] [id number] 08/08/2031 316357 / / [id number] Knee Tib Bushing Comp Oss [employer] 039174-777834 - [id number] Implanted:Qty : 1 on 10/08/2021 by Celso Jean-Baptiste MD at [facility] Right: Knee [employer] [id number] 07/31/2026 691473 / / [id number] Bushings Set Oss Poly Femoral [employer] 927857-901951 - [id number] Implanted:Qty : 1 on 10/08/2021 by Celso Jean-Baptiste MD at [facility] [place] [facility] Right: Knee [employer] [id number] 06/28/2026 425270 / / [id number] Biomet Oss Segmental Elliptial Femoral Implanted:Qty : 1 on 10/08/2021 by Celso Jean-Baptiste MD at [facility] Right: Knee 01/10/2029 789347 / / [id number] Knee Brng Tib Oss Poly 16mm [employer] 870099-736344 - [id number] Implanted:Qty : 1 on 10/08/2021 by Celso Jean-Baptiste MD at [facility] [place] [facility] Right: Knee [employer] 08/28/2026 050366 / / [id number] Explanted Type Area Security And Compliance Project Manager Device Identifier Shelf Expiration Date Model / Serial / Lot Femur, Tibia, Patella, Insert Explanted:Qty: 4 on 08/23/2021 by Celso Jean-Baptiste MD at [facility] [place] [facility] Nitin Sriram Implanted:Qty: 1 on 08/23/2021 by Celso Jean-Baptiste MD at [facility] [place] and Med Explanted:Qty: 1 on 10/08/2021 by Celso Jean-Baptiste MD at [facility] [place] and Med Right: Knee Description:NITIN SRIRAM CUT IN HALF EMBEDDED IN BONE CEMENT Cement Bone Surg Simplex Radiopq Stry-Howm 3525-0-310-114 092 - [id number] Implanted:Qty: 1 on 08/23/2021 by Celso Jean-Baptiste MD at [facility] [place] and Med Explanted:Qty: 1 on 10/08/2021 by Celso Jean-Baptiste MD at [facility] [place] and Med Right: Knee [facility] [id number] 12/02/2023 6191-1-010 / / [id number] Cement Bone Surg Simplex Radiopq Stry-Howm 1813-8-408-114 092 - [id number] Implanted:Qty: 1 on 08/23/2021 by Celso Jean-Baptiste MD at [facility] [place] and Med Explanted:Qty: 1 on 10/08/2021 by Celso Jean-Baptiste MD at [facility] [place] and Med Right: Knee [facility] [id number] 12/02/2023 6191-1-010 / / [id number] Cement Bone Surg Simplex Radiopq Stry-Howm 4623-7-953-114 092 - [id number] Implanted:Qty: 1 on 08/23/2021 by Celso Jean-Baptiste MD at [facility] [place] and Med Explanted:Qty: 1 on 10/08/2021 by Celso Jean-Baptiste MD at [facility] [place] and Med Right: Knee [facility] [id number] 12/02/2023 6191-1-010 / / [id number] Cement Bone Surg Simplex Radiopq Stry-Howm 6850-1-222-114 092 - [id number] Implanted:Qty: 1 on 08/23/2021 by Celso Jean-Baptiste MD at [facility] [place] and Med Explanted:Qty: 1 on 10/08/2021 by Celso Jean-Baptiste MD at [facility] [place] and Med Right: Knee [facility] [id number] 12/02/2023 6191-1-010 / / [id number] Cement Bone Surg Simplex Radiopq Stry-Howsyed 6439-9-677-114 092 - [id number] Implanted:Qty: 1 on 08/23/2021 by Celso Jean-Baptiste MD at [facility] [place] and Med Explanted:Qty: 1 on 10/08/2021 by Celso Jean-Baptiste MD at [facility] [place] and Med Right: Knee [facility] [id number] 12/02/2023 6191-1-010 / / [id number] Additional Health Concerns Infection Onset Date Last Indicated MRSA Comment:08/21/21: Synovial Fluid Cx - R Knee 08/19/2021 08/21/2021 Advance Directives For more information, please contact: [phone] Latest Code Status on File Code Status [...] way: discussion with patient . Care Teams Charger Tester Relationship Specialty Start Date End Date Aleshia Claros MD PCP - General Infectious Diseases 07/09/21
== END 2025-04-05 10:18 | disposition home or self-care (01) ==
LOC: HO.HOSX 10:17
PROVIDERS: Visit Provider Orthopaedic Surgery
DX: M25.561 Pain in right knee (principal); M25.562 Pain in left knee; Z79.82 Long term (current) use of aspirin; Z96.653 Presence of artificial knee joint, bilateral
CPT/HCPCS: 73562; 99212

== ENCOUNTER 2025-04-05 11:23 | Outpatient (AMB) | payer MEDICARE, SELFPAY ==
--- NOTE | 2025-04-05 11:28 | MHC.OFFVIS ---
Vital Signs 04/05/25 11:31 Height 6 ft Weight 289 lb BMI 39.2 Intake Visit Reasons: Rt TKA, 2021-periprosthetic infection, Left total knee replacement Intake Note: Aleks is a 64 year old male who presents with complaints of mild intermittent discomfort in both of his knees after undergoing bilateral total knee replacement surgeries. The patient states that at times his right knee feels ?weak?. He states that his right knee will give out at times. He denies any fevers or chills. He continues to take doxycycline to help prevent recurrent infection as per his Infectious Disease physician's recommendation. Allergies No Known Allergies Allergy (Verified 04/05/25 11:30) Medication List - Last Reconciled 04/05/25 by Mic Hopper MD acetaminophen (Tylenol) 650 mg PO Q6H PRN aspirin 81 mg PO BID atorvastatin 80 mg PO BEDTIME blood sugar diagnostic (FreeStyle Lite Strips) As directed blood-glucose meter (FreeStyle Lite Meter kit) As directed cholecalciferol (vitamin D3) 25 mcg PO DAILY 90 days doxycycline hyclate 100 mg PO BID 90 days doxycycline monohydrate 100 mg PO BID duloxetine 20 mg PO BID 90 days lancets (FreeStyle Lancets) As directed lidocaine 5% (Lidoderm) 1 patch topical DAILY lisinopril 2.5 mg PO DAILY meloxicam 15 mg PO DAILY PRN metformin 1,000 mg PO BID 90 days metoprolol tartrate 25 mg PO BID 90 days [facility] Medical History Tobacco use disorder Class 2 severe obesity with body mass index (BMI) of 35 to 39.9 with serious comorbidity Right knee pain Infected prosthetic knee joint Hyperlipidemia Prosthetic joint infection Benign prostate hyperplasia Encounter to establish care Surgical History History of cataract surgery History of colonoscopy History of surgery on lower extremity History of total bilateral knee replacement History of cholecystectomy History of hemorrhoidectomy History of shoulder surgery History of eye surgery History of bilateral knee replacement History of back surgery Social History Housing: House Alcohol intake: never Patient Tobacco Use Status: Current everyday Tobacco user Tobacco use type: Cigarette Cigarette Packs Per Day: 0.5 Cigarettes Per Day: 10 Years Smoked: 40 e-Cigarette/Vaping Use: Never Used Second Hand Smoke Exposure: Yes service: No Current occupational status: retired Cognitive needs: Yes (Cane) Hearing needs: No Vision needs: Yes (glasses) Physical Exam Vital Signs: BMI result Body Mass Index 39.2 Extrem Other: Bilateral knee examination shows that the surgical incisions are well healed, no erythema, full active extension and flexion to 120 degrees, his patellae track well Results Reviewed Results Reviewed: X-rays of the patient's bilateral knees taken today show total knee arthroplasties in good position with no signs of loosening, no acute bony abnormalities Assessment & Plan Assessment & Plan (1) Right knee pain: Code(s): M25.561 - Pain in right knee Category: Medical (2) Left knee pain: Code(s): M25.562 - Pain in left knee Category: Medical Plan Mr. Lynn continues to do well after undergoing bilateral total knee replacement surgeries. The patient does have weakness in his right leg most likely due to muscle atrophy and scar tissue formation. Thus, I did have the patient fitted with a supportive knee brace. I do find that the knee braces a medical necessity to help prevent future falls. The patient will continue taking doxycycline indefinitely as per the Infectious Disease specialist's recommendation. He will contact me prior to his follow-up appointment in 6 months should any questions or concerns arise. Feel free to call me at any time should questions regarding his orthopedic management arise. I spent 22 minutes in reviewing the patient's records and imaging studies, seeing the patient and documenting in the medical record. Orders: Orders XR Knee Joni 3V Today M25.561 - Pain in right knee, M25.562 - Pain in left knee Coding Level of Care Code Est Pt Level 3 (32305) Complex visit Add On G2211 Diagnoses Right knee pain M25.561 Left knee pain M25.562
[2025-04-05 11:31] VITALS: BMI 39.2
--- OUTSIDE RECORDS SUMMARY | 2025-04-05 13:46 | XMS_ITS | Clinical Summary ---
Author Organization [facility] Prior to 10/01/[address] [place] [address] Care Team Providers Care Rug Hooker Name Role Phone Aleshia Claros MD Primary [...] 09/21/2020, 08/31/2020 Influenza Vaccine (#1) 2025 , 02/01/2020, 03/22/2019, Additional history exists RSV Adult > 60+ Yrs or (1 - 1-dose 75+ series) 2033 Hepatitis B Vaccines Completed 11/13/2010, 06/07/2010, 05/08/2010 RSV Ped < 20 months Aged Out No longe r eligible based on patient's age to complete this topic Medical Devices Implanted Type Area Food Service Employee Device Identifier Shelf Expiration Date Model / Serial / Lot Stimulan Rapid Cure Implanted:Qty : 1 on 08/23/2021 by Celso Jean-Baptiste MD [place] [facility] Total Joint Right: Knee [id number] 11/01/2023 / / [id number] [place] Tibial Augment Implanted:Qty : 1 on 10/08/2021 by Celso Jean-Baptiste MD at [facility] Total Joint Right: Knee [id number] 07/30/2031 / / [id number] [place] Tibial Augment Implanted:Qty : 1 on 10/08/2021 by Celso Jean-Baptiste MD at [facility] Total Joint Right: Knee [id number] 07/30/2031 / / [id number] Non-Modular Long Tibial Baseplate (Oss) Implanted:Qty : 1 on 10/08/2021 by Celso Jean-Baptiste MD at [facility] Total Joint Right: Knee [id number] 07/31/2030 / / [id number] Bowed Im Stem With Screw (Oss) Implanted:Qty : 1 on 10/08/2021 by Celso Jean-Baptiste MD at [facility] Total Joint Right: Knee [id number] 11/21/2027 / / [id number] Cement Bone Surg Simplex Radiopq Stry-Howm 0921-0-435-11 4092 - [id number] Implanted:Qty : 1 on 10/08/2021 by Celso Jean-Baptiste MD at [facility] Right: Knee [facility] [id number] 04/02/2023 6190-05-04 0 / / [id number] Cement Bone Surg Simplex Radiopq Stry-Howm 9976-8-410- 409 - [id number] Implanted:Qty : 1 on 10/08/2021 by Celso Jean-Baptiste MD at [facility] Right: Knee [facility] [id number] 04/02/2023 6190-05-04 0 / / [id number] Cement Bone Surg Simplex Radiopq Stry-Howm 6728-7-872- 409 - [id number] Implanted:Qty : 1 on 10/08/2021 by Celso Jean-Baptiste MD at [facility] Right: Knee [facility] [id number] 04/02/2023 6190-05-04 0 / / [id number] Cement Bone Surg Simplex Radiopq Stry-Howm 1580-0-447- 409 - [id number] Implanted:Qty : 1 on 10/08/2021 by Celso Jean-Baptiste MD at [facility] Right: Knee [employer] [facility] [id number] 04/02/2023 [facility]- 0 / / [id number] Cement Bone Surg Simplex Radiopq Stry-How 6540-5-955-11 4092 - [id number] Implanted:Qty : 1 on 10/08/2021 by Celso Jean-Baptiste MD at [facility] Med Right: Knee [facility] [id number] 04/02/2023 6191- 0 / / [id number] Tritanium Asym Cn Aug D Lm Rl Str-[facility] 3324-A-640-69 9563 - [id number] Implanted:Qty : 1 on 10/08/2021 by Celso Jean-Baptiste MD at [facility] Med Right: Knee [facility] [id number] 02/14/2025 5549-A-24 1 / / [id number] Plug Bone [facility] 9956-2-751-14 3872 - [id number] Implanted:Qty : 1 on 10/08/2021 by Celso Jean-Baptiste MD at [facility] and Med Right: Knee [facility] [id number] 07/14/2026 6215- 1 / / [id number] Plug Bone [facility] 3693-7-392-14 3872 - [id number] Implanted:Qty : 1 on 10/08/2021 by Celso Jean-Baptiste MD at [facility] [place] Med Right: Knee [facility] [id number] 07/14/2026 6215- 1 / / [id number] Knee Fem Compon Oss Axle [employer] 106327-178944 - [id number] Implanted:Qty : 1 on 10/08/2021 by Celso Jean-Baptiste MD at [facility] [place] Med Right: Knee [employer] [id number] 08/14/2031 250649 / / [id number] Knee Tib Pin Lock Oss Poly [employer] 655412-619752 - [id number] Implanted:Qty : 1 on 10/08/2021 by Celso Jean-Baptiste MD at [facility] Right: Knee [employer] [id number] 08/03/2026 757691 / / [id number] Knee Oss Reinf Yoke [employer] 623676-207679 - [id number] Implanted:Qty : 1 on 10/08/2021 by Celso Jean-Baptiste MD at [facility] Right: Knee [employer] [id number] 08/08/2031 581351 / / [id number] Knee Tib Bushing Comp Oss [employer] 093025-274951 - [id number] Implanted:Qty : 1 on 10/08/2021 by Celso Jean-Baptiste MD at [facility] Right: Knee [employer] [id number] 07/31/2026 813060 / / [id number] [place] Set Oss Poly Femoral [employer] 683185-266184 - [id number] Implanted:Qty : 1 on 10/08/2021 by Celso Jean-Baptiste MD at [facility] Right: Knee [employer] [id number] 06/28/2026 353299 / / [id number] Biomet Oss Segmental Elliptial Femoral Implanted:Qty : 1 on 10/08/2021 by Celso Jean-Baptiste MD at [facility] Right: Knee 01/10/2029 695209 / / [id number] Knee Brng Tib Oss Poly 16mm [employer] 590219-173452 - [id number] Implanted:Qty : 1 on 10/08/2021 by Celso Jean-Baptiste MD at [facility] Right: Knee KIRAN [employer] 08/28/2026 118242 / / [id number] Explanted Type Area Food Service Employee Device Identifier Shelf Expiration Date Model / Serial / Lot Femur, Tibia, Patella, Insert Explanted:Qty: 4 on 08/23/2021 by Celso Jean-Baptiste MD at [facility] Nitin Sriram Implanted:Qty: 1 on 08/23/2021 by Celso Jean-Baptiste MD at [facility] [place] Med Explanted:Qty: 1 on 10/08/2021 by Celso Jean-Baptiste MD at [facility] [place] Med Right: Knee Description:NITIN SRIRAM CUT IN HALF EMBEDDED IN BONE CEMENT Cement Bone Surg Simplex Radiopq Stry-Howm 5428-9-278-114 092 - [id number] Implanted:Qty: 1 on 08/23/2021 by Celso Jean-Baptiste MD at [facility] [place] Med Explanted:Qty: 1 on 10/08/2021 by Celso Jean-Baptiste MD at [facility] [place] Med Right: Knee [facility] [facility] [id number] 12/02/2023 6191-1-010 / / [id number] Cement Bone Surg Simplex Radiopq Stry-Howm 9907-1-835-114 092 - [id number] Implanted:Qty: 1 on 08/23/2021 by Celso Jean-Baptiste MD at [facility] [place] Med Explanted:Qty: 1 on 10/08/2021 by Celso Jean-Baptiste MD at [facility] Med Right: Knee [facility] [id number] 12/02/2023 6191-1-010 / / [id number] Cement Bone Surg Simplex Radiopq Stry-Howm 6292-5-635-114 092 - [id number] Implanted:Qty: 1 on 08/23/2021 by Celso Jean-Baptiste MD at [facility] [place] Med Explanted:Qty: 1 on 10/08/2021 by Celso Jean-Baptiste MD at [facility] [place] Med Right: Knee [facility] [facility] [id number] 12/02/2023 6191-1-010 / / [id number] Cement Bone Surg Simplex Radiopq Stry-Howm 0148-6-491-114 092 - [id number] Implanted:Qty: 1 on 08/23/2021 by Celso Jean-Baptiste MD at [facility] [place] Med Explanted:Qty: 1 on 10/08/2021 by Celso Jean-Baptiste MD at [facility] [place] Med Right: Knee [facility] [id number] 12/02/2023 6191-1-010 / / [id number] Cement Bone Surg Simplex Radiopq Stry-Howsyed 4658-2-137-114 092 - [id number] Implanted:Qty: 1 on 08/23/2021 by Celso Jean-Baptiste MD at [facility] [place] Med Explanted:Qty: 1 on 10/08/2021 by Celso Jean-Baptiste MD at [facility] Med Right: Knee [facility] [id number] 12/02/2023 6191-1-010 / / [id number] Additional Health Concerns Infection Onset Date Last Indicated MRSA Comment:08/21/21: Synovial Fluid Cx - R Knee 08/19/2021 08/21/2021 Advance Directives For more information, please contact: [phone] Latest Code Status on File Code Status [...] way: discussion with patient . Care Teams Rug Hooker Relationship Specialty Start Date End Date Aleshia Claros MD PCP - General Infectious Diseases 07/09/21
--- OUTSIDE RECORDS SUMMARY | 2025-04-05 13:46 | XMS_ITS | Patient Health Record ---
Author Organization [facility] Melchor gurwinder [place] Address [address] [place] [address] Care Team Providers Care Typesetter Apprentice Name Role Phone Frankie FLOWERS, Zia Primary Care Provider Unavailab Wen Gresham Unavailable [phone] Reason For Referral No Information Medications Medication [...] Polyneuropathy due to type 2 diabetes mellitus ([id number]) Type 2 diabetes mellitus with diabetic polyneuropathy (E11.42) Active confirmed Plan Of Treatment No Information Insurance Providers Payer Name Payer Address Payer Phone Subscriber Number Group Number Insured Name Patient Relationship to Insured Coverage Start Date Coverage End Date [employer] All Others [address] [place] [address] [phone] [id number] Aleks Lynn Self - patient is the insured Medical (General) History Medical History History ICD Code Back pain Back,Hip,and Knee pain Broken bones Diabetic Gall bladder problems Glaucoma Joint implants/screws High Cholesterol Surgical History Surgery Date(Month/Year) gall bladder knees 2011 shoulder surgery nose eye surgery knee replacement 2004
--- OUTSIDE RECORDS SUMMARY | 2025-04-05 13:46 | XMS_ITS | Clinical Summary ---
Author Organization [facility] it Address [address] [place] [address] Care Team Providers Care Youth Pastor Name Role Phone Aleshia Claros MD Primary Care Provider [phone] Allergies No known active allergies Medications acetaminophen [...] infection, sequela 08/19/2021 JERRY (acute kidney injury) ([facility] V24) 06/26/19 Orthostatic hypotension 06/26/2021 Arteriosclerosis of coronary artery 06/25/2021 Arthritis of lumbar spine 06/25/2021 Dehydration 06/25/2021 Edema of upper extremity 06/25/2021 Hypertension 06/25/2021 Near syncope 06/25/2021 Lung mass 06/25/2021 Methicillin susceptible Staphylococcus aureus in fection 06/25/2021 Pyogenic arthritis of knee ([facility] V24, [facility] V28) 06/25/2021 Type 2 diabetes mellitus ([facility] V24, [facility] V 28) 06/25/2021 Infected prosthetic knee joint ([facility] V24) 06/2021 MSSA bacteremia 06/05/2021 Syncope [...] KNEE PROSTHESIS; Surgeon: Celso Jean-Baptiste MD; Location: [facility] ([facility]); Service: Orthopedics; Laterality: Right; KNEE SURGERY Left PROCEDURE:KNEE SURGERY;COMMENT:multiple surgeries KNEE SURGERY Right PROCEDURE:KNEE SURGERY;COMMENT:multiple surgeries COLONOSCOPY PROCEDURE:COLONOSCOPY UPPER GASTROINTESTINAL ENDOSCOPY PROCEDURE:UPPER GASTROINTESTINAL ENDOSCOPY EYE SURGERY Bilateral PROCEDURE:EYE SURGERY;COMMENT:glaucoma surgery DENTAL SURGERY PROCEDURE:DENTAL SURGERY;COMMENT:all teeth removed, upper & Lower dentures KNEE ARTHROPLASTY 10/08/2021 Right PROCEDURE:REVISION TOTAL KNEE ARTHROPLASTY;COMMENT:Procedur e: REVISION TOTAL KNEE; Surgeon: Celso Jean-Baptiste MD; Location: [facility] ([facility]); Service: Orthopedics; Laterality: Right; Medical History Medical History Date Comments Diabetes mellitus ([facility] V 24, [facility] V28) DX:Diabetes mellitus ([facility]) Polymyalgia rheumatica ([facility] V24) DX:Polymyalgia rheumatica ([facility]) HTN (hypertension) DX:HTN (hyper tension) Osteoarthritis DX:Osteoarthriti s Chronic back pain DX:Chronic alban k pain Hyperlipidemia DX:Hyperlipidemi a Dizziness DX:Dizziness Diabetes mellitus, type II ( [facility] V24, [facility] V28) DX:Diabetes mellitus, type I I ([facility]) Family history of DVT DX:Family history [...] Smoking Tobacco: Former Cigarettes 1 Q uit: 05/04/2021 Smokeless Tobacco: Never Alcohol [...] this topic Medical Devices Implanted Type Area Skinning Machine Feeder Device Identifier Shelf Expiration Date Model / Serial / Lot Stimulan Rapid Cure Implanted:Qty : 1 on 08/23/2021 by Celso Jean-Baptiste MD Joints Right: Knee [id number] 11/01/2023 / / [id number] Ringgold Tibial Augment Implanted:Qty : 1 on 10/08/2021 by Celso Jean-Baptiste MD Joints Right: Knee [id number] 07/30/2031 / / [id number] Ringgold Tibial Augment Implanted:Qty : 1 on 10/08/2021 by Celso Jean-Baptiste MD Joints Right: Knee [id number] 07/30/2031 / / [id number] Non-Modular Long Tibial Baseplate (Oss) Implanted:Qty : 1 on 10/08/2021 by Celso Jean-Baptiste MD Joints Right: Knee [id number] 07/31/2030 / / [id number] Bowed Im Stem With Screw (Oss) Implanted:Qty : 1 on 10/08/2021 by Celso Jean-Baptiste MD Joints Right: Knee [id number] 11/21/2027 / / [id number] Cement Bone Surg Simplex Radiopq Stry-Howm 5975-7-617-11 409 Implanted:Qty : 1 on 10/08/2021 by Celso Jean-Baptiste MD Right: Knee [employer] [id number] 04/02/2023 6190-05-04 0 / / [id number] Cement Bone Surg Simplex Radiopq Stry-Howm 9453-6-661- 409 Implanted:Qty : 1 on 10/08/2021 by Celso Jean-Baptiste MD Right: Knee [employer] [id number] 04/02/2023 6190-05-04 0 / / [id number] Cement Bone Surg Simplex Radiopq Stry-Howm 4144-4-441-11 4092 Implanted:Qty : 1 on 10/08/2021 by Celso Jean-Baptiste MD Right: Knee [employer] [id number] 04/02/2023 6190-05-04 0 / / [id number] Tritanium Asym Cn Aug D Lm Rl Stry-Howm 9736-G-808-69 9563 Implanted:Qty : 1 on 10/08/2021 by Celso Jean-Baptiste MD Right: Knee [employer] [id number] 02/14/2025 5549-A-24 1 / / [id number] Plug Bone Med Stry-How 5102-2-770-14 3872 Implanted:Qty : 1 on 10/08/2021 by Celso Jean-Baptiste MD Right: Knee [employer] [id number] 07/14/202615 / / [id number] Plug Bone Med Stry-How 4880-3-801-14 3872 Implanted:Qty : 1 on 10/08/2021 by eClso Jean-Baptiste MD Right: Knee [employer] [id number] 07/14/2026 6214-09-01 1 / / [id number] Knee Fem Compon Oss Axle Zimm-Biom [id number] Implanted:Qty : 1 on 10/08/2021 by Celso Jean-Baptiste MD Right: Knee [employer] [id number] 08/14/2031 505094 / / [id number] Knee Tib Pin Lock Oss Poly [employer] 176910-142026 Implanted:Qty : 1 on 10/08/2021 by Celso Jean-Baptiste MD Right: Knee [employer] [id number] 08/03/2026 138133 / / [id number] Knee Oss Reinf Yoke [employer] 367843-244600 Implanted:Qty : 1 on 10/08/2021 by Celso Jean-Baptiste MD Right: Knee [employer] [id number] 08/08/2031 747024 / / [id number] Knee Tib Bushing Comp Oss [employer] 852361-803554 Implanted:Qty : 1 on 10/08/2021 by Celso Jean-Baptiste MD Right: Knee [employer]AN [employer] [id number] 07/31/2026 807440 / / [id number] Bushings Set Oss Poly Femoral [employer] 294256-584986 Implanted:Qty : 1 on 10/08/2021 by Celso Jean-Baptiste MD Right: Knee [employer] [id number] 06/28/2026 338510 / / [id number] Biomet Oss Segmental Elliptial Femoral Implanted:Qty : 1 on 10/08/2021 by Celso Jean-Baptiste MD Right: Knee 01/10/2029 204137 / / [id number] Knee Brng Tib Oss Poly 16mm [employer] [id number] Implanted:Qty : 1 on 10/08/2021 by Celso Jean-Baptiste MD Right: Knee [employer]AN [employer] 08/28/2026 034140 / / [id number] Cement Bone Surg Simplex Radiopq Stry-Howm 1050-5-639-11 4092 Implanted:Qty : 1 on 10/08/2021 by Celso Jean-Baptiste MD Right: Knee [employer] [id number] 04/02/202391-05-04 0 / / [id number] Cement Bone Surg Simplex Radiopq Stry-Howm 1210-1-924-11 4092 Implanted:Qty : 1 on 10/08/2021 by Celso Jean-Baptiste MD Right: Knee [employer] [id number] 04/02/202391-- 0 / / [id number] Procedures Procedure Name Priority Date/Time Associated Diagnosis Comments ANNUAL BMP BLOOD TEST Routine 10/09/2021 HEMOGLOBIN A1C Routine 09/27/2021 from Last 3 Months or Most Recently Relevant to Health Maintenance Results * Annual BMP Blood Test (10/09/2021) Pathologist [facility] Annual BMP Blood Test abstracted Historical Provider HEALTH MAINTENANCE Final Result * (ABNORMAL) Hemoglobin A1c (09/27/2021) Pathologist [facility] Hemoglobin A1C 6.6(A) <=5.7 % Blood Venous blood specimen / Unknown Historical Provider LAB BLOOD ORDERABLES Clara l Result from Last 3 Months or Most Recently Relevant to Health Maintenance Care Teams Youth Pastor Relationship Specialty Start Date End Date Aleshia Claros MD PCP - General Infectious Diseases 07/09/21
== END 2025-04-05 11:57 | disposition home or self-care (01) ==
LOC: HO.HOS 11:23
PROVIDERS: PCP Internal Medicine; Visit Provider Orthopaedic Surgery
DX: M25.561 Pain in right knee (principal); M25.562 Pain in left knee; Z96.653 Presence of artificial knee joint, bilateral
CPT/HCPCS: 99213; G2211

== ENCOUNTER → 2025-04-05 11:25 | Outpatient (BNV) | payer MEDICARE, SELFPAY | PROVIDERS: Visit Provider Radiology Diagnostic Ultrasound | DX: M25.561 Pain in right knee (principal); M25.562 Pain in left knee; Z96.653 Presence of artificial knee joint, bilateral | CPT/HCPCS: 73562 ==